=== PATIENT | female | born 1995 | race Caucasian/White ===

== ENCOUNTER 2020-06-23 10:11 | Outpatient (REF) | payer OTHER, SELFPAY ==
--- NOTE | 2020-06-23 | PFT_ITS ---
FLOWS: FEV1 of 107% of predicted at 3.63 L. FVC 109% of predicted at 4.29 L. FEV1 to FVC ratio of 0.85. No bronchodilator response. LUNG VOLUMES: Total lung capacity 98% of predicted at 5.14 L. Residual volume 90% of predicted at 1.19 L. Slow vital capacity 101% of predicted at 3.94 L. Expiratory reserve volume 115% of predicted at 1.76 L. Diffusion capacity is normal. IMPRESSION: No obstructive or restrictive ventilatory defect. No bronchodilator response. Essentially normal pulmonary function test. Duy Addison MD AP/MODL / [id number]
== END 2020-06-23 10:12 | disposition home or self-care (01) ==
LOC: HO.RESP 10:11
PROVIDERS: PCP Family Medicine; Visit Provider Family Medicine
DX: R06.02 Shortness of breath (principal)
CPT/HCPCS: 94060; 94727; 94729

== ENCOUNTER → 2020-08-18 12:47 | Outpatient (REF) | payer OTHER, SELFPAY ==
--- NOTE | 2020-08-18 13:00 | ECG_ITS ---
Hook-up date: 2020-08-18 13:03:00 Duration: 26:20:00 Test Indications: SYNCOPE AND COLLAPSE Medications: [id number] QRS complexes 1 Ventricular ectopics which represent <1 % of total QRS comp. 2 Supraventricular ectopics which represent <1 % of total QRS comp. * Paced QRS complexs which represent % of total QRS comp. VENTRICULAR ECTOPY 1 Isolated 0 Bigeminal Cycles 0 Couplets 0 Runs 0 Beats in Runs * Beats LONGEST at * BPM at :: -- * Beats FASTEST at * BPM at :: -- SUPRAVENTRICULAR ECTOPY 2 Isolated 0 Couplets 0 Runs 0 Beats in Runs * Beats LONGEST at * BPM at :: -- * Beats FASTEST at * BPM at :: -- HEART RATES 39 MIN at 04:17:39 2020-08-19 70 AVG 163 MAX at 14:57:54 2020-08-19 LONGEST RR 1.6560 secs at 02:20:25 2020-08-19 S-T LEVELS Channel 1 - 128 mm at 13:03:00 2020-08-18 - 128 mm at 13:03:00 2020-08-18 Channel 2 - 128 mm at 13:03:00 2020-08-18 - 128 mm at 13:03:00 2020-08-18 Channel 3 - 128 mm at 03:22:21 -- - 128 mm at 03:22:21 Underlying rhythm is sinus; Average rate 70/min; range 39-163/min; Sinus tachycardia is noted, but no other arrhythmias; Artifact in some strips; Symptoms in diary including chest discomfort, dizzy, sharp pain, shortness of breath, associated with sinus rhythm. Referred By: Yazmin Crowder Overread By: AVELINA DESAI
== END ==
LOC: HO.CARD 12:47
PROVIDERS: Visit Provider Family Medicine
DX: R55 Syncope and collapse (principal)
CPT/HCPCS: 93225; 93226

== ENCOUNTER 2020-10-26 12:14 | Outpatient (REF) | payer OTHER, SELFPAY | END 2020-10-26 12:15 | disposition home or self-care (01) | LOC: HO.HOSX 12:14 | PROVIDERS: Visit Provider Orthopaedic Surgery | DX: M70.61 Trochanteric bursitis, right hip (principal) | CPT/HCPCS: 20610; 99202; J1100 ==

== ENCOUNTER 2020-12-11 21:24 | Emergency (ER) | payer OTHER, SELFPAY ==
--- NOTE | 2020-12-11 | ECG_ITS ---
Test Reason : CHEST PAIN Blood Pressure : / mmHG Vent. Rate : 061 BPM Atrial Rate : 061 BPM P-R Int : 150 ms QRS Dur : 084 ms QT Int : 448 ms P-R-T Axes : 053 032 030 degrees QTc Int : 450 ms Normal sinus rhythm with sinus arrhythmia Normal ECG When compared with ECG of 25-SEP-2018 21:55, No significant change was found Referred By: Generic ED Physician Electronically Signed By:CASA MAYER
--- NOTE | ~2020-12-11 | XR_ITS ---
EXAMINATION: XR CHEST CLINICAL INFORMATION: Chest pain COMPARISON: 10/24/2019 TECHNIQUE: Frontal view of the chest was obtained. FINDINGS: The lungs are clear with no focal consolidation. No evidence of pneumothorax, pulmonary edema, or pleural effusions. The cardiomediastinal silhouette is unremarkable. No acute osseous findings. XR/XR chest 1V IMPRESSION: No acute cardiopulmonary findings.
[2020-12-11 22:10] LABS: MANUAL DIFF FLAG NO
[2020-12-11 22:15] LABS: Basophils Percent Auto 0.3 % (0-2); Eosinophils Absolute Auto 0.2 X10*3/uL (0.0-0.4); Eosinophils Percent Auto 1.6 % (0-4); Hematocrit 37.9 % (37-47); Imm Gran Abs Auto 0.02 X10*3/uL (0.00-0.03); Imm Gran Pct Auto 0.2 % (0.0-0.4); Lymphocytes Absolute Auto 2.6 X10*3/uL (1.2-4.9); Mean Corpuscular HGB Conc 34.3 g/dl (31.0-35.0); Mean Corpuscular Hemoglobin 29.4 pg (27.0-33.0); Mean Corpuscular Volume 85.7 fL (80-98); Mean Platelet Volume 12.2 fL (9.4-12.3); Monocytes Absolute Auto 0.8 X10*3/uL (0.1-1.2); Monocytes Percent Auto 8.3 % (2-11); Neutrophils Percent Auto 62.6 % (45-73); Platelet Count 337 X10*3/uL (160-400); Red Blood Count 4.42 X10*6/uL (4.20-5.50); Red Cell Distribution Width 12.7 % (11.0-16.0); White Blood Count 9.6 X10*3/uL (4.8-10.8)
[2020-12-11 22:35] LABS: COVID-19 Test Negative (Negative)
[2020-12-11 22:36] LABS: Troponin-I High Sensitivity < 3.5 ng/L (<3.5-17.0)
--- NOTE | 2020-12-11 23:08 | ED_ITS ---
HPI - Chest Pain General Chief Complaint: Chest Pain Stated Complaint: Covid+/Chest pain Time Seen by Provider: 12/11/20 22:53 Source: patient Mode of arrival: ambulatory Limitations: no limitations History of Present Illness HPI narrative: 25-year-old female came in for evaluation of chest pain. This is a 25-year-old female who was tested positive for COVID yesterday (test was done at a different facility), about 5 hours ago patient started to have left-sided chest pain that is radiating to the left side of the neck, pain lasted for about 10 minutes, patient had a phone argument with her mom before the pain started, pain lasted for about 10 minutes and spontaneously resolved, patient has no pain right now, no aggravating factor, no relieving factor, patient had history of chest pain in the past but not similar to today's chest pain. Related Data Home Medications Medication Instructions Recorded Confirmed Unobtainable 10/26/20 10/26/20 Allergies Allergy/AdvReac Type Severity Reaction Status Date / Time oak [OAK] Allergy Unknown HIVES Verified 10/26/20 14:16 poison gia extract Allergy Unknown HIVES Verified 10/26/20 14:16 [POISON GIA] wasps Allergy Mild rash Uncoded 10/26/20 14:16 SUMAC Allergy Unknown HIVES Uncoded 12/12/19 16:50 Review of Systems Review of Systems: All other systems are reviewed and are negative Constitutional: Reports as per HPI and Reports no additional constitutional com plaints Eyes: Reports as per HPI and Reports no additional eye complaints Reports system reviewed and no additional complaints, except as documented Cardiovascular: Reports as per HPI and Reports no additional cardiovascular complaints Respiratory: Reports as per HPI and Reports no additional respiratory complaints Gastrointestinal: Reports as per HPI and Reports no additional gastrointestinal complaints Genitourinary: Reports no additional female genitourinary complaints Musculoskeletal: Reports no additional musculoskeletal complaints Skin/Breast: Reports system reviewed and no additional complaints, except as docu Psychiatric: Reports no additional psychiatric complaints Endocrine: Reports no additional endocrine complaints Hematologic/Lymphatic: Reports no additional hematologic/lymphatic complaints Allergic/Immunologic: Reports no additional allergic/immunologic complaints Reports system reviewed and no additional complaints, except as documented and Reports Abnormal speech present [facility] Social History Social History Advance Directives: No Current occupational status: employed 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 Blood pressure normal. Heart rate normal. Respiration rate normal. Temperature normal. Oxygen saturation normal. Appearance: Alert. Oriented X3. No acute distress. Head: Normal external exam. Normocephalic. Atraumatic. No Haskins signs noted. No raccoon eyes noted Eyes: PERRLA. EOMI. Conjunctiva and sclera normal. Eyelids normal. ENT: TM's Normal. Pharynx normal. Uvula midline. Moist mucous membranes. No trismus noted. No drooling noted. No muffled voice noted. Neck: Normal inspection. Neck supple. FROM. No adenopathy. Thyroid Normal. No meningeal signs. No neck mass noted. CVS: Normal heart rate and rhythm. Heart sound normal. No murmurs noted. Pulses normal throughout. Respiratory: No respiratory distress. Painless inspiration. Breath sounds jose l. No wheezes/rales/rhonchi noted. Chest nontender. No accessory muscle usage noted or decreased air movement noted. Abdomen: Soft and nontender. Bowel sounds normal in all 4 quadrants. No distention noted. No organomegaly noted. No visible injury noted. Back: No CVA tenderness. Full range of motion noted. Skin: Skin warm and dry. Normal skin color. Normal skin turgor. No rashes/lesions/lacerations noted. Extremities: No lower extremity edema. Extremities exhibit normal range of motion. Extremities nontender. Neuro: Oriented X 3. Cranial nerve exam: II-XII are grossly intact No motor deficit. No sensory deficit. Reflexes normal. Course Course Course Narrative: Chest pain, patient with HEART score of 0, patient has negative high sensitive troponin, stable vital signs. Patient yesterday reportedly tested positive for COVID a different facility today patient has a negative COVID testing. Will reassure and discharge to follow-up with PCP. [facility] - Chest Pain Lab Data Attestation: I reviewed the patient's lab results. Result diagrams: 12/11/20 22:01 12/11/20 22:01 Labs: Lab Results 12/11/20 12/11/20 12/11/20 Range/Units 22:01 22:01 22:01 WBC 9.6 (4.8-10.8) X10*3/uL RBC 4.42 (4.20-5.50) X10*6/uL Hgb 13.0 (12.0-16.0) g/dl Hct 37.9 (37-47) % MCV 85.7 (80-98) fL MCH 29.4 (27.0-33.0) pg MCHC 34.3 (31.0-35.0) g/dl RDW 12.7 (11.0-16.0) % Plt Count 337 (160-400) X10*3/uL MPV 12.2 (9.4-12.3) fL Immature Gran % (Auto) 0.2 (0.0-0.4) % Neut % (Auto) 62.6 (45-73) % Lymph % (Auto) 27.0 (20-40) % Coal % (Auto) 8.3 (2-11) % Eos % (Auto) 1.6 (0-4) % Baso % (Auto) 0.3 (0-2) % Lymph # (Auto) 2.6 (1.2-4.9) X10*3/uL Coal # (Auto) 0.8 (0.1-1.2) X10*3/uL Eos # (Auto) 0.2 (0.0-0.4) X10*3/uL Baso # (Auto) 0.0 (0.0-0.2) X10*3/uL Abs Immat Gran (auto) 0.02 (0.00-0.03) X10*3/uL Absolute Neuts (auto) 6.0 (2.0-8.3) X10*3/uL Absolute Nucleated RBC 0.000 (0.0-0.012) X10*3/uL Nucleated RBC % (auto) 0.0 (0.0-0.2) /100WBC Sodium 139 (135-145) mmol/L Potassium 4.0 (3.3-5.1) mmol/L Chloride 104 (96-108) mmol/L Carbon Dioxide 26 (22-29) mmol/L Anion Gap 13 (12-20) BUN 13 (9-16) mg/dL Creatinine 0.79 (0.5-1.4) mg/dL Estim Creat Clear Calc TNP Estimated GFR > 60 Random Glucose 94 (60-115) mg/dL Calcium 9.6 (8.4-10.2) mg/dL Total Bilirubin 0.4 (0.0-1.0) mg/dL AST 37 H (5-31) U/L ALT 51 H (0-31) U/L Alkaline Phosphatase 87 (39-117) U/L Troponin I High Sens < 3.5 (<3.5-17.0) ng/L Total Protein 7.5 (6.5-8.0) g/dL Albumin 4.6 (3.5-5.0) g/dL COVID-19 (SAMANTHA) (Negative) COVID-19 Clin Com 12/11/20 Range/Units 22:06 WBC (4.8-10.8) X10*3/uL RBC (4.20-5.50) X10*6/uL Hgb (12.0-16.0) g/dl Hct (37-47) % MCV (80-98) fL MCH (27.0-33.0) pg MCHC (31.0-35.0) g/dl RDW (11.0-16.0) % Plt Count (160-400) X10*3/uL MPV (9.4-12.3) fL Immature Gran % (Auto) (0.0-0.4) % Neut % (Auto) (45-73) % Lymph % (Auto) (20-40) % Coal % (Auto) (2-11) % Eos % (Auto) (0-4) % Baso % (Auto) (0-2) % Lymph # (Auto) (1.2-4.9) X10*3/uL Coal # (Auto) (0.1-1.2) X10*3/uL Eos # (Auto) (0.0-0.4) X10*3/uL Baso # (Auto) (0.0-0.2) X10*3/uL Abs Immat Gran (auto) (0.00-0.03) X10*3/uL Absolute Neuts (auto) (2.0-8.3) X10*3/uL Absolute Nucleated RBC (0.0-0.012) X10*3/uL Nucleated RBC % (auto) (0.0-0.2) /100WBC Sodium (135-145) mmol/L Potassium (3.3-5.1) mmol/L Chloride (96-108) mmol/L Carbon Dioxide (22-29) mmol/L Anion Gap (12-20) BUN (9-16) mg/dL Creatinine (0.5-1.4) mg/dL Estim Creat Clear Calc Estimated GFR Random Glucose (60-115) mg/dL Calcium (8.4-10.2) mg/dL Total Bilirubin (0.0-1.0) mg/dL AST (5-31) U/L ALT (0-31) U/L Alkaline Phosphatase (39-117) U/L Troponin I High Sens (<3.5-17.0) ng/L Total Protein (6.5-8.0) g/dL Albumin (3.5-5.0) g/dL COVID-19 (SAMANTHA) Negative (Negative) COVID-19 Clin Com See Note Imaging Data Chest x-ray: Radiologist's impression: No acute cardiopulmonary findings. ECG Data ECG #1: Interpretation: Normal sinus rhythm with sinus arrhythmia at 62 beats per minutes, normal intervals, no ST-T changes. Discharge Plan Discharge Clinical Impression: Chest pain, Elevated liver function tests Patient Disposition: Home, Self-Care Instructions: Chest Pain (ED) Referrals: Yazmin Crowder MD [Primary Care Provider] - 2 days
[2020-12-11 23:58] LABS: Alanine Aminotransferase 51 U/L (0-31); Albumin Level 4.6 g/dL (3.5-5.0); Alkaline Phosphatase 87 U/L (39-117); Anion Gap 13 (12-20); Aspartate Amino Transferase 37 U/L (5-31); Bilirubin Total 0.4 mg/dL (0.0-1.0); Blood Urea Nitrogen 13 mg/dL (9-16); Calcium 9.6 mg/dL (8.4-10.2); Carbon Dioxide 26 mmol/L (22-29); Chloride 104 mmol/L (96-108); Estimated Glomerular Filt Rate > 60; Glucose Random 94 mg/dL (60-115); Sodium 139 mmol/L (135-145); Total Protein 7.5 g/dL (6.5-8.0)
== END 2020-12-12 00:23 | disposition home or self-care (01) ==
PROVIDERS: Emergency Provider Emergency Medicine; PCP Family Medicine
DX: U07.1 COVID-19 (principal); R07.9 Chest pain, unspecified; Z79.899 Other long term (current) drug therapy
CPT/HCPCS: 36415; 71045; 80053; 84484; 85025; 87635; 93005; 99283

== ENCOUNTER 2021-02-25 08:03 | Outpatient (REF) | payer OTHER, SELFPAY ==
--- NOTE | ~2021-02-25 | US_ITS ---
EXAMINATION: US ABDOMEN COMPLETE CLINICAL INFORMATION: Epigastric pain. Elevated LFTs. COMPARISON: None TECHNIQUE: Real-time imaging of the abdominal viscera. FINDINGS: PANCREAS: Normal. ABDOMINAL AORTA: The proximal, mid, and distal segments are normal in caliber. INFERIOR VENA CAVA: Visualized portions are normal. LIVER: Normal. The liver is normal in size. The liver contour is normal. Parenchymal echogenicity is normal. No focal hepatic lesion. There is no intrahepatic biliary duct dilatation seen. GALLBLADDER: Normal. The gallbladder is physiologically distended without evidence of stones, sludge, polyps, wall thickening or pericholecystic fluid. COMMON BILE DUCT: Normal in caliber measuring 0.4 cm in diameter. RIGHT KIDNEY: Normal. No hydronephrosis. No renal calculi or focal parenchymal lesions. The kidney measures 11.1 cm in maximum dimension. LEFT KIDNEY: Normal. No hydronephrosis. No renal calculi or focal parenchymal lesions. The kidney measures 12.3 cm in maximum dimension. SPLEEN: Normal. The spleen measures 11.4 cm in maximum dimension. FREE FLUID: None. US/US abdomen complete IMPRESSION: Unremarkable complete abdominal ultrasound.
== END 2021-02-25 08:04 | disposition home or self-care (01) ==
LOC: HO.US 08:03
PROVIDERS: Visit Provider Family Medicine
DX: R10.13 Epigastric pain (principal); R74.01 Elevation of levels of liver transaminase levels
CPT/HCPCS: 76700

== ENCOUNTER → 2021-05-06 08:04 | Outpatient (BNVA) | payer OTHER, SELFPAY | PROVIDERS: PCP Family Medicine; Referring Provider Family Medicine; Visit Provider Physician Assistant | DX: K58.9 Irritable bowel syndrome, unspecified (principal) | CPT/HCPCS: 99202 ==

== ENCOUNTER 2021-06-03 12:07 | Outpatient (REF) | payer SELFPAY ==
--- NOTE | ~2021-06-03 | XR_ITS ---
EXAMINATION: XR PELVIS CLINICAL INFORMATION: M25.559 - Pain in unspecified hip COMPARISON: Lumbar radiographs 11/04/2019. TECHNIQUE: AP view of the pelvis. FINDINGS: Bony pelvis is normal in density. There is no fracture or destructive process. No diastases SI joints or pubis. The hips are unremarkable. Soft tissue planes around the hips are symmetric. Bowel gas unremarkable. XR/XR pelvis 1-2V IMPRESSION: Normal pelvis.
== END 2021-06-03 12:08 | disposition home or self-care (01) ==
LOC: HO.HOSX 12:07
PROVIDERS: Visit Provider Orthopaedic Surgery
DX: M70.61 Trochanteric bursitis, right hip (principal)
CPT/HCPCS: 72170; 99212

== ENCOUNTER 2021-07-10 10:59 | Emergency (ER) | payer SELFPAY ==
--- NOTE | ~2021-07-10 | US_ITS ---
EXAMINATION: US PELVIS TRANSVAGINAL CLINICAL INFORMATION: Suprapubic pain. Question POC history COMPARISON: October 07, 2019 TECHNIQUE: Transcutaneous and transvaginal pelvic ultrasound. Transvaginal scanning was performed after voiding to better evaluate the endometrium and adnexa. FINDINGS: The uterus measures 6.5 x 3.3 x 4.7 cm. The uterus is anteverted. No suspicious abnormalities region of the cervix. Nabothian cysts are present. The uterine contour is smooth. The endometrium is thickened and measures 1.9 cm. No focal abnormalities within the myometrium. The right ovary measures approximately 2.3 x 2.1 x 2.1 cm. The calculated right ovarian volume is approximately 5.3 mL. There is normal ovarian blood flow without evidence of torsion. There is no evidence of polycystic ovaries. No abnormal mass appreciated. The left ovary measures 3.6 x 2.0 x 1.7 cm. The calculated left ovarian volume is approximately 6.4 mL. There is normal left adnexal blood flow without evidence of torsion. No abnormal adnexal masses seen. No evidence of polycystic ovary. No significant free pelvic fluid. US/US pelvic ovarian doppler IMPRESSION: Thickened endometrium to 1.9 cm in diameter without abnormal mass. No evidence of polycystic ovarian syndrome. No evidence of ovarian torsion.
--- NOTE | ~2021-07-10 | XR_ITS ---
EXAMINATION: XR CHEST CLINICAL INFORMATION: 26-year-old female with chest pain and shortness of breath COMPARISON: November 2020 TECHNIQUE: Frontal view of the chest was obtained. FINDINGS: No significant abnormality is noted involving the heart, lungs, mediastinum, bony thorax or soft tissues. XR/XR chest 1V IMPRESSION: Unremarkable examination, without interval change.
[2021-07-10 11:08] VITALS: BP 151/101; PULSE 90; RESP 16; TEMP 36.4; O2SAT 97; BMI 31.4
--- NOTE | 2021-07-10 11:21 | ECG_ITS ---
Test Reason : cp/sob Blood Pressure : / mmHG Vent. Rate : 073 BPM Atrial Rate : 073 BPM P-R Int : 154 ms QRS Dur : 080 ms QT Int : 410 ms P-R-T Axes : 068 027 034 degrees QTc Int : 451 ms Normal sinus rhythm with sinus arrhythmia Poor R wave progression Abnormal ECG When compared with ECG of 11-DEC-2020 21:57, No significant change was found Referred By: Sherlyn White Electronically Signed By:Julian Gannon
--- NOTE | 2021-07-10 11:41 | ED_ITS ---
HPI - General Adult General Chief complaint: General Medical Stated complaint: l upper hip pain Time Seen by Provider: 07/10/21 11:07 Source: patient Mode of arrival: ambulatory History of Present Illness HPI narrative: 26-year-old female with a past medical history of IBS, questionable PCOS, presenting to the ED complaining of bilateral suprapubic > left abdominal pain and nausea since yesterday. Also reports CP/SOB x today. 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 Also reports recently being treated for yeast infection. Denies fever, chills, cough, vomiting, diarrhea, vaginal bleeding/discharge Onset (ago): day(s) Related Data Home Medications Medication Instructions Recorded Confirmed cetirizine 10 mg tablet 10 mg PO DAILY 05/06/21 05/06/21 clonidine HCl 0.1 mg tablet 0.1 mg PO BID PRN 05/06/21 05/06/21 cortisone 50 mg/mL intramuscular mg IM 05/06/21 05/06/21 suspension Previous Rx's Medication Instructions Recorded docusate sodium 100 mg capsule 200 mg PO BEDTIME #60 cap 05/06/21 (Colace) methylcellulose (laxative) 500 mg 500 mg PO BID #60 tab 05/06/21 tablet (Citrucel) polyethylene glycol 3350 17 gram 17 g PO DAILY #30 ea 05/06/21 oral powder packet (Miralax) Allergies Allergy/AdvReac Type Severity Reaction Status Date / Time oak [OAK] Allergy Unknown HIVES Verified 05/06/21 08:12 poison gia extract Allergy Unknown HIVES Verified 05/06/21 08:12 [POISON GIA] wasps Allergy Mild rash Uncoded 05/06/21 08:12 SUMAC Allergy Unknown HIVES Uncoded 05/06/21 08:12 Review of Systems Review of Systems: Constitutional: No Fever, No Chills, No Fatigue, No Malaise ENT/Mouth: No Ear Pain, No Nasal Congestion, No sore throat, No Rhinorrhea, No Swallowing Difficulty Eyes: No Eye Pain, No Swelling, No Redness Cardiovascular: + Chest Pain, + SOB, No Dyspnea on Exertion, No Orthopnea, No Edema, No Palpitations Respiratory: No Cough, No Sputum, No Dyspnea Gastrointestinal: + Nausea, No Vomiting, No Diarrhea, No Constipation, + Abdominal pain Genitourinary: No irregular bleeding, No Dysuria, No Urinary Frequency, No Hemat uria, No Flank Pain, No Urinary Flow Changes Musculoskeletal: No joint pain, No Myalgias, No Joint Swelling Skin: No Skin Lesions, No rash Neuro: No Weakness, No Numbness, No Dizziness, No Headache Yes all other systems are reviewed and are negative [facility] Past Medical History Attestation statement: The following information was validated with the patient. 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 Physical Exam ED Vital Signs: Vital Signs - 24 hr 07/10/21 11:08 07/10/21 13:46 Temperature 97.5 F Pulse Rate 90 68 Respiratory Rate 16 16 Blood Pressure 151/101 H 136/85 Pulse Oximetry 97 98 BMI result Body Mass Index 31.4 Const General: cooperative, healthy appearing, no acute distress, well developed, alert, awake and Physically active Orientation/consciousness: patient oriented x3 Limitations: no limitations HENMT Head: Yes normal to inspection and Yes atraumatic Ears: hearing grossly normal bilaterally General nose exam: Normal external nose present Face and sinus: Yes normal facial exam Eyes General: appearance normal, both eyes and all related structures EOM: EOMs intact bilaterally Neck Neck: Yes normal visual inspection and Yes no meningeal signs Resp Effort & Inspection: normal respiratory effort and no respiratory distress Auscultation: clear to auscultation bilaterally, no crackles, no rales, no rhonchi and no wheezes Cardio Rate: regular rate Heart sounds: S1 normal heart sound present and S2 normal heart sound present GI Inspection: Yes normal to inspection Palpation (GI): Soft to palpation, Tenderness to palpation present (GI) (+ bilateral suprapubic tenderness to palpation > left) Negative for with no rebound tenderness, no guarding and not rigid General: Yes no CVA tenderness Back/Spine/Pelvis Back: no CVA tenderness Skin Rashes: no rashes Wounds: no wounds Neuro General: patient oriented x3, tone normal and no meningeal signs Gait exam (Neuro): Normal gait present Extrem General: Yes normal to inspection and Yes no pedal edema Course Course Course Narrative: -1328--labs unremarkable. COVID-19 and influenza negative US pelvic ovarian doppler IMPRESSION: Thickened endometrium to 1.9 cm in diameter without abnormal mass. No evidence of polycystic ovarian syndrome. No evidence of ovarian torsion. -1348--UA negative XR chest 1V IMPRESSION: Unremarkable examination, without interval change. > results discussed with patient including worrisome signs and symptoms and strict return precautions Medical Decision Making MDM Narrative Medical decision making narrative: 26-year-old female with a past medical history of IBS, questionable PCOS, presenting to the ED complaining of bilateral suprapubic > left abdominal pain and nausea since yesterday. Also reports CP/SOB x today. On exam hypertensive likely from anxiety, abdomen soft with mild suprapubic tenderness, no rebound or guarding, no CVA tenderness, lungs CTA. Concern for ovarian cyst vs ?torsion vs uti vs viral syndrome. Lower concern for NATA/PE or PNA Plan: EKG, labs, UA, , CXR, pelvic ultrasound Medical Records Medical records reviewed: Yes I reviewed the patient's medical records. Lab Data Lab results reviewed: Yes I reviewed the patient's lab results. Result diagrams: 07/10/21 12:08 07/10/21 12:09 Labs: Lab Results 07/10/21 07/10/21 07/10/21 Range/Units 12:08 12:08 12:08 WBC 10.3 (4.8-10.8) X10*3/uL RBC 4.64 (4.20-5.50) X10*6/uL Hgb 13.4 (12.0-16.0) g/dl Hct 40.7 (37.0-47.0) % MCV 87.7 (80.0-98.0) fL MCH 28.9 (27.0-33.0) pg MCHC 32.9 (31.0-35.0) g/dl RDW 12.9 (11.0-16.0) % Plt Count 329 (160-400) X10*3/uL MPV 12.2 (9.4-12.3) fL Immature Gran % (Auto) 0.2 (0.0-0.4) % Neut % (Auto) 70.1 (45-73) % Lymph % (Auto) 20.9 (20-40) % Sabine % (Auto) 7.2 (2-11) % Eos % (Auto) 1.2 (0-4) % Baso % (Auto) 0.4 (0-2) % Lymph # (Auto) 2.2 (1.2-4.9) X10*3/uL Sabine # (Auto) 0.7 (0.1-1.2) X10*3/uL Eos # (Auto) 0.1 (0.0-0.4) X10*3/uL Baso # (Auto) 0.0 (0.0-0.2) X10*3/uL Abs Immat Gran (auto) 0.02 (0.00-0.03) X10*3/uL Absolute Neuts (auto) 7.2 (2.0-8.3) x10*3/uL Absolute Nucleated RBC 0.000 (0.0-0.012) X10*3/uL Nucleated RBC % (auto) 0.0 (0.0-0.2) /100WBC Sodium (135-145) mmol/L Potassium (3.3-5.1) mmol/L Chloride (96-108) mmol/L Carbon Dioxide (22-29) mmol/L Anion Gap (12-20) BUN (9-16) mg/dL Creatinine (0.5-1.4) mg/dL Estim Creat Clear Calc Estimated GFR Random Glucose (60-115) mg/dL Calcium (8.4-10.2) mg/dL Magnesium (1.6-2.6) mg/dL Total Bilirubin (0.0-1.0) mg/dL Direct Bilirubin (0.0-0.5) mg/dL AST (5-31) U/L ALT (0-31) U/L Alkaline Phosphatase (39-117) U/L Troponin I High Sens (<3.5-17.0) ng/L Total Protein (6.5-8.0) g/dL Albumin (3.5-5.0) g/dL Lipase (8-78) U/L Urine Color Urine Appearance Urine pH (5.0-8.0) Ur Specific [place] (1.005-1.025) Urine Protein (NEG-TRACE) MG/DL Urine Glucose (UA) (NEG) MG/DL Urine Ketones (NEG) MG/DL Urine Blood (NEG) Urine Nitrite (NEG) Ur Leukocyte Esterase (NEG) Urine Test (NEGATIVE) COVID-19 (SAMANTHA) Negative (Negative) COVID-19 Clin Com See Note Influenza Type A (EDWIN) Negative (Negative) Influenza Type B (EDWIN) Negative (Negative) Influenza A & B Note See Note 07/10/21 07/10/21 07/10/21 Range/Units 12:09 12:09 13:22 WBC (4.8-10.8) X10*3/uL RBC (4.20-5.50) X10*6/uL Hgb (12.0-16.0) g/dl Hct (37.0-47.0) % MCV (80.0-98.0) fL MCH (27.0-33.0) pg MCHC (31.0-35.0) g/dl RDW (11.0-16.0) % Plt Count (160-400) X10*3/uL MPV (9.4-12.3) fL Immature Gran % (Auto) (0.0-0.4) % Neut % (Auto) (45-73) % Lymph % (Auto) (20-40) % Sabine % (Auto) (2-11) % Eos % (Auto) (0-4) % Baso % (Auto) (0-2) % Lymph # (Auto) (1.2-4.9) X10*3/uL Sabine # (Auto) (0.1-1.2) X10*3/uL Eos # (Auto) (0.0-0.4) X10*3/uL Baso # (Auto) (0.0-0.2) X10*3/uL Abs Immat Gran (auto) (0.00-0.03) X10*3/uL Absolute Neuts (auto) (2.0-8.3) x10*3/uL Absolute Nucleated RBC (0.0-0.012) X10*3/uL Nucleated RBC % (auto) (0.0-0.2) /100WBC Sodium 138 (135-145) mmol/L Potassium 4.0 (3.3-5.1) mmol/L Chloride 107 (96-108) mmol/L Carbon Dioxide 20 L (22-29) mmol/L Anion Gap 15 (12-20) BUN 13 (9-16) mg/dL Creatinine 0.72 (0.5-1.4) mg/dL Estim Creat Clear Calc 133.8 Estimated GFR > 60 Random Glucose 86 (60-115) mg/dL Calcium 9.8 (8.4-10.2) mg/dL Magnesium 2.4 (1.6-2.6) mg/dL Total Bilirubin 0.6 (0.0-1.0) mg/dL Direct Bilirubin 0.2 (0.0-0.5) mg/dL AST 19 D (5-31) U/L ALT 18 (0-31) U/L Alkaline Phosphatase 104 (39-117) U/L Troponin I High Sens < 3.5 (<3.5-17.0) ng/L Total Protein 7.7 (6.5-8.0) g/dL Albumin 4.6 (3.5-5.0) g/dL Lipase 7 L (8-78) U/L Urine Color YELLOW Urine Appearance HAZY Urine pH 7.0 (5.0-8.0) Ur Specific [place] 1.015 (1.005-1.025) Urine Protein NEG (NEG-TRACE) MG/DL Urine Glucose (UA) NEG (NEG) MG/DL Urine Ketones NEG (NEG) MG/DL Urine Blood NEG (NEG) Urine Nitrite NEG (NEG) Ur Leukocyte Esterase NEG (NEG) Urine Test (NEGATIVE) COVID-19 (SAMANTHA) (Negative) COVID-19 Clin Com Influenza Type A (EDWIN) (Negative) Influenza Type B (EDWIN) (Negative) Influenza A & B Note 07/10/21 Range/Units 13:22 WBC (4.8-10.8) X10*3/uL RBC (4.20-5.50) X10*6/uL Hgb (12.0-16.0) g/dl Hct (37.0-47.0) % MCV (80.0-98.0) fL MCH (27.0-33.0) pg MCHC (31.0-35.0) g/dl RDW (11.0-16.0) % Plt Count (160-400) X10*3/uL MPV (9.4-12.3) fL Immature Gran % (Auto) (0.0-0.4) % Neut % (Auto) (45-73) % Lymph % (Auto) (20-40) % Sabine % (Auto) (2-11) % Eos % (Auto) (0-4) % Baso % (Auto) (0-2) % Lymph # (Auto) (1.2-4.9) X10*3/uL Sabine # (Auto) (0.1-1.2) X10*3/uL Eos # (Auto) (0.0-0.4) X10*3/uL Baso # (Auto) (0.0-0.2) X10*3/uL Abs Immat Gran (auto) (0.00-0.03) X10*3/uL Absolute Neuts (auto) (2.0-8.3) x10*3/uL Absolute Nucleated RBC (0.0-0.012) X10*3/uL Nucleated RBC % (auto) (0.0-0.2) /100WBC Sodium (135-145) mmol/L Potassium (3.3-5.1) mmol/L Chloride (96-108) mmol/L Carbon Dioxide (22-29) mmol/L Anion Gap (12-20) BUN (9-16) mg/dL Creatinine (0.5-1.4) mg/dL Estim Creat Clear Calc Estimated GFR Random Glucose (60-115) mg/dL Calcium (8.4-10.2) mg/dL Magnesium (1.6-2.6) mg/dL Total Bilirubin (0.0-1.0) mg/dL Direct Bilirubin (0.0-0.5) mg/dL AST (5-31) U/L ALT (0-31) U/L Alkaline Phosphatase (39-117) U/L Troponin I High Sens (<3.5-17.0) ng/L Total Protein (6.5-8.0) g/dL Albumin (3.5-5.0) g/dL Lipase (8-78) U/L Urine Color Urine Appearance Urine pH (5.0-8.0) Ur Specific [place] (1.005-1.025) Urine Protein (NEG-TRACE) MG/DL Urine Glucose (UA) (NEG) MG/DL Urine Ketones (NEG) MG/DL Urine Blood (NEG) Urine Nitrite (NEG) Ur Leukocyte Esterase (NEG) Urine Test NEGATIVE (NEGATIVE) COVID-19 (SAMANTHA) (Negative) COVID-19 Clin Com Influenza Type A (EDWIN) (Negative) Influenza Type B (EDWIN) (Negative) Influenza A & B Note ECG Data Attestation: I personally reviewed and interpreted this ECG as follows: Prior ECG tracings: available for review Interpretation: EKG normal sinus rhythm with sinus arrhythmia. Rate of 74. Pr interval 158. QTC 452. No STEMI/nonischemic Discharge Plan Discharge Clinical Impression: Suprapubic pain, Chest pain Patient Disposition: Home, Self-Care Instructions: Chest Pain (DC), Abdominal Pain (ED) Additional Instructions: Your blood work was reassuring/unremarkable today in the ED. Your urine was negative You tested negative for COVID-19 and the flu Your ultrasound showed a thickened endometrium otherwise no evidence of cyst or other concerning signs. Please follow-up with your OBGYN If symptoms persist or worsen, pain becomes unbearable you constant worsening chest pain or shortness of breath please return to the ED Prescriptions: No Action clonidine HCl 0.1 mg tablet 0.1 mg PO BID PRN0RF cetirizine 10 mg tablet 10 mg PO DAILY 0RF cortisone 50 mg/mL suspension IM 0RF Citrucel 500 mg tablet 500 mg PO BID Qty: 60 5RF docusate sodium [Colace] 100 mg capsule 200 mg PO BEDTIME Qty: 60 5RF polyethylene glycol 3350 [Miralax] 17 gram powder in packet 17 g PO DAILY Qty: 30 5RF Referrals: Yazmin Crowder MD [Primary Care Provider] - 1 week Lele Ramirez MD [Physician] - 1 week
[2021-07-10 12:14] LABS: MANUAL DIFF FLAG NO
[2021-07-10 12:16] LABS: Basophils Percent Auto 0.4 % (0-2); Eosinophils Absolute Auto 0.1 X10*3/uL (0.0-0.4); Eosinophils Percent Auto 1.2 % (0-4); Hematocrit 40.7 % (37.0-47.0); Hemoglobin 13.4 g/dl (12.0-16.0); Imm Gran Abs Auto 0.02 X10*3/uL (0.00-0.03); Imm Gran Pct Auto 0.2 % (0.0-0.4); Lymphocytes Absolute Auto 2.2 X10*3/uL (1.2-4.9); Lymphocytes Percent Auto 20.9 % (20-40); Mean Corpuscular HGB Conc 32.9 g/dl (31.0-35.0); Mean Corpuscular Hemoglobin 28.9 pg (27.0-33.0); Mean Corpuscular Volume 87.7 fL (80.0-98.0); Mean Platelet Volume 12.2 fL (9.4-12.3); Monocytes Absolute Auto 0.7 X10*3/uL (0.1-1.2); Monocytes Percent Auto 7.2 % (2-11); Neutrophils Absolute Auto 7.2 x10*3/uL (2.0-8.3); Neutrophils Percent Auto 70.1 % (45-73); Platelet Count 329 X10*3/uL (160-400); Red Blood Count 4.64 X10*6/uL (4.20-5.50); Red Cell Distribution Width 12.9 % (11.0-16.0); White Blood Count 10.3 X10*3/uL (4.8-10.8)
[2021-07-10 12:33] LABS: Alanine Aminotransferase 18 U/L (0-31); Albumin Level 4.6 g/dL (3.5-5.0); Alkaline Phosphatase 104 U/L (39-117); Anion Gap 15 (12-20); Aspartate Amino Transferase 19 U/L (5-31); Bilirubin Direct 0.2 mg/dL (0.0-0.5); Bilirubin Total 0.6 mg/dL (0.0-1.0); Blood Urea Nitrogen 13 mg/dL (9-16); Calcium 9.8 mg/dL (8.4-10.2); Carbon Dioxide 20 mmol/L (22-29); Chloride 107 mmol/L (96-108); Creatinine Clr Calc Pharmacy 133.8; Estimated Glomerular Filt Rate > 60; Glucose Random 86 mg/dL (60-115); Lipase 7 U/L (8-78); Magnesium 2.4 mg/dL (1.6-2.6); Sodium 138 mmol/L (135-145); Total Protein 7.7 g/dL (6.5-8.0)
[2021-07-10 12:34] LABS: COVID-19 Test Negative (Negative); IDNOW Serial# 16C4AD1C; Influenza A Negative (Negative); Influenza B2 Negative (Negative)
[2021-07-10 12:41] LABS: Troponin-I High Sensitivity < 3.5 ng/L (<3.5-17.0)
[2021-07-10 13:31] LABS: Appearance Urine HAZY; Color Urine YELLOW; Glucose Urine UA NEG (NEG); Leukocyte Esterase Urine NEG (NEG); Nitrite Urine NEG (NEG); Specific Gravity - Urine 1.015 (1.005-1.025); Urine Blood NEG (NEG); Urine Ketones NEG (NEG); Urine Protein NEG (NEG-TRACE)
[2021-07-10 13:36] LABS: UPreg QC Valid YES; Urine Pregnancy NEGATIVE (NEGATIVE)
[2021-07-10 13:46] VITALS: BP 136/85; PULSE 68; RESP 16; O2SAT 98
== END 2021-07-10 14:20 | disposition home or self-care (01) ==
PROVIDERS: Physician Assistant; Emergency Provider Emergency Medicine; PCP Family Medicine
DX: R10.30 Lower abdominal pain, unspecified (principal); R07.9 Chest pain, unspecified; Z20.822 Contact with and (suspected) exposure to COVID-19
CPT/HCPCS: 36415; 71045; 80048; 80076; 81003; 81025; 83690; 83735; 84484; 85025; 87502; 87635; 93005; 93975; 99283; 99284

== ENCOUNTER 2021-10-08 10:58 | Emergency (ER) | payer MEDICAID, SELFPAY ==
--- NOTE | ~2021-10-08 | CT_ITS ---
EXAMINATION: CT ABDOMEN AND PELVIS WITHOUT CONTRAST CLINICAL INFORMATION: Dysuria and back pain. Question pyelonephritis. COMPARISON: None TECHNIQUE: Multidetector volumetric imaging was performed from the superior aspect of the liver through the pubic symphysis. Sagittal and coronal reformatted images were obtained on the technologist's workstation. This CT examination was performed using dose optimization techniques as appropriate, variously including the following: *Automated exposure control *Adjustment of mA and/or kV according to patient size (this includes techniques or standardized protocols for targeted exams where dose is matched to indication/reason for exam; i.e. extremities or head) *Use of iterative reconstruction technique DLP: 760 mGy-cm FINDINGS: LUNG BASES: 5 mm noncalcified subpleural left lower lobe pulmonary nodule, almost certainly benign. Lung bases otherwise clear. LIVER, GALLBLADDER, AND BILIARY TREE: The liver is normal in size, shape, and attenuation. No focal hepatic lesion or biliary ductal dilatation is present. The gallbladder is unremarkable with no evidence of radiopaque gallstones, gallbladder wall thickening, or obvious pericholecystic inflammatory changes. PANCREAS: Unremarkable. SPLEEN: Unremarkable. ADRENAL GLANDS: Unremarkable. KIDNEYS AND URETERS: The kidneys are normal in size, shape, and attenuation. No hydronephrosis, hydroureter, or calculi seen. No perinephric stranding. BLADDER: Unremarkable. GASTROINTESTINAL TRACT: No dilated bowel loops. No bowel wall thickening. Appendix is not discretely visualized. No inflammatory changes at the cecal base. No ascites or free air. ABDOMINAL WALL: No significant hernia is appreciated. LYMPH NODES: No lymphadenopathy. VASCULAR: Unremarkable. PELVIC VISCERA: Trace free pelvic fluid within the physiologic range. Gynecologic structures otherwise grossly unremarkable-limited assessment. OSSEOUS STRUCTURES: No fracture. Small 1 cm sclerotic lesion in the supra-acetabular right iliac bone with trabeculated margins compatible with a bone island. No suspicious appearing osseous lesion. CT/CT abdomen pelvis wo con IMPRESSION: 1. No radiodense urinary tract calculi. No hydronephrosis. Pyelonephritis cannot be fully excluded on the basis of a noncontrast CT scan, however, no perinephric inflammatory change/stranding is identified. 2. No acute intra-abdominal process.
[2021-10-08 12:34] VITALS: BP 138/79; PULSE 74; RESP 18; TEMP 36.7; O2SAT 100; BMI 34.1
[2021-10-08 13:25] LABS: Appearance Urine CLEAR; Color Urine YELLOW; Glucose Urine UA NEG (NEG); Leukocyte Esterase Urine NEG (NEG); Nitrite Urine NEG (NEG); Urine Blood NEG (NEG); Urine Ketones NEG (NEG); Urine Protein NEG (NEG-TRACE)
--- NOTE | 2021-10-08 13:40 | ED.FEMALEGU ---
HPI - Female Genitourinary General Chief complaint: Urogenital-Female Stated complaint: Bacteria infection Time Seen by Provider: 10/08/21 13:21 Source: patient Mode of arrival: ambulatory Limitations: no limitations History of Present Illness HPI Narrative: Patient presents emergency department for evaluation concerns for UTI. She states that 1 week ago she went to [facility], was given a prescription Bactrim and Pyridium as she was told that she had a urinary tract infection. At the time she was having difficulty urinating, pain with urination after swimming in a [place]. She states that 5 days ago she returned back to the [place] and swollen again. At this time she had not yet started the antibiotics that she was having trouble picking him up from the pharmacy due to insurance issues. Three days ago she returned back to [facility], had a repeat urinalysis obtained, has not yet received any information regarding the urine culture. She picked up the antibiotics this morning by her report, but has not yet taken them. She states that she was advised previously by [facility] to come to the emergency department if she developed nausea or back pain, this may be a sign of kidney infection. She states that since yesterday she has been experiencing bilateral lower back pain, nausea with no vomiting, denies fevers, chills, abdominal pain. She additionally is reporting white vaginal discharge, and vaginal pain. Denies concerns for sexually transmitted infections, denies possibility of . States that her last menstrual period was about 4 weeks ago. Related Data Home Medications Medication Instructions Recorded Confirmed cetirizine 10 mg tablet 10 mg PO DAILY 05/06/21 05/06/21 clonidine HCl 0.1 mg tablet 0.1 mg PO BID PRN 05/06/21 05/06/21 cortisone 50 mg/mL intramuscular mg IM 05/06/21 05/06/21 suspension Previous Rx's Medication Instructions Recorded docusate sodium 100 mg capsule 200 mg PO BEDTIME #60 caps 05/06/21 (Colace) methylcellulose (laxative) 500 mg 500 mg PO BID #60 tabs 05/06/21 tablet (Citrucel) polyethylene glycol 3350 17 gram 17 g PO DAILY #30 ea 05/06/21 oral powder packet (Miralax) fluconazole 150 mg tablet 150 mg PO Q3D 2 doses #2 tabs 10/08/21 (Diflucan) Allergies Allergy/AdvReac Type Severity Reaction Status Date / Time oak [OAK] Allergy Unknown HIVES Verified 05/06/21 08:12 poison gia extract Allergy Unknown HIVES Verified 05/06/21 08:12 [POISON GIA] wasps Allergy Mild rash Uncoded 05/06/21 08:12 SUMAC Allergy Unknown HIVES Uncoded 05/06/21 08:12 Review of Systems Review of Systems: Constitutional : No Weight loss, No Fever, No Chills ENT/Mouth :? No sore throat, No Rhinorrhea Eyes: No Swelling, No Redness Cardiovascular : No Chest Pain, No SOB, No Edema Respiratory : No Cough, No Sputum, No Wheezing Gastrointestinal : Positive Nausea, no Vomiting, no Diarrhea, melena abdominal pain, No Hematochezia, No Melena Genitourinary : Positive Dysuria, positive hesitancy, positive vaginal discharge, No Urinary Frequency, No Hematuria, No Urgency? Musculoskeletal : Positive back pain. No joint pain, No Myalgias, No Joint Swelling Skin : No Skin Lesions, No rash Neuro : No Weakness, No Numbness, No Dizziness, No Headache Psych : No Anxiety/Panic, No Depression Yes all other systems are reviewed and are negative [facility] Past Medical History Attestation statement: The following information was validated with the patient. 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 Blood pressure normal.? Heart rate normal.? Respiration rate normal. Temperature normal.? Oxygen saturation normal. Appearance: Alert.?Oriented to person, place and time. No acute distress.?Normal affect. Eyes: Pupils equal, round and reactive to light.? ENT: Pharynx normal.?? Neck: Normal inspection.? Neck supple.?? CVS: Heart sounds normal. Normal heart rate and rhythm.? Pulses normal.?? Respiratory: No respiratory distress.? Lung sounds clear to auscultation bilaterally?? Abdomen: Soft and non-tender. Normoactive bowel sounds. No pulsatile mass.? No CVA tenderness? Genitourinary:? Supervised by technology trainer YAIMA. Normal external appearance of urethra.? No lesions/lacerations or discharge or tenderness noted. No Bartholin cyst noted.? Speculum exam: normal appearance/palpation of vagina normal. Positive white vaginal discharge. No vaginal, swelling, erythema, laceratons, or active bleeding noted.?No foreign bodies noted.? No vaginal tenderness noted.? Normal appearance of cervix. Normal palpation of cervix.? Cervical os is closed.? No abnormal cervical discharge noted.? No cervical lesion/mass.?? No cervical motion tenderness noted.? Negative chandelier sign.? Normal bimanual exam. Bladder normal to palpation. Normal adnexa. Normal rectovaginal exam. Skin: Skin warm and dry.? Normal skin color.? Extremities: No lower extremity edema.? Neuro: Moves all extremities spontaneously. Sensation intact bilaterally. No motor deficits Ambulates with normal steady gait. Course Course Course Narrative: Patient is a 26-year-old female past medical history of IBS presenting for evaluation of genitourinary complaints. Urinalysis obtained from triage reveals no indication of infection at this time. Given her report of untreated urinary tract infection with associated worsening of symptoms, back pain, and nausea will obtain CBC, CMP, CT of the abdomen and pelvis to evaluate for pyelonephritis. Reevaluation(s) Reevaluation #1: CBC and BMP are unremarkable. Pelvic exam performed, presence of white discharge noted, specimen sent for GC/chlamydia, bacterial vaginosis panel. Discussed with patient plan of care for prophylactic treatment for vaginal candidiasis, advised that she would be contacted in 24-48 hours with the results of bacterial vaginosis, GC/testing results. She denied prophylactic treatment for these at this time. Encouraged to contact her original healthcare facility regarding the urine culture results. CT of the abdomen and pelvis showed no evidence of perinephric inflammation/stranding, low suspicion for pyelonephritis. Patient plans to take the previously prescribed Bactrim if she is still experiencing dysuria and urinary hesitancy. Worsening signs and symptoms to return back to emergency department for all questions were answered, she was discharged home in stable condition. Time: 16:35 MDM - Female Genitourinary Medical Records Attestation: I reviewed the patient's medical records. Lab Data Attestation: I reviewed the patient's lab results. Result diagrams: 10/08/21 14:20 10/08/21 14:20 Labs: Lab Results 10/08/21 10/08/21 10/08/21 Range/Units 13:13 13:13 14:20 WBC 9.1 (4.8-10.8) X10*3/uL RBC 4.62 (4.20-5.50) X10*6/uL Hgb 13.3 (12.0-16.0) g/dl Hct 39.6 (37.0-47.0) % MCV 85.7 (80.0-98.0) fL MCH 28.8 (27.0-33.0) pg MCHC 33.6 (31.0-35.0) g/dl RDW 12.5 (11.0-16.0) % Plt Count 306 (160-400) X10*3/uL MPV 12.6 H (9.4-12.3) fL Immature Gran % (Auto) 0.2 (0.0-0.4) % Neut % (Auto) 66.2 (45-73) % Lymph % (Auto) 22.7 (20-40) % [place] % (Auto) 7.5 (2-11) % Eos % (Auto) 3.1 (0-4) % Baso % (Auto) 0.3 (0-2) % Lymph # (Auto) 2.1 (1.2-4.9) X10*3/uL [place] # (Auto) 0.7 (0.1-1.2) X10*3/uL Eos # (Auto) 0.3 (0.0-0.4) X10*3/uL Baso # (Auto) 0.0 (0.0-0.2) X10*3/uL Abs Immat Gran (auto) 0.02 (0.00-0.03) X10*3/uL Absolute Neuts (auto) 6.0 (2.0-8.3) x10*3/uL Absolute Nucleated RBC 0.000 (0.0-0.012) X10*3/uL Nucleated RBC % (auto) 0.0 (0.0-0.2) /100WBC Sodium (135-145) mmol/L Potassium (3.3-5.1) mmol/L Chloride (96-108) mmol/L Carbon Dioxide (22-29) mmol/L Anion Gap (12-20) BUN (9-16) mg/dL Creatinine (0.5-1.4) mg/dL Estim Creat Clear Calc Estimated GFR Random Glucose (60-115) mg/dL Calcium (8.4-10.2) mg/dL Urine Color YELLOW Urine Appearance CLEAR Urine pH 6.0 (5.0-8.0) Ur Specific [place] 1.020 (1.005-1.025) Urine Protein NEG (NEG-TRACE) MG/DL Urine Glucose (UA) NEG (NEG) MG/DL Urine Ketones NEG (NEG) MG/DL Urine Blood NEG (NEG) Urine Nitrite NEG (NEG) Ur Leukocyte Esterase NEG (NEG) Urine Test NEGATIVE (NEGATIVE) 10/08/21 Range/Units 14:20 WBC (4.8-10.8) X10*3/uL RBC (4.20-5.50) X10*6/uL Hgb (12.0-16.0) g/dl Hct (37.0-47.0) % MCV (80.0-98.0) fL MCH (27.0-33.0) pg MCHC (31.0-35.0) g/dl RDW (11.0-16.0) % Plt Count (160-400) X10*3/uL MPV (9.4-12.3) fL Immature Gran % (Auto) (0.0-0.4) % Neut % (Auto) (45-73) % Lymph % (Auto) (20-40) % [place] % (Auto) (2-11) % Eos % (Auto) (0-4) % Baso % (Auto) (0-2) % Lymph # (Auto) (1.2-4.9) X10*3/uL [place] # (Auto) (0.1-1.2) X10*3/uL Eos # (Auto) (0.0-0.4) X10*3/uL Baso # (Auto) (0.0-0.2) X10*3/uL Abs Immat Gran (auto) (0.00-0.03) X10*3/uL Absolute Neuts (auto) (2.0-8.3) x10*3/uL Absolute Nucleated RBC (0.0-0.012) X10*3/uL Nucleated RBC % (auto) (0.0-0.2) /100WBC Sodium 139 (135-145) mmol/L Potassium 4.3 (3.3-5.1) mmol/L Chloride 104 (96-108) mmol/L Carbon Dioxide 27 (22-29) mmol/L Anion Gap 12 (12-20) BUN 13 (9-16) mg/dL Creatinine 0.77 (0.5-1.4) mg/dL Estim Creat Clear Calc 125.8 Estimated GFR > 60 Random Glucose 91 (60-115) mg/dL Calcium 9.1 D (8.4-10.2) mg/dL Urine Color Urine Appearance Urine pH (5.0-8.0) Ur Specific [place] (1.005-1.025) Urine Protein (NEG-TRACE) MG/DL Urine Glucose (UA) (NEG) MG/DL Urine Ketones (NEG) MG/DL Urine Blood (NEG) Urine Nitrite (NEG) Ur Leukocyte Esterase (NEG) Urine Test (NEGATIVE) Imaging Data CT scan - abdomen: Radiologist's impression: CT/CT abdomen pelvis wo con IMPRESSION: ? 1. No radiodense urinary tract calculi. No hydronephrosis. Pyelonephritis cannot be fully excluded on the basis of a noncontrast CT scan, however, no perinephric inflammatory change/stranding is identified. 2. No acute intra-abdominal process.? Discharge Plan Discharge Clinical Impression: Candidiasis of vagina Patient Disposition: Home, Self-Care Instructions: Yeast Infection (ED) Additional Instructions: Your vaginal swab results, will not result until 24-48 hours. As we discussed, we will treat at this time for a yeast infection, with Diflucan. If any of your additional tests come back positive, you will receive a phone call in regards to this. As we discussed, your urine sample did not show any evidence of an infection today a culture will be sent, you should contact your provider at [facility] regarding the urine culture results. CT scan was normal You already have a prescription for Bactrim that you have not yet started. Please feel free to return to the emergency department with any new or worsening symptoms or concerns. Prescriptions: New fluconazole [Diflucan] 150 mg tablet 150 mg PO Q3D Qty: 2 0RF No Action clonidine HCl 0.1 mg tablet 0.1 mg PO BID PRN cetirizine 10 mg tablet 10 mg PO DAILY cortisone 50 mg/mL suspension IM Citrucel 500 mg tablet 500 mg PO BID Qty: 60 5RF docusate sodium [Colace] 100 mg capsule 200 mg PO BEDTIME Qty: 60 5RF polyethylene glycol 3350 [Miralax] 17 gram powder in packet 17 g PO DAILY Qty: 30 5RF Interventions: ED Discharge Assessment Last Done: 10/08/21 16:46 Discharge Date/Time: 10/08/21 16:47
[2021-10-08 14:07] LABS: UPreg QC Valid YES; Urine Pregnancy NEGATIVE (NEGATIVE)
[2021-10-08 14:25] LABS: MANUAL DIFF FLAG NO
[2021-10-08 14:28] LABS: Basophils Percent Auto 0.3 % (0-2); Eosinophils Absolute Auto 0.3 X10*3/uL (0.0-0.4); Eosinophils Percent Auto 3.1 % (0-4); Hematocrit 39.6 % (37.0-47.0); Hemoglobin 13.3 g/dl (12.0-16.0); Imm Gran Abs Auto 0.02 X10*3/uL (0.00-0.03); Imm Gran Pct Auto 0.2 % (0.0-0.4); Lymphocytes Absolute Auto 2.1 X10*3/uL (1.2-4.9); Lymphocytes Percent Auto 22.7 % (20-40); Mean Corpuscular HGB Conc 33.6 g/dl (31.0-35.0); Mean Corpuscular Hemoglobin 28.8 pg (27.0-33.0); Mean Corpuscular Volume 85.7 fL (80.0-98.0); Mean Platelet Volume 12.6 fL (9.4-12.3); Monocytes Absolute Auto 0.7 X10*3/uL (0.1-1.2); Monocytes Percent Auto 7.5 % (2-11); Neutrophils Percent Auto 66.2 % (45-73); Platelet Count 306 X10*3/uL (160-400); Red Blood Count 4.62 X10*6/uL (4.20-5.50); Red Cell Distribution Width 12.5 % (11.0-16.0); White Blood Count 9.1 X10*3/uL (4.8-10.8)
[2021-10-08 14:40] LABS: Anion Gap 12 (12-20); Blood Urea Nitrogen 13 mg/dL (9-16); Calcium 9.1 mg/dL (8.4-10.2); Carbon Dioxide 27 mmol/L (22-29); Chloride 104 mmol/L (96-108); Creatinine Clr Calc Pharmacy 125.8; Estimated Glomerular Filt Rate > 60; Glucose Random 91 mg/dL (60-115); Potassium 4.3 mmol/L (3.3-5.1); Sodium 139 mmol/L (135-145)
[2021-10-08 15:10] VITALS: BP 123/80; PULSE 73; RESP 16; O2SAT 98
[2021-10-09 16:48] LABS: CT PCR NOT DETECTED (Not Detect.); NG PCR NOT DETECTED (Not Detect.)
== END 2021-10-08 16:47 | disposition home or self-care (01) ==
PROVIDERS: Nurse Practitioner Family; Emergency Provider Emergency Medicine; PCP Family Medicine
DX: B37.3 Candidiasis of vulva and vagina (principal); R30.0 Dysuria; M54.50 Low back pain, unspecified; R11.0 Nausea; F12.90 Cannabis use, unspecified, uncomplicated
CPT/HCPCS: 36415; 74176; 80048; 81003; 81025; 85025; 87480; 87491; 87510; 87591; 87660; 99284

== ENCOUNTER 2021-10-11 08:18 | Outpatient (REF) | payer MEDICAID, SELFPAY | END 2021-10-11 08:19 | disposition home or self-care (01) | LOC: HO.HOSX 08:18 | PROVIDERS: Visit Provider Physician Assistant | DX: Z13.89 Encounter for screening for other disorder (principal) ==

== ENCOUNTER 2021-11-03 09:24 | Outpatient (REF) | payer MEDICAID, SELFPAY ==
--- NOTE | ~2021-11-03 | MR_ITS ---
EXAMINATION: MR ABDOMEN AND PELVIS WITHOUT AND WITH CONTRAST CLINICAL INFORMATION: Mast cell activation COMPARISON: CT abdomen pelvis 10/08/2021 TECHNIQUE: PO Breeza was administered. MRI of the abdomen and pelvis before and after the IV administration of 10 mL of Gadavist was obtained using routine sequences. FINDINGS: LUNG BASES: Trace bilateral pleural effusions. KIDNEYS: Unremarkable. GALLBLADDER: Unremarkable. LIVER AND BILIARY TREE: The liver is normal in signal and morphology. No suspicious liver lesion. No intra or extrahepatic biliary duct dilatation. PANCREAS: Unremarkable SPLEEN: Unremarkable ADRENAL GLANDS: Unremarkable GASTROINTESTINAL TRACT: Stomach is well distended without wall thickening, hyperenhancement or ulceration. Large and small bowel are within unremarkable. Specifically no bowel wall thickening or hyperenhancement. No evidence of fistula or abscess. No dilation of bowel to suggest stricture. No perianal inflammatory changes appreciated within the limitations of the exam. LYMPH NODES: No lymphadenopathy. VASCULAR: Unremarkable ABDOMINAL WALL: Unremarkable. REPRODUCTIVE ORGANS: Unremarkable BLADDER: Unremarkable PELVIC FREE FLUID: No free fluid or ascites. OSSEOUS STRUCTURES: Unremarkable. MR/MR abdomen wo/w con IMPRESSION: Large and small bowel are unremarkable without findings to suggest active inflammation. Trace bilateral pleural effusions.
--- NOTE | ~2021-11-03 | MR_ITS ---
EXAMINATION: MR ABDOMEN AND PELVIS WITHOUT AND WITH CONTRAST CLINICAL INFORMATION: Mast cell activation COMPARISON: CT abdomen pelvis 10/08/2021 TECHNIQUE: PO Breeza was administered. MRI of the abdomen and pelvis before and after the IV administration of 10 mL of Gadavist was obtained using routine sequences. FINDINGS: LUNG BASES: Trace bilateral pleural effusions. KIDNEYS: Unremarkable. GALLBLADDER: Unremarkable. LIVER AND BILIARY TREE: The liver is normal in signal and morphology. No suspicious liver lesion. No intra or extrahepatic biliary duct dilatation. PANCREAS: Unremarkable SPLEEN: Unremarkable ADRENAL GLANDS: Unremarkable GASTROINTESTINAL TRACT: Stomach is well distended without wall thickening, hyperenhancement or ulceration. Large and small bowel are within unremarkable. Specifically no bowel wall thickening or hyperenhancement. No evidence of fistula or abscess. No dilation of bowel to suggest stricture. No perianal inflammatory changes appreciated within the limitations of the exam. LYMPH NODES: No lymphadenopathy. VASCULAR: Unremarkable ABDOMINAL WALL: Unremarkable. REPRODUCTIVE ORGANS: Unremarkable BLADDER: Unremarkable PELVIC FREE FLUID: No free fluid or ascites. OSSEOUS STRUCTURES: Unremarkable. MR/MR pelvis wo/w con IMPRESSION: Large and small bowel are unremarkable without findings to suggest active inflammation. Trace bilateral pleural effusions.
== END 2021-11-03 09:25 | disposition home or self-care (01) ==
LOC: HO.MRI 09:24
PROVIDERS: Visit Provider Internal Medicine Gastroenterology
DX: D89.40 Mast cell activation, unspecified (principal); K58.9 Irritable bowel syndrome, unspecified
CPT/HCPCS: 72197; 74183; A9585

== ENCOUNTER 2021-11-09 13:44 | Outpatient (REF) | payer MEDICAID, SELFPAY ==
[2021-11-09 15:56] LABS: Hematocrit 38.6 % (37.0-47.0); Hemoglobin 12.7 g/dl (12.0-16.0); Mean Corpuscular HGB Conc 32.9 g/dl (31.0-35.0); Mean Corpuscular Hemoglobin 28.7 pg (27.0-33.0); Mean Corpuscular Volume 87.1 fL (80.0-98.0); Mean Platelet Volume 13.2 fL (9.4-12.3); Platelet Count 337 X10*3/uL (160-400); Red Blood Count 4.43 X10*6/uL (4.20-5.50); Red Cell Distribution Width 13.1 % (11.0-16.0); White Blood Count 9.2 X10*3/uL (4.8-10.8)
[2021-11-09 16:34] LABS: Alanine Aminotransferase 18 U/L (0-31); Albumin Level 4.6 g/dL (3.5-5.0); Alkaline Phosphatase 106 U/L (39-117); Anion Gap 17 (12-20); Aspartate Amino Transferase 17 U/L (5-31); Bilirubin Total 0.2 mg/dL (0.0-1.0); Blood Urea Nitrogen 10 mg/dL (9-16); Calcium 9.5 mg/dL (8.4-10.2); Carbon Dioxide 26 mmol/L (22-29); Chloride 103 mmol/L (96-108); Estimated Glomerular Filt Rate > 60; Glucose Random 88 mg/dL (60-115); Potassium 4.2 mmol/L (3.3-5.1); Sodium 142 mmol/L (135-145); Total Protein 7.6 g/dL (6.5-8.0)
[2021-11-09 16:49] LABS: HCG Quantitative < 2 mIU/mL; TSH reflex Free T4 1.45 uIU/mL (0.32-4.0)
[2021-11-09 16:55] LABS: Thyroid Stimulating Hormone 1.64 uIU/mL (0.32-4.0)
[2021-11-10 04:49] LABS: HBc Num1 0.09 S/CO (0.00-0.79); Hepatitis B Core Antibody Nonreactive (Nonreactive); Hepatitis B Surface Antigen Negative (Negative); ~HepC Num1 0.06 S/CO (0.00-0.79); ~Hepatitis A Antibody IgM Nonreactive (Nonreactive); ~Hepatitis C Antibody Nonreactive (Nonreactive)
[2021-11-10 05:43] LABS: CT PCR NOT DETECTED (Not Detect.); NG PCR NOT DETECTED (Not Detect.)
[2021-11-10 06:25] LABS: HBS Num2 8.15 mIU/mL (0-7.99); HBS Num3 8.88 mIU/mL (0-7.99); ~Hepatitis B Surface Antibody GRAYZONE (Nonreactive)
[2021-11-13 16:21] LABS: Mitochondrial Antibodies NEGATIVE (NEGATIVE)
== END 2021-11-09 13:45 | disposition home or self-care (01) ==
LOC: HO.LAB 13:44
PROVIDERS: Physician Assistant; PCP Family Medicine; Visit Provider Obstetrics & Gynecology
DX: Z01.419 Encounter for gynecological examination (general) (routine) without abnormal findings (principal); N93.9 Abnormal uterine and vaginal bleeding, unspecified; R79.89 Other specified abnormal findings of blood chemistry; K58.9 Irritable bowel syndrome, unspecified; K59.09 Other constipation; R74.01 Elevation of levels of liver transaminase levels
CPT/HCPCS: 36415; 80053; 81025; 84443; 84702; 85027; 86255; 86256; 86704; 86706; 86709; 86803; 87340; 87491; 87591; 88142; 99202

== ENCOUNTER 2021-12-01 10:57 | Outpatient (RCR) | payer MEDICAID, SELFPAY ==
--- NOTE | 2021-12-03 17:57 | MHC.OT.EP ---
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 Pt may have some jt laxity contributing to her pain and could benefit with strengthening ther ex. Frequency and Duration: The patient will be seen 1x wk x 3 wks Short Term Goals: Demo indep with HEP for wrist and hand Progress from isometric to eccentric and concentric strengthening ex Demo indep with progression of HEP [facility] Goals: Same as above Treatment Plan: Therapeutic Exercise Therapeutic Activity Home Exercise Program Patient Education Electronically Signed By: Elva Neil OT CHT CLT Please Sign and return to therapist. Thank you once again for your referral.
== END 2022-01-19 09:32 | disposition home or self-care (01) ==
LOC: HO.OT 10:57
PROVIDERS: PCP Family Medicine; Visit Provider Family Medicine
DX: M25.531 Pain in right wrist (principal)
CPT/HCPCS: 97110; 97166

== ENCOUNTER 2022-02-09 10:20 | Outpatient (REF) | payer MEDICAID, SELFPAY ==
--- NOTE | ~2022-02-09 | XR_ITS ---
EXAMINATION: XR ABDOMEN KUB CLINICAL INDICATION: K59.01 - Slow transit constipation COMPARISON: MR abdomen 11/03/2021, CT abdomen 10/08/2021 TECHNIQUE: AP x2 views of the abdomen. FINDINGS: There is moderate stool in the right and left colon. There is no gaseous dilatation of bowel or abnormal collections of gas. Visualized lung bases appear clear. No visible urinary tract calculi. Bony structures are unremarkable. XR/XR KUB IMPRESSION: Unremarkable examination.
[2022-02-09 11:05] LABS: MANUAL DIFF FLAG NO
[2022-02-09 11:35] LABS: Basophils Absolute Auto 0.1 X10*3/uL (0.0-0.2); Basophils Percent Auto 0.6 % (0-2); Eosinophils Absolute Auto 0.3 X10*3/uL (0.0-0.4); Eosinophils Percent Auto 2.7 % (0-4); Hematocrit 39.9 % (37.0-47.0); Hemoglobin 13.2 g/dl (12.0-16.0); Imm Gran Abs Auto 0.03 X10*3/uL (0.00-0.03); Imm Gran Pct Auto 0.3 % (0.0-0.4); Lymphocytes Absolute Auto 2.1 X10*3/uL (1.2-4.9); Lymphocytes Percent Auto 21.2 % (20-40); Mean Corpuscular HGB Conc 33.1 g/dl (31.0-35.0); Mean Corpuscular Hemoglobin 28.8 pg (27.0-33.0); Mean Corpuscular Volume 87.1 fL (80.0-98.0); Mean Platelet Volume 12.5 fL (9.4-12.3); Monocytes Absolute Auto 0.7 X10*3/uL (0.1-1.2); Monocytes Percent Auto 6.7 % (2-11); Neutrophils Absolute Auto 6.6 x10*3/uL (2.0-8.3); Neutrophils Percent Auto 68.5 % (45-73); Platelet Count 306 X10*3/uL (160-400); Red Blood Count 4.58 X10*6/uL (4.20-5.50); Red Cell Distribution Width 12.4 % (11.0-16.0); White Blood Count 9.7 X10*3/uL (4.8-10.8)
[2022-02-09 12:19] LABS: Erythrocyte Sedimentation Rate 28 MM/HR (0-20)
[2022-02-09 12:31] LABS: Alanine Aminotransferase 17 U/L (0-31); Albumin Level 4.6 g/dL (3.5-5.0); Alkaline Phosphatase 110 U/L (39-117); Anion Gap 14 (12-20); Aspartate Amino Transferase 18 U/L (5-31); Bilirubin Total 0.6 mg/dL (0.0-1.0); Blood Urea Nitrogen 8 mg/dL (9-16); Carbon Dioxide 28 mmol/L (22-29); Chloride 103 mmol/L (96-108); Estimated Glomerular Filt Rate > 60; Ferritin 75 ng/mL (10-122); Glucose Random 79 mg/dL (60-115); HBS Num1 11.61 mIU/mL (0-7.99); HBc Num1 0.15 S/CO (0.00-0.79); Hepatitis A Antibody IgM 0.29 Index (0-0.79); Hepatitis B Core Antibody Nonreactive (Nonreactive); Hepatitis B Surface Antigen Negative (Negative); Potassium 4.5 mmol/L (3.3-5.1); Sodium 140 mmol/L (135-145); TSH reflex Free T4 0.94 uIU/mL (0.32-4.0); Total Protein 7.6 g/dL (6.5-8.0); ~HepC Num1 0.24 S/CO (0.00-0.79); ~Hepatitis A Antibody IgM Nonreactive (Nonreactive); ~Hepatitis C Antibody Nonreactive (Nonreactive)
[2022-02-09 12:52] LABS: Vitamin B12 556 pg/mL (200-900)
[2022-02-09 14:34] LABS: HBS Num2 9.17 mIU/mL (0-7.99); HBS Num3 9.79 mIU/mL (0-7.99); ~Hepatitis B Surface Antibody GRAYZONE (Nonreactive)
[2022-02-11 13:11] LABS: Transglutaminase Ab IgG <1.0 U/mL; Transglutaminase IgA <1.0 U/mL
[2022-02-11 13:32] LABS: Immunoglobulin G 1153 mg/dL (600-1640)
[2022-02-15 03:45] LABS: Angiotensin Converting Enzyme 39.3 U/L (9-67)
[2022-02-15 09:41] LABS: Vitamin A 56 mcg/dL (38-98)
[2022-02-16 06:07] LABS: Aldolase 7.4 U/L (<=8.1)
[2022-02-16 16:52] LABS: Histamine Plasma <1.5 ng/mL (< OR = 1.8)
[2022-02-18 09:47] LABS: Prostaglandin D2 Random Urine 57 ng/liter
== END 2022-02-09 10:21 | disposition home or self-care (01) ==
LOC: HO.LAB 10:20
PROVIDERS: PCP Family Medicine; Visit Provider Internal Medicine Gastroenterology
DX: K59.01 Slow transit constipation (principal); K58.1 Irritable bowel syndrome with constipation; K52.839 Microscopic colitis, unspecified; D89.40 Mast cell activation, unspecified; R19.7 Diarrhea, unspecified; K75.81 Nonalcoholic steatohepatitis (NASH); R10.33 Periumbilical pain; G89.29 Other chronic pain
CPT/HCPCS: 36415; 74018; 80053; 82085; 82164; 82607; 82728; 82746; 82784; 83088; 83520; 84150; 84443; 84590; 85025; 85652; 86364; 86704; 86706; 86709; 86803; 87340

== ENCOUNTER 2022-02-10 08:05 | Outpatient (REF) | payer MEDICAID, SELFPAY ==
[2022-02-17 15:41] LABS: Calprotectin, Fecal 55 mcg/g
== END 2022-02-10 08:06 | disposition home or self-care (01) ==
LOC: HO.LNP 08:05
PROVIDERS: Visit Provider Internal Medicine Gastroenterology
DX: K58.9 Irritable bowel syndrome, unspecified (principal); D89.40 Mast cell activation, unspecified
CPT/HCPCS: 83993

== ENCOUNTER 2022-02-14 15:27 | Outpatient (REF) | payer MEDICAID, SELFPAY ==
--- NOTE | ~2022-02-14 | XR_ITS ---
EXAMINATION: XR ABDOMEN KUB CLINICAL INDICATION: Slow transit constipation COMPARISON: Previous KUB January 2016 TECHNIQUE: AP view of the abdomen. FINDINGS: There are 11 Sitz markers seen in the rectosigmoid region. This is new from January 2022 exam. There is stool throughout the colon. There are no dilated loops of bowel to suggest obstruction. There is no evidence of air. No calcifications. Normal bony structures. XR/XR KUB IMPRESSION: 11 Sitz markers projecting over the rectosigmoid region.
--- NOTE | ~2022-02-14 | XR_ITS ---
EXAMINATION: XR ANKLE, RIGHT CLINICAL INFORMATION: Pain COMPARISON: None TECHNIQUE: AP, lateral, and mortise views of the right ankle. FINDINGS: Bone alignment is normal. No fracture or dislocation. Normal ankle mortise. Spur at the Achilles tendon insertion to the calcaneus. Soft tissues are otherwise normal. XR/XR ankle RT min 3V IMPRESSION: Calcaneal spur otherwise unremarkable exam
== END 2022-02-14 15:28 | disposition home or self-care (01) ==
LOC: HO.XRAY 15:27
PROVIDERS: PCP Family Medicine; Visit Provider Internal Medicine Gastroenterology
DX: D89.40 Mast cell activation, unspecified (principal); K58.9 Irritable bowel syndrome, unspecified; M25.571 Pain in right ankle and joints of right foot
CPT/HCPCS: 73610; 74018

== ENCOUNTER 2022-02-21 16:00 | Outpatient (RCR) | payer MEDICAID, SELFPAY | END 2022-03-25 14:28 | disposition home or self-care (01) | LOC: HO.PT 16:00 | PROVIDERS: PCP Family Medicine; Visit Provider Family Medicine | DX: M25.531 Pain in right wrist (principal) | CPT/HCPCS: 97110; 97112; 97116; 97162; 97530 ==

== ENCOUNTER 2022-02-25 10:49 | Outpatient (REF) | payer MEDICAID, SELFPAY ==
[2022-03-08 10:13] LABS: Creatinine 24Hr Urine 1593 mg/24 h (603 - 1783); N-Methylhistamine, 24Hr Urine 142 mcg/g Cr (30-200); Total Volume 1225 mL
== END 2022-02-25 10:50 | disposition home or self-care (01) ==
LOC: HO.LNP 10:49
PROVIDERS: Visit Provider Internal Medicine Gastroenterology
DX: D89.40 Mast cell activation, unspecified (principal); K58.9 Irritable bowel syndrome, unspecified
CPT/HCPCS: 81050; 82542

== ENCOUNTER 2022-05-04 11:28 | Day surgery (SDC) | payer MEDICAID, SELFPAY ==
--- NOTE | 2022-03-08 10:22 | P.CONAN_ITS ---
HPI - Anesthesia Eval Consult details Narrative: 27yo F for Upper Endoscopy and Colonoscopy PMF Active Problems Active Problems: All Active Problems (Updated 03/03/22 @ 12:06 by Ana Nava RN) Greater trochanteric bursitis of right hip (Acute) Mast cell activation (Acute) Constipation by delayed colonic transit (Acute) Abnormal uterine bleeding (AUB) (Acute) IBS (irritable bowel syndrome) (Acute) Past Medical History Medical History (Updated 03/03/22 @ 12:06 by Ana Nava RN) Anxiety and depression Aspergers' syndrome IBS (irritable bowel syndrome) Migraines PTSD (post-traumatic stress disorder) Family History Family History Maternal Grandfather Diabetes Family/Other Crohn disease Sister IBS (irritable bowel syndrome) Surgical History Surgical History Hx of wisdom tooth extraction Social History Social History [facility] Other[facility] Alcohol intake: current Patient Tobacco Use Status: Never used Tobacco Substance Use Type: Marijuana Current occupational status: employed 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 Meds Allergies Allergy/AdvReac Type Severity Reaction Status Date / Time poison gia extract Allergy Unknown HIVES Verified 03/03/22 11:39 [POISON GIA] poison oak Allergy Mild rash Uncoded 03/03/22 11:39 wasps Allergy Mild rash Uncoded 03/03/22 11:39 SUMAC Allergy Unknown HIVES Uncoded 03/03/22 11:39 Home Medications Medication Instructions Recorded Confirmed Last Taken Type buspirone 5 mg tablet 1 tab PO TID PRN as directed 03/03/22 03/03/22 Unknown History fluticasone propionate 50 1 spray intranasal DAILY 03/03/22 03/03/22 Unknown History mcg/actuation nasal spray,suspension loratadine 10 mg tablet 1 tab PO DAILY 03/03/22 03/03/22 Unknown History omeprazole 20 mg capsule,delayed 20 mg PO DAILY 03/03/22 03/03/22 Unknown History release Exam Exam Date and Time: March 08, 2022 1022 Pertinent Lab Results Pertinent Lab Results: Laboratory Tests 02/09/22 02/09/22 11:03 11:03 WBC 9.7 Hgb 13.2 Hct 39.9 Plt Count 306 Sodium 140 Potassium 4.5 Chloride 103 Carbon Dioxide 28 BUN 8 L Creatinine 0.69 Assessment and Plan Assessment Anesthesia Assessment: Chart Reviewed
[2022-05-04 06:51] VITALS: BMI 34.9
--- NOTE | 2022-05-04 11:20 | HO.ANESPROP2 ---
Documented by User: Lilly Millan MD 05/04/22 12:43 [facility] Past Medical History Medical History Anxiety and depression Aspergers' syndrome IBS (irritable bowel syndrome) Migraines PTSD (post-traumatic stress disorder) Patient : Yes Family History Family History Maternal Grandfather Diabetes Family/Other Crohn disease Sister IBS (irritable bowel syndrome) Surgical History Surgical History Hx of wisdom tooth extraction History of Problems with Anesthesia: No Social History Social History Household Members Other:: lives with Fiance Alcohol intake: current Alcohol intake frequency: does not drink Patient Tobacco Use Status: Never used Tobacco Substance Use Type: Marijuana Are you DNR?: No Advance Directives: No Advance Directives Information Provided: Yes Patient : Yes FDLMP: 3 weeks ago Current occupational status: employed 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 Allergies Allergy/AdvReac Type Severity Reaction Status Date / Time bee pollen [bee stings] Allergy Mild Rash Verified 04/28/22 13:46 poison td extract Allergy Mild HIVES Verified 04/28/22 13:47 [POISON TD] poison oak extract Allergy Mild Rash Verified 04/28/22 13:46 poison sumac extract Allergy Mild Hives Verified 04/28/22 13:46 Home Medications Medication Instructions Recorded Confirmed Last Taken Type buspirone 5 mg tablet 1 tab PO TID PRN as directed 03/03/22 03/03/22 05/02/22 History fluoxetine 10 mg capsule (Prozac) 1 cap PO QAM 05/04/22 05/04/22 05/04/22 History Exam Airway Mallampati Class: II TM Dist: >3cm Neck ROM: Full Loose/Missing/Broken Teeth: No Heart: RRR Lungs: CTA Assessment and Plan Assessment Anesthesia Assessment: Anesthesia Plan Discussed and Chart Reviewed Final Anesthetic Review History of Problems with Anesthesia: No NPO: Yes ASA Class: II Final Preanesthetic Review: Meds/Allgs Chart Reviewed, Consent Obtained/Reviewed and Anes Risks/Benef Reviewed Patient Risk: Low Procedure Risk: Intermediate Anesthetic Plan Anesthetic Plan: MAC: Disposition: Standard PACU Documented by User: Shayy Patel MD PMF Active Problems Active Problems: All Active Problems (Updated 03/03/22 @ 12:06 by Ana Nava RN) Greater trochanteric bursitis of right hip (Acute) Mast cell activation (Acute) Constipation by delayed colonic transit (Acute) Abnormal uterine bleeding (AUB) (Acute) IBS (irritable bowel syndrome) (Acute) Past Medical History Medical History Anxiety and depression Aspergers' syndrome IBS (irritable bowel syndrome) Migraines PTSD (post-traumatic stress disorder) Family History Family History Maternal Grandfather Diabetes Family/Other Crohn disease Sister IBS (irritable bowel syndrome) Surgical History Surgical History Hx of wisdom tooth extraction Social History Social History Household Members Other:: lives with Fiance Alcohol intake: current Alcohol intake frequency: does not drink Patient Tobacco Use Status: Never used Tobacco Substance Use Type: Marijuana Are you DNR?: No Advance Directives: No Advance Directives Information Provided: Yes Patient : Yes FDLMP: 3 weeks ago Current occupational status: employed 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 Allergies Allergy/AdvReac Type Severity Reaction Status Date / Time bee pollen [bee stings] Allergy Mild Rash Verified 04/28/22 13:46 poison td extract Allergy Mild HIVES Verified 04/28/22 13:47 [POISON TD] poison oak extract Allergy Mild Rash Verified 04/28/22 13:46 poison sumac extract Allergy Mild Hives Verified 04/28/22 13:46 Active Medications: Current Medications Lactated Ringer's (Lr) 1,000 mls @ 50 mls/hr IVCONT .Q20H [facility] Lactated Ringer's (Lr) 1,000 mls @ 50 mls/hr IVCONT .Q20H [facility] Home Medications Medication Instructions Recorded Confirmed Last Taken Type buspirone 5 mg tablet 1 tab PO TID PRN as directed 03/03/22 03/03/22 05/02/22 History fluoxetine 10 mg capsule (Prozac) 1 cap PO QAM 05/04/22 05/04/22 05/04/22 History Exam Exam Date and Time: May 04, 2022 1120 Height,Weight and Vital Signs: Height 5 ft 5 in Weight 95.254 kg
[2022-05-04 11:34] VITALS: BP 134/82; PULSE 80; RESP 20; TEMP 36.6; O2SAT 98
[2022-05-04] MEDS: Lactated Ringers 1,000 ML 50 ML IVCONT (11:57)
[2022-05-04 11:58] LABS: UPreg QC Valid YES; Urine Pregnancy NEGATIVE (NEGATIVE)
--- NOTE | 2022-05-04 12:38 | MHC.SHP ---
Pre-Procedural Eval Section A Date of Service: 05/04/22 Section B Chief Complaint: Disorder involving the immune mechanism,IBS Relevant Family History (Specify if Yes): No Relevant Social History: None Present Medications: see Short Stay Collaborative assessment Medical History: Significant History (IBS (irritable bowel syndrome)) History of Previous Operations: Relevant previous surgery/procedure and date(s) (wisdom teeth) Allergies: Allergies Allergy/AdvReac Type Severity Reaction Status Date / Time bee pollen [bee stings] Allergy Mild Rash Verified 04/28/22 13:46 poison gia extract Allergy Mild HIVES Verified 04/28/22 13:47 [POISON GIA] poison oak extract Allergy Mild Rash Verified 04/28/22 13:46 poison sumac extract Allergy Mild Hives Verified 04/28/22 13:46 Review of Systems Sugical H&P ROS: Negative: Constitution, Cardiovascular, Respiratory, Neurological, Psychiatric, Hem-Onc, Allergic/Immunologic, Gastrointestinal, Genitourinary, Musculoskeletal, Integumentary, Endocrine and Eyes/Ears/Nose/Throat Exam Surgical H&P Exam: Normal: HEENT, Normal: Heart, Normal: Lungs, Normal: Extremities, Normal: Abdomen, Normal: Skin and Normal: Neurological Plan Diagnosis/Plan: Unchanged I have reviewed the history and physical and performed a pertinent physical examination on my patient. No changes have occurred unless specified. Time Spent With Patient Time: Total time managing care of this patient today ____ minutes.
--- NOTE | 2022-05-04 12:39 | P.OP_ITS ---
Operative Note Operative Note Date of Service: 05/04/22 Narrative: Operative Information Procedure Description: EGD, Colonoscopy Indication: altered bowel habits Anesthesia: MAC FLEXIBLE TRANSORAL UPPER GASTROINTESTINAL ENDOSCOPY AND COLONOSCOPY PROCEDURE NOTE UPPER ENDOSCOPY Consent: Indications for the procedure and potential complications of bleeding, perforation, reaction to medications and missed diagnosis were discussed with the patient and informed consent was obtained. Instrument: Olympus GIF H 190 J mid size upper endoscope Monitoring: Vital signs and clinical assessment, continuous EKG monitoring, Pulse oximetry, Carbon Dioxide monitoring and blood pressure monitoring were done throughout the procedure. Procedure: The patient was placed in the left lateral decubitis position and pre-procedure medications were administered and a bite block was placed. The endoscope was inserted into the mouth and advanced under direct vision to the third part of duodenum. A careful inspection was made as the upper endoscope was withdrawn including a retroflexed examination of the proximal stomach; Findings and interventions are described below. Findings: Larynx:normal Esophagus: GE junction at 35 cm, diaphragm hiatus at 37 cm, consistent with 2 cm sliding hiatal hernia, LA grade erosive esophagitis noted with schatzki ring, bx taken from GEJ, distal and proximal esophagus, the LES was v lax Stomach: Normal mucosa. Biopsies were obtained. Grade 2 flap valve on retroflexed examination of the cardia. Duodenum: Normal bulb and descending duodenum, bx taken Intervention: Biopsies as noted above COLONOSCOPY Instrument: Olympus variable stiffness pediatric scope 190L Colonoscopy Monitoring: Vital signs and clinical assessment, continuous EKG monitoring, Pulse oximetry, Carbon Dioxide monitoring and blood pressure monitoring were done throughout the procedure. Colon withdrawal time was 8 minutes. Procedure: The patient was placed in the left lateral decubitis position and pre-procedure medications were administered. After a digital rectal examination of the ano-rectum, the video colonoscope was inserted into the rectum and advanced through the colon to the cecum/TI. The colonoscope was slowly withdrawn in a retrograde panoramic fashion and the colon mucosa was carefully examined including a retroflexed view of the rectum. Findings and interventions are described below. Procedure Difficulty: easy Findings: Terminal Ileum-normal, bx taken random colon bx taken Cecum:normal Ascending Colon: normal Transverse Colon -normal Descending Colon:normal Sigmoid Colon: normal Rectum: Retroflexion with small internal hemorrhoids, grade I Anorectum - normal Colon preparation: [place] Bowel Preparation Scale Right colon; 2 Transverse colon: 3 Left colon; 3 (0 = Unprepared colon segment with mucosa not seen due to solid stool that cannot be cleared. 1 = Portion of mucosa of the colon segment seen, but other areas of the colon se gment not well seen due to staining, residual stool and/or opaque liquid. 2 = Minor amount of residual staining, small fragments of stool and/or opaque liquid, but mucosa of colon segment seen well. 3 = Entire mucosa of colon segment seen well with no residual staining, small fragments of stool or opaque liquid) Impression and Post Procedure Diagnosis: Endoscopy Findings: hiatal hernia erosive esophagitis incompetent LES Colonoscopy Findings: internal hemorrhoids Plan: Await Pathology results Repeat Colonoscopy aged 45 or earlier if clinically indicated High fiber diet leaflet avoid straining at stool, epsom salts and sitz bath, anusol supps or cream trial of PPI if patient agrees, reflux precautions Above findings were reviewed with the patient and relevant handouts were provided if indicated.
[2022-05-04 13:40] VITALS: BP 117/70; PULSE 86; RESP 16; TEMP 37.1; O2SAT 99
[2022-05-04 13:55] VITALS: BP 117/81; PULSE 73; RESP 16; TEMP 36.3; O2SAT 99
== END 2022-05-04 15:07 | disposition home or self-care (01) ==
PROVIDERS: Anesthesiology; PCP Family Medicine; Visit Provider Internal Medicine Gastroenterology
PROC: (CPT 45380; principal; 2022-05-04 12:40)
DX: K59.01 Slow transit constipation (principal); D89.40 Mast cell activation, unspecified; K58.9 Irritable bowel syndrome, unspecified; K64.0 First degree hemorrhoids; K22.4 Dyskinesia of esophagus; K22.2 Esophageal obstruction; K20.80 Other esophagitis without bleeding; K44.9 Diaphragmatic hernia without obstruction or gangrene; F84.5 Asperger's syndrome; F41.8 Other specified anxiety disorders; F43.10 Post-traumatic stress disorder, unspecified; Z79.899 Other long term (current) drug therapy
CPT/HCPCS: 45380; 43239; 81025; 88305; 88313; 88341; 88342; J2250

== ENCOUNTER → 2022-07-13 08:10 | Outpatient (BNVA) | payer MEDICAID, SELFPAY | PROVIDERS: PCP Family Medicine; Visit Provider Internal Medicine Rheumatology | DX: R76.8 Other specified abnormal immunological findings in serum (principal); M79.7 Fibromyalgia | CPT/HCPCS: 99212 ==

== ENCOUNTER 2022-10-11 13:00 | Outpatient (RCR) | payer MEDICAID, SELFPAY | END 2022-11-22 10:23 | disposition home or self-care (01) | LOC: HO.OT 13:00 | PROVIDERS: PCP Family Medicine; Visit Provider Family Medicine | DX: M25.532 Pain in left wrist (principal) | CPT/HCPCS: 97035; 97110; 97140; 97165 ==

== ENCOUNTER 2023-05-28 04:25 | Emergency (ER) | payer OTHER, SELFPAY ==
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
[2023-05-28 04:34] VITALS: BP 130/114; PULSE 98; RESP 18; TEMP 36.9; O2SAT 96; BMI 36.6
[2023-05-28 04:39] VITALS: BP 152/97; PULSE 99; RESP 14; TEMP 36.9; O2SAT 96
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
[2023-05-28] MEDS: Amoxicillin/Potassium Clav 875 MG TABLET PO (06:02)
[2023-05-28 06:18] VITALS: BP 117/73; PULSE 74; RESP 14; TEMP 36.9; O2SAT 98
== END 2023-05-28 06:20 | disposition home or self-care (01) ==
PROVIDERS: Emergency Provider Internal Medicine; PCP Family Medicine
DX: S50.872A Other superficial bite of left forearm, initial encounter (principal); S19.9XXA Unspecified injury of neck, initial encounter; M54.2 Cervicalgia; Y04.1XXA Assault by human bite, initial encounter; Y93.9 Activity, unspecified; Y92.9 Unspecified place or not applicable; Y99.8 Other external cause status; Y04.2XXA Assault by strike against or bumped into by another person, initial encounter
CPT/HCPCS: 70360; 99283; 99284

== ENCOUNTER 2023-09-17 16:28 | Emergency (ER) | payer OTHER, SELFPAY ==
[2023-09-17 16:47] VITALS: BP 139/96; PULSE 99; RESP 18; TEMP 37.1; O2SAT 99; BMI 37.4
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
[2023-09-17 17:07] VITALS: BP 139/96; PULSE 99; RESP 18; TEMP 37.1; O2SAT 99
--- OUTSIDE RECORDS SUMMARY | 2023-09-21 07:14 | XMS_ITS | Continuity of Care Document ---
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 Name Role Phone Nano Read Primary Care Physician Encounter [facility] Date(s): 02/27/21 - 02/27/[address] [address]- Discharge Disposition: A-D/C Home Attending Physician: Enrique Nixon MD Admitting Physician: Enrique Nixon MD Referring Physician: Not on Staff, Referring MD Allergies, Adverse Reactions, Alerts No Known Medication Allergies Medications naproxen 500 mg oral tablet 1 tablet = 500 mg, By Mouth, 2 times a day, PRN Headache, with food, no more than 2 times weekly, #60 tablet, 2 Refills, Maintenance, 07/09/14 12:54:37, 1 tablet By Mouth 2 times a day,PRN:Headache,Instr:with food, no more than 2 times weekly Start Date: 07/09/14 Status: Ordered Vital Signs Most recent to oldest [Reference Range]: 1 Height 165 cm (02/27/21 1:43 PM) Weight 86.5 kg (02/27/21 1:43 PM) Oxygen Saturation [94-100 %] 98 % (02/27/21 1:43 PM) Pulse Rate [55-90 bpm] 77 bpm (02/27/21 1:43 PM) Blood Pressure [90-138/55-84 mm Hg] 124/ 76mm Hg (02/27/21 1:43 PM) Respiratory Rate [16-30 br/min] 16 br/mi n (02/27/21 1:43 PM) Temperature [96.8-100.4 DegF] 98.0 DegF (02/27/21 1:43 PM) Mode of Delivery (Oxygen) Room air (02/27/21 1:43 PM) Temperature Route Oral (02/27/21 1:43 PM) Dry Weight 86.5 kg (02/27/21 1:43 PM) Weight Obtained Via Standing scale (02/27/21 1:43 PM) Dry Weight Obtained Via Standing scale (02/27/21 1:43 PM) Social History Social History Type Response Smoking Status Never smoker entered on: 08/07/14 Sex
== END 2023-09-17 17:08 | disposition home or self-care (01) ==
PROVIDERS: Emergency Provider Internal Medicine; PCP Family Medicine
DX: S51.851A Open bite of right forearm, initial encounter (principal); W50.3XXA Accidental bite by another person, initial encounter; Y93.89 Activity, other specified; Y92.199 Unspecified place in other specified residential institution as the place of occurrence of the external cause; Y99.9 Unspecified external cause status; Z62.833 Group home staff-child conflict
CPT/HCPCS: 99282; 99283

== ENCOUNTER 2023-10-30 16:02 | Outpatient (REF) | payer SELFPAY ==
[2023-10-30 18:40] LABS: CT PCR NOT DETECTED (Not Detect.); NG PCR NOT DETECTED (Not Detect.)
== END 2023-10-30 16:03 | disposition home or self-care (01) ==
LOC: HO.HHCLNP 16:02
PROVIDERS: Visit Provider Family Medicine
DX: R30.0 Dysuria (principal); Z20.2 Contact with and (suspected) exposure to infections with a predominantly sexual mode of transmission
CPT/HCPCS: 87086; 87088; 87186; 87491; 87591

== ENCOUNTER 2023-11-10 10:03 | Outpatient (REF) | payer SELFPAY ==
[2023-11-10 11:31] LABS: Estimated Average Glucose 97 mg/dL
[2023-11-10 14:14] LABS: Alanine Aminotransferase 23 U/L (0-31); Albumin Level 4.4 g/dL (3.5-5.0); Alkaline Phosphatase 112 U/L (39-117); Anion Gap 15 (12-20); Aspartate Amino Transferase 22 U/L (5-31); Bilirubin Total 0.4 mg/dL (0.0-1.0); Blood Urea Nitrogen 12 mg/dL (9-16); Calcium 10.1 mg/dL (8.4-10.2); Carbon Dioxide 21 mmol/L (22-29); Chloride 106 mmol/L (96-108); Cholesterol 185 mg/dL (<200); Estimated Glomerular Filt Rate > 60; Glucose Random 85 mg/dL (60-115); HDL Cholesterol 49 mg/dL (>40); LDL Cholesterol Calculated 114 mg/dL (<100); Potassium 4.2 mmol/L (3.3-5.1); Sodium 138 mmol/L (135-145); TSH reflex Free T4 0.07 uIU/mL (0.32-4.0); Triglycerides 111 mg/dL (<150)
[2023-11-10 15:30] LABS: Reflex LDLD? No
[2023-11-10 16:09] LABS: Free T4 (Free Thyroxine) 0.88 ng/dL (0.71-1.85)
[2023-11-11 04:11] LABS: Syphilis Screen Nonreactive (Nonreactive)
[2023-11-11 04:20] LABS: HBS Num1 15.41 mIU/mL (0-7.99); HBc Num1 0.19 S/CO (0.00-0.79); HBsAGNum1 0.41 S/CO (0.00-0.99); HIV AB/AG Nonreactive (Nonreactive); HIV Num 1 0.05 S/CO (0.00-0.99); Hepatitis B Core Antibody Nonreactive (Nonreactive); Hepatitis B Surface Antigen Negative (Negative); ~HepC Num1 0.22 S/CO (0.00-0.79); ~Hepatitis B Surface Antibody REACTIVE (Nonreactive); ~Hepatitis C Antibody Nonreactive (Nonreactive)
[2023-11-11 04:28] LABS: Hepatitis A Antibody IgG REACTIVE (Nonreactive); ~Hepatitis A Antibody IgG 8.84 S/CO (0.00-0.99)
== END 2023-11-10 10:04 | disposition home or self-care (01) ==
LOC: HO.HHCL 10:03
PROVIDERS: Visit Provider Family Medicine
DX: R63.5 Abnormal weight gain (principal); Z11.3 Encounter for screening for infections with a predominantly sexual mode of transmission; R03.0 Elevated blood-pressure reading, without diagnosis of hypertension; Z01.84 Encounter for antibody response examination; Z13.1 Encounter for screening for diabetes mellitus
CPT/HCPCS: 36415; 80053; 80061; 83036; 84439; 84443; 86704; 86706; 86708; 86780; 86803; 87340; 87389

== ENCOUNTER 2023-11-13 15:16 | Outpatient (REF) | payer SELFPAY ==
[2023-11-13 16:36] LABS: Free T4 (Free Thyroxine) 0.75 ng/dL (0.71-1.85); Thyroid Stimulating Hormone 1.53 uIU/mL (0.32-4.0)
== END 2023-11-13 15:17 | disposition home or self-care (01) ==
LOC: HO.HHCL 15:16
PROVIDERS: Visit Provider Family Medicine
DX: R79.89 Other specified abnormal findings of blood chemistry (principal)
CPT/HCPCS: 36415; 84439; 84443

== ENCOUNTER 2024-01-23 16:28 | Outpatient (REF) | payer SELFPAY ==
[2024-01-24 13:28] LABS: Bacterial Vaginosis PCR NEGATIVE (Negative); Candida Group PCR NOT DETECTED (Not Detect); Candida glab krusei PCR NOT DETECTED (Not Detect); Trichomonas vaginalis PCR NOT DETECTED (Not Detect)
== END 2024-01-23 16:29 | disposition home or self-care (01) ==
LOC: HO.LNP 16:28
PROVIDERS: Visit Provider Family Medicine
DX: R82.90 Unspecified abnormal findings in urine (principal); N89.8 Other specified noninflammatory disorders of vagina
CPT/HCPCS: 0352U; 87086; 87088; 87186

== ENCOUNTER 2024-04-30 03:49 | Emergency (ER) | payer MEDICAID, SELFPAY ==
--- NOTE | ~2024-04-30 | XR_ITS ---
CLINICAL HISTORY: injury 4 view right wrist Comparison: None Findings: No fractures or dislocations. Soft tissue structures appear intact. IMPRESSION: 1. No acute osseous abnormality is identified. This document has been electronically signed by: Ashleigh Rawls on 04/30/2024 05:00:35
[2024-04-30 03:53] VITALS: BP 112/70; PULSE 68; RESP 20; TEMP 36.8; O2SAT 98; BMI 37.1
--- OUTSIDE RECORDS SUMMARY | 2024-04-30 06:25 | XMS_ITS | Encounter Summary ---
Author Organization [employer] Address [address] [place] [address] Care Team Providers Care Production Department Supervisor Name Role Phone Yazmin Crowder MD Primary Care Provider [phone] Encounter Details Date Type Department Care Team (Latest Contact Info) Description 04/18/2024 Travel Social History Tobacco Use Types Packs/Day Years Used Date Smoking Tobacco: Never Passive Smoke Exposure: Never Smokeless Tobacco: Never Depression Answer Date Recorded Patient Health Questionnaire-9 Score 4 01/23/2024 Patient Health Questionnaire-9 Score 4 01/23/2024 Last PHQ-9: Questionnaire Data Not on file 1 Housing Stability Answer Date Recorded What is your housing situation today? I have jessie wilson 01/23/[address] you li ve. Do you have problems with any of the following? Pests such as bugs, ants, or mice;Water leaks 01/23/2024 Food Insecurity Answer Date Recorded Within the past 12 months, y ou worried that your food would run out before you got money to buy more: Often true 2023 Within the past 12 months,th e food you bought just didn't last and you didn't have enough money to get more: Sometimes True 01/23/2024 Transportation Answer Date Recorded In the past 12 months, has l ack of transportation kept you from medical appts, meetings, work or from getting things needed for daily living? No 10/30/2023 Utilities Answer Date Recorded In the past 12 months, has t he electric, gas, oil or water company threatened to shut off services in your home? No 10/30/2023 Depression Answer Date Recorded Patient Health Questionnaire-2 Score 0 01/23/2024 Internet Access Answer Date Recorded Internet Access Q1 Yes 11/27/2023 Internet Access Q2 Not on file 11/27/2023 Comments Unknown Sex and Gender Information Value Date Recorded Sex Assigned at Female 01/24/2022 10:36 AM EDT Legal Sex Female 10:36 AM EDT Gender Identity Female 01/24/2022 10:36 AM EDT Sexual Orientation Don't know 01/24/2022 10 :36 AM EDT documented as of this encounter Plan of Treatment Upcoming Encounters Date Type Department Care Team (Late st Contact Info) Description 05/24/2024 11:30 AM EST Clinical [address] [facility] [address] [place] [address] documented as of this encounter Visit Diagnoses Not on filedocumented in this encounter Additional Health Concerns Assessment Noted Time PHQ-9 Depression Total Score: 4 01/23/20 24 4:29 PM EDT documented as of this encounter Care Teams Production Department Supervisor Relationship Specialty Start Date End Date Yazmin Crowder MD [address] [place] [address] PCP - General Family Medicine 03/06/20 documented as of this encounter
--- OUTSIDE RECORDS SUMMARY | 2024-04-30 06:25 | XMS_ITS | Encounter Summary ---
Author Organization [employer] Address [address] [place] [address] [address] [place] [address] Care Team Providers Care Biscuit Packer Name Role Phone Yazmin Crowder MD Primary Care Provider [phone] Reason for Visit * Reason Onset Date Comments Medication Question 01/31/2024 Encounter Details Date Type Department Care Team ([facility] st Contact Info) Description 01/31/2024 Telephone [facility] [address] [place], [place] [id number] Yazmin Crowder MD [address] [place], [place] [phone] Medication Question Social History Tobacco Use Types Packs/Day Years [...] AM EDT documented as of this encounter Miscellaneous Notes * Telephone Encounter - Yazmin Crowder MD - 01/31/2024 4:14 PM EST Amlodipine 2.5 mg daily sent * Telephone Encounter - Joann Salomon - 01/31/2024 1:52 PM EST Tc from pt requesting status on alternative script for cloNIDine (Catapres) 0.1 MG tablet , states discussed with provider during last appt. Please contact at documented in this encounter Plan of Treatment Upcoming Encounters Date Type Department Care Team (Late st Contact Info) Description 05/24/2024 11:30 AM EST Clinical Support [facility] [address] [place] [address] documented as of this encounter Visit Diagnoses Not on filedocumented in this encounter Additional Health Concerns Assessment Noted Time PHQ-9 Depression Total Score: 4 01/23/20 24 4:29 PM EDT documented as of this encounter Care Teams Biscuit Packer Relationship Specialty Start Date End Date Yazmin Crowder MD [address] [place] [address] PCP - General Family Medicine 03/06/20 documented as of this encounter
--- OUTSIDE RECORDS SUMMARY | 2024-04-30 06:25 | XMS_ITS | Clinical Summary ---
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 Blood Pressure Monitor kit Check BP as directed by your health care provider and as needed for your symptoms 03/23/20 21 Active albuterol 108 (90 Base) MCG/ACT inhaler Inhale 2 puffs every 4 (four) hours. 02/24/20 20 Active loratadine (Claritin) 10 MG tabletIndicatio ns:Allergic rhinitis, unspecified seasonality, unspecified trigger Take 1 tablet (10 mg) by mouth in the morning. 30 tablet 3 07/20/19 23 Active pantoprazole (ProtoNix) 40 MG EC tablet Take 1 tablet (40 mg) by mouth before breakfast. Do not crush, chew, or split. 90 tablet 3 10/30/19 24 025 Active ondansetron (Zofran) 4 MG tablet Take 1 tablet (4 mg) by mouth every 8 (eight) hours if needed for nausea or vomiting. 30 tablet 1 10/30/19 24 Active FLUoxetine (PROzac) 20 MG capsule Take 1 capsule (20 mg) by mouth Once per day. 90 capsule 3 12/19/19 24 Active amLODIPine (Norvasc) 5 MG tabletIndicatio ns:Hypertension , unspecified type Take 1 tablet (5 mg) by mouth Once per day. 30 tablet 11 02/19/20 Active COVID-19 At-Home Test kit 1 Dose by In Vitro route 1 (one) time if needed (covid-like symptoms or covid exposure) for up to 1 dose. 1 kit 1 04/18/19 Active amLODIPine (Norvasc) 2.5 MG tablet Take 1 tablet (2.5 mg) by mouth Once per day. 90 tablet 3 01/31/20 Discontinued(Me d list cleanup (will not trigger notification to Pharmacy)) multivitamin () 27-0.8 MG tablet Take 1 tablet by mouth Once per day. 90 tablet 3 02/02/20 025 Discontinued(En tered in error) Active Problems Problem Noted Date Diagnosed Date Trochanteric bursitis 02/02/2024 Assessment & Plan (04/21/2024 1:21 PM EST): - right worse than left - She had a good response to steroid injection - Refer back to her previous orthopedist - Continue staying physically active and PT / home exercise program Assessment & Plan (02/02/2024 6:32 PM EST): - right worse than left - She had a good response to steroid injection - Refer back to her previous orthopedist - Continue staying physically active and PT / home exercise program Bilateral arm weakness 02/02/2024 Muscle cramp 02/02/2024 Overview (02/02/2024): - both bilateral arms and legs - normal potassium level - refer to PT and OT - consider EMG / NCT Assessment & Plan (02/02/2024 6:45 PM EST): - both bilateral arms and legs - normal potassium level - refer to PT and OT - consider EMG / NCT Recurrent UTI 11/13/2023 Assessment & Plan (04/21/2024 1:20 PM EST): - most recent UTI on 01/23/24, E coli resistant to ampicillin and TMP/SMX. Treated with nitrofurantoin. - urine culture in Oct 2023 grew E coli resistant to amp and TMP/SMX. Treated with nitrofurantoin. - not frequent enough to start antibiotic prophylaxis - consider abx-sparing prophylaxis - renal US was ordered in Jan 2024 Assessment & Plan (02/02/2024 6:30 PM EST): - most recent UTI on 10/30/23, E coli resistant to ampicillin and TMP/SMX. Treated with nitrofurantoin. - not frequent enough to start antibiotic prophylaxis - consider abx-sparing prophylaxis - urine dipstick is normal today, but will send for urine culture Assessment & Plan (11/13/2023 5:17 PM EDT): - most recent UTI on 10/30/23, E coli resistant to ampicillin and TMP/SMX. Treated with nitrofurantoin. - not frequent enough to start antibiotic prophylaxis - consider abx-sparing prophylaxis Chest pain 11/13/2023 Assessment & Plan (11/13/2023 4:42 PM EDT): - EKG was normal - due to the characteristic of her pain, we will evaluate with exercise stress test. Hypertension 10/31/2023 Assessment & Plan (04/21/2024 1:16 PM EST): -Goal BP < 140/90 per JNC-8 and < 130/80 per ACC/AHA guideline (Treatment threshold >=140/90) -Class I hypertension -Continue working on lifestyle modifications -Continue self-monitoring BP. -Continue amlodipine 5 mg daily -Treatment Hx: Previously on clonidine for both BP and anxiety. Assessment & Plan (04/18/2024 6:19 AM EST): -Goal BP < 140/90 per JNC-8 and < 130/80 per ACC/AHA guideline (Treatment threshold >=140/90) -Class I hypertension -Continue working on lifestyle modifications -Continue self-monitoring BP. -Continue amlodipine 2.5 mg daily s -Treatment Hx: Previously on clonidine for both BP and anxiety. Assessment & Plan (02/02/2024 6:34 PM EST): -Goal BP < 140/90 per JNC-8 and < 130/80 per ACC/AHA guideline (Treatment threshold >=140/90) -Class I hypertension -Continue working on lifestyle modifications -Continue self-monitoring BP. -Start amlodipine 2.5 mg daily since patient wants to become -Treatment Hx: Currently on clonidine for both BP and anxiety. Will discontinue today -BP check with our nurse. If BP is still elevated, will increase amlodipine to 5 mg Assessment & Plan (11/13/2023 5:23 PM EDT): -Goal BP < 140/90 per JNC-8 and < 130/80 per ACC/AHA guideline (Treatment threshold >=140/90) -Prehypertension vs Class I hypertension -Continue working on lifestyle modifications -Continue self-monitoring BP. -Continue clonidine for both BP and anxiety -BP check with our nurse in 1 week. If patient's BP is still > 140 at home, will consider increasing clonidine or starting nifedipine. Avoid ACEI/ARB due to her reproductive age. Assessment & Plan (10/31/2023 8:45 AM EDT): -Goal BP < 140/90 per JNC-8 and < 130/80 per ACC/AHA guideline (Treatment threshold >=140/90) - elevated BP, which patient attributes it to increased life stressor -Continue working on lifestyle modifications -Recommended self-monitoring BP. -She was being prescribed clonidine for anxiety previously; will restart -Follow up in 1-2 mo, sooner if any problem arises Chronic GERD 07/19/2022 Assessment & Plan (10/31/2023 8:46 AM EDT): -Following with GI Specialist -EGD on 05/04/22, showing erosive esophagitis and hiatal hernia -continue pantoprazole as prescribed Assessment & Plan (07/19/2022 12:42 PM EDT): -Following with GI Specialist -EGD on 05/04/22, showing erosive esophagitis and hiatal hernia -continue pantoprazole as prescribed Fibromyalgia 07/19/2022 Assessment & Plan (04/21/2024 1:21 PM EST): Evaluated by [employer] [facility] in 06/2022 -Several different medication options discussed; interested in Muscle relaxant and Gabapentin. Agreed to start one medication at a time -Patient will start Gabapentin 300mg at bedtime -Continue antidepressants -Continue active lifestyle Assessment & Plan (10/29/2023 7:13 AM EDT): Evaluated by [employer] [facility] [facility] in 06/2022 -Several different medication options discussed; interested in Muscle relaxant and Gabapentin. Agreed to start one medication at a time -Patient will start Gabapentin 300mg at bedtime -Continue antidepressants -Continue active lifestyle Assessment & Plan (07/19/2022 12:41 PM EDT): Evaluated by [employer] [facility] in 06/2022 -Several different medication options discussed; interested in Muscle relaxant and Gabapentin. Agreed to start one medication at a time -Patient will start Gabapentin 300mg at bedtime -Continue antidepressants -Continue active lifestyle Irritable bowel syndrome with constipation 07/19 Assessment & Plan (10/31/2023 8:46 AM EDT): Following with GI Specialist Patient had an EGD & Colonoscopy completed in 04/2022 Patient has tried many different laxatives Prescribed Linzess in 2022 Assessment & Plan (07/29/2022 6:02 AM EDT): Following with GI Specialist Patient had an EGD & Colonoscopy completed in 04/2022 Patient has tried many different laxatives Will try Linzess Allergic rhinitis 07/19/2022 Assessment & Plan (07/19/2022 12:51 PM EDT): -Restart Loratadine -Rx Nasal [place] It band syndrome, right 03/27/2022 Assessment & Plan (04/21/2024 1:21 PM EST): -Continue home exercise program Assessment & Plan (02/02/2024 6:32 PM EST): -Continue home exercise program Assessment & Plan (03/27/2022 5:47 PM EST): -Continue home exercise program Patellofemoral syndrome of both knees 03/27/2022 Assessment & Plan (03/27/2022 5:47 PM EST): -Evaluated by [facility] provider -Continue home exercise program -Continue judicious use of meloxicam Mood disorder 03/27/2022 Assessment & Plan (04/21/2024 1:21 PM EST): -Pt was followed by [facility] provider in the past, but out of care for 1 year -Current Dx needs to be confirmed: Bipolar, Major depression, anxiety, PTSD -Current medications: fluoxetine -Previously tried: bupropion, buspirone, clonidine, and sertraline -Seen by integrated behavioral health service clinician in October and Dec 2023. Referred to off-site behavioral health service provider -Continue staying physically active Assessment & Plan (02/02/2024 6:36 PM EST): -Pt was followed by [facility] provider in the past, but out of care for 1 year -Current Dx needs to be confirmed: Bipolar, Major depression, anxiety, PTSD -Current medications: fluoxetine and clonidine. Will discontinue clonidine today. -Previously tried: bupropion, buspirone, clonidine, and sertraline -Seen by integrated behavioral health service clinician in October and Dec 2023. Referred to off-site behavioral health service provider -Continue staying physically active Assessment & Plan (11/13/2023 5:18 PM EDT): -Pt was followed by [facility] provider in the past, but out of care for 1 year -Current Dx needs to be confirmed: Bipolar, Major depression, anxiety, PTSD -Current medications: fluoxetine and clonidine. -Previously tried: bupropion, buspirone, and sertraline -Seen by integrated behavioral health service clinician on 10/30/23 -Continue staying physically active -Discussed about FMLA as work has been the source of her stress Assessment & Plan (10/31/2023 8:53 AM EDT): -Pt was followed by [facility] provider in the past, but out of care for 1 year -Current Dx needs to be confirmed: Bipolar, Major depression, anxiety, PTSD -Most recent medications were fluoxetine and clonidine. -Previously tried: bupropion, buspirone, and sertraline -Seen by integrated behavioral health service clinician today -Continue staying physically active -Discussed about FMLA as work has been the source of her stress Assessment & Plan (07/19/2022 9:21 AM EDT): -Pt is followed by [facility] provider -Current Dx needs to be confirmed: Bipolar, Major depression, anxiety, PTSD -Currently prescribed fluoxetine and buspirone -Previously tried: bupropion, clonidine, and sertraline -Continue current treatment plan by [facility] provider -Continue staying physically active -Recommended acupuncture Assessment & Plan (03/27/2022 5:46 PM EST): -Pt is followed by [facility] provider -Current Dx needs to be confirmed: Bipolar, Major depression, anxiety, PTSD -Currently prescribed fluoxetine and buspirone -Previously tried: bupropion, clonidine, and sertraline -Continue current treatment plan by [facility] provider -Continue staying physically active -Recommended acupuncture Abdominal pain 03/27/2022 Assessment & Plan (03/27/2022 5:48 PM EST): -Followed by [facility] -Extensive work-up has been ordered -Follow up as scheduled Seizure-like activity 03/27/2022 Assessment & Plan (10/31/2023 8:45 AM EDT): - Seizure like events in July and August 2021 - Patient reports another episode in May 2022 - Evaluated by neurologist, for Psychogenic Nonepileptic Seizure, last seen in Nov 2021 - EEG, MRI, and sleep study were all normal - Neuropsychiatry evaluation as recommended, pt's has been on the waiting list for a long time Assessment & Plan (07/29/2022 5:56 AM EDT): - Seizure like events in July and August 2021 - Patient reports another episode in May 2022 - Evaluated by neurologist, for Psychogenic Nonepileptic Seizure, last seen in Nov 2021 - EEG, MRI, and sleep study were all normal - Neuropsychiatry evaluation as recommended, pt's has been on the waiting list for a long time Assessment & Plan (03/27/2022 5:50 PM EST): -Followed by neurologist -Complete evaluation as scheduled -Neuropsychiatry evaluation as recommended Intrinsic atopic dermatitis 03/27/2022 Assessment & Plan (03/27/2022 5:58 PM EST): -[place] moisturization with emolients -Judicious use of topical steroid cream prn -Avoid scratching -Avoid skin care products with scents Lower urinary tract symptoms 03/24/2022 Migraine without aura, not refractory 03/24/2022 Assessment & Plan (10/29/2023 7:13 AM EDT): Ocular Migraine Pt will benefit with wearing sunglasses when experiencing photosensitivity Improve sleep quality Recommended to receive dental care Assessment & Plan (07/29/2022 5:59 AM EDT): Ocular Migraine Pt will benefit with wearing sunglasses when experiencing photosensitivity Improve sleep quality Recommended to receive dental care Mixed anxiety and depressive disorder 03/24/2022 Assessment & Plan (04/21/2024 1:24 PM EST): - PHQ score 25 and CARLOS score 21 in Oct 2023 - PHQ 9 score 4 and GAD7 score 5 today 01/23/24 - seen by integrated behavioral health service clinician and referred to OP service - continue fluoxetine 20 mg daily - discontinued clonidine Assessment & Plan (02/02/2024 6:37 PM EST): - PHQ score 25 and CARLOS score 21 in Oct 2023 - PHQ 9 score 4 and GAD7 score 5 today 01/23/24 - seen by integrated behavioral health service clinician and referred to OP service - continue fluoxetine 20 mg daily - discontinue clonidine Assessment & Plan (10/31/2023 8:51 AM EDT): - PHQ score 25 and CARLOS score 21 - seen by integrated behavioral health service clinician today - discussed about FMLA - patient will restart medications and was provided the resources for outpatient therapy by integrated behavioral health service - fluoxetine 10 mg daily - clonidine 0.1 mg bid prn Multiple joint pain 03/24/2022 Assessment & Plan (07/19/2022 12:42 PM EDT): Evaluated by [facility] in 06/2022, Dx with Fibromyalgia -Also evaluated by Orthopedist for knee pain, which Physical Therapy was recommended PTSD (post-traumatic stress disorder) 03/21/2019 Assessment & Plan (04/21/2024 1:24 PM EST): Previously had behavioral health service provider. Previously on fluoxetine, buspirone and clonidine Resumed fluoxetine in Oct 2023. Continue current Tx plan. Discontinued buspirone due to minimal effectiveness Discontinued clonidine due to side effect Waiting for OP appointment Assessment & Plan (02/02/2024 6:34 PM EST): Previously had behavioral health service provider. Previously on fluoxetine, buspirone and clonidine Resumed fluoxetine in Oct 2023. Continue current Tx plan. Discontinued buspirone due to minimal effectiveness Discontinued clonidine due to side effect Waiting for OP appointment Assessment & Plan (07/29/2022 6:01 AM EDT): Patient has Behavioral Health care provider and is prescribed fluoxetine, buspirone and clonidine Continue medications as prescribed. Anxiety 03/15/2019 Ocular migraine 09/12/2017 Assessment & Plan (07/29/2022 6:00 AM EDT): - will write a letter to her employer so that she can wear sunglasses Asperger's syndrome 05/04/2016 Assessment & Plan (04/21/2024 1:23 PM EST): - She does not like to have a label of functional ASD - Congratulated her on advocating for herself and other people with neuroatypical condition. Assessment & Plan (02/02/2024 6:38 PM EST): - She does not like to have a label of functional ASD - Congratulated her on advocating for herself and other people with neuroatypical condition. Assessment & Plan (10/29/2023 7:12 AM EDT): - She does not like to have a label of functional ASD - Congratulated her on advocating for herself and other people with neuroatypical condition. - Will write a letter so that her employer can accommodate to her conditions. - Refer to case management to help her with organization of medical appointments and navigation of health care system Assessment & Plan (07/29/2022 5:59 AM EDT): - She does not like to have a label of functional ASD - Congratulated her on advocating for herself and other people with neuroatypical condition. - Will write a letter so that her employer can accommodate to her conditions. - Refer to case management to help her with organization of medical appointments and navigation of health care system Assessment & Plan (03/27/2022 5:46 PM EST): -Functional and resourceful Insomnia due to anxiety and fear 05/04/2016 Resolved Problems Problem Noted Date Diagnosed Date Resolved Date Malodorous urine 07/19/2022 11/13/2023 Bipolar disorder 03/21/2019 03/27/2022 Encounters Date Type Department Care Team Description 04/30/2024 Orders Only [facility] External Provider, [facility] 04/23/2024 Travel 04/18/2024 11:30 AM EST Telemedicine [facility] [address] [place] [id number] Yazmin Crowder MD Hypertension, unspecified type (Primary Dx); Dietary counseling; Exercise counseling; Class 2 obesity due to excess calories without serious comorbidity with body mass index (BMI) of 37.0 to 37.9 in adult; Mood disorder (CMS/HCC); Fibromyalgia; Trochanteric bursitis of both hips; Recurrent UTI; It band syndrome, right; PTSD (post-traumatic stress disorder); Mixed anxiety and depressive disorder; Asperger's syndrome 04/18/2024 Travel 04/04/2024 Refill [facility] [address] [place] [address] Yazmin Crowder MD 03/21/2024 Telephone [facility] [address] [facility] [place] [address] Yazmin Crowder MD Callback 02/19/2024 Refill [facility] [address] [place], [place] [address] Nolvia Hendrix, RN Hypertension, unspecified type 02/16/2024 1:00 PM EST Clinical Support [facility] [address] [facility] [place] [address] Nolvia Hendrix RN Hypertension, unspecified type 02/16/2024 Travel 02/05/2024 Telephone [facility] [address] [facility] [place] [address] Yazmin Crowder MD Appointment Request 02/02/2024 Orders Only [facility] [address] [facility] [place] [address] Yazmin Crowder MD Recurrent UTI (Primary Dx) 01/31/2024 Orders Only [facility] [address] [facility] [place] [place] [phone] Yazmin Crowder MD 01/31/2024 Telephone [facility] [address] [facility] [place] [phone] Yazmin Crowder MD Medication Question from Last 3 Months Immunizations Name Administration Dates Next Due DTaP, 5 pertussis antigens 04/04/2001,,1996,06/27,1996 HPV 9-Valent 05/29/2014,10/18/2013,07/20/2012 Hep A, Adult 05/29/2014,10/18/2013 Hep B, Adolescent or Pediatric 1996,1996,1996 Hib ([facility]) 07/25/1997,199 7,1996,04/26 IPV 03/09/2000,199 7,1996,04/26 Influenza injectable quadriv alent preservative free 03/28/2022,12/17/2020,03/14/2020 Influenza, seasonal, injecta ble, preservative free 01/23/2024 MMR 03/09/2000,02/27/1997 Meningococcal MCV4P ACYW-135 02/16/2009 Moderna Covid-19 Vaccine 12+ 07/31/2020,07/11/19 21 Pfizer Covid-19 Vaccine 12+ 01/23/2024,1 04/17/2020,08/01/2020,07/11 Tdap 08/26/2020,02/16/2009 Varicella 02/16/2009,02/27/1997 Social History Tobacco Use Types Packs/Day Years Used Date Smoking Tobacco: Never Passive Smoke Exposure: Never Smokeless Tobacco: Never Tobacco Cessation:Counseling Given: Not Answered Depression Answer Date Recorded Patient Health Questionnaire-9 [...] Don't know 01/24/2022 10 :36 AM EDT Last Filed Vital Signs Vital Sign Reading Time Taken Comments Blood Pressure 132/96 02/16/2024 1:46 PM EST Pulse 100 02/16/2024 1:46 PM EST Temperature 35.7 ??C (96.2 ??F) 01/23/2024 4:11 PM ED T Respiratory Rate 20 02/16/2024 1:46 PM EST Oxygen Saturation 98% 02/16/2024 1:46 PM EST Inhaled Oxygen Concentration - - Weight 104 kg (230 lb) 01/23/2024 4:11 PM EDT Height 166.4 cm (5' 5.5 ) 11/13/2023 2:41 PM EDT Body Mass Index 37.69 11/13/2023 2:41 PM EDT Plan of Treatment Upcoming Encounters Date Type Department Care Team (Late st Contact Info) Description 05/24/2024 11:30 AM EST Clinical Support [facility] [address] [place] [id number] Health Maintenance Due Date Last Done Comments Alcohol/Substance Use Screening 10/29/2024 10/30/2023 Pap Smear 11/09/2024 11/09/2021, 10/25, 09/26/2019 Depression Screening 01/22/2025 01/23/2024, 01/23/20 SDOH Screening 01/22/2025 01/23/2024 Tobacco Screening 01/22/2025 01/23/2024 Family Planning (PISQ) 04/21/2025 04/21/2024 Lipid Panel 11/09/2028 11/10/2023 DTaP/Tdap/Td Vaccines (9 - Td or Tdap) 10/17/2032 10/17/2022, 08/26/2020, 02/16/2009, Additional history exists Zoster Vaccines (1 of 2) 02/21/2046 RSV Patients and Patients Aged 60 years or older (1 - 1-dose 75+ series) 02/21/2071 Hepatitis B Vaccines Completed 1996, 1996, 1996 HIB Vaccines Completed 07/25/1997, 04/1996, 1996, Additional history exists IPV Vaccines Completed 03/09/2000, 070 04/1996, 1996, Additional history exists Meningococcal Vaccine Aged Out 02/16/2009 No oren jerman eligible based on patient's age to complete this topic HPV Vaccines Completed 05/29/2014, 09/25, 07/20/2012 Hepatitis A Vaccines Completed 05/29/2014, 10/19/19 14 HIV Screening Completed 11/10/2023, 07/30/2020 Hepatitis C Screening Completed 11/10/2023, 021 COVID-19 Vaccine Completed 01/23/2024, , 08/01/2020, Additional history exists Influenza Vaccine Completed 01/23/2024, , 12/17/2020, Additional history exists Pneumococcal Vaccine: Pediatrics (0 to 5 Years) and At-Risk Patients (6 to 49) Years) Aged Out No longer eligible based on patient's age to complete this topic RSV under 20 months Aged Out No longe r eligible based on patient's age to complete this topic Rotavirus Vaccines Aged Out No longer eligible based on patient's age to complete this topic Procedures Procedure Name Priority Date/Time Associated Diagnosis Comments XR WRIST 3+ VIEWS RIGHT Routine 04/30/2024 5:00 AM EST HEPATITIS C AB W/REFL TO HCV RNA, QN, PCR Routine 11/10/2023 10:09 AM EDT Routine screening for STI (sexually transmitted infection) HIV 1/2 ANTIGEN/ANTIBODY, FOURTH GENERATION W/RFL Routine 11/10/2023 10:09 AM EDT Routine screening for STI (sexually transmitted infection) LIPID PANEL WITH REFLEX TO DIRECT LDL Routine 11/10/2023 10:09 AM EDT Elevated BP without diagnosis of hypertension Weight gain HM PAP/HPV Routine 11/09/2021 from Last 3 Months or Most Recently Relevant to Health Maintenance Results * XR Wrist 3+ Views Right (04/30/2024 5:00 AM EST) Anatomical Region Laterality Modality Upper Extremities, Wrist Right Radiogr aphic Imaging 04/30/2024 5:00 AM EST Narrative 04/30/2024 5:02 AM EST ? [facility] ?[address] ?[place] [address] ?XRay Report ? Signed ? Patient: Nisai,Divina ?MR#: [id number] ?? [id number] ? : 1995 ?Acct:[id number] ? Age/Sex: 29 / F ?ADM Date: 04/30/24 ? Loc: HO.ED ? Attending Dr: ? Ordering Physician: Generic ED Physician ?? Date of Service: 04/30/24 ?? Procedure(s): XR wrist RT min 3V ?? Accession Number(s): [id number] ? cc: Generic ED Physician; Yazmin Crowder MD ? CLINICAL HISTORY: injury ? 4 view right wrist ? Comparison: None ? Findings: ?? No fractures or dislocations. ?? Soft tissue structures appear intact. ? IMPRESSION: ?? 1. No acute osseous abnormality is identified. ? This document has been electronically signed by: Ashleigh Rawls on ?? 04/30/2024 05:00:35 ? Dictated By: ?Ashleigh Rawls MD ? Signed By: ?<Electronically signed by Ashleigh Rawls MD in OV> ? 04/30/24 0502 ? DD/ 0500 ? TD/TT: 04/30/24 0500 ? [employer]ading Supervisor: ? Procedure Note Kevon, Image - 04/30/[address] [address] XRay Report Signed Patient: Lorie Velez#: [id number] : 1995Acct:[id number] Age/Sex: 29 / FADM Date: 04/30/24 Loc: HO.ED Attending Dr: Ordering Physician: Generic ED Physician Date of Service: 04/30/24 Procedure(s): XR wrist RT min 3V Accession Number(s): [id number] cc: Generic ED Physician; Yazmin Crowder MD CLINICAL HISTORY: injury 4 view right wrist Comparison: None Findings: No fractures or dislocations. Soft tissue structures appear intact. IMPRESSION: 1. No acute osseous abnormality is identified. This document has been electronically signed by: Ashleigh Rawls on 04/30/2024 05:00:35 Dictated By: Ashleigh Rawls MD Signed By: <Electronically signed by Ashleigh Rawls MD in OV> 04/30/24 0502 DD/ 0500 TD/TT: 04/30/24 0500 Rose Grading Supervisor: [facility] External Provider IMG XR PROCEDURES Final Result * (ABNORMAL) Lipid Panel with Reflex to Direct LDL (11/10/2023 10:09 AM EDT) Triglycerides 111 <150 mg/dL [facility] Comment:Desirable Triglyceri de: less than 150 mg/dLBorderline High Triglyceride 150-199 mg/dLHigh Triglyceride: 200-499 mg/dLVery High Triglyceride: greater than or equal to 5OO mg/dL Cholesterol 185 <200 mg/dL [facility] Comment:Desirable Cholestero l: less than 200 mg/dLBorderline High Cholesterol: 200-239 mg/dLHigh Cholesterol: greater than 239 mg/dL LDL Cholesterol Calculated 114(H) <100 mg/dL [facility] Comment:Desirable LDL: less than 100 mg/dLNear Optimal/Above Optimal LDL: 110- 129 mg/dLBorderline High LDL: 130-159 mg/dLHigh LDL: 160-189 mg/dLVery High LDL: greater than or equal to 190 mg/dL HDL Cholesterol 49 >40 mg/dL [facility] Comment:Desirable HDL: great er than 40 mg/dL Note: This HDL assay may give artificially low results in patients with liver disease. Blood 11/10/2023 10:0 9 AM EDT 11/10/2023 1:24 PM EDT Yazmin Crowder MD LAB BLOOD ORDERABLES Final Resul t [facility] [address] [place] [address] [phone] * Hepatitis C Antibody with Reflex to HCV, RNA, Quantitative, Real-Time PCR (11/10/2023 10:09 AM EDT) Hepatitis C Antibody Nonreactive Nonreactive [facility] Comment:Antibodies to HCV no t detected; does not exclude early acuteHCV infection. Blood Venous blood specimen / Unknown 11/10/2023 10:09 AM EDT 11/10/2023 1:24 PM EDT Yazmin Crowder MD LAB BLOOD ORDERABLES Final Resul t Performing Organization Address City/[facility]/ZIP Co de Phone Number [facility] [address] [place] [phone] [phone] * HIV-1/2 Antigen and Antibodies, Fourth Generation, with Reflexes (11/10/2023 10:09 AM EDT) Pathologist [facility] HIV AB/AG Nonreactive Nonreactive [facility] Comment:HIV-1 p24 Ag and/or HIV-1/HIV-2 Ab not detected.A test result that is nonreactive does not exclude thepossibility of exposure to or infection with HIV-1 and/orHIV-2. Nonreactive results in this assay for individualswith prior exposure to HIV-1 and/or HIV-2 may be due toantigen and antibody levels that are below the limit ofdetection of this assay.The Apto HIV Ag/Ab Combo assay result andsupplemental assay results should be interpreted inconjunction with the patient's clinical presentation,history and other laboratory results. If the results areinconsistent with clinical evidence, additional testing issuggested to confirm the result. Blood Venous blood specimen / Unknown 11/10/2023 10:09 AM EDT 11/10/2023 1:24 PM EDT us Yazmin Crowder MD LAB BLOOD ORDERABLES Final Resul t Performing Organization Address City/[facility]/ZIP Co de Phone Number [facility] [address] [place] [address] [phone] * Hm Pap Smear (11/09/2021) us Historical Provider HEALTH MAINTENANCE Final Result from Last 3 Months or Most Recently Relevant to Health Maintenance Insurance HSN FULL Care Teams Container Shop Welder Relationship Specialty Start Date End Date Yazmin Crowder MD [address] [place] [phone] PCP - General Family Medicine 03/06/20
--- OUTSIDE RECORDS SUMMARY | 2024-04-30 06:25 | XMS_ITS | Encounter Summary ---
Author Organization [employer] Address [address] [place] [address] [address]t [place] [address] Care Team Providers Care Director Of Engineering Name Role Phone Yazmin Crowder MD Primary Care Provider [phone] Encounter Details Date Type Department Care Team (Late st Contact Info) Description 01/31/2024 Orders Only [facility] [address] [place], [place] [phone] Yazmin Crowder MD [address] [place], [place] [phone] Social History Tobacco Use Types Packs/Day Years [...] Description 05/24/2024 11:30 AM EST Clinical Support [facility] [address] [place] [address] documented as of this encounter Visit Diagnoses Not on filedocumented in this encounter Additional Health Concerns Assessment Noted Time PHQ-9 Depression Total Score: 4 01/23/20 24 4:29 PM EDT documented as of this encounter Care Teams Director Of Engineering Relationship Specialty Start Date End Date Yazmin Crowder MD [address] [place] [address] PCP - General Family Medicine 03/06/20 documented as of this encounter
--- OUTSIDE RECORDS SUMMARY | 2024-04-30 06:25 | XMS_ITS | Encounter Summary ---
Author Organization [employer] Address [address] [place] [address] 7 [place] [address] Care Team Providers Care Bus Operator Name Role Phone Yazmin Crowder MD Primary Care Provider [phone] Reason for Referral * Imaging (Routine) - Authorized Specialty Diagnoses / Procedures Referred By Contac t Referred To Contact Radiology Diagnoses Recurrent UTI Procedures US RENAL BI Yazmin Crowder MD [address] [place] [address] Phone: tel: fax: [address] Phone: tel: fax: Referral ID Status Reason Start Date Expiration Date V isits Requested Visits Authorized [id number] Authorized 02/02/2024 02/01/2025 1 1 Encounter Details Date Type Department Care Team (Late st Contact Info) Description 02/02/2024 Orders Only [facility] MED[facility]INE [address] [place], [place] [phone] Yazmin Crowder MD [address] [place] [address] Recurrent UTI (Primary Dx) Social History Tobacco Use Types Packs/Day Years [...] Description 05/24/2024 11:30 AM EST Clinical Support [facility]INE [address] [place] [phone] Scheduled Orders Name Type Priority Associated Diagnoses Orde r Schedule US RENAL BI Imaging Routine Recurrent UTI Expected: 02/02/2024, Expires: 02/01/2025 documented as of this encounter Visit Diagnoses Diagnosis Recurrent UTI- Primary Urinary tract infection, site not specified documented in this encounter Additional Health Concerns Assessment Noted Time PHQ-9 Depression Total Score: 4 01/23/20 24 4:29 PM EDT documented as of this encounter Care Teams Bus Operator Relationship Specialty Start Date End Date Yazmin Crowder MD [address] [place] [address] PCP - General Family Medicine 03/06/20 documented as of this encounter
--- OUTSIDE RECORDS SUMMARY | 2024-04-30 06:25 | XMS_ITS | Encounter Summary ---
Author Organization [employer] Address [address] [place] [address] [address] [place] [address] Care Team Providers Care Back End Engineer Name Role Phone Yazmin Crowder MD Primary Care Provider [phone] Encounter Details Date Type Department Care Team (Late st Contact Info) Description 10/31/2023 Orders Only [facility] [address] [place], [place] [phone] Yazmin Crowder MD [address] [place], [place] [phone] Acute cystitis without hematuria (Primary Dx); Low TSH level Social History Tobacco Use Types Packs/Day Years Used Date Smoking Tobacco: Never Passive Smoke Exposure: Never Smokeless Tobacco: Never Depression Answer Date Recorded Patient Health Questionnaire-9 Score 23 11/02/2023 Patient Health Questionnaire-9 Score 23 11/02/2023 Last PHQ-9: Questionnaire Data Not on file 0 11/02/2023 Housing Stability Answer Date Recorded What is your housing situation today? I have jessie wilson 10/30/[address] you li ve. Do you have problems with any of the following? None of the above 10/30/2023 Food Insecurity Answer Date Recorded Within the past 12 months, y ou worried that your food would run out before you got money to buy more: Never True 10/30/2023 Within the past 12 months,th e food you bought just didn't last and you didn't have enough money to get more: Never True 07/2023 Transportation Answer Date Recorded In the past [...] Answer Date Recorded Patient Health Questionnaire-2 Score 5 11/02/2023 Comments Unknown Sex and Gender Information Value [...] Description 05/24/2024 11:30 AM EST Clinical Support [facility] [address] [place] [phone] documented as of this encounter Procedures Procedure Name Priority Date/Time Associated Diagnosis Comments TSH Routine 11/13/2023 3:20 PM EDT Low TSH level T4, FREE Routine 11/13/2023 3:20 PM EDT Low TSH level documented in this encounter Results * TSH (11/13/2023 3:20 PM EDT) Thyroid Stimulating Hormone 1.53 0.32 - 4.0 uIU/mL [facility] Comment:TSH 3rd Generation ( [facility]) Blood Venous blood specimen / Unknown 11/13/2023 3:20 PM EDT 11/13/2023 3:52 PM EDT us Yazmin Crowder MD LAB BLOOD ORDERABLES Final Resul t [facility] [address] [place] [address] [phone] * T4, Free (11/13/2023 3:20 PM EDT) Free T4 (Free Thyroxine) 0.75 0.71 - 1.85 ng/dL [facility] Blood Venous blood specimen / Unknown 11/13/2023 3:20 PM EDT 11/13/2023 3:52 PM EDT Yazmin Crowder MD LAB BLOOD ORDERABLES Final Resul t [facility] [address] [place] [phone] [phone] documented in this encounter Visit Diagnoses Diagnosis Acute cystitis without hematuria- Primary Low TSH level documented in this encounter Additional Health Concerns Assessment Noted Time PHQ-9 Depression Total Score: 25 024 5:10 PM EDT documented as of this encounter Care Teams Back End Engineer Relationship Specialty Start Date End Date Yazmin Crowder MD [address] [place] [address] PCP - General Family Medicine 03/06/20 documented as of this encounter
--- OUTSIDE RECORDS SUMMARY | 2024-04-30 06:25 | XMS_ITS | Encounter Summary ---
Author Organization [employer] Address [address] [place] [address] 7t [place] [address] Care Team Providers Care Meter Reading Clerk Name Role Phone Yazmin Crowder MD Primary Care Provider [phone] Encounter Details Date Type Department Care Team ([facility] Contact Info) Description 04/13/2022 Orders Only [facility] MEDICINE [address] [place] [address] [phone] Yazmin Crowder MD [address] [place] [address] [phone] Rash (Primary Dx); Xerosis of skin Social History Tobacco Use Types Packs/Day Years Used Date Smoking Tobacco: Never Passive Smoke Exposure: Never Smokeless Tobacco: Never Comments Unknown Sex and Gender Information Value Date Recorded Sex Assigned at Female 01/24/2022 10:36 AM EDT Legal Sex Female 10:36 AM EDT Gender Identity Female 01/24/2022 10:36 AM EDT Sexual Orientation Don't know 01/24/2022 10 :36 AM EDT COVID-19 Exposure Response Date Recorded In the last 10 days, have yo u been in contact with someone who was confirmed or suspected to have Coronavirus/COVID-19? No / Unsure 03/24/2022 11:27 AM EST documented as of this encounter Plan of Treatment Upcoming Encounters Date Type Department Care Team (Late Contact Info) Description 05/24/2024 11:30 AM EST Clinical Support [facility] [address] [place] [address] [phone] documented as of this encounter Visit Diagnoses Diagnosis Rash- Primary Rash and other nonspecific skin eruption Xerosis of skin documented in this encounter Care Teams Meter Reading Clerk Relationship Specialty Start Date End Date Yazmin Crowder MD [address] [place] [address] PCP - General Family Medicine 03/06/20 documented as of this encounter
--- OUTSIDE RECORDS SUMMARY | 2024-04-30 06:25 | XMS_ITS | Encounter Summary ---
Author Organization [employer] Address [address] [place] [address] 7t [place] [address] Care Team Providers Care Ecologist Technician Name Role Phone Yazmin Crowder MD Primary Care Provider [phone] Encounter Details Date Type Department Care Team (Late st Contact Info) Description 04/30/2024 Orders Only [facility] External Provider, [facility] Social History Tobacco Use Types Packs/Day Years [...] Description 05/24/2024 11:30 AM EST Clinical Support [facility] [address] [facility] [place] [address] documented as of this encounter Procedures Procedure Name Priority Date/Time Associated Diagnosis Comments XR WRIST 3+ VIEWS RIGHT Routine 04/30/2024 5:00 AM EST documented in this encounter Results * XR Wrist 3+ Views Right (04/30/2024 5:00 AM EST) Anatomical Region Laterality Modality Upper Extremities, Wrist Right Radiogr aphic Imaging 04/30/2024 5:00 AM EST Narrative 04/30/2024 5:02 AM EST ? [facility] ?[address] ?[place] [address] ?XRay Report ? Signed ? Patient: Divina Velez ?MR#: [id number] ?? [id number] ? : 1995 ?Acct:[id number] ? Age/Sex: 29 / F ?ADM Date: 04/30/24 ? Loc: HO.ED ? Attending Dr: ? Ordering Physician: Generic ED Physician ?? Date of Service: 04/30/24 ?? Procedure(s): XR wrist RT min 3V ?? Accession Number(s): [id number] ? cc: Generic ED Physician; Yazmin Crowder [...] DD/ 0500 ? TD/TT: 04/30/24 0500 ? Hearing Healthcare Practitioner: ? Procedure Note Donotsdinterpreter, Image - 04/30/2024 [facility] [address] [place] [phone] XRay Report Signed Patient: Lorie Velez#: [id number] : 1995Acct:[id number] Age/Sex: Date: 04/30/24 Loc: HO.ED Attending Dr: Ordering Physician: Generic ED Physician Date of Service: 04/30/24 Procedure(s): XR wrist RT min 3V Accession Number(s): [id number] cc: Generic ED Physician; Yazmin Crowder MD [...] 04/30/24 0502 DD/ 0500 TD/TT: 04/30/24 0500 Hearing Healthcare Practitioner: [facility] External Provider IMG XR PROCEDURES Final Result documented in this encounter Visit Diagnoses Not on filedocumented in this encounter Additional Health Concerns Assessment Noted Time PHQ-9 Depression Total Score: 4 01/23/20 24 4:29 PM EDT documented as of this encounter Care Teams Ecologist Technician Relationship Specialty Start Date End Date Yazmin Crowder MD [address] [place] [address] PCP - General Family Medicine 03/06/20 documented as of this encounter
--- OUTSIDE RECORDS SUMMARY | 2024-04-30 06:25 | XMS_ITS | Encounter Summary ---
Author Organization [employer] Address [address] [place] [address] 7[address] [place] [address] Care Team Providers Care Functional Analyst Name Role Phone Yazmin Crowder MD Primary Care Provider [phone] Encounter Details Date Type Department Care Team (Late st Contact Info) Description 01/26/2024 Orders Only [facility] MED[facility]INE [address] [place], [place] [phone] Yazmin Crowder MD [address] [place], [place] [phone] Social History Tobacco Use Types Packs/Day Years [...] Description 05/24/2024 11:30 AM EST Clinical Support [facility] [address] [place] [phone] documented as of this encounter Visit Diagnoses Not on filedocumented in this encounter Additional Health Concerns Assessment Noted Time PHQ-9 Depression Total Score: 4 01/23/20 24 4:29 PM EDT documented as of this encounter Care Teams Functional Analyst Relationship Specialty Start Date End Date Yazmin Crowder MD [address] [place] [address] PCP - General Family Medicine 03/06/20 documented as of this encounter
--- OUTSIDE RECORDS SUMMARY | 2024-04-30 06:25 | XMS_ITS | Encounter Summary ---
Author Organization [employer] Address [address] [place] [address] [address]t [place] [address] Care Team Providers Care Facilities Operator Name Role Phone Yazmin Crowder MD Primary Care Provider [phone] Encounter Details Date Type Department Care Team (Late st Contact Info) Description 12/19/2023 Orders Only [facility] MED[facility]INE [address] [place], [place] [phone] Yazmin Crowder MD [address] [place], [place] [phone] Social History Tobacco Use Types Packs/Day Years Used Date Smoking Tobacco: Never Passive Smoke Exposure: Never Smokeless Tobacco: Never Depression Answer Date Recorded Patient Health Questionnaire-9 Score 18 12/19/2023 Patient Health Questionnaire-9 Score 18 12/19/2023 Last PHQ-9: Questionnaire Data Not on file 0 12/19/2023 Housing Stability Answer Date Recorded What is [...] Answer Date Recorded Patient Health Questionnaire-2 Score 4 12/19/2023 Internet Access Answer Date Recorded Internet Access [...] Description 05/24/2024 11:30 AM EST Clinical Support [facility] [address] [place] [address] documented as of this encounter Visit Diagnoses Not on filedocumented in this encounter Additional Health Concerns Assessment Noted Time PHQ-9 Depression Total Score: 18 024 9:30 AM EDT documented as of this encounter Care Teams Facilities Operator Relationship Specialty Start Date End Date Yazmin Crowder MD [address] [place] [address] PCP - General Family Medicine 03/06/20 documented as of this encounter
--- OUTSIDE RECORDS SUMMARY | 2024-04-30 06:25 | XMS_ITS | Encounter Summary ---
Author Organization [employer] Address [address] [facility] 7t [place] [address] Care Team Providers Care Cna Gna Name Role Phone Yazmin Crowder MD Primary Care Provider [phone] Encounter Details Date Type Department Care Team (Latest Contact Info) Description 04/23/2024 Travel Social History Tobacco Use Types Packs/Day [...] Description 05/24/2024 11:30 AM EST Clinical Support [facility] [address] [place] [address] documented as of this encounter Visit Diagnoses Not on filedocumented in this encounter Additional Health Concerns Assessment Noted Time PHQ-9 Depression Total Score: 4 01/23/20 24 4:29 PM EDT documented as of this encounter Care Teams Cna Gna Relationship Specialty Start Date End Date Yazmin Crowder MD [address] [place] [address] PCP - General Family Medicine 03/06/20 documented as of this encounter
--- OUTSIDE RECORDS SUMMARY | 2024-04-30 06:25 | XMS_ITS | Encounter Summary ---
Author Organization [employer] Address [address] [place] [address] 7 [place] [address] Care Team Providers Care Racetrack Steward Name Role Phone Yazmin Crowder MD Primary Care Provider [phone] Encounter Details Date Type Department Care Team (Late st Contact Info) Description 03/24/2022 Abstract [facility] MEDICINE [address] [place] [address] [phone] Yazmin Crowder MD [address] [place] [address] [phone] Social History Tobacco Use Types Packs/Day Years [...] Description 05/24/2024 11:30 AM EST Clinical Support [address] [address] documented as of this encounter Visit Diagnoses Not on filedocumented in this encounter Care Teams Racetrack Steward Relationship Specialty Start Date End Date Yazmin Crowder MD [address] [place] [address] PCP - General Family Medicine 03/06/20 documented as of this encounter
--- OUTSIDE RECORDS SUMMARY | 2024-04-30 06:25 | XMS_ITS | Encounter Summary ---
Author Organization [employer] Address [address] [place] [id number] Care Team Providers Care Men'S Designer Name Role Phone Yazmin Crowder MD Primary Care Provider [phone] Reason for Referral * Consultation (Routine) - Denied Specialty Diagnoses / Procedures Referred By Contac t Referred To Contact Behavioral Health Diagnoses PTSD (post-traumatic stress disorder) Mixed anxiety and depressive disorder Yazmin Crowder MD [address] [place] [address] Phone: tel: fax: Referral ID Status Reason Start Date Expiration Date V isits Requested Visits Authorized [id number] Denied Specialty Services Required 04/21/2024 04/21/2025 1 0 Encounter Details Date Type Department Care Team (Late st Contact Info) Description 04/18/2024 11:30 AM EST Telemedicine [facility] [place] [facility] [address] [place] [address] Yazmin Crowder MD [address] [place] [address] Hypertension, unspecified type (Primary Dx); Dietary counseling; Exercise counseling; Class 2 obesity due to excess calories without serious comorbidity with body mass index (BMI) of 37.0 to 37.9 in adult; Mood disorder (CMS/HCC); Fibromyalgia; Trochanteric bursitis of both hips; Recurrent UTI; It band syndrome, right; PTSD (post-traumatic stress disorder); Mixed anxiety and depressive disorder; Asperger's syndrome Social History Tobacco Use Types Packs/Day Years [...] as of this encounter Miscellaneous Notes * Assessment & Plan Note - Yazmin Crowder MD - 04/21/2024 1:24 PM ESTAssociated Problem(s): Mixed anxiety and depressive disorder - PHQ score 25 and CARLOS score 21 in Oct 2023 - PHQ 9 score 4 and GAD7 score 5 today 01/23/24 - seen by integrated behavioral health service clinician and referred to OP service - continue fluoxetine 20 mg daily - discontinued clonidine * Assessment & Plan Note - Yazmin Crowder MD - 04/21/2024 1:24 PM ESTAssociated Problem(s): PTSD (post-traumatic stress disorder) Previously had behavioral health service provider. Previously on fluoxetine, buspirone and clonidine Resumed fluoxetine in Oct 2023. Continue current Tx plan. Discontinued buspirone due to minimal effectiveness Discontinued clonidine due to side effect Waiting for OP appointment * Assessment & Plan Note - Yazmin Crowder MD - 04/21/2024 1:23 PM ESTAssociated Problem(s): Asperger's syndrome - She does not like to have a label of functional ASD - Congratulated her on advocating for herself and other people with neuroatypical condition. * Assessment & Plan Note - Yazmin Crowder MD - 04/21/2024 1:21 PM ESTAssociated Problem(s): Mood disorder (CMS/HCC) -Pt was followed by [facility] provider in the past, but out of care for 1 year -Current Dx needs to be confirmed: Bipolar, Major depression, anxiety, PTSD -Current medications: fluoxetine -Previously tried: bupropion, buspirone, clonidine, and sertraline -Seen by integrated behavioral health service clinician in October and Dec 2023. Referred to off-site behavioral health service provider -Continue staying physically active * Assessment & Plan Note - Yazmin Crowder MD - 04/21/2024 1:21 PM ESTAssociated Problem(s): It band syndrome, right -Continue home exercise program * Assessment & Plan Note - Yazmin Crowder MD - 04/21/2024 1:21 PM ESTAssociated Problem(s): Fibromyalgia Evaluated by [facility] in 06/2022 -Several different medication options discussed; interested in Muscle relaxant and Gabapentin. Agreed to start one medication at a time -Patient will start Gabapentin 300mg at bedtime -Continue antidepressants -Continue active lifestyle * Assessment & Plan Note - Yazmin Crowder MD - 04/21/2024 1:21 PM ESTAssociated Problem(s): Trochanteric bursitis - right worse than left - She had a good response to steroid injection - Refer back to her previous orthopedist - Continue staying physically active and PT / home exercise program * Assessment & Plan Note - Yazmin Crowder MD - 04/21/2024 1:20 PM ESTAssociated Problem(s): Recurrent UTI - most recent UTI on 01/23/24, E coli resistant to ampicillin and TMP/SMX. Treated with nitrofurantoin. - urine culture in Oct 2023 grew E coli resistant to amp and TMP/SMX. Treated with nitrofurantoin. - not frequent enough to start antibiotic prophylaxis - consider abx-sparing prophylaxis - renal US was ordered in Jan 2024 * Assessment & Plan Note - Yazmin Crowder MD - 04/21/2024 1:14 PM ESTAssociated Problem(s): Hypertension -Goal BP < 140/90 per JNC-8 and < 130/80 per ACC/AHA guideline (Treatment threshold >=140/90) -Class I hypertension -Continue working on lifestyle modifications -Continue self-monitoring BP. -Continue amlodipine 5 mg daily -Treatment Hx: Previously on clonidine for both BP and anxiety. documented in this encounter Plan of Treatment Upcoming Encounters Date Type Department Care Team (Late st Contact Info) Description 05/24/2024 11:30 AM EST Clinical Support [facility] [address] [place] [address] Scheduled Referrals Name Type Priority Associated Diagnoses Order Schedule Referral to Behavioral Health Outpatient Referral Routine PTSD (post-traumatic stress disorder) Mixed anxiety and depressive disorder Expected: 04/21/2024 (Approximate), Expires: 04/21/2025 documented as of this encounter Visit Diagnoses Diagnosis Hypertension, unspecified type- Primary Dietary counseling Dietary surveillance and counseling Exercise counseling Class 2 obesity due to excess calories without serious comorbidity with body mass index (BMI) of 37.0 to 37.9 in adult Mood disorder (CMS/HCC) Unspecified episodic mood disorder Fibromyalgia Unspecified myalgia and myositis Trochanteric bursitis of both hips Recurrent UTI Urinary tract infection, site not specified It band syndrome, right PTSD (post-traumatic stress disorder) Posttraumatic stress disorder Mixed anxiety and depressive disorder Dysthymic disorder Asperger's syndrome Other specified pervasive developmental disorders, current or active state documented in this encounter Additional Health Concerns Assessment Noted Time PHQ-9 Depression Total Score: 4 01/23/20 24 4:29 PM EDT documented as of this encounter Care Teams Men'S Designer Relationship Specialty Start Date End Date Yazmin Crowder MD [address] [place] [address] PCP - General Family Medicine 03/06/20 documented as of this encounter
--- OUTSIDE RECORDS SUMMARY | 2024-04-30 06:25 | XMS_ITS | Encounter Summary ---
Author Organization [employer] Address [address] [place] [address] [address] [place] [address] Care Team Providers Care Executive Asst Name Role Phone Yazmin Crowder MD Primary Care Provider [phone] Reason for Visit * Reason Comments Med Change Request Encounter Details Date Type Department Care Team ([facility] Contact Info) Description 04/04/2024 Refill [facility] [address] [place], [place] [phone] Yazmin Crowder MD [address] [place], [place] [phone] Social History Tobacco Use Types Packs/Day Years [...] Description 05/24/2024 11:30 AM EST Clinical Support [facility] [address] [place] [address] documented as of this encounter Visit Diagnoses Not on filedocumented in this encounter Additional Health Concerns Assessment Noted Time PHQ-9 Depression Total Score: 4 01/23/20 24 4:29 PM EDT documented as of this encounter Care Teams Executive Asst Relationship Specialty Start Date End Date Yazmin Crowder MD [address] [place] [address] PCP - General Family Medicine 03/06/20 documented as of this encounter
--- OUTSIDE RECORDS SUMMARY | 2024-04-30 06:25 | XMS_ITS | Encounter Summary ---
Author Organization [employer] [facility] Address [address] [place] [address] [address] [place] [address] Care Team Providers Care Acoustical Tile Carpenters Supervisor Name Role Phone Yazmin Crowder MD Primary Care Provider [phone] Encounter Details Date Type Department Care Team (Late Contact Info) Description 12/20/2022 Orders Only [address] [phone] Provider, Radha, Social History Tobacco Use Types Packs/Day Years [...] Description 05/24/2024 11:30 AM EST Clinical Support [address] [address] documented as of this encounter Procedures Procedure Name Priority Date/Time Associated Diagnosis Comments HM PAP/HPV Routine 11/09/2021 documented in this encounter Results * Hm Pap Smear (11/09/2021) us Historical Provider HEALTH MAINTENANCE Final Result documented in this encounter Visit Diagnoses Not on filedocumented in this encounter Care Teams Acoustical Tile Carpenters Supervisor Relationship Specialty Start Date End Date Yazmin Crowder MD [address] [place] [address] PCP - General Family Medicine 03/06/20 documented as of this encounter
--- NOTE | 2024-04-30 07:32 | ED.EXTPRO ---
HPI - Extremity Problem General Chief complaint: Extremity Injury, Upper Stated complaint: swollen right wrist fell on 04/29/24 Time Seen by Provider: 04/30/24 07:32 History of Present Illness ED Provider: Litzy FROST Narrative: The patient is a 29-year-old female who fell yesterday when she slipped on snow. She landed on asphalt. She injured her right hand and wrist. She has had pain in the hand since then and comes to the emergency room this morning for evaluation of the pain. Related Data Home Medications ?Medication ?Instructions ?Recorded ?Confirmed buspirone 5 mg tablet 1 tab PO TID PRN as directed 03/03/22 07/13/22 fluoxetine 20 mg capsule 20 mg PO QAM 07/13/22 07/13/22 Previous Rx's ?Medication ?Instructions ?Recorded pantoprazole 40 mg tablet,delayed 40 mg PO DAILY #60 tabs 05/04/22 release amoxicillin 875 mg-potassium 1 tab PO BID #20 tabs 05/28/23 clavulanate 125 mg tablet amoxicillin 875 mg-potassium 1 tab PO Q12H 10 days #20 tabs 09/17/23 clavulanate 125 mg tablet Allergies Allergy/AdvReac Type Severity Reaction Status Date / Time bee pollen [bee stings] Allergy Mild Rash Verified 04/30/24 03:57 poison td extract Allergy Mild HIVES Verified 04/30/24 03:57 [POISON TD] poison oak extract Allergy Mild Rash Verified 04/30/24 03:57 poison sumac extract Allergy Mild Hives Verified 04/30/24 03:57 Review of Systems Review of Systems: Yes all other systems are reviewed and are negative [facility] Past Medical History Medical History (Updated 05/01/24 @ 00:00 by Adonis Torre) Anxiety and depression Aspergers' syndrome PTSD (post-traumatic stress disorder) Migraines IBS (irritable bowel syndrome) Surgical History (Updated 07/13/22 @ 08:28 by IRENA Solis) Hx of colonoscopy Hx of wisdom tooth extraction Family History Family History Maternal Grandfather Diabetes Family/Other Crohn disease Sister IBS (irritable bowel syndrome) Social History Social History (Updated 07/13/22 @ 08:28 by [facility] Household Members Other:: lives with Fitorres Alcohol intake: current Alcohol intake frequency: does not drink Patient Tobacco Use Status: Never used Tobacco Second Hand Smoke Exposure: Yes Substance Use Type: Marijuana Current occupational status: employed 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 She seems nontoxic and in no distress. HEENT: Other: No signs of trauma to the head or the face. The head and face are unremarkable. Eyes: General: appearance normal, both eyes and all related structures Neck: Neck: Yes full ROM Resp: Effort & Inspection: normal respiratory effort Skin: Other: The there is some ecchymosis apparent on the skin of the right thenar eminence. The skin is intact. The skin of the wrist itself is not swollen or abnormal in any way. Neuro: Other: The patient is awake and alert with normal mental status. She has normal function of the right hand. Extrem: Other: The patient has a swollen and ecchymotic right thenar eminence. There is no deformity to the wrist or the hand or the fingers otherwise. She can move the wrist reasonably well. She reports some snuffbox tenderness of the right wrist but she does not seem to have pain with axial loading of the thumb. Medical Decision Making Medical Decision Making MDM Narrative: Patient is here following a hand and wrist injury after slipping and falling And landing on an outstretched right hand. Clinically she seems to have a thenar eminence contusion. An x-ray of the wrist is negative. I was somewhat surprised when she reported tenderness with snuffbox palpation. My suspicion for an occult navicular fracture is low. Nevertheless the tenderness at the snuffbox was consistent. Out of an abundance of caution the patient was placed in a thumb spica splint made with Ortho Glass, cast padding, and Oarl bandages. The patient was advised that if she has ongoing symptoms in the region of the snuffbox that she should continue to wear the splint and follow-up with orthopedics. However if she feels things are healing fairly quickly she probably does not need to see an orthopedist. Procedures Orthopedic Splinting/Casting Injury #1: Side: right Upper Extremity Injury Location: wrist Upper Extremity Immobilizer: thumb spica Additional Comments: Thumb spica splint was made for the patient using Ortho Glass, cast padding and Oral bandages. The patient tolerated application of the splint well. She was neurovascularly intact after application of the splint. Discharge Plan Discharge Clinical Impression: Contusion of right wrist Patient Disposition: Home, Self-Care Instructions: Wrist Injury (ED) Additional Instructions: My suspicion is that your primary injury is a bruising injury. You has been placed in a splint to keep the thumb and wrist still to help with healing. You report to having some tenderness at the wrist at the base of the thumb which is near a bone we called the navicular bone. Although I do not have a high suspicion that you have fractured this bone navicular bone is a very delicate bone and we worry about a possible injury to this bone that sometimes does not show up on an initial x-ray. The splint that you have can be removed by taking down the Oral bandages. The Oral bandages then can be rewrapped to replace the splint. If after a day or 2 you feel that the wrist is getting considerably better you do not need to continue wearing the splint and you do not need to follow up with the orthopedic office. However if you continue to have significant discomfort at the base of the thumb in the region we talked about then please continue to wear the splint and follow up with the orthopedic office for further recommendations. If significantly worse at any time return to the emergency department. Prescriptions: No Action buspirone 5 mg tablet 1 tab PO TID PRN (Reason: as directed) pantoprazole 40 mg tablet,delayed release (DR/EC) 40 mg PO DAILY Qty: 60 2RF amoxicillin-pot clavulanate 875-125 mg tablet 1 tab PO BID Qty: 20 0RF amoxicillin-pot clavulanate 875-125 mg tablet 1 tab PO Q12H 10 Days Qty: 20 0RF fluoxetine 20 mg capsule 20 mg PO QAM Referrals: [facility] [Provider Group] (? possible navicular injury) Interventions: ED Discharge Assessment Last Done: 04/30/24 08:34 Discharge Date/Time: 04/30/24 08:35 Print Language: Haitian
[2024-04-30 08:34] VITALS: BP 120/60; PULSE 80; RESP 14; TEMP 36.8; O2SAT 98
== END 2024-04-30 08:35 | disposition home or self-care (01) ==
PROVIDERS: Emergency Provider Emergency Medicine; PCP Family Medicine
DX: S60.211A Contusion of right wrist, initial encounter (principal); M79.641 Pain in right hand; W00.0XXA Fall on same level due to ice and snow, initial encounter; Y93.01 Activity, walking, marching and hiking; Y92.89 Other specified places as the place of occurrence of the external cause; Y99.8 Other external cause status; Z79.899 Other long term (current) drug therapy
CPT/HCPCS: 29125; 73110; 99282; 99283; 99284

== ENCOUNTER → 2024-04-30 04:04 | Outpatient (BNV) | payer OTHER, SELFPAY | PROVIDERS: PCP Family Medicine; Visit Provider Radiology Vascular & Interventional Radiology | DX: S52.571A Other intraarticular fracture of lower end of right radius, initial encounter for closed fracture (principal); W00.0XXA Fall on same level due to ice and snow, initial encounter | CPT/HCPCS: 73110 ==

== ENCOUNTER 2024-05-06 16:31 | Outpatient (REF) | payer MEDICAID, SELFPAY ==
--- NOTE | ~2024-05-06 | XR_ITS ---
XR/XR wrist RT min 3V IMPRESSION: Unremarkable examination of the right breast. Electronically signed by: Rosas Ramos MD 05/07/2024 07:04 AM SRI
== END 2024-05-06 16:32 | disposition home or self-care (01) ==
LOC: HO.US 16:31
PROVIDERS: PCP Family Medicine; Visit Provider Family Medicine
DX: N39.0 Urinary tract infection, site not specified (principal); M25.531 Pain in right wrist
CPT/HCPCS: 73110; 76775

== ENCOUNTER → 2024-05-06 16:34 | Outpatient (BNV) | payer MEDICAID, SELFPAY | PROVIDERS: PCP Family Medicine; Visit Provider Radiology Diagnostic Radiology | DX: N39.0 Urinary tract infection, site not specified (principal) | CPT/HCPCS: 73110; 76775 ==

== ENCOUNTER 2024-05-08 09:48 | Outpatient (REF) | payer MEDICAID, SELFPAY ==
--- NOTE | ~2024-05-08 | XR_ITS ---
CLINICAL HISTORY: M25.531 - Pain in right wrist 4 views right wrist Comparison: CR/SR - XR WRIST RT MIN 3V - 05/06/24 16:53 EST CR - XR WRIST RT MIN 3V - 04/30/24 04:11 EST Findings: No carpal bone fractures or carpal malalignment. Equivocal intra-articular fracture distal radius thin-section CT would be confirmatory. Radial and ulnar styloid preserved. No bony erosive changes. Bone mineralization and soft tissues within normal limits. No radiopaque foreign body. Impression: 1. Equivocal intra-articular fracture distal radius correlate with thin-section CT. This document has been electronically signed by: Lionel Pradhan MD on 05/08/2024 12:59:23
--- OUTSIDE RECORDS SUMMARY | 2024-05-09 10:20 | XMS_ITS | Encounter Summary ---
Author Organization [employer] Address [address] [place] [address] 7t [place] [address] Care Team Providers Care Night Supervisor Name Role Phone Yazmin Crowder MD Primary Care Provider [phone] Encounter Details Date Type Department Care Team (Late st Contact Info) Description 04/30/2024 Orders Only [facility] External Provider, [facility] Social History Tobacco Use Types Packs/Day [...] Description 05/20/2024 3:30 PM EST Office Visit [address] [address] Yazmin Crowder MD [address] [place] [address] 05/24/2024 11:30 AM EST Clinical Support [address] [address] documented as of this encounter Procedures Procedure [...] EST Narrative 05/07/2024 7:38 AM EST ? [facility] ?[address] ?[place] [address] ?XRay Report ? Signed ? Patient: Cartski,Divina ?MR#: [id number] ?? 397 ? : 1995 ?Acct:[id number] ? Age/Sex: 29 / F ?ADM Date: 02/10/25 ? Loc: HO.US ? Attending Dr: Yazmin Crowder MD ? Ordering Physician: Monika Abreu MD ?? Date of Service: 05/06/24 ?? Procedure(s): XR wrist RT min 3V ?? Accession Number(s): [id number] ? cc: Monika Abreu MD; Yazmin Crowder [...] DD/ 1634 ? TD/TT: 05/06/24 1650 ? Email Deployment Specialist: ? Procedure Note Kevon, Image - 05/07/2024 [place] [address] XRay Report Signed Patient: Lorie Velez#: [id number] 397 : 1995Acct:[id number] Age/Sex: 29 / FADM Date: 05/06/24 Loc: HO.US Attending Dr: Yazmin Crowder MD Ordering Physician: Monika Abreu MD Date of Service: 05/06/24 Procedure(s): XR wrist RT min 3V Accession Number(s): [id number] cc: Monika Abreu MD; Yazmin Crowder MD [...] 05/07/24 0704 DD/ 1634 TD/TT: 05/06/24 1650 Email Deployment Specialist: [facility] External Provider IMG XR PROCEDURES Final Result * XR Wrist 3+ Views Right (04/30/2024 5:00 AM EST) Anatomical Region Laterality Modality Upper Extremities, Wrist Right Radiogr aphic Imaging 04/30/2024 5:00 AM EST Narrative 04/30/2024 5:02 AM EST ? [facility] ?[address] ?[place] [address] ?XRay Report ? Signed ? Patient: Divina Velez ?MR#: [id number] ?? 397 ? : 1995 ?Acct:[id number] ? Age/Sex: 29 / F ?ADM Date: 04/30/24 ? Loc: HO.ED ? Attending Dr: ? Ordering Physician: Generic ED Physician ?? Date of Service: 04/30/24 ?? Procedure(s): XR wrist RT min 3V ?? Accession Number(s): [id number] ? cc: Generic ED Physician; Yazmin Crowder [...] DD/ 0500 ? TD/TT: 04/30/24 0500 ? Email Deployment Specialist: ? Procedure Note Donotloretoter, Image - 04/30/2024 [facility] [address] [place] [address] XRay Report Signed Patient: Lorie Velez#: [id number] 397 : 1995Acct:[id number] Age/Sex: 29 FADM Date: 04/30/24 Loc: HO.ED Attending Dr: Ordering Physician: Generic ED Physician Date of Service: 04/30/24 Procedure(s): XR wrist RT min 3V Accession Number(s): [id number] cc: Generic ED Physician; Yazmin Crowder MD [...] 04/30/24 0502 DD/ 0500 TD/TT: 04/30/24 0500 Email Deployment Specialist: [facility] External Provider IMG XR PROCEDURES Final Result documented in this encounter Visit Diagnoses Not on filedocumented in this encounter Additional Health Concerns Assessment Noted Time PHQ-9 Depression Total Score: 4 01/23/20 24 4:29 PM EDT documented as of this encounter Care Teams Night Supervisor Relationship Specialty Start Date End Date Yazmin Crowder MD [address] [place] [address] PCP - General Family Medicine 03/06/20 documented as of this encounter
--- OUTSIDE RECORDS SUMMARY | 2024-05-09 10:20 | XMS_ITS | Encounter Summary ---
Author Organization [employer] [facility] Address [address] [place] [address] 7 [place] [address] Care Team Providers Care Pipe Processor Name Role Phone Yazmin Crowder MD Primary Care Provider [phone] Encounter Details Date Type Department Care Team (Late st Contact Info) Description 12/20/2022 Orders Only [address] [address] ProviderRadha MD Social History Tobacco Use Types [...] Description 05/20/2024 3:30 PM EST Office Visit [address] [address] Yazmin Crowder MD [address] [place] [phone] 05/24/2024 11:30 AM EST Clinical Support [address] [address] documented as of this encounter Procedures Procedure Name Priority Date/Time Associated Diagnosis Comments HM PAP/HPV Routine 11/09/2021 documented in this encounter Results * Hm Pap Smear (11/09/2021) us Historical Provider HEALTH MAINTENANCE Final Result documented in this encounter Visit Diagnoses Not on filedocumented in this encounter Care Teams Pipe Processor Relationship Specialty Start Date End Date Yazmin Crowder MD [address] [place] [phone] PCP - General Family Medicine 03/06/20 documented as of this encounter
--- OUTSIDE RECORDS SUMMARY | 2024-05-09 10:20 | XMS_ITS | Encounter Summary ---
Author Organization [employer] Address [address] [place] [address] 7 [place] [address] Care Team Providers Care Weekend Receptionist Name Role Phone Yazmin Crowder MD Primary Care Provider [phone] Encounter Details Date Type Department Care Team (Late st Contact Info) Description 03/24/2022 Abstract [facility] MEDICINE [address] [place] [address] [phone] Yazmin Crowder MD [address] [place] [address] [phone] Social History Tobacco Use Types Packs/Day Years [...] Description 05/20/2024 3:30 PM EST Office Visit [facility] [address] [place] [address] Yazmin Crowder MD [address] [place] [address] [phone] 05/24/2024 11:30 AM EST Clinical Support [facility] [address] [place] [address] documented as of this encounter Visit Diagnoses Not on filedocumented in this encounter Care Teams Weekend Receptionist Relationship Specialty Start Date End Date Yazmin Crowder MD [address] [place] [address] PCP - General Family Medicine 03/06/20 documented as of this encounter
--- OUTSIDE RECORDS SUMMARY | 2024-05-09 10:20 | XMS_ITS | Encounter Summary ---
Author Organization [employer] Address [address] [place] [address] 7t [place] [address] Care Team Providers Care Mobile Lab Technician Name Role Phone Yazimn Crowder MD Primary Care Provider [phone] Encounter Details Date Type Department Care Team (Late st Contact Info) Description 04/13/2022 Orders Only [facility] [address] [place] [address] Yazmin Crowder MD [address] [place] [address] [phone] Rash (Primary Dx); Xerosis of skin Social [...] Description 05/20/2024 3:30 PM EST Office Visit [facility] [address] [place] [address] Yazmin Crowder MD [address] [place] [address] [phone] 05/24/2024 11:30 AM EST Clinical Support [facility] [address] [place] [address] documented as of this encounter Visit Diagnoses Diagnosis Rash- Primary Rash and other nonspecific skin eruption Xerosis of skin documented in this encounter Care Teams Mobile Lab Technician Relationship Specialty Start Date End Date Yazmin Crowder MD [address] [place] [phone] PCP - General Family Medicine 03/06/20 documented as of this encounter
--- OUTSIDE RECORDS SUMMARY | 2024-05-09 10:20 | XMS_ITS | Encounter Summary ---
Author Organization [employer] Address [address] [place] [address] 7t [place] [address] Care Team Providers Care Shoemaking Finisher Name Role Phone Yazmin Crowder MD Primary Care Provider [phone] Encounter Details Date Type Department Care Team (Late st Contact Info) Description 12/19/2023 Orders Only [facility] [address] [place], [place] [phone] Yazmin Crowder MD [address] [place], [place] [phone] Social History Tobacco Use Types Packs/Day Years [...] Description 05/20/2024 3:30 PM EST Office Visit [address] [address] Yazmin Crowder MD [address] [place] [address] 05/24/2024 11:30 AM EST Clinical Support [address] [address] documented as of this encounter Visit Diagnoses Not on filedocumented in this encounter Additional Health Concerns Assessment Noted Time PHQ-9 Depression Total Score: 18 024 9:30 AM EDT documented as of this encounter Care Teams Shoemaking Finisher Relationship Specialty Start Date End Date Yazmin Crowder MD [address] [place] [phone] PCP - General Family Medicine 03/06/20 documented as of this encounter
--- OUTSIDE RECORDS SUMMARY | 2024-05-09 10:20 | XMS_ITS | Encounter Summary ---
Author Organization [employer] Address [address] [place] [address] 7 [place] [address] Care Team Providers Care Fourth Grade Teacher Name Role Phone Yazmin Crowder MD Primary Care Provider [phone] Reason for Referral * Imaging (Routine) - Closed Specialty Diagnoses / Procedures Referred By Contfrederic matute Referred To Contact Radiology Diagnoses Recurrent UTI Procedures US RENAL BI Yazmin Crowder MD [address] [place] [address] Phone: tel: fax: [address] Phone: tel: fax: Referral ID Status Reason Start Date Expiration Date Visits Re quested Visits Authorized [id number] Closed 02/02/2024 02/01/2025 1 1 Encounter Details Date Type Department Care Team (Late st Contact Info) Description 02/02/2024 Orders Only [facility] [address] [place] [address] Yazmin Crowder MD [address] [place] [address] Recurrent UTI (Primary Dx) Social [...] 05/20/2024 3:30 PM EST Office Visit [address] [address] Yazmin Crowder MD [address] [place] [address] 05/24/2024 11:30 AM EST Clinical Support [address] [address] documented as of this encounter Procedures Procedure Name Priority Date/Time Associated Diagnosis Comments US RENAL BI Routine 05/08/2024 7:41 AM EST Recurrent UTI documented in this encounter Results * US RENAL BI (05/08/2024 7:41 AM EST) Anatomical Region Laterality Modality Abdomen Ultrasound 05/08/2024 7:41 AM EST Narrative 05/08/2024 7:42 AM EST ? [facility] ?[address] ?[place] [address] ? Ultrasound Report ? Signed ? Patient: Divina Velez ?MR#: [id number] ?? [id number] ? : 1995 ?Acct:[id number] ? Age/Sex: 29 / F ?ADM Date: 05/06/24 ? Loc: HO.US ? Attending Dr: Yazmin Crowder MD ? Ordering Physician: Yazmin Crowder MD ?? Date of Service: 05/06/24 ?? Procedure(s): US renal BI ?? Accession Number(s): [id number] ? cc: Yazmin Crowder MD ? CLINICAL [...] DD/ 0741 ? TD/TT: 05/08/24 0741 ? Pack Mule Worker: ? Procedure Note Kevon, Image - 05/08/[address] [address] Ultrasound Report Signed Patient: Lorie Velez#: [id number] : 1995Acct:[id number] Age/Sex: 29 / FADM Date: 05/06/24 Loc: HO. Attending Dr: Yazmin Crowder MD Ordering Physician: Yazmin Crowder MD Date of Service: 05/06/24 Procedure(s): US renal BI Accession Number(s): [id number] cc: Yazmin Crowder MD CLINICAL HISTORY: recurrent [...] in OV> 05/08/2442 DD/ 0 TD/TT: 05/08/24740 Pack Mule Worker: us Yazmin Crowder MD IMG US PROCEDURES Final Result documented in this encounter Visit Diagnoses Diagnosis Recurrent UTI- Primary Urinary tract infection, site not specified documented in this encounter Additional Health Concerns Assessment Noted Time PHQ-9 Depression Total Score: 4 01/23/20 24 4:29 PM EDT documented as of this encounter Care Teams Fourth Grade Teacher Relationship Specialty Start Date End Date Yazmin Crowder MD [address] [place] [address] PCP - General Family Medicine 03/06/20 documented as of this encounter
--- OUTSIDE RECORDS SUMMARY | 2024-05-09 10:20 | XMS_ITS | Encounter Summary ---
Author Organization [employer] Address [address] [place] [address] 7t [place] [address] Care Team Providers Care Meat Supervisor Name Role Phone Yazmin Crowder MD Primary Care Provider [phone] Encounter Details Date Type Department Care Team (Late st Contact Info) Description 10/31/2023 Orders Only [facility] MED[facility]INE [address] [place], [place] [phone] Yazmin Crowder MD [address] [place], [place] [phone] Acute cystitis without hematuria (Primary Dx); Low [...] Description 05/20/2024 3:30 PM EST Office Visit [address] [address] Yazmin Crowder MD [address] [place] [address] 05/24/2024 11:30 AM EST Clinical Support [address] [address] documented as of this encounter Procedures Procedure Name Priority Date/Time Associated Diagnosis Comments TSH Routine 11/13/2023 3:20 PM EDT Low TSH level T4, FREE Routine 11/13/2023 3:20 PM EDT Low TSH level documented in this encounter Results * TSH (11/13/2023 3:20 PM EDT) Thyroid Stimulating Hormone 1.53 0.32 - 4.0 uIU/mL [facility] Comment:TSH 3rd Generation ( [facility]) Blood Venous blood specimen / Unknown 11/13/2023 3:20 PM EDT 11/13/2023 3:52 PM EDT us Yazmin Crowder MD LAB BLOOD ORDERABLES Final Resul t [facility] [address] [place] [phone] * T4, Free (11/13/2023 3:20 PM EDT) Free T4 (Free Thyroxine) 0.75 0.71 - 1.85 ng/dL [facility] Blood Venous blood specimen / Unknown 11/13/2023 3:20 PM EDT 11/13/2023 3:52 PM EDT us Yazmin Crowder MD LAB BLOOD ORDERABLES Final Resul t [facility] [address] [place] [phone] [phone] documented in this encounter Visit Diagnoses Diagnosis Acute cystitis without hematuria- Primary Low TSH level documented in this encounter Additional Health Concerns Assessment Noted Time PHQ-9 Depression Total Score: 25 024 5:10 PM EDT documented as of this encounter Care Teams Meat Supervisor Relationship Specialty Start Date End Date Yazmin Crowder MD [address] [place] [address] PCP - General Family Medicine 03/06/20 documented as of this encounter
--- OUTSIDE RECORDS SUMMARY | 2024-05-09 10:20 | XMS_ITS | Encounter Summary ---
Author Organization [employer] Address [address] [place] [address] 7t [place] [address] Care Team Providers Care Oil Seal Assembler Name Role Phone Yazmin Crowder MD Primary Care Provider [phone] Reason for Visit * Reason Comments Med Change Request Encounter Details Date Type Department Care Team ([facility] Contact Info) Description 04/04/2024 Refill [facility] [address] [place], [place] [phone] Yazmin Crowder MD [address] [place], [place] [phone] Social History Tobacco Use Types Packs/Day Years [...] Description 05/20/2024 3:30 PM EST Office Visit [address] [address] Yazmin Crowder MD [address] [place] [address] 05/24/2024 11:30 AM EST Clinical Support [address] [address] documented as of this encounter Visit Diagnoses Not on filedocumented in this encounter Additional Health Concerns Assessment Noted Time PHQ-9 Depression Total Score: 4 01/23/20 24 4:29 PM EDT documented as of this encounter Care Teams Oil Seal Assembler Relationship Specialty Start Date End Date Yazmin Crowder MD [address] [place] [address] PCP - General Family Medicine 03/06/20 documented as of this encounter
--- OUTSIDE RECORDS SUMMARY | 2024-05-09 10:20 | XMS_ITS | Encounter Summary ---
Author Organization [employer] Address [address] [place] [address] 7t [place] [address] Care Team Providers Care Fiscal Analyst Name Role Phone Yazmin Crowder MD Primary Care Provider [phone] Encounter Details Date Type Department Care Team (Late st Contact Info) Description 01/31/2024 Orders Only [facility] [address] [place], [place] [phone] Yazmin Crowder MD [address] [place], [place] [phone] Social History Tobacco Use Types Packs/Day Years [...] Description 05/20/2024 3:30 PM EST Office Visit [address] [address] Yazmin Crowder MD [address] [place] [address] 05/24/2024 11:30 AM EST Clinical Support [address] [address] documented as of this encounter Visit Diagnoses Not on filedocumented in this encounter Additional Health Concerns Assessment Noted Time PHQ-9 Depression Total Score: 4 01/23/20 24 4:29 PM EDT documented as of this encounter Care Teams Fiscal Analyst Relationship Specialty Start Date End Date Yazmin Crowder MD [address] [place] [address] PCP - General Family Medicine 03/06/20 documented as of this encounter
--- OUTSIDE RECORDS SUMMARY | 2024-05-09 10:20 | XMS_ITS | Encounter Summary ---
Author Organization [employer] Address [address] [place] [address] 7t [place] [address] Care Team Providers Care Public Works Technician Name Role Phone Yazmin Crowder MD Primary Care Provider [phone] Encounter Details Date Type Department Care Team (Late st Contact Info) Description 01/26/2024 Orders Only [facility] [address] [place], [place] [phone] Yazmin Crowder MD [address] [place], [place] [phone] Social History Tobacco Use Types Packs/Day Years [...] 05/20/2024 3:30 PM EST Office Visit [address] [address] Yazmin Crowder MD [address] [place] [address] 05/24/2024 11:30 AM EST Clinical Support [address] [address] documented as of this encounter Visit Diagnoses Not on filedocumented in this encounter Additional Health Concerns Assessment Noted Time PHQ-9 Depression Total Score: 4 01/23/20 24 4:29 PM EDT documented as of this encounter Care Teams Public Works Technician Relationship Specialty Start Date End Date Yazmin Crowder MD [address] [place] [address] PCP - General Family Medicine 03/06/20 documented as of this encounter
--- OUTSIDE RECORDS SUMMARY | 2024-05-09 10:20 | XMS_ITS | Encounter Summary ---
Author Organization [employer] Address [address] [place] [address] Care Team Providers Care Metal Moulder Name Role Phone Yazmin Crowder MD Primary Care Provider [phone] Reason for Referral * Consultation (Routine) - Denied Specialty Diagnoses / Procedures Referred By Contac t Referred To Contact Behavioral Health Diagnoses PTSD (post-traumatic stress disorder) Mixed anxiety and depressive disorder Yazmin Crowder MD [address] [place] [address] Phone: tel: fax: Referral ID Status Reason Start Date Expiration Date V isits Requested Visits Authorized [id number] Denied Specialty Services Required 04/21/2024 04/21/2025 1 0 Encounter Details Date Type Department Care Team (Late st Contact Info) Description 04/18/2024 11:30 AM EST Telemedicine [facility] [address] [place] [address] Yazmin Crowder MD [address] [place] [address] Hypertension, unspecified type (Primary Dx); [...] appointment * Assessment & Plan Note - Yazmni Crowder MD - 04/21/2024 1:23 PM ESTAssociated Problem(s): Asperger's syndrome - She does not like to have a label of functional ASD - Congratulated her on advocating for herself and other people with neuroatypical condition. * Assessment & Plan Note - Yazmin Crowder MD - 04/21/2024 1:21 PM ESTAssociated Problem(s): Mood disorder (CMS/HCC) -Pt was followed by [facility] provider in the past, but out of [...] 1:21 PM ESTAssociated Problem(s): Fibromyalgia Evaluated by Manager Of Financial Reporting in 06/2022 -Several different medication options discussed; [...] 3:30 PM EST Office Visit [facility] [address] [place] [address] Yazmin Crowder MD [address] [place] [address] 05/24/2024 11:30 AM EST Clinical Support [address] [address] Scheduled Referrals Name Type Priority Associated Diagnoses [...] documented as of this encounter Care Teams Metal Moulder Relationship Specialty Start Date End Date Yazmin Crowder MD [address] [place] [address] PCP - General Family Medicine 03/06/20 documented as of this encounter
--- OUTSIDE RECORDS SUMMARY | 2024-05-09 10:20 | XMS_ITS | Encounter Summary ---
Author Organization [employer] Address [address] [facility] 7t [place] [address] Care Team Providers Care Infection Control Practitioner Name Role Phone Yazmin Crowder MD Primary Care Provider [phone] Encounter Details Date Type Department Care Team [...] Description 05/20/2024 3:30 PM EST Office Visit [address] [address] Yazmin Crowder MD [address] [place] [address] 05/24/2024 11:30 AM EST Clinical Support [address] [address] documented as of this encounter Visit Diagnoses Not on filedocumented in this encounter Additional Health Concerns Assessment Noted Time PHQ-9 Depression Total Score: 4 01/23/20 24 4:29 PM EDT documented as of this encounter Care Teams Infection Control Practitioner Relationship Specialty Start Date End Date Yazmin Crowder MD [address] [place] [address] PCP - General Family Medicine 03/06/20 documented as of this encounter
--- OUTSIDE RECORDS SUMMARY | 2024-05-09 10:20 | XMS_ITS | Encounter Summary ---
Author Organization [employer] Address [address] [place] [address] 7t [place] [address] Care Team Providers Care Warehouse Inventory Clerk Name Role Phone Yazmin Crowder MD Primary Care Provider Reason for Visit * Reason Onset Date Comments ER Follow-up 04/30/2024 Encounter Details Date Type Department Care Team ([facility] st Contact Info) Description 04/30/2024 Telephone [facility] MEDICINE [address] [place], [place] [phone] Divina Her, RN [address] [place] [address] ER Follow-up Social History Tobacco Use Types [...] lobby requesting ED follow up. Seen at [facility] ED 04/30 for contusion of right [...] Description 05/20/2024 3:30 PM EST Office Visit [facility] MEDICINE [address] [place] [address] Yazmin Crowder MD [address] [place] [address] 05/24/2024 11:30 AM EST Clinical Support [facility] [address] [place] [address] documented as of this encounter Visit Diagnoses Not on filedocumented in this encounter Additional Health Concerns Assessment Noted Time PHQ-9 Depression Total Score: 4 01/23/20 24 4:29 PM EDT documented as of this encounter Care Teams Warehouse Inventory Clerk Relationship Specialty Start Date End Date Yazmin Crowder MD [address] [place] [address] PCP - General Family Medicine 03/06/20 documented as of this encounter
--- OUTSIDE RECORDS SUMMARY | 2024-05-09 10:20 | XMS_ITS | Encounter Summary ---
Author Organization [employer] Address [address] [facility] 7t [place] [address] Care Team Providers Care Sling Operator Name Role Phone Yazmin Crowder MD Primary Care Provider [phone] Encounter Details Date Type Department Care Team [...] 05/20/2024 3:30 PM EST Office Visit [address] [address] Yazmin Crowder MD [address] [place] [address] 05/24/2024 11:30 AM EST Clinical Support [address] [address] documented as of this encounter Visit Diagnoses Not on filedocumented in this encounter Additional Health Concerns Assessment Noted Time PHQ-9 Depression Total Score: 4 01/23/20 24 4:29 PM EDT documented as of this encounter Care Teams Sling Operator Relationship Specialty Start Date End Date Yazmin Crowder MD [address] [place] [address] PCP - General Family Medicine 03/06/20 documented as of this encounter
--- OUTSIDE RECORDS SUMMARY | 2024-05-09 10:20 | XMS_ITS | Clinical Summary ---
Author Organization [employer] Address [address] [place] [address] 7t [place] [address] Care Team Providers Care Correctional Maintenance Technician Name Role Phone Yazmin Crowder MD Primary Care Provider [phone] Allergies Active Allergy Reactions Criticality Noted Date [...] Plan (04/21/2024 1:21 PM EST): Evaluated by Investigator Claims in 06/2022 -Several different medication options discussed; interested in Muscle relaxant and Gabapentin. Agreed to start one medication at a time -Patient will start Gabapentin 300mg at bedtime -Continue antidepressants -Continue active lifestyle Assessment & Plan (10/29/2023 7:13 AM EDT): Evaluated by Investigator Claims in 06/2022 -Several different medication options discussed; interested in Muscle relaxant and Gabapentin. Agreed to start one medication at a time -Patient will start Gabapentin 300mg at bedtime -Continue antidepressants -Continue active lifestyle Assessment & Plan (07/19/2022 12:41 PM EDT): Evaluated by Investigator Claims in 06/2022 -Several different medication options discussed; [...] PM EDT): -Restart Loratadine -Rx Nasal Saline Warren It band syndrome, right 03/27/2022 Assessment & Plan (04/21/2024 1:21 PM EST): -Continue home exercise program Assessment & Plan (02/02/2024 6:32 PM EST): -Continue home exercise program Assessment & Plan (03/27/2022 5:47 PM EST): -Continue home exercise program Patellofemoral syndrome of both knees 03/27/2022 Assessment & Plan (03/27/2022 5:47 PM EST): -Evaluated by [facility] provider -Continue home exercise program -Continue judicious use of meloxicam Mood disorder 03/27/2022 Assessment & Plan (04/21/2024 1:21 PM EST): -Pt was followed by [facility] provider in the past, but out [...] 6:36 PM EST): -Pt was followed by [facility] provider in the past, but out [...] 5:18 PM EDT): -Pt was followed by [facility] provider in the past, but out [...] 8:53 AM EDT): -Pt was followed by [facility] provider in the past, but out [...] 9:21 AM EDT): -Pt is followed by [facility] provider -Current Dx needs to be confirmed: Bipolar, Major depression, anxiety, PTSD -Currently prescribed fluoxetine and buspirone -Previously tried: bupropion, clonidine, and sertraline -Continue current treatment plan by [facility] provider -Continue staying physically active -Recommended acupuncture Assessment & Plan (03/27/2022 5:46 PM EST): -Pt is followed by [facility] provider -Current Dx needs to be confirmed: Bipolar, Major depression, anxiety, PTSD -Currently prescribed fluoxetine and buspirone -Previously tried: bupropion, clonidine, and sertraline -Continue current treatment plan by [facility] provider -Continue staying physically active -Recommended acupuncture Abdominal pain 03/27/2022 Assessment & Plan (03/27/2022 5:48 PM EST): -Followed by [facility] -Extensive work-up has been ordered -Follow [...] Assessment & Plan (03/27/2022 5:58 PM EST): -[place] moisturization with emolients -Judicious use of topical [...] Plan (07/19/2022 12:42 PM EDT): Evaluated by Investigator Claims in 06/2022, Dx with Fibromyalgia -Also evaluated [...] Type Department Care Team Description 04/30/2024 Telephone [facility] [address] [place] [address] Divina Her RN ER Follow-up 04/30/2024 Orders Only [facility] External Provider, [facility] 04/23/2024 Travel 04/18/2024 11:30 AM EST Telemedicine [facility] [address] [place] [address] Yazmin Crowder MD Hypertension, unspecified type (Primary Dx); Dietary counseling; Exercise counseling; Class 2 obesity due to excess calories without serious comorbidity with body mass index (BMI) of 37.0 to 37.9 in adult; Mood disorder (CMS/HCC); Fibromyalgia; Trochanteric bursitis of both hips; Recurrent UTI; It band syndrome, right; PTSD (post-traumatic stress disorder); Mixed anxiety and depressive disorder; Asperger's syndrome 04/18/2024 Travel 04/04/2024 Refill [facility] [address] [place] [address] Yazmin Crowder MD 03/21/2024 Telephone [facility] [address] [place] [address] Yazmin Crowder MD Callback 02/19/2024 Refill [facility] [address] [place], [place] [phone] Nolvia Hendrix RN Hypertension, unspecified type 02/16/2024 1:00 PM EST Clinical Support [facility] [address] [place], [place] [phone] Nolvia Hendrix RN Hypertension, unspecified type 02/16/2024 Travel from Last 3 Months Immunizations Name Administration Dates Next Due DTaP, 5 pertussis antigens 04/04/2001,,1996,06/27,1996 HPV 9-Valent 05/29/2014,10/18/2013,07/20/2012 Hep A, Adult 05/29/2014,10/18/2013 Hep B, Adolescent or Pediatric 1996,1996,1996 Hib ([facility]) 07/25/1997,199 7,1996,04/26 IPV 03/09/2000,199 7,1996,04/26 Influenza injectable [...] Description 05/20/2024 3:30 PM EST Office Visit [facility] [address] [place] [address] Yazmin Crowder MD [address] [place] [address] 05/24/2024 11:30 AM EST Clinical Support [address] [address] Health Maintenance Due Date Last Done Comments [...] EST Narrative 05/08/2024 7:42 AM EST ? [facility] ?[address] ?[place] [address] ? Ultrasound Report ? Signed ? Patient: Agustin,Divina ?MR#: [id number] ?? 397 ? : 1995 ?Acct:[id number] ? Age/Sex: 29 / F ?ADM Date: 05/06/24 ? Loc: HO.US ? Attending Dr: Yazmin Crowder MD ? Ordering Physician: Yazmin Crowder MD ?? Date of Service: 05/06/24 ?? Procedure(s): US renal BI ?? Accession Number(s): [id number] ? cc: Yazmin Crowder MD ? CLINICAL [...] ? DD/ 0 ? TD/TT: 05/08/24740 ? Hypertrichologist: ? Procedure Note Kevon, Yenny - 05/08/2024 [place] [address] Ultrasound Report Signed Patient: Lorie Velez#: [id number] 397 : 1995Acct:[id number] Age/Sex: 29 / FADM Date: 05/06/24 Loc: HO.US Attending Dr: Yazmin Crowder MD Ordering Physician: Yazmin Crowder MD Date of Service: 05/06/24 Procedure(s): US renal BI Accession Number(s): [id number] cc: Yazmin Crowder MD CLINICAL HISTORY: recurrent [...] in OV> 05/08/2442 DD/ 0 TD/TT: 05/08/24740 Hypertrichologist: us Yazmin Crowder MD IMG US PROCEDURES Final Result * XR Wrist 3+ Views Right (05/06/2024 4:34 PM EST) Only the most recent of2 resultswithin the time period is included. Anatomical Region Laterality Modality Upper Extremities, Wrist Right Radiogr aphic Imaging 05/06/2024 4:34 PM EST Narrative 05/07/2024 7:38 AM EST ? [facility] ?[address] ?[place] [address] ?XRay Report ? Signed ? Patient: Divina Velez ?MR#: [id number] ?? 397 ? : 1995 ?Acct:[id number] ? Age/Sex: 29 / F ?ADM Date: 05/06/24 ? Loc: HO.US ? Attending Dr: Yazmin Crowder MD ? Ordering Physician: Monika Abreu MD ?? Date of Service: 05/06/24 ?? Procedure(s): XR wrist RT min 3V ?? Accession Number(s): [id number] ? cc: Monika Abreu MD; Yazmin Crowder [...] AM EST ?? RP ? Dictated By: ?Rossa Ramos MD ? Signed By: ?<Electronically signed by Rosas Ramos MD in OV> ?05/07/24 0704 ? DD/ 1634 ? TD/TT: 05/06/24 1650 ? Hypertrichologist: ? Procedure Note Donotuseinterpreter, Image - 05/07/2024 [place] [address] XRay Report Signed Patient: Lorie Velez#: [id number] 397 : 1995Acct:[id number] Age/Sex: Date: 05/06/24 Loc: . Attending Dr: Yazmin Crowder MD Ordering Physician: Monika Abreu MD Date of Service: 05/06/24 Procedure(s): XR wrist RT min 3V Accession Number(s): [id number] cc: Monika Abreu MD; Yazmin Crowder MD [...] 05/07/24 0704 DD/ 1634 TD/TT: 05/06/24 165 Hypertrichologist: us [facility] External Provider IMG XR PROCEDURES Final Result * (ABNORMAL) Lipid Panel with Reflex to Direct LDL (11/10/2023 10:09 AM EDT) Triglycerides 111 <150 mg/dL [facility] Comment:Desirable Triglyceri de: less than 150 mg/dLBorderline High Triglyceride 150-199 mg/dLHigh Triglyceride: 200-499 mg/dLVery High Triglyceride: greater than or equal to 5OO mg/dL Cholesterol 185 <200 mg/dL [facility] Comment:Desirable Cholestero l: less than 200 mg/dLBorderline High Cholesterol: 200-239 mg/dLHigh Cholesterol: greater than 239 mg/dL LDL Cholesterol Calculated 114(H) <100 mg/dL [facility] Comment:Desirable LDL: less than 100 mg/dLNear Optimal/Above Optimal LDL: 110- 129 mg/dLBorderline High LDL: 130-159 mg/dLHigh LDL: 160-189 mg/dLVery High LDL: greater than or equal to 190 mg/dL HDL Cholesterol 49 >40 mg/dL [facility] Comment:Desirable HDL: great er than 40 mg/dL Note: This HDL assay may give artificially low results in patients with liver disease. Blood 11/10/2023 10:0 9 AM EDT 11/10/2023 1:24 PM EDT Yazmin Crowder MD LAB BLOOD ORDERABLES Final Resul t [facility] [address] [place] [phone] * Hepatitis C Antibody with Reflex to HCV, RNA, Quantitative, Real-Time PCR (11/10/2023 10:09 AM EDT) Hepatitis C Antibody Nonreactive Nonreactive [facility] Comment:Antibodies to HCV no t detected; does not exclude early acuteHCV infection. Blood Venous blood specimen / Unknown 11/10/2023 10:09 AM EDT 11/10/2023 1:24 PM EDT Yazmin Crowder MD LAB BLOOD ORDERABLES Final Resul t Performing Organization Address [facility]/ZIP Co de Phone Number [facility] [address] [place] [phone] * HIV-1/2 Antigen and Antibodies, Fourth Generation, with Reflexes (11/10/2023 10:09 AM EDT) HIV AB/AG Nonreactive Nonreactive [facility] Comment:HIV-1 p24 Ag and/or HIV-1/HIV-2 Ab not detected.A test result that is nonreactive does not exclude thepossibility of exposure to or infection with HIV-1 and/orHIV-2. Nonreactive results in this assay for individualswith prior exposure to HIV-1 and/or HIV-2 may be due toantigen and antibody levels that are below the limit ofdetection of this assay.[employer] HIV Ag/Ab Combo assay result andsupplemental assay results should be interpreted inconjunction with the patient's clinical presentation,history and other laboratory results. If the results areinconsistent with clinical evidence, additional testing issuggested to confirm the result. Blood Venous blood specimen / Unknown 11/10/2023 10:09 AM EDT 11/10/2023 1:24 PM EDT Yazmin Crowder MD LAB BLOOD ORDERABLES Final Resul t Performing Organization Address [facility]/ZIP Co de Phone Number [facility] [address] [place] [phone] * Hm Pap Smear (11/09/2021) Historical Provider HEALTH MAINTENANCE Final Result from Last 3 Months or Most Recently Relevant to Health Maintenance Insurance HSN FULL Care Teams Correctional Maintenance Technician Relationship Specialty Start Date End Date Yazmin Crowder MD [address] [place] [phone] PCP - General Family Medicine 03/06/20
== END 2024-05-08 09:49 | disposition home or self-care (01) ==
LOC: HO.HOSX 09:48
PROVIDERS: Visit Provider Orthopaedic Surgery
DX: M25.531 Pain in right wrist (principal); M79.7 Fibromyalgia; M79.641 Pain in right hand
CPT/HCPCS: 73110; 99202

== ENCOUNTER 2024-05-08 10:08 | Outpatient (AMB) | payer MEDICAID, SELFPAY ==
--- NOTE | 2024-05-08 10:15 | A.OFFVIS_ITS ---
Vital Signs 05/08/24 10:27 Height 5 ft 6 in Weight 230 lb BMI 37.1 Intake Visit Reasons: FC-ED f/u RT wrist contusion, possible fx Intake Note: Divina 29 yr old right hand dominant female presents today for a new problem evaluation for her right hand pain. States she fell DOI 04/30/24. She slipped on snow. She landed on asphalt. She injured her right hand and wrist. She has had pain in the hand since then and was seen in ED same day where no fracture were found and patient was splinted. Currently states she has very little pain and increase very little when driving or applying pressure. She is able to make a full close fist. Pain is mainly on her dorsum aspect of hand. Denies numbness or tingling. Hx of Autism. Allergies bee pollen [bee stings] Allergy (Mild, Verified 05/08/24 10:24) Rash poison gia extract [POISON GIA] Allergy (Mild, Verified 05/08/24 10:24) HIVES poison oak extract Allergy (Mild, Verified 05/08/24 10:24) Rash poison sumac extract Allergy (Mild, Verified 05/08/24 10:24) Hives HPI HPI FC-ED f/u RT wrist contusion, possible fx: Details: Divina is a 29 year old right hand dominant woman who presents for right wrist pain, S/P fall, DOI: 04/29/24. She was seen in the ED on 04/30/24 and placed in a velcro wrist splint. She reports having little pain in her hand, worse when applying pressure such as driving. She says her pain is primarily to the back of her hand. She denies any numbness or tingling. She has a Hx of Autism & Fibromyalgia. She denies smoking or vaping, but her does smoke inside their apartment and her clothes smell heavily of smoke today [facility] Medical History (Updated 05/08/24 @ 10:43 by Flavio Hogan) Anxiety and depression Aspergers' syndrome PTSD (post-traumatic stress disorder) Migraines IBS (irritable bowel syndrome) Surgical History (Updated 07/13/22 @ 08:28 by Екатерина Berrios [facility]) Hx of colonoscopy Hx of wisdom tooth extraction Family History Maternal Grandfather Diabetes Family/Other Crohn disease Sister IBS (irritable bowel syndrome) Social History (Updated 05/08/24 @ 10:24 by IRENA Chaney) Household Members Other:: lives with Fiance Alcohol intake: current Alcohol intake frequency: does not drink Patient Tobacco Use Status: Never used Tobacco Second Hand Smoke Exposure: Yes Substance Use Type: Marijuana Current occupational status: unemployed 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 Reproductive History Menstrual Age of Menarche: 13 Review of Systems Const All systems reviewed & are unremarkable except as noted in HPI and below Physical Exam Vital Signs: BMI result Body Mass Index 37.1 Const General: cooperative, healthy appearing and no acute distress Orientation/consciousness: patient oriented x3 HEENT Head: Yes normocephalic and Yes atraumatic Eyes EOM: EOMs intact bilaterally Resp Effort & Inspection: normal respiratory effort and able to speak in complete sentences Cardio Jugular venous distension: no JVD Skin General skin exam: turgor normal Rashes: no rashes Neuro General: patient oriented x3 Extrem Other: Evaluation of Right Upper Extremity: The patient is alert, oriented, and in no acute distress Neuro: Median, Ulnar, Radial nerves motor and sensory intact Vascular: Cap refill brisk ROM: She can make a weak fist and extend all her digits No locking or catching Skin: No lacerations or abrasions or evidence of open fracture General: No Erythema or evidence of infection. Resolving swelling No tenderness over the distal radius, DRUJ Mild tenderness over the dorsal aspect of the distal ulna Tender over the snuffbox today No tenderness over the scaphoid tubercle Radiographs: 3 views of the right wrist + a scaphoid view were taken and viewed by me today in clinic. They show no obvious fractures or dislocations. Psych Appearance: grossly normal Affect: normal affect Attitude: cooperative Assessment & Plan Assessment & Plan (1) Tenderness of anatomical snuffbox: Comment: R Code(s): M79.643 - Pain in unspecified hand Category: Medical (2) Fibromyalgia: Code(s): M79.7 - Fibromyalgia Category: Medical Plan Assessment & Plan: 1. Right snuffbox tenderness, S/P fall, DOI: 04/29/24 2. Right hand & wrist contusion S/P fall, DOI: 04/29/24 I educated her about this condition I discussed operative and non-operative treatment options No obvious scaphoid fractures seen on radiographs, however it is still too soon for confirmation at this time She was fitted for a new thumb spica splint, to be worn like a cast except for showering for the next week. She should work on gentle finger ROM exercises while in her splint I discussed activity modifications, she is to lift nothing heavier than a c ellphone for the next week. She stays active with weight training and exercise, and I recommend she focus on lower body and cardio exercises at this time. I explained the effects of smoking/vaping on wound/bone healing, and recommend they stop smoking while healing. She denies smoking but says her smokes inside their house regularly. She will follow up next week, with X-rays, 3V R wrist+scaphoid Scribed for Monika Abreu MD by Flavio Hogan, medical certification specialist, on 05/08/24 at 10:40 AM, EST. Orders: Orders XR wrist RT min 3V 05/06/24 M25.531 - Pain in right wrist XR wrist RT w scaphoid Today M25.531 - Pain in right wrist Coding Level of Care Code New Pt Level 3 (04298) Diagnoses Tenderness of anatomical snuffbox M79.643 Fibromyalgia M79.7
[2024-05-08 10:27] VITALS: BMI 37.1
--- OUTSIDE RECORDS SUMMARY | 2024-05-08 11:58 | XMS_ITS | Encounter Summary ---
Author Organization [employer] Address [address] [place] [address] [address] [place] [address] Care Team Providers Care Instructor Business Education Name Role Phone Yazmin Crowder MD Primary Care Provider [phone] Encounter Details Date Type Department Care Team (Late st Contact Info) Description 12/19/2023 Orders Only [facility] [address] [place], [place] [phone] Yazmin Crowder MD [address] [place], [place] [phone] Social History Tobacco Use Types Packs/Day Years [...] Care Team (Late st Contact Info) Description 05/20/2024 3:30 PM EST Office Visit [address] [address] Yazmin Crowder MD [address] [place] [id number] 05/24/2024 11:30 AM EST Clinical Support [address] [address] documented as of this encounter Visit Diagnoses Not on filedocumented in this encounter Additional Health Concerns Assessment Noted Time PHQ-9 Depression Total Score: 18 024 9:30 AM EDT documented as of this encounter Care Teams Instructor Business Education Relationship Specialty Start Date End Date Yazmin Crowder MD [address] [place] [id number] PCP - General Family Medicine 03/06/20 documented as of this encounter
--- OUTSIDE RECORDS SUMMARY | 2024-05-08 11:58 | XMS_ITS | Encounter Summary ---
Author Organization [employer] Address [address] [place] [address] 7t [place] [address] Care Team Providers Care Elder Counselor Name Role Phone Yazmin Crowder MD Primary Care Provider [phone] Reason for Visit * Reason Onset Date Comments ER Follow-up 04/30/2024 Encounter Details Date Type Department Care Team ([facility] st Contact Info) Description 04/30/2024 Telephone [facility] [address] [place], [place] [phone] Divina Her, RN [address] [place] [address] ER Follow-up Social History Tobacco Use Types Packs/Day Years [...] encounter Miscellaneous Notes * Telephone Encounter - Divina Her RN - 04/30/2024 11:37 AM EST Pt walked into green team lobby requesting ED follow up. Seen at [facility] ED 04/30 for contusion of right wrist. Booked to see PCP for follow up 05/20. Advised to cancel if she feels better by then. Pt verbalized understanding and denied having any further questions or concerns at this time. documented in this encounter Plan of Treatment Upcoming Encounters Date Type Department Care Team (Late st Contact Info) Description 05/20/2024 3:30 PM EST Office Visit [facility] [address] [place] [address] Yazmin Crowder MD [address] [place] [address] 05/24/2024 11:30 AM EST Clinical Support [facility] [address] [place] [address] documented as of this encounter Visit Diagnoses Not on filedocumented in this encounter Additional Health Concerns Assessment Noted Time PHQ-9 Depression Total Score: 4 01/23/20 24 4:29 PM EDT documented as of this encounter Care Teams Elder Counselor Relationship Specialty Start Date End Date Yazmin Crowder MD [address] [place] [address] PCP - General Family Medicine 03/06/20 documented as of this encounter
--- OUTSIDE RECORDS SUMMARY | 2024-05-08 11:58 | XMS_ITS | Encounter Summary ---
Author Organization [employer] Address [address] [place] [address] 7t [place] [address] Care Team Providers Care Head Start Director Name Role Phone Yazmin Crowder MD Primary Care Provider [phone] Encounter Details Date Type Department Care Team (Late st Contact Info) Description 01/26/2024 Orders Only [facility] [address] [place], [place] [phone] Yazmin Crowder MD 230 [place], [place] [phone] Social History Tobacco Use Types Packs/Day Years [...] Description 05/20/2024 3:30 PM EST Office Visit [address] [address] Yazmin Crowder MD [address] [place] [address] 05/24/2024 11:30 AM EST Clinical Support [address] [address] documented as of this encounter Visit Diagnoses Not on filedocumented in this encounter Additional Health Concerns Assessment Noted Time PHQ-9 Depression Total Score: 4 01/23/20 24 4:29 PM EDT documented as of this encounter Care Teams Head Start Director Relationship Specialty Start Date End Date Yazmin Crowder MD [address] [place] [address] PCP - General Family Medicine 03/06/20 documented as of this encounter
--- OUTSIDE RECORDS SUMMARY | 2024-05-08 11:58 | XMS_ITS | Encounter Summary ---
Author Organization [employer] Address [address] [place] [address] 7t [place] [address] Care Team Providers Care Hi Ranger Operator Name Role Phone Yazmin Crowder MD Primary Care Provider [phone] Encounter Details Date Type Department Care Team (Late st Contact Info) Description 10/31/2023 Orders Only [facility] [address] [place], [place] [phone] Yazmin Crowder MD 230 [place], [place] [phone] Acute cystitis without hematuria (Primary Dx); Low [...] Description 05/20/2024 3:30 PM EST Office Visit [address] [address] Yazmin Crowder MD [address] [place] [address] 05/24/2024 11:30 AM EST Clinical Support [address] [address] documented as of this encounter Procedures Procedure Name Priority Date/Time Associated Diagnosis Comments TSH Routine 11/13/2023 3:20 PM EDT Low TSH level T4, FREE Routine 11/13/2023 3:20 PM EDT Low TSH level documented in this encounter Results * TSH (11/13/2023 3:20 PM EDT) Thyroid Stimulating Hormone 1.53 0.32 - 4.0 uIU/mL [facility] Comment:TSH 3rd Generation ( [facility]) Blood Venous blood specimen / Unknown 11/13/2023 3:20 PM EDT 11/13/2023 3:52 PM EDT us Yazmin Crowder MD LAB BLOOD ORDERABLES Final Resul t [facility] [address] [place] [phone] * T4, Free (11/13/2023 3:20 PM EDT) Free T4 (Free Thyroxine) 0.75 0.71 - 1.85 ng/dL [facility] Blood Venous blood specimen / Unknown 11/13/2023 3:20 PM EDT 11/13/2023 3:52 PM EDT us Yazmin Crowder MD LAB BLOOD ORDERABLES Final Resul t [facility] [address] [place] [phone] [phone] documented in this encounter Visit Diagnoses Diagnosis Acute cystitis without hematuria- Primary Low TSH level documented in this encounter Additional Health Concerns Assessment Noted Time PHQ-9 Depression Total Score: 25 024 5:10 PM EDT documented as of this encounter Care Teams Hi Ranger Operator Relationship Specialty Start Date End Date Yazmin Crowder MD [address] [place] [address] PCP - General Family Medicine 03/06/20 documented as of this encounter
--- OUTSIDE RECORDS SUMMARY | 2024-05-08 11:58 | XMS_ITS | Encounter Summary ---
Author Organization [employer] Address [address] [place] [address] 7 [place] [address] Care Team Providers Care Certified Addiction Counselor Name Role Phone Yazmin Crowder MD Primary Care Provider [phone] Encounter Details Date Type Department Care Team (Late st Contact Info) Description 03/24/2022 Abstract [facility] [address] [place] [address] [phone] Yazmin Crowder MD [address] [place] [address] [phone] Social History Tobacco Use Types Packs/Day Years [...] Description 05/20/2024 3:30 PM EST Office Visit [facility] [address] [place] [address] Yazmin Crowder MD [address] [place] [address] [phone] 05/24/2024 11:30 AM EST Clinical Support [facility] [address] [place] [address] documented as of this encounter Visit Diagnoses Not on filedocumented in this encounter Care Teams Certified Addiction Counselor Relationship Specialty Start Date End Date Yazmin Crowder MD [address] [place] [address] PCP - General Family Medicine 03/06/20 documented as of this encounter
--- OUTSIDE RECORDS SUMMARY | 2024-05-08 11:58 | XMS_ITS | Encounter Summary ---
Author Organization [employer] [facility] Address [address] [place] [address] 7 [place] [address] Care Team Providers Care Supervisor Heat Treating Name Role Phone Yazmin Crowder MD Primary Care Provider [phone] Encounter Details Date Type Department Care Team (Late st Contact Info) Description 12/20/2022 Orders Only [address] [address] ProviderRadha MD Social History Tobacco Use Types Packs/Day Years [...] Description 05/20/2024 3:30 PM EST Office Visit [address] [address] Yazmin Crowder MD [address] [place] [address] 05/24/2024 11:30 AM EST Clinical Support [address] [address] documented as of this encounter Procedures Procedure Name Priority Date/Time Associated Diagnosis Comments HM PAP/HPV Routine 11/09/2021 documented in this encounter Results * Hm Pap Smear (11/09/2021) us Historical Provider HEALTH MAINTENANCE Final Result documented in this encounter Visit Diagnoses Not on filedocumented in this encounter Care Teams Supervisor Heat Treating Relationship Specialty Start Date End Date Yazmin Crowder MD [address] [place] [address] PCP - General Family Medicine 03/06/20 documented as of this encounter
--- OUTSIDE RECORDS SUMMARY | 2024-05-08 11:58 | XMS_ITS | Encounter Summary ---
Author Organization [employer] Address [address] [facility] 7t [place] [address] Care Team Providers Care Vice President Process Name Role Phone Yazmin Crowder MD Primary Care Provider [phone] Encounter Details Date Type Department Care Team [...] Description 05/20/2024 3:30 PM EST Office Visit [address] [address] Yazmin Crowder MD [address] [place] [address] 05/24/2024 11:30 AM EST Clinical Support [address] [address] documented as of this encounter Visit Diagnoses Not on filedocumented in this encounter Additional Health Concerns Assessment Noted Time PHQ-9 Depression Total Score: 4 01/23/20 24 4:29 PM EDT documented as of this encounter Care Teams Vice President Process Relationship Specialty Start Date End Date Yazmin Crowder MD [address] [place] [address] PCP - General Family Medicine 03/06/20 documented as of this encounter
--- OUTSIDE RECORDS SUMMARY | 2024-05-08 11:59 | XMS_ITS | Encounter Summary ---
Author Organization [employer] Address [address] [place] [address] Care Team Providers Care Hydro Technician Name Role Phone Yazmin Crowder MD Primary Care Provider [phone] Reason for Referral * Consultation (Routine) - Denied Specialty Diagnoses / Procedures Referred By Contac t Referred To Contact Behavioral Health Diagnoses PTSD (post-traumatic stress disorder) Mixed anxiety and depressive disorder Yazmin Crowder MD [address] [place] [address] Phone: tel: fax: Referral ID Status Reason Start Date Expiration Date V isits Requested Visits Authorized [id number] Denied Specialty Services Required 04/21/2024 04/21/2025 1 0 Encounter Details Date Type Department Care Team (Late st Contact Info) Description 04/18/2024 11:30 AM EST Telemedicine [facility] [address] [place] [address] Yazmin Crowder MD [address] [place] [address] Hypertension, unspecified type (Primary Dx); [...] Mood disorder (CMS/HCC) -Pt was [facility] by [facility] provider in the past, but out of [...] 1:21 PM ESTAssociated Problem(s): Fibromyalgia Evaluated by Bleach Range Operator in 06/2022 -Several different medication options discussed; [...] Description 05/20/2024 3:30 PM EST Office Visit [facility] [address] [place] [address] Yazmin Crowder MD [address] [place] [address] 05/24/2024 11:30 AM EST Clinical Support [address] [address] Scheduled Referrals Name Type Priority Associated Diagnoses [...] documented as of this encounter Care Teams Hydro Technician Relationship Specialty Start Date End Date Yazmin Crowder MD [address] [place] [address] PCP - General Family Medicine 03/06/20 documented as of this encounter
--- OUTSIDE RECORDS SUMMARY | 2024-05-08 11:59 | XMS_ITS | Encounter Summary ---
Author Organization [employer] Address [address] [place] [address] 7t [place] [address] Care Team Providers Care Store Mgr Name Role Phone Yazmin Crowder MD Primary Care Provider [phone] Reason for Visit * Reason Comments Med Change Request Encounter Details Date Type Department Care Team ([facility] Contact Info) Description 04/04/2024 Refill [facility] [address] [place], [place] [phone] Yazmin Crowder MD [address] [place], [place] [phone] Social History Tobacco Use Types Packs/Day Years [...] Description 05/20/2024 3:30 PM EST Office Visit [address] [address] Yazmin Crowder MD [address] [place] [address] 05/24/2024 11:30 AM EST Clinical Support [address] [address] documented as of this encounter Visit Diagnoses Not on filedocumented in this encounter Additional Health Concerns Assessment Noted Time PHQ-9 Depression Total Score: 4 01/23/20 24 4:29 PM EDT documented as of this encounter Care Teams Store Mgr Relationship Specialty Start Date End Date Yazmin Crowder MD [address] [place] [address] PCP - General Family Medicine 03/06/20 documented as of this encounter
--- OUTSIDE RECORDS SUMMARY | 2024-05-08 11:59 | XMS_ITS | Encounter Summary ---
Author Organization [employer] Address [address] [facility] 7t [place] [address] Care Team Providers Care Chief Controller Center Name Role Phone Yazmin Crowder MD Primary Care Provider [phone] Encounter Details Date Type Department Care Team [...] Description 05/20/2024 3:30 PM EST Office Visit [address] [address] Yazmin Crowder MD [address] [place] [address] 05/24/2024 11:30 AM EST Clinical Support [address] [address] documented as of this encounter Visit Diagnoses Not on filedocumented in this encounter Additional Health Concerns Assessment Noted Time PHQ-9 Depression Total Score: 4 01/23/20 24 4:29 PM EDT documented as of this encounter Care Teams Chief Controller Center Relationship Specialty Start Date End Date Yazmin Crowder MD [address] [place] [address] PCP - General Family Medicine 03/06/20 documented as of this encounter
--- OUTSIDE RECORDS SUMMARY | 2024-05-08 11:59 | XMS_ITS | Encounter Summary ---
Author Organization [employer] Address [address] [place] [address] 7t [place] [address] Care Team Providers Care Body Service Team Member Name Role Phone Yazmin Crowder MD Primary Care Provider [phone] Encounter Details Date Type Department Care Team (Late st Contact Info) Description 04/30/2024 Orders Only [facility] External Provider, [facility] Social History Tobacco Use Types Packs/Day [...] Description 05/20/2024 3:30 PM EST Office Visit [address] [address] Yazmin Crowder MD [address] [place] [address] 05/24/2024 11:30 AM EST Clinical Support [address] [address] documented as of this encounter Procedures Procedure Name Priority Date/Time Associated Diagnosis Comments XR WRIST 3+ VIEWS RIGHT Routine 05/06/2024 4:34 PM EST XR WRIST 3+ VIEWS RIGHT Routine 04/30/2024 5:00 AM EST documented in this encounter Results * XR Wrist 3+ Views Right (05/06/2024 4:34 PM EST) Anatomical Region Laterality Modality Upper Extremities, Wrist Right Radiogr aphic Imaging 05/06/2024 4:34 PM EST Narrative 05/07/2024 7:38 AM EST ? [facility] ?[address] ?[place] [address] ?XRay Report ? Signed ? Patient: Cartski,Divina ?MR#: [id number] ?? 397 ? : 1995 ?Acct:[id number] ? Age/Sex: 29 / F ?ADM Date: 02/10/25 ? Loc: HO.US ? Attending Dr: Yazmin Crowder MD ? Ordering Physician: Monika Abreu MD ?? Date of Service: 05/06/24 ?? Procedure(s): XR wrist RT min 3V ?? Accession Number(s): [id number] ? cc: Monika Abreu MD; Yazmin Crowder MD ? EXAMINATION: ??XR WRIST 3 OR MORE VIEWS RIGHT ? HISTORY: M25.531 - Pain in right wrist ? COMPARISON: Comparison is made with the prior examination dated ?? 04/30/2024. ? FINDINGS: ? Four splinted views of the right wrist including a scaphoid view are ?? submitted. ??Fiberglas splint obscures fine bony detail. ??There is no ?? fracture or dislocation. ??The joint spaces are preserved. ??The soft ?? tissues are unremarkable. ? XR/XR wrist RT min 3V ?? IMPRESSION: ? Unremarkable examination of the right breast. ? Electronically signed by: ??Rosas Ramos MD ??05/07/2024 07:04 AM EST ? Dictated By: ?Rosas Ramos MD ? Signed By: ?<Electronically signed by Rosas Ramos MD in OV> ?05/07/24 0704 ? DD/ 1634 ? TD/TT: 05/06/24 1650 ? Telepathist: ? Procedure Note Kevon, Image - 05/07/2024 [place] [address] XRay Report Signed Patient: Lorie Velez#: [id number] 397 : 1995Acct:[id number] Age/Sex: 29 / FADM Date: 05/06/24 Loc: HO.US Attending Dr: Yazmin Crowder MD Ordering Physician: Monika Abreu MD Date of Service: 05/06/24 Procedure(s): XR wrist RT min 3V Accession Number(s): [id number] cc: Monika Abreu MD; Yazmin Crowder MD EXAMINATION: XR WRIST 3 OR MORE VIEWS RIGHT HISTORY: M25.531 - Pain in right wrist COMPARISON: Comparison is made with the prior examination dated 04/30/2024. FINDINGS: Four splinted views of the right wrist including a scaphoid view are submitted. Fiberglas splint obscures fine bony detail. There is no fracture or dislocation. The joint spaces are preserved. The soft tissues are unremarkable. XR/XR wrist RT min 3V IMPRESSION: Unremarkable examination of the right breast. Electronically signed by: Rosas Ramos MD 05/07/2024 07:04 AM EST RP Dictated By: Rosas Ramos MD Signed By: <Electronically signed by Rosas Ramos MD in OV> 05/07/24 0704 DD/ 1634 TD/TT: 05/06/24 1650 Telepathist: [facility] External Provider IMG XR PROCEDURES Final Result * XR Wrist 3+ Views Right (04/30/2024 5:00 AM EST) Anatomical Region Laterality Modality Upper Extremities, Wrist Right Radiogr aphic Imaging 04/30/2024 5:00 AM EST Narrative 04/30/2024 5:02 AM EST ? [facility] ?[address] ?[place] [address] ?XRay Report ? Signed ? Patient: Divina Velez ?MR#: [id number] ?? 397 ? : 1995 ?Acct:[id number] ? Age/Sex: 29 / F ?ADM Date: 04/30/24 ? Loc: HO.ED ? Attending Dr: ? Ordering Physician: Generic ED Physician ?? Date of Service: 04/30/24 ?? Procedure(s): XR wrist RT min 3V ?? Accession Number(s): [id number] ? cc: Generic ED Physician; Yazmin Crowder [...] DD/ 0500 ? TD/TT: 04/30/24 0500 ? Telepathist: ? Procedure Note Donotloretoter, Image - 04/30/2024 [facility] [address] [place] [address] XRay Report Signed Patient: Lorie Velez#: [id number] 397 : 1995Acct:[id number] Age/Sex: 29 FADM Date: 04/30/24 Loc: HO.ED Attending Dr: Ordering Physician: Generic ED Physician Date of Service: 04/30/24 Procedure(s): XR wrist RT min 3V Accession Number(s): [id number] cc: Generic ED Physician; Yazmin Crowder MD [...] 04/30/24 0502 DD/ 0500 TD/TT: 04/30/24 0500 Telepathist: [facility] External Provider IMG XR PROCEDURES Final Result documented in this encounter Visit Diagnoses Not on filedocumented in this encounter Additional Health Concerns Assessment Noted Time PHQ-9 Depression Total Score: 4 01/23/20 24 4:29 PM EDT documented as of this encounter Care Teams Body Service Team Member Relationship Specialty Start Date End Date Yazmin Crowder MD [address] [place] [address] PCP - General Family Medicine 03/06/20 documented as of this encounter
--- OUTSIDE RECORDS SUMMARY | 2024-05-08 11:59 | XMS_ITS | Encounter Summary ---
Author Organization [employer] Address [address] [place] [address] 7t [place] [address] Care Team Providers Care Process Camera Operator Name Role Phone Yazmin Crowder MD Primary Care Provider [phone] Encounter Details Date Type Department Care Team (Late st Contact Info) Description 01/31/2024 Orders Only [facility] 230 [place], [place] [phone] Yazmin Crowder MD 230 [place], [place] [phone] Social History Tobacco Use Types Packs/Day Years [...] Description 05/20/2024 3:30 PM EST Office Visit [address] [address] Yazmin Crowder MD [address] [place] [address] 05/24/2024 11:30 AM EST Clinical Support [address] [address] documented as of this encounter Visit Diagnoses Not on filedocumented in this encounter Additional Health Concerns Assessment Noted Time PHQ-9 Depression Total Score: 4 01/23/20 24 4:29 PM EDT documented as of this encounter Care Teams Process Camera Operator Relationship Specialty Start Date End Date Yazmin Crowder MD [address] [place] [address] PCP - General Family Medicine 03/06/20 documented as of this encounter
--- OUTSIDE RECORDS SUMMARY | 2024-05-08 11:59 | XMS_ITS | Encounter Summary ---
Author Organization [employer] Address [address] [place] [address] 7 [place] [address] Care Team Providers Care Drill Foreman Name Role Phone Yazmin Crowder MD Primary Care Provider Reason for Referral * Imaging (Routine) - Closed Specialty Diagnoses / Procedures Referred By Contfrederic matute Referred To Contact Radiology Diagnoses Recurrent UTI Procedures US RENAL BI Yazmin Crowder MD [address] [place] [address] Phone: tel: fax: [address] Phone: tel: fax: Referral ID Status Reason Start Date Expiration Date Visits Re quested Visits Authorized [id number] Closed 02/02/2024 02/01/2025 1 1 Encounter Details Date Type Department Care Team (Late st Contact Info) Description 02/02/2024 Orders Only [facility] 230 [place] [address] Yazmin Crowder MD [address] [place] [address] Recurrent UTI (Primary Dx) Social [...] Description 05/20/2024 3:30 PM EST Office Visit [address] [address] Yazmin Crowder MD [address] [place] [address] 05/24/2024 11:30 AM EST Clinical Support [address] [address] documented as of this encounter Procedures Procedure Name Priority Date/Time Associated Diagnosis Comments US RENAL BI Routine 05/08/2024 7:41 AM EST Recurrent UTI documented in this encounter Results * US RENAL BI (05/08/2024 7:41 AM EST) Anatomical Region Laterality Modality Abdomen Ultrasound 05/08/2024 7:41 AM EST Narrative 05/08/2024 7:42 AM EST ? [facility] ?[address] ?[place] [address] ? Ultrasound Report ? Signed ? Patient: Divina Velez ?MR#: [id number] ?? 397 ? : 1995 ?Acct:[id number] ? Age/Sex: 29 / F ?ADM Date: 05/06/24 ? Loc: HO.US ? Attending Dr: Yazmin Crowder MD ? Ordering Physician: Yazmin Crowder MD ?? Date of Service: 05/06/24 ?? Procedure(s): US renal BI ?? Accession Number(s): [id number] ? cc: Yazmin Crowder MD ? CLINICAL HISTORY: recurrent UTI ? US Renal ? Comparison: None ? Findings: ?? Right kidney normal size and echotexture, 10.6 cm length. ?? Left kidney normal size and echotexture, 11.4 cm length. ?? No renal mass lesions. ?? No hydronephrosis of either kidney. Bilateral vascular flow is visualized. ? IMPRESSION: ?? Normal exam ? This document has been electronically signed by: Rosas Tapia MD on ?? 05/08/2024 07:41:00 ? Dictated By: ?Rosas Tapia MD ? Signed By: ?<Electronically signed by Rosas Tapia MD in OV> ? 05/08/24 0742 ? DD/ 0741 ? TD/TT: 05/08/24 0741 ? Trash Truck Driver: ? Procedure Note Kevon, Image - 05/08/[address] [address] Ultrasound Report Signed Patient: Lorie Velez#: [id number] 397 : 1995Acct:[id number] Age/Sex: 29 / FADM Date: 05/06/24 Loc: HO. Attending Dr: Yazmin Crowder MD Ordering Physician: Yazmin Crowder MD Date of Service: 05/06/24 Procedure(s): US renal BI Accession Number(s): [id number] cc: Yazmin Crowder MD CLINICAL HISTORY: recurrent UTI US Renal Comparison: None Findings: Right kidney normal size and echotexture, 10.6 cm length. Left kidney normal size and echotexture, 11.4 cm length. No renal mass lesions. No hydronephrosis of either kidney. Bilateral vascular flow is visualized. IMPRESSION: Normal exam This document has been electronically signed by: Rosas Tapia MD on 05/08/2024 07:41:00 Dictated By: Rosas Tapia MD Signed By: <Electronically signed by Rosas Tapia MD in OV> 05/08/2442 DD/ 0 TD/TT: 05/08/24740 Trash Truck Driver: us Yazmin Crowder MD IMG US PROCEDURES Final Result documented in this encounter Visit Diagnoses Diagnosis Recurrent UTI- Primary Urinary tract infection, site not specified documented in this encounter Additional Health Concerns Assessment Noted Time PHQ-9 Depression Total Score: 4 01/23/20 24 4:29 PM EDT documented as of this encounter Care Teams Drill Foreman Relationship Specialty Start Date End Date Yazmin Crowder MD [address] [place] [address] PCP - General Family Medicine 03/06/20 documented as of this encounter
--- OUTSIDE RECORDS SUMMARY | 2024-05-08 11:59 | XMS_ITS | Encounter Summary ---
Author Organization [employer] Address [address] [place] [address] 7t [place] [address] Care Team Providers Care Pump Assembler Name Role Phone Yazmin Crowder MD Primary Care Provider [phone] Reason for Visit * Reason Onset Date Comments Medication Question 01/31/2024 Encounter Details Date Type Department Care Team ([facility] st Contact Info) Description 01/31/2024 Telephone [facility] [address] [place], [place] [phone] Yazmin Crowder MD [address] [place], [place] [phone] Medication Question Social History Tobacco Use Types [...] Description 05/20/2024 3:30 PM EST Office Visit [address] [address] Yazmin Crowder MD [address] [place] [address] 05/24/2024 11:30 AM EST Clinical Support [address] [address] documented as of this encounter Visit Diagnoses Not on filedocumented in this encounter Additional Health Concerns Assessment Noted Time PHQ-9 Depression Total Score: 4 01/23/20 24 4:29 PM EDT documented as of this encounter Care Teams Pump Assembler Relationship Specialty Start Date End Date Yazmin Crowder MD [address] [place] [address] PCP - General Family Medicine 03/06/20 documented as of this encounter
--- OUTSIDE RECORDS SUMMARY | 2024-05-08 11:59 | XMS_ITS | Clinical Summary ---
Author Organization [employer] Address [address] [place] [address] 7t [place] [address] Care Team Providers Care Mig Tig Welder Name Role Phone Yazmin Crowder MD Primary Care Provider [phone] Allergies Active Allergy Reactions Criticality Noted Date [...] Plan (04/21/2024 1:21 PM EST): Evaluated by Fountain Brush Assembler in 06/2022 -Several different medication options discussed; interested in Muscle relaxant and Gabapentin. Agreed to start one medication at a time -Patient will start Gabapentin 300mg at bedtime -Continue antidepressants -Continue active lifestyle Assessment & Plan (10/29/2023 7:13 AM EDT): Evaluated by Fountain Brush Assembler in 06/2022 -Several different medication options discussed; interested in Muscle relaxant and Gabapentin. Agreed to start one medication at a time -Patient will start Gabapentin 300mg at bedtime -Continue antidepressants -Continue active lifestyle Assessment & Plan (07/19/2022 12:41 PM EDT): Evaluated by Fountain Brush Assembler in 06/2022 -Several different medication options discussed; [...] PM EDT): -Restart Loratadine -Rx Nasal Saline Prince It band syndrome, right 03/27/2022 Assessment & Plan (04/21/2024 1:21 PM EST): -Continue home exercise program Assessment & Plan (02/02/2024 6:32 PM EST): -Continue home exercise program Assessment & Plan (03/27/2022 5:47 PM EST): -Continue home exercise program Patellofemoral syndrome of both knees 03/27/2022 Assessment & Plan (03/27/2022 5:47 PM EST): -Evaluated by [facility] provider -Continue home exercise program -Continue judicious use of meloxicam Mood disorder 03/27/2022 Assessment & Plan (04/21/2024 1:21 PM EST): -Pt was followed by [facility] provider in the past, but out [...] 6:36 PM EST): -Pt was followed by [facility] provider in the past, but out [...] 5:18 PM EDT): -Pt was followed by [facility] provider in the past, but out [...] 8:53 AM EDT): -Pt was followed by [facility] provider in the past, but out [...] 9:21 AM EDT): -Pt is followed by [facility] provider -Current Dx needs to be confirmed: Bipolar, Major depression, anxiety, PTSD -Currently prescribed fluoxetine and buspirone -Previously tried: bupropion, clonidine, and sertraline -Continue current treatment plan by [facility] provider -Continue staying physically active -Recommended acupuncture Assessment & Plan (03/27/2022 5:46 PM EST): -Pt is followed by [facility] provider -Current Dx needs to be confirmed: Bipolar, Major depression, anxiety, PTSD -Currently prescribed fluoxetine and buspirone -Previously tried: bupropion, clonidine, and sertraline -Continue current treatment plan by [facility] provider -Continue staying physically active -Recommended acupuncture Abdominal pain 03/27/2022 Assessment & Plan (03/27/2022 5:48 PM EST): -Followed by [facility] -Extensive work-up has been ordered -Follow [...] Assessment & Plan (03/27/2022 5:58 PM EST): -[address] moisturization with emolients -Judicious use of topical [...] Plan (07/19/2022 12:42 PM EDT): Evaluated by Fountain Brush Assembler in 06/2022, Dx with Fibromyalgia -Also evaluated [...] Date Type Department Care Team Description 04/30/2024 Telephone [facility]IC[facility] [address] [place] [phone] Divina Her RN ER Follow-up 04/30/2024 Orders Only [facility] External Provider, [facility] 04/23/2024 Travel 04/18/2024 11:30 AM EST Telemedicine [facility] [address] [place] [address] Yazmin Crowder MD Hypertension, unspecified type (Primary Dx); Dietary counseling; Exercise counseling; Class 2 obesity due to excess calories without serious comorbidity with body mass index (BMI) of 37.0 to 37.9 in adult; Mood disorder (CMS/HCC); Fibromyalgia; Trochanteric bursitis of both hips; Recurrent UTI; It band syndrome, right; PTSD (post-traumatic stress disorder); Mixed anxiety and depressive disorder; Asperger's syndrome 04/18/2024 Travel 04/04/2024 Refill [facility] [address] [place] [address] Yazmin Crowder MD 03/21/2024 Telephone [facility] [address] [place] [address] Yazmin Crowder MD Callback 02/19/2024 Refill [facility] [address] [place], [place] [phone] Nolvia Hendrix RN Hypertension, unspecified type 02/16/2024 1:00 PM EST Clinical Support [facility] [address] [place], [place] [phone] Nolvia Hendrix RN Hypertension, unspecified type 02/16/2024 Travel from Last 3 Months Immunizations Name Administration Dates Next Due DTaP, 5 pertussis antigens 04/04/2001,,1996,06/27,1996 HPV 9-Valent 05/29/2014,10/18/2013,07/20/2012 Hep A, Adult 05/29/2014,10/18/2013 Hep B, Adolescent or Pediatric 1996,1996,1996 Hib ([facility]) 07/25/1997,199 7,1996,04/26 IPV 03/09/2000,199 7,1996,04/26 Influenza injectable [...] Description 05/20/2024 3:30 PM EST Office Visit [facility] [address] [place] [address] Yazmin Crowder MD [address] [place] [address] 05/24/2024 11:30 AM EST Clinical Support [address] [address] Health Maintenance Due Date Last Done Comments [...] Additional history exists IPV Vaccines Completed 03/09/2000, 04/1996, 1996, Additional history exists Meningococcal Vaccine [...] Routine 05/08/2024 7:41 AM EST Recurrent UTI XR WRIST 3+ VIEWS RIGHT Routine 05/06/2024 [...] Recently Relevant to Health Maintenance Results * US RENAL BI (05/08/2024 7:41 AM EST) Anatomical Region Laterality Modality Abdomen Ultrasound 05/08/2024 7:41 AM EST Narrative 05/08/2024 7:42 AM EST ? [facility] ?[address] ?[place] [address] ? Ultrasound Report ? Signed ? Patient: Agustin,Divina ?MR#: [id number] ?? 397 ? : 1995 ?Acct:[id number] ? Age/Sex: 29 / F ?ADM Date: 05/06/24 ? Loc: HO.US ? Attending Dr: Yazmin Crowder MD ? Ordering Physician: Yazmin Crowder MD ?? Date of Service: 05/06/24 ?? Procedure(s): US renal BI ?? Accession Number(s): [id number] ? cc: Yazmin Crowder MD ? CLINICAL [...] by Rosas Tapia MD in OV> ? 05/08/[address] ? DD/ 0 ? TD/TT: 05/08/247[address] ? Rn Medicare: ? Procedure Note Kevon, Yenny - 05/08/2024 [place] [address] Ultrasound Report Signed Patient: Lorie Velez#: [id number] 397 : 1995Acct:[id number] Age/Sex: 29 / FADM Date: 05/06/24 Loc: HO.US Attending Dr: Yazmin Crowder MD Ordering Physician: Yazmin Crowder MD Date of Service: 05/06/24 Procedure(s): US renal BI Accession Number(s): [id number] cc: Yazmin Crowder MD CLINICAL HISTORY: recurrent [...] in OV> 05/08/2442 DD/ 0 TD/TT: 05/08/24740 Rn Medicare: us Yazmin Crowder MD IMG US PROCEDURES Final Result * XR Wrist 3+ Views Right (05/06/2024 4:34 PM EST) Only the most recent of2 resultswithin the time period is included. Anatomical Region Laterality Modality Upper Extremities, Wrist Right Radiogr aphic Imaging 05/06/2024 4:34 PM EST Narrative 05/07/2024 7:38 AM EST ? [facility] ?[address] ?[place] [address] ?XRay Report ? Signed ? Patient: Divina Velez ?MR#: [id number] ?? 397 ? : 1995 ?Acct:[id number] ? Age/Sex: 29 / F ?ADM Date: 05/06/24 ? Loc: HO.US ? Attending Dr: Yazmin Crowder MD ? Ordering Physician: Monika Abreu MD ?? Date of Service: 05/06/24 ?? Procedure(s): XR wrist RT min 3V ?? Accession Number(s): [id number] ? cc: Monika Abreu MD; Yazmin Crowder [...] ??Rosas Ramos MD ??05/07/2024 07:04 AM EST ?? RP ? Dictated By: ?Rosas Ramos MD ? Signed By: ?<Electronically signed by Rosas Ramos MD in OV> ?05/07/24 0704 ? DD/ 1634 ? TD/TT: 05/06/24 1650 ? Rn Medicare: ? Procedure Note Donotuseinterpreter, Image - 05/07/2024 [place] [address] XRay Report Signed Patient: Lorie Velez#: [id number] 397 : 1995Acct:[id number] Age/Sex: Date: 05/06/24 Loc: . Attending Dr: Yazmin Crowder MD Ordering Physician: Monika Abreu MD Date of Service: 05/06/24 Procedure(s): XR wrist RT min 3V Accession Number(s): [id number] cc: Monika Abreu MD; Yazmin Crowder MD [...] Rosas Ramos MD 05/07/2024 07:04 AM EST Dictated By: Rosas Ramos MD Signed By: <Electronically signed by Rosas Ramos MD in OV> 05/07/24 0704 DD/ 1634 TD/TT: 05/06/24 165 Rn Medicare: us [facility] External Provider IMG XR PROCEDURES Final Result * (ABNORMAL) Lipid Panel with Reflex to Direct LDL (11/10/2023 10:09 AM EDT) Triglycerides 111 <150 mg/dL [facility] Comment:Desirable Triglyceri de: less than 150 mg/dLBorderline High Triglyceride 150-199 mg/dLHigh Triglyceride: 200-499 mg/dLVery High Triglyceride: greater than or equal to 5OO mg/dL Cholesterol 185 <200 mg/dL [facility] Comment:Desirable Cholestero l: less than 200 mg/dLBorderline High Cholesterol: 200-239 mg/dLHigh Cholesterol: greater than 239 mg/dL LDL Cholesterol Calculated 114(H) <100 mg/dL [facility] Comment:Desirable LDL: less than 100 mg/dLNear Optimal/Above Optimal LDL: 110- 129 mg/dLBorderline High LDL: 130-159 mg/dLHigh LDL: 160-189 mg/dLVery High LDL: greater than or equal to 190 mg/dL HDL Cholesterol 49 >40 mg/dL [facility] Comment:Desirable HDL: great er than 40 mg/dL Note: This HDL assay may give artificially low results in patients with liver disease. Blood 11/10/2023 10:0 9 AM EDT 11/10/2023 1:24 PM EDT Yazmin Crowder MD LAB BLOOD ORDERABLES Final Resul t [facility] [address] [place] [phone] * Hepatitis C Antibody with Reflex to HCV, RNA, Quantitative, Real-Time PCR (11/10/2023 10:09 AM EDT) Hepatitis C Antibody Nonreactive Nonreactive [facility] Comment:Antibodies to HCV no t detected; does not exclude early acuteHCV infection. Blood Venous blood specimen / Unknown 11/10/2023 10:09 AM EDT 11/10/2023 1:24 PM EDT Yazmin Crowder MD LAB BLOOD ORDERABLES Final Resul t Performing Organization Address [facility]/ZIP Co de Phone Number [facility] [address] [place] [phone] * HIV-1/2 Antigen and Antibodies, Fourth Generation, with Reflexes (11/10/2023 10:09 AM EDT) HIV AB/AG Nonreactive Nonreactive [facility] Comment:HIV-1 p24 Ag and/or HIV-1/HIV-2 Ab not detected.A test result that is nonreactive does not exclude thepossibility of exposure to or infection with HIV-1 and/orHIV-2. Nonreactive results in this assay for individualswith prior exposure to HIV-1 and/or HIV-2 may be due toantigen and antibody levels that are below the limit ofdetection of this assay.The NoWait HIV Ag/Ab Combo assay result andsupplemental assay results should be interpreted inconjunction with the patient's clinical presentation,history and other laboratory results. If the results areinconsistent with clinical evidence, additional testing issuggested to confirm the result. Blood Venous blood specimen / Unknown 11/10/2023 10:09 AM EDT 11/10/2023 1:24 PM EDT Yazmin Crowder MD LAB BLOOD ORDERABLES Final Resul t Performing Organization Address [facility]/ZIP Co de Phone Number [facility] [address] [place] [phone] * Hm Pap Smear (11/09/2021) Historical Provider HEALTH MAINTENANCE Final Result from Last 3 Months or Most Recently Relevant to Health Maintenance Insurance HSN FULL Care Teams Mig Tig Welder Relationship Specialty Start Date End Date Yazmin Crowder MD [address] [place] [phone] PCP - General Family Medicine 03/06/20
--- OUTSIDE RECORDS SUMMARY | 2024-05-08 11:59 | XMS_ITS | Encounter Summary ---
Author Organization [employer] Address [address] [place] [address] 7t [place] [address] Care Team Providers Care Share Dairy Farmer Name Role Phone Yazmin Crowder MD Primary Care Provider [phone] Encounter Details Date Type Department Care Team (Late st Contact Info) Description 04/13/2022 Orders Only [facility] MED[facility]INE [address] [place] [address] Yazmin Crowder MD [address] [place] [phone] Rash (Primary Dx); Xerosis of skin Social [...] Description 05/20/2024 3:30 PM EST Office Visit [facility] [address] [place] [address] Yazmin Crowder MD [address] [place] [phone] 05/24/2024 11:30 AM EST Clinical Support [facility] [address] [place] [phone] documented as of this encounter Visit Diagnoses Diagnosis Rash- Primary Rash and other nonspecific skin eruption Xerosis of skin documented in this encounter Care Teams Share Dairy Farmer Relationship Specialty Start Date End Date Yazmin Crowder MD [address] [place] [phone] PCP - General Family Medicine 03/06/20 documented as of this encounter
== END 2024-05-08 11:06 | disposition home or self-care (01) ==
PROVIDERS: Visit Provider Orthopaedic Surgery
DX: S60.221A Contusion of right hand, initial encounter (principal); M79.641 Pain in right hand; M79.7 Fibromyalgia
CPT/HCPCS: 99203

== ENCOUNTER → 2024-05-08 10:10 | Outpatient (BNV) | payer MEDICAID, SELFPAY | PROVIDERS: Visit Provider Radiology Diagnostic Radiology | DX: M25.531 Pain in right wrist (principal) | CPT/HCPCS: 73110 ==

== ENCOUNTER 2024-05-17 11:18 | Outpatient (REF) | payer MEDICAID, SELFPAY ==
--- NOTE | ~2024-05-17 | XR_ITS ---
EXAMINATION: XR WRIST NAVICULAR RIGHT HISTORY: M25.531 - Pain in right wrist COMPARISON: Comparison is made with the prior examination dated 05/08/2024. FINDINGS: Four views of the right wrist including a scaphoid view are submitted. Osseous mineralization is normal. There is no fracture or dislocation. The joint spaces are preserved. The soft tissues are unremarkable. XR/XR wrist RT w scaphoid IMPRESSION: Unremarkable examination of the right wrist. Electronically signed by: Rosas Ramos MD 05/21/2024 09:47 AM SRI
--- OUTSIDE RECORDS SUMMARY | 2024-05-21 13:53 | XMS_ITS | Encounter Summary ---
Author Organization [employer] Address [address] [facility] 7t [place] [address] Care Team Providers Care Bulk Filler Name Role Phone Yazmin Crowder MD Primary Care Provider [phone] Encounter Details Date Type Department Care Team (Latest Contact Info) Description 05/20/2024 Travel Social History Tobacco Use Types Packs/Day [...] Sex Female 10:36 AM EDT Gender Identity Non-Binary 05/20/2024 3:43 PM EST Sexual Orientation Bisexual 05/20/2024 3: 43 PM EST documented as of this encounter Plan of Treatment Upcoming Encounters Date Type Department Care Team (Late st Contact Info) Description 05/24/2024 11:30 AM EST Clinical Support [facility] [address] [place] [address] documented as of this encounter Visit Diagnoses Not on filedocumented in this encounter Additional Health Concerns Assessment Noted Time PHQ-9 Depression Total Score: 4 01/23/20 24 4:29 PM EDT documented as of this encounter Care Teams Bulk Filler Relationship Specialty Start Date End Date Yazmin Crowder MD [address] [place] [address] PCP - General Family Medicine 03/06/20 documented as of this encounter
--- OUTSIDE RECORDS SUMMARY | 2024-05-21 13:53 | XMS_ITS | Encounter Summary ---
Author Organization [facility] [facility] Address [address] [place] [address], [place] [address] Care Team Providers Care Creative Engagement Director Name Role Phone Yazmin Crowder MD Primary Care Provider [phone] Encounter Details Date Type Department Care Team (Late Contact Info) Description 03/24/[address] [phone] Yazmin Crowder MD [address] [place] [address] Social History Tobacco Use Types Packs/Day Years Used Date Smoking Tobacco: Never Passive Smoke Exposure: Never Smokeless Tobacco: Never Comments Unknown Sex and Gender Information Value Date Recorded Sex Assigned at Female 01/24/2022 10:36 AM EDT Legal Sex Female 10:36 AM EDT Gender Identity Non-Binary 05/20/2024 3:43 PM EST Sexual Orientation Bisexual 05/20/2024 3: 43 PM EST COVID-19 Exposure Response Date Recorded In the last 10 days, have yo u been in contact with someone who was confirmed or suspected to have Coronavirus/COVID-19? No / Unsure 03/24/2022 11:27 AM EST documented as of this encounter Plan of Treatment Upcoming Encounters Date Type Department Care Team (Late st Contact Info) Description 05/24/2024 11:30 AM EST Clinical Support [address] [address] documented as of this encounter Visit Diagnoses Not on filedocumented in this encounter Care Teams Creative Engagement Director Relationship Specialty Start Date End Date Yazmin Crowder MD [address] [place] [address] PCP - General Family Medicine 03/06/20 documented as of this encounter
--- OUTSIDE RECORDS SUMMARY | 2024-05-21 13:53 | XMS_ITS | Encounter Summary ---
Author Organization [employer] Address [address] [place] [address] 7t [place] [address] Care Team Providers Care Project Manager Interior Design Name Role Phone Yazmin Crowder MD Primary Care Provider Encounter Details Date Type Department Care Team (Late st Contact Info) Description 04/30/2024 Orders Only [facility] External Provider, [facility] Social History Tobacco Use Types Packs/Day [...] Description 05/24/2024 11:30 AM EST Clinical Support [facility] [address] [place] [address] documented as of this encounter Procedures Procedure [...] EST Narrative 05/07/2024 7:38 AM EST ? [facility] ?[address] ?[place] [address] ?XRay Report ? Signed ? Patient: Agustin,Divina ?MR#: [id number] ?? [id number] ? : 1995 ?Acct:[id number] ? Age/Sex: 29 / F ?ADM Date: 02/10/25 ? Loc: HO.US ? Attending Dr: Yazmin Crowder MD ? Ordering Physician: Monika Abreu MD ?? Date of Service: 05/06/24 ?? Procedure(s): XR wrist RT min 3V ?? Accession Number(s): [id number] ? cc: Monika Abreu MD; Yazmin Crowder [...] DD/ 1634 ? TD/TT: 05/06/24 1650 ? Solar Sales Representative: ? Procedure Note Donmichelle, Image - 05/07/2024 [place] [address] XRay Report Signed Patient: Lorie Velez#: [id number] 397 : 1995Acct:[id number] Age/Sex: Date: 05/06/24 Loc: .US Attending Dr: Yazmin Crowder MD Ordering Physician: Monika Abreu MD Date of Service: 05/06/24 Procedure(s): XR wrist RT min 3V Accession Number(s): [id number] cc: Monika Abreu MD; Yazmin Crowder MD [...] Ramos MD 05/07/2024 07:04 AM EST RP Workstation: Dictated By: Rosas Ramos MD Signed By: <Electronically signed by Rosas Ramos MD in OV> 05/07/24 0704 DD/ 1634 TD/TT: 05/06/24 1650 Solar Sales Representative: [facility] External Provider IMG XR PROCEDURES Final Result * XR Wrist 3+ Views Right (04/30/2024 5:00 AM EST) Anatomical Region Laterality Modality Upper Extremities, Wrist Right Radiogr aphic Imaging 04/30/2024 5:00 AM EST Narrative 04/30/2024 5:02 AM EST ? [facility] ?[address] ?[place] [address] ?XRay Report ? Signed ? Patient: Agustin,Divina ?MR#: [id number] ?? [id number] ? : 1995 ?Acct:[id number] ? Age/Sex: 29 / F ?ADM Date: 04/30/24 ? Loc: HO.ED ? Attending Dr: ? Ordering Physician: Generic ED Physician ?? Date of Service: 04/30/24 ?? Procedure(s): XR wrist RT min 3V ?? Accession Number(s): [id number] ? cc: Generic ED Physician; Yazmin Crowder [...] DD/ 0500 ? TD/TT: 04/30/24 0500 ? Solar Sales Representative: ? Procedure Note Yenny Lund - 04/30/2024 [facility] [address] [place] [address] XRay Report Signed Patient: Lorie Velez#: [id number] 397 : 1995Acct:[id number] Age/Sex: Date: 04/30/24 Loc: HO.ED Attending Dr: Ordering Physician: Generic ED Physician Date of Service: 04/30/24 Procedure(s): XR wrist RT min 3V Accession Number(s): [id number] cc: Generic ED Physician; Yazmin Crowder MD [...] 04/30/24 0502 DD/ 0500 TD/TT: 04/30/24 0500 Solar Sales Representative: [facility] External Provider IMG XR PROCEDURES Final Result documented in this encounter Visit Diagnoses Not on filedocumented in this encounter Additional Health Concerns Assessment Noted Time PHQ-9 Depression Total Score: 4 01/23/20 24 4:29 PM EDT documented as of this encounter Care Teams Project Manager Interior Design Relationship Specialty Start Date End Date Yazmin Crowder MD [address] [place] [address] PCP - General Family Medicine 03/06/20 documented as of this encounter
--- OUTSIDE RECORDS SUMMARY | 2024-05-21 13:53 | XMS_ITS | Clinical Summary ---
Author Organization [employer] Address [address] [place] [address] 7 [place] [address] Care Team Providers Care Railroad Operating Engineer Name Role Phone Yazmin Crowder MD Primary Care Provider [phone] Allergies Active Allergy Reactions Criticality Noted Date Comments Bee Pollen 03/24/2022 Bee Venom 01/31/2022 Lactose Intolerance (Gi) 03/24/2022 Wasp Venom 01/31/2022 Medications * This document contains information received from the source organization and may not represent a complete record from that organization. Blood Pressure Monitor kit Check BP as directed by your health care provider and as needed for your symptoms 1 Active albuterol 108 (90 Base) MCG/ACT inhaler Inhale 2 puffs every 4 (four) hours. 0 Active loratadine (Claritin) 10 MG tabletIndication s:Allergic rhinitis, unspecified seasonality, unspecified trigger Take 1 tablet (10 mg) by mouth in the morning. 30 tablet 3 3 Active pantoprazole (ProtoNix) 40 MG EC tablet Take 1 tablet (40 mg) by mouth before breakfast. Do not crush, chew, or split. 90 tablet 3 4 10/30/19 25 Active ondansetron (Zofran) 4 MG tablet Take 1 tablet (4 mg) by mouth every 8 (eight) hours if needed for nausea or vomiting. 30 tablet 1 4 Active FLUoxetine (PROzac) 20 MG capsule Take 1 capsule (20 mg) by mouth Once per day. 90 capsule 3 4 Active amLODIPine (Norvasc) 5 MG tabletIndication s:Hypertension, unspecified type Take 1 tablet (5 mg) by mouth Once per day. 30 tablet 11 4 02/19/20 Active COVID-19 At-Home Test kit 1 Dose by In Vitro route 1 (one) time if needed (covid-like symptoms or covid exposure) for up to 1 dose. 1 kit 1 5 Active phentermine 15 MG capsule Take 1 capsule (15 mg) by mouth before breakfast. 30 capsule 5 06/20/19 Active Active Problems Problem Noted Date Diagnosed Date Contusion of right wrist 05/20/2024 Assessment & Plan (05/20/2024 6:39 AM EST): - date of injury 04/29/24 - evaluated in [facility] ED on 04/30/24. X-ray negative for fracture. - seen by Dr. Frank, [facility] Ortho on 05/08/24. Acute pain of right knee 05/20/2024 Assessment & Plan (05/20/2024 4:32 PM EST): -Pt had multiple falls -Pt was evaluation at urgent care with X-ray; reportedly normal -Will consider evaluating with MRI if pain does not improve -Continue PT -Will work on weight reduction Obesity 05/20/2024 Assessment & Plan (05/20/2024 4:33 PM EST): -Will start pherntamine, and transition to Zepbound -Continue physical activity and healthy diet Trochanteric bursitis 02/02/2024 Assessment & Plan (04/21/2024 [...] stress test. Hypertension 10/31/2023 Assessment & Plan (05/20/2024 3:51 PM EST): -Goal BP < 140/90 per JNC-8 and < 130/80 per ACC/AHA guideline (Treatment threshold >=140/90) -Class I hypertension -Continue working on lifestyle modifications -Continue self-monitoring BP. -Continue amlodipine 5 mg daily -Treatment Hx: Previously on clonidine for both BP and anxiety. Assessment & Plan (04/21/2024 1:16 PM EST): [...] arises Chronic GERD 07/19/2022 Assessment & Plan (05/20/2024 4:34 PM EST): -Following with GI Specialist -EGD on 05/04/22, showing erosive esophagitis and hiatal hernia -continue pantoprazole as prescribed Assessment & Plan (10/31/2023 8:46 AM EDT): -Following with GI Specialist -EGD on 05/04/22, showing erosive esophagitis and hiatal hernia -continue pantoprazole as prescribed Assessment & Plan (07/19/2022 12:42 PM EDT): -Following with GI Specialist -EGD on 05/04/22, showing erosive esophagitis and hiatal hernia -continue pantoprazole as prescribed Fibromyalgia 07/19/2022 Assessment & Plan (04/21/2024 1:21 PM EST): Evaluated by Functional Manager in 06/2022 -Several different medication options discussed; interested in Muscle relaxant and Gabapentin. Agreed to start one medication at a time -Patient will start Gabapentin 300mg at bedtime -Continue antidepressants -Continue active lifestyle Assessment & Plan (10/29/2023 7:13 AM EDT): Evaluated by Functional Manager in 06/2022 -Several different medication options discussed; interested in Muscle relaxant and Gabapentin. Agreed to start one medication at a time -Patient will start Gabapentin 300mg at bedtime -Continue antidepressants -Continue active lifestyle Assessment & Plan (07/19/2022 12:41 PM EDT): Evaluated by Functional Manager in 06/2022 -Several different medication options discussed; interested in Muscle relaxant and Gabapentin. Agreed to start one medication at a time -Patient will start Gabapentin 300mg at bedtime -Continue antidepressants -Continue active lifestyle Irritable bowel syndrome with constipation 07/19 Assessment & Plan (05/20/2024 4:34 PM EST): Following with GI Specialist Patient had an EGD & Colonoscopy completed in 04/2022 Patient has tried many different laxatives Prescribed Linzess in 2022 Assessment & Plan (10/31/2023 8:46 AM EDT): [...] PM EDT): -Restart Loratadine -Rx Nasal Saline [place] It band syndrome, right 03/27/2022 Assessment & Plan (05/20/2024 4:34 PM EST): -Continue home exercise program Assessment & Plan (04/21/2024 1:21 PM EST): -Continue home exercise program Assessment & Plan (02/02/2024 6:32 PM EST): -Continue home exercise program Assessment & Plan (03/27/2022 5:47 PM EST): -Continue home exercise program Patellofemoral syndrome of both knees 03/27/2022 Assessment & Plan (03/27/2022 5:47 PM EST): -Evaluated by [facility] provider -Continue home exercise program -Continue judicious use of meloxicam Mood disorder 03/27/2022 Assessment & Plan (04/21/2024 1:21 PM EST): -Pt was followed by S provider in the past, but out of [...] 6:36 PM EST): -Pt was followed by S provider in the past, but out of [...] 5:18 PM EDT): -Pt was followed by S provider in the past, but out of [...] 8:53 AM EDT): -Pt was followed by S provider in the past, but out of [...] Plan (03/27/2022 5:48 PM EST): -Followed by [facility] GI -Extensive work-up has [...] Assessment & Plan (03/27/2022 5:58 PM EST): -Gordon moisturization with emolients -Judicious use of topical [...] Plan (07/19/2022 12:42 PM EDT): Evaluated by Functional Manager in 06/2022, Dx with Fibromyalgia -Also evaluated [...] sunglasses Asperger's syndrome 05/04/2016 Assessment & Plan (05/20/2024 4:33 PM EST): - She does not like to have a label of functional ASD - Congratulated her on advocating for herself and other people with neuroatypical condition. Assessment & Plan (04/21/2024 1:23 PM EST): [...] Encounters Date Type Department Care Team Description 05/20/2024 3:30 PM EST Office Visit [facility] [address] [place] [phone] Yazmin Crowder MD Hypertension, unspecified type (Primary Dx); Contusion of right wrist, initial encounter; Irritable bowel syndrome with constipation; Chronic GERD; Acute pain of right knee; It band syndrome, right; Bilateral arm weakness; Asperger's syndrome; Class 2 obesity due to excess calories without serious comorbidity with body mass index (BMI) of 38.0 to 38.9 in adult 05/20/2024 Travel 05/15/2024 Telephone [facility] [address] [place] [address] Yazmin Crowder MD Chart Prep 04/30/2024 Telephone [facility] [address] [place] [address] Divina Her RN ER Follow-up 04/30/2024 Orders Only [facility] Travel 04/18/2024 11:30 AM EST Telemedicine [facility] [address] [place] [address] Yazmin Crowder MD Hypertension, unspecified type (Primary Dx); Dietary counseling; Exercise counseling; Class 2 obesity due to excess calories without serious comorbidity with body mass index (BMI) of 37.0 to 37.9 in adult; Mood disorder (CMS/HCC); Fibromyalgia; Trochanteric bursitis of both hips; Recurrent UTI; It band syndrome, right; PTSD (post-traumatic stress disorder); Mixed anxiety and depressive disorder; Asperger's syndrome 04/18/2024 Travel 04/04/2024 Refill [facility] [address] [place], [place] [phone] Yazmin Crowder MD 03/21/2024 Telephone [facility] [address] [place] [address] Yazmin Crowder MD Callback 02/19/2024 Refill [facility] [address] [place], [place] [phone] Nolvia Hendrix RN Hypertension, unspecified type from Last 3 Months Immunizations Name Administration Dates Next Due DTaP, 5 pertussis antigens 04/04/2001,,1996,06/27,1996 HPV 9-Valent 05/29/2014,10/18/2013,07/20/2012 Hep A, Adult 05/29/2014,10/18/2013 Hep B, Adolescent or Pediatric 1996,1996,1996 Hib (HbOC) 07/25/1997,199 7,1996,04/26 IPV 03/09/2000,199 7,1996,04/26 Influenza injectable [...] is your housing situation today? I have jessieeverett wilson 01/23/[address] you [...] Orientation Bisexual 05/20/2024 3: 43 PM EST Last Filed Vital Signs Vital Sign Reading Time Taken Comments Blood Pressure 132/83 05/20/2024 3:41 PM EST Pulse 84 05/20/2024 3:41 PM EST Temperature 36 ??C (96.8 ??F) 05/20/2024 3:41 PM EST Respiratory Rate 21 05/20/2024 3:41 PM EST Oxygen Saturation 98% 02/16/2024 1:46 PM EST Inhaled Oxygen Concentration - - Weight 107 kg (234 lb 12.8 oz) 05/20/2024 3:41 P M EST Height 166.4 cm (5' 5.5 ) 11/13/2023 2:41 PM EDT Body Mass Index 38.48 11/13/2023 2:41 PM EDT Plan of Treatment Upcoming Encounters Date Type Department Care Team (Late st Contact Info) Description 05/24/2024 11:30 AM EST Clinical Support [facility] [address] [place] [phone] Health Maintenance Due Date Last Done Comments Pap Smear 11/09/2024 11/09/2021, 10/25, 09/26/2019 Depression Screening 01/22/2025 01/23/2024, 01/23/20 SDOH Screening 01/22/2025 01/23/2024 Family Planning (PISQ) 04/21/2025 04/21/2024 Alcohol/Substance Use Screening 05/20/2025 05/20/2024 Tobacco Screening 05/20/2025 05/20/2024 Lipid Panel 11/09/2028 11/10/2023 DTaP/Tdap/Td Vaccines (9 [...] Narrative 05/08/2024 7:42 AM EST ? [facility] ?[address] ?[place] [address] ? Ultrasound Report ? Signed ? Patient: Divina Velez ?MR#: [id number] ?? 397 ? : 1995 ?Acct:[id number] ? Age/Sex: 29 / F ?ADM Date: 05/06/24 ? Loc: HO.US ? Attending Dr: Yazmin Crowder MD ? Ordering Physician: Yazmin Crowder MD ?? Date of Service: 05/06/24 ?? Procedure(s): US renal BI ?? Accession Number(s): [id number] ? cc: Yazmin Crowder MD ? CLINICAL [...] ? DD/ 0 ? TD/TT: 05/08/24740 ? Technical Adjuster: ? Procedure Note Yenny Lund - 05/08/[address] [address] Ultrasound Report Signed Patient: Lorie Velez#: [id number] 397 : 1995Acct:[id number] Age/Sex: 29 / FADM Date: 05/06/24 Loc: HO.US Attending Dr: Yazmin Crowder MD Ordering Physician: Yazmin Crowder MD Date of Service: 05/06/24 Procedure(s): US renal BI Accession Number(s): [id number] cc: Yazmin Crowder MD CLINICAL HISTORY: recurrent [...] signed by Rosas Tapia MD in OV> 05/08/24741 DD/ 0 TD/TT: 05/08/24740 Technical Adjuster: us Yazmin Crowder MD IMG US PROCEDURES Final Result * XR Wrist 3+ Views Right (05/06/2024 4:34 PM EST) Only the most recent of2 resultswithin the time period is included. Anatomical Region Laterality Modality Upper Extremities, Wrist Right Radiogr aphic Imaging 05/06/2024 4:34 PM EST Narrative 05/07/2024 7:38 AM EST ? [facility] ?[address] ?[place] [address] ?XRay Report ? Signed ? Patient: Divina Velez ?MR#: [id number] ?? 397 ? : 1995 ?Acct:[id number] ? Age/Sex: 29 / F ?ADM Date: 05/06/24 ? Loc: HO.US ? Attending Dr: Yazmin Crowder MD ? Ordering Physician: Monika Abreu MD ?? Date of Service: 05/06/24 ?? Procedure(s): XR wrist RT min 3V ?? Accession Number(s): [id number] ? cc: Monika Abreu MD; Yazmin Crowder [...] DD/ 1634 ? TD/TT: 05/06/24 1650 ? Technical Adjuster: ? Procedure Note Donsharitater, Image - 05/07/2024 [place] [address] XRay Report Signed Patient: Lorie Velez#: [id number] 397 : 1995Acct:[id number] Age/Sex: Date: 05/06/24 Loc: HO.US Attending Dr: Yazmin Crowder MD Ordering Physician: Monika Abreu MD Date of Service: 05/06/24 Procedure(s): XR wrist RT min 3V Accession Number(s): [id number] cc: Monika Abreu MD; Yazmin Crowder MD [...] 05/07/24 0704 DD/ 1634 TD/TT: 05/06/24 1650 Technical Adjuster: [facility] External Provider IMG XR PROCEDURES Final Result * (ABNORMAL) Lipid Panel with Reflex to Direct LDL (11/10/2023 10:09 AM EDT) Triglycerides 111 <150 mg/dL [facility] Comment:Desirable Triglyceri de: less than 150 mg/dLBorderline High Triglyceride 150-199 mg/dLHigh Triglyceride: 200-499 mg/dLVery High Triglyceride: greater than or equal to 5OO mg/dL Cholesterol 185 <200 mg/dL [facility] Comment:Desirable Cholestero l: less than 200 mg/dLBorderline High Cholesterol: 200-239 mg/dLHigh Cholesterol: greater than 239 mg/dL LDL Cholesterol Calculated 114(H) <100 mg/dL [facility] Comment:Desirable LDL: less than 100 mg/dLNear Optimal/Above Optimal LDL: 110- 129 mg/dLBorderline High LDL: 130-159 mg/dLHigh LDL: 160-189 mg/dLVery High LDL: greater than or equal to 190 mg/dL HDL Cholesterol 49 >40 mg/dL [facility] Comment:Desirable HDL: great er than 40 mg/dL Note: This HDL assay may give artificially low results in patients with liver disease. Blood 11/10/2023 10:0 9 AM EDT 11/10/2023 1:24 PM EDT Yazmin Crowder MD LAB BLOOD ORDERABLES Final Resul t [facility] [address] [place] [address] [phone] * Hepatitis C Antibody with Reflex to HCV, RNA, Quantitative, Real-Time PCR (11/10/2023 10:09 AM EDT) Hepatitis C Antibody Nonreactive Nonreactive [facility] Comment:Antibodies to HCV no t detected; does not exclude early acuteHCV infection. Blood Venous blood specimen / Unknown 11/10/2023 10:09 AM EDT 11/10/2023 1:24 PM EDT Yazmin Crowder MD LAB BLOOD ORDERABLES Final Resul t Performing Organization Address [facility] Co de Phone Number [facility] [address] [place] [address] [phone] * HIV-1/2 Antigen and Antibodies, Fourth Generation, with Reflexes (11/10/2023 10:09 AM EDT) HIV AB/AG Nonreactive Nonreactive [facility] Comment:HIV-1 p24 Ag and/or HIV-1/HIV-2 Ab not detected.A test result that is nonreactive does not exclude thepossibility of exposure to or infection with HIV-1 and/orHIV-2. Nonreactive results in this assay for individualswith prior exposure to HIV-1 and/or HIV-2 may be due toantigen and antibody levels that are below the limit ofdetection of this assay.The trip.me HIV Ag/Ab Combo assay result andsupplemental assay results should be interpreted inconjunction with the patient's clinical presentation,history and other laboratory results. If the results areinconsistent with clinical evidence, additional testing issuggested to confirm the result. Blood Venous blood specimen / Unknown 11/10/2023 10:09 AM EDT 11/10/2023 1:24 PM EDT Yazmin Crowder MD LAB BLOOD ORDERABLES Final Resul t Performing Organization Address [facility] Co de Phone Number [facility] [address] [place] [address] [phone] * Hm Pap Smear (11/09/2021) Radha Gamez MD HEALTH MAINTENANCE Final Result from Last 3 Months or Most Recently Relevant to Health Maintenance Insurance [facility] C3 HSN FULL Care Teams Railroad Operating Engineer Relationship Specialty Start Date End Date Yazmin Crowder MD [address] [place] [phone] PCP - General Family Medicine 03/06/20
--- OUTSIDE RECORDS SUMMARY | 2024-05-21 13:53 | XMS_ITS | Encounter Summary ---
Author Organization [employer] Address [address] [place] [address] [address] [place] [address] Care Team Providers Care Hot Roll Inspector Name Role Phone Yazmin Crowder MD Primary Care Provider [phone] Encounter Details Date Type Department Care Team (Late Contact Info) Description 04/13/2022 Orders Only [address] [phone] Yazmin Crowder MD [address] [place] [address] [phone] Rash (Primary Dx); Xerosis of skin Social [...] Description 05/24/2024 11:30 AM EST Clinical Support [facility] [address] [place] [address] [phone] documented as of this encounter Visit Diagnoses Diagnosis Rash- Primary Rash and other nonspecific skin eruption Xerosis of skin documented in this encounter Care Teams Hot Roll Inspector Relationship Specialty Start Date End Date Yazmin Crowder MD [address] [place] [address] PCP - General Family Medicine 03/06/20 documented as of this encounter
--- OUTSIDE RECORDS SUMMARY | 2024-05-21 13:53 | XMS_ITS | Encounter Summary ---
Author Organization [employer] Address [address] [place] [address] 7 [place] [address] Care Team Providers Care Completion Engineer Name Role Phone Yazmin Crowder MD Primary Care Provider Encounter Details Date Type Department Care Team ([facility] st Contact Info) Description 10/31/2023 Orders Only [facility] [address] [place], [place] [phone] Yazmin Crowder MD [address] [place], [place] [phone] Acute cystitis without hematuria (Primary Dx); Low [...] Description 05/24/2024 11:30 AM EST Clinical Support [facility] [address] [place] [phone] documented as of this encounter Procedures Procedure Name Priority Date/Time Associated Diagnosis Comments TSH Routine 11/13/2023 3:20 PM EDT Low TSH level T4, FREE Routine 11/13/2023 3:20 PM EDT Low TSH level documented in this encounter Results * TSH (11/13/2023 3:20 PM EDT) Thyroid Stimulating Hormone 1.53 0.32 - 4.0 uIU/mL [facility] Comment:TSH 3rd Generation ( [facility]) Blood Venous blood specimen / Unknown 11/13/2023 3:20 PM EDT 11/13/2023 3:52 PM EDT us Yazmin Crowder MD LAB BLOOD ORDERABLES Final Resul t [facility] [address] [place] [address] [phone] * T4, Free (11/13/2023 3:20 PM EDT) Free T4 (Free Thyroxine) 0.75 0.71 - 1.85 ng/dL [facility] Blood Venous blood specimen / Unknown 11/13/2023 3:20 PM EDT 11/13/2023 3:52 PM EDT Yazmin Crowder MD LAB BLOOD ORDERABLES Final Resul t [facility] [address] [place] [address] [phone] documented in this encounter Visit Diagnoses Diagnosis Acute cystitis without hematuria- Primary Low TSH level documented in this encounter Additional Health Concerns Assessment Noted Time PHQ-9 Depression Total Score: 25 024 5:10 PM EDT documented as of this encounter Care Teams Completion Engineer Relationship Specialty Start Date End Date Yazmin Crowder MD [address] [place] [phone] PCP - General Family Medicine 03/06/20 documented as of this encounter
--- OUTSIDE RECORDS SUMMARY | 2024-05-21 13:53 | XMS_ITS | Encounter Summary ---
Author Organization [employer] Address [address] [place] [address] 7 [place] [address] Care Team Providers Care Oyster Planter Name Role Phone Yazmin Crowder MD Primary Care Provider [phone] Encounter Details Date Type Department Care Team ([facility] st Contact Info) Description 01/26/2024 Orders Only [facility] [address] [place], [place] [phone] Yazmin Crowder MD [address] [place], [place] [phone] Social History Tobacco Use Types Packs/Day Years [...] Description 05/24/2024 11:30 AM EST Clinical Support [facility] [address] [place] [address] documented as of this encounter Visit Diagnoses Not on filedocumented in this encounter Additional Health Concerns Assessment Noted Time PHQ-9 Depression Total Score: 4 01/23/20 24 4:29 PM EDT documented as of this encounter Care Teams Oyster Planter Relationship Specialty Start Date End Date Yazmin Crowder MD [address] [place] [address] PCP - General Family Medicine 03/06/20 documented as of this encounter
--- OUTSIDE RECORDS SUMMARY | 2024-05-21 13:53 | XMS_ITS | Encounter Summary ---
Author Organization [employer] Address [address] [place] [address] [address] [place] [address] Care Team Providers Care Film Color Tester Name Role Phone Yazmin Crowder MD Primary Care Provider [phone] Reason for Visit * Reason Onset Date Comments Chart Prep 05/15/2024 Encounter Details Date Type Department Care Team ([facility] st Contact Info) Description 05/15/2024 Telephone [facility] [address] [place], [place] [phone] Yazmin Crowder MD [address] [place], [place] [phone] Chart Prep Social History Tobacco Use Types [...] PM EST documented as of this encounter Miscellaneous Notes [...] Description 05/24/2024 11:30 AM EST Clinical Support [facility] [address] [place] [address] documented as of this encounter Visit Diagnoses Not on filedocumented in this encounter Additional Health Concerns Assessment Noted Time PHQ-9 Depression Total Score: 4 01/23/20 24 4:29 PM EDT documented as of this encounter Care Teams Film Color Tester Relationship Specialty Start Date End Date Yazmin Crowder MD [address] [place] [address] PCP - General Family Medicine 03/06/20 documented as of this encounter
--- OUTSIDE RECORDS SUMMARY | 2024-05-21 13:53 | XMS_ITS | Encounter Summary ---
Author Organization [employer] Address [address] [place] [address] 7 [place] [address] Care Team Providers Care Registered Dietitian Name Role Phone Yazmin Crowder MD Primary Care Provider [phone] Reason for Referral * Imaging (Routine) - Closed Specialty Diagnoses / Procedures Referred By Contfrederic t Referred To Contact Radiology Diagnoses Recurrent UTI Procedures US RENAL BI Yazmin Crowder MD [address] [place] [address] Phone: tel: fax: [address] Phone: tel: fax: Referral ID Status Reason Start Date Expiration Date Visits Re quested Visits Authorized [id number] Closed 02/02/2024 02/01/2025 1 1 Encounter Details Date Type Department Care Team (Late st Contact Info) Description 02/02/2024 Orders Only [facility] [address] [place], [place] [phone] Yazmin Crowder MD [address] [place] [address] Recurrent UTI (Primary Dx) Social [...] Description 05/24/2024 11:30 AM EST Clinical Support [facility] [address] [place] [phone] documented as of this encounter Procedures Procedure Name Priority Date/Time Associated Diagnosis Comments US RENAL BI Routine 05/08/2024 7:41 AM EST Recurrent UTI documented in this encounter Results * US RENAL BI (05/08/2024 7:41 AM EST) Anatomical Region Laterality Modality Abdomen Ultrasound 05/08/2024 7:41 AM EST Narrative 05/08/2024 7:42 AM EST ? [facility] ?[address] ?[place] [address] ? Ultrasound Report ? Signed ? Patient: Cartski,Divina ?MR#: [id number] ?? 397 ? : 1995 ?Acct:[id number] ? Age/Sex: 29 / F ?ADM Date: 05/06/24 ? Loc: HO.US ? Attending Dr: Yazmin Crowder MD ? Ordering Physician: Yazmin Crowder MD ?? Date of Service: 05/06/24 ?? Procedure(s): US renal BI ?? Accession Number(s): [id number] ? cc: Yazmin Crowder MD ? CLINICAL [...] ? DD/ 0 ? TD/TT: 05/08/24740 ? Financial Sales Representative: ? Procedure Note Khadarsdtammy, Image - 05/08/2024 [place] [address] Ultrasound Report Signed Patient: Lorie Velez#: [id number] 397 : 1995Acct:[id number] Age/Sex: 29 / FADM Date: 05/06/24 Loc: HO.US Attending Dr: Yazmin Crowder MD Ordering Physician: Yazmin Crowder MD Date of Service: 05/06/24 Procedure(s): US renal BI Accession Number(s): [id number] cc: Yazmin Crowder MD CLINICAL HISTORY: recurrent [...] in OV> 05/08/2442 DD/ 0 TD/TT: 05/08/24740 Financial Sales Representative: us Yazmin Crowder MD IMG US PROCEDURES Final Result documented in this encounter Visit Diagnoses Diagnosis Recurrent UTI- Primary Urinary tract infection, site not specified documented in this encounter Additional Health Concerns Assessment Noted Time PHQ-9 Depression Total Score: 4 01/23/20 24 4:29 PM EDT documented as of this encounter Care Teams Registered Dietitian Relationship Specialty Start Date End Date Yazmin Crowder MD [address] [place] [phone] PCP - General Family Medicine 03/06/20 documented as of this encounter
--- OUTSIDE RECORDS SUMMARY | 2024-05-21 13:53 | XMS_ITS | Encounter Summary ---
Author Organization [employer] Address [address] [place] [address] 7 [place] [address] Care Team Providers Care Crisis Intervention Counselor Name Role Phone Yazmin Crowder MD Primary Care Provider [phone] Encounter Details Date Type Department Care Team (Late st Contact Info) Description 05/20/2024 3:30 PM EST Office Visit [facility] [address] [place], [place] [phone] Yazmin Crowder MD [address] [place], [place] [phone] Hypertension, unspecified type (Primary Dx); Contusion of right wrist, initial encounter; Irritable bowel syndrome with constipation; Chronic GERD; Acute pain of right knee; It band syndrome, right; Bilateral arm weakness; Asperger's syndrome; Class 2 obesity due to excess calories without serious comorbidity with body mass index (BMI) of 38.0 to 38.9 in adult Social History Tobacco Use Types Packs/Day Years [...] the past 12 months, has t he [employer], gas, oil or water company threatened to [...] PM EST documented as of this encounter Last Filed Vital Signs Vital Sign Reading Time Taken Comments Blood Pressure 132/83 05/20/2024 3:41 PM EST Pulse 84 05/20/2024 3:41 PM EST Temperature 36 ??C (96.8 ??F) 05/20/2024 3:41 PM EST Respiratory Rate 21 05/20/2024 3:41 PM EST Oxygen Saturation - - Inhaled Oxygen Concentration - - Weight 107 kg (234 lb 12.8 oz) 05/20/2024 3:41 P M EST Height - - Body Mass Index 38.48 11/13/2023 2:41 PM EDT documented in this encounter Miscellaneous Notes * Assessment & Plan Note - Ludin Kelley - 05/20/2024 4:34 PM ESTAssociated Problem(s): It band syndrome, right -Continue home exercise program * Assessment & Plan Note - Ludin Kelley - 05/20/2024 4:34 PM ESTAssociated Problem(s): Irritable bowel syndrome with constipation Following with GI Specialist Patient had an EGD & Colonoscopy completed in 04/2022 Patient has tried many different laxatives Prescribed Linzess in 2022 * Assessment & Plan Note - Ludin Kelley - 05/20/2024 4:34 PM ESTAssociated Problem(s): Chronic GERD -Following with GI Specialist -EGD on 05/04/22, showing erosive esophagitis and hiatal hernia -continue pantoprazole as prescribed * Assessment & Plan Note - Ludin Kelley - 05/20/2024 4:33 PM ESTAssociated Problem(s): Asperger's syndrome - She does not like to have a label of functional ASD - Congratulated her on advocating for herself and other people with neuroatypical condition. * Assessment & Plan Note - Ludin Kelley - 05/20/2024 4:33 PM ESTAssociated Problem(s): Obesity -Will start pherntamine, and transition to Zepbound -Continue physical activity and healthy diet * Assessment & Plan Note - Ludin Kelley - 05/20/2024 4:32 PM ESTAssociated Problem(s): Acute pain of right knee -Pt had multiple falls -Pt was evaluation at urgent care with X-ray; reportedly normal -Will consider evaluating with MRI if pain does not improve -Continue PT -Will work on weight reduction * Assessment & Plan Note - Ludin Kelley - 05/20/2024 3:51 PM ESTAssociated Problem(s): Hypertension -Goal BP < 140/90 per JNC-8 and < 130/80 per ACC/AHA guideline (Treatment threshold >=140/90) -Class I hypertension -Continue working on lifestyle modifications -Continue self-monitoring BP. -Continue amlodipine 5 mg daily -Treatment Hx: Previously on clonidine for both BP and anxiety. * Assessment & Plan Note - Yazmin Crowder MD - 05/20/2024 6:39 AM ESTAssociated Problem(s): Contusion of right wrist - date of injury 04/29/24 - evaluated in [facility] ED on 04/30/24. X-ray negative for fracture. - seen by Dr. Frank, [facility] on 05/08/24. documented in this encounter Plan of Treatment Upcoming Encounters Date Type Department Care Team (Late st Contact Info) Description 05/24/2024 11:30 AM EST Clinical Support [facility] [address] [place] [address] documented as of this encounter Visit Diagnoses Diagnosis Hypertension, unspecified type- Primary Contusion of right wrist, initial encounter Irritable bowel syndrome with constipation Irritable bowel syndrome Chronic GERD Acute pain of right knee It band syndrome, right Bilateral arm weakness Other musculoskeletal symptoms referable to limbs Asperger's syndrome Other specified pervasive developmental disorders, current or active state Class 2 obesity due to excess calories without serious comorbidity with body mass index (BMI) of 38.0 to 38.9 in adult documented in this encounter Additional Health Concerns Assessment Noted Time PHQ-9 Depression Total Score: 4 01/23/20 24 4:29 PM EDT documented as of this encounter Care Teams Crisis Intervention Counselor Relationship Specialty Start Date End Date Yazmin Crowder MD 230 [place] [address] PCP - General Family Medicine 03/06/20 documented as of this encounter
--- OUTSIDE RECORDS SUMMARY | 2024-05-21 13:53 | XMS_ITS | Encounter Summary ---
Author Organization [employer] Address [address] [place] [address] 7 [place] [address] Care Team Providers Care Production Analyst Name Role Phone Yazmin Crowder MD Primary Care Provider [phone] Reason for Visit * Reason Onset Date Comments ER Follow-up 04/30/2024 Encounter Details Date Type Department Care Team ([facility] st Contact Info) Description 04/30/2024 Telephone [facility] [address] [place], [place] [phone] Divina Her, RN [address] [place], [place] [phone] ER Follow-up Social History Tobacco Use Types [...] lobby requesting ED follow up. Seen at [facility] ED 04/30 for contusion of right [...] 11:30 AM EST Clinical Support [facility] [address] [place] [address] documented as of this encounter Visit Diagnoses Not on filedocumented in this encounter Additional Health Concerns Assessment Noted Time PHQ-9 Depression Total Score: 4 01/23/20 24 4:29 PM EDT documented as of this encounter Care Teams Production Analyst Relationship Specialty Start Date End Date Yazmin Crowder MD [address] [place] [address] PCP - General Family Medicine 03/06/20 documented as of this encounter
--- OUTSIDE RECORDS SUMMARY | 2024-05-21 13:53 | XMS_ITS | Encounter Summary ---
Author Organization [employer] [facility] Address [address] [place] [address] Care Team Providers Care Mining Professionals Name Role Phone Yazmin Crowder MD Primary Care Provider [phone] Encounter Details Date Type Department Care Team (Late st Contact Info) Description 12/20/2022 Orders Only [address] [phone] Provider, MD Radha Social History Tobacco Use Types Packs/Day Years [...] Description 05/24/2024 11:30 AM EST Clinical Support [address] [address] documented as of this encounter Procedures Procedure Name Priority Date/Time Associated Diagnosis Comments HM PAP/HPV Routine 11/09/2021 documented in this encounter Results * Hm Pap Smear (11/09/2021) Historical Provider HEALTH MAINTENANCE Final Result documented in this encounter Visit Diagnoses Not on filedocumented in this encounter Care Teams Mining Professionals Relationship Specialty Start Date End Date Yazmin Crowder MD [address] [place] [phone] PCP - General Family Medicine 03/06/20 documented as of this encounter
--- OUTSIDE RECORDS SUMMARY | 2024-05-21 13:53 | XMS_ITS | Encounter Summary ---
Author Organization [employer] Address [address] [place] [address] 7 [place] [address] Care Team Providers Care Custom Feed Mill Operator Name Role Phone Yazmin Crowder MD Primary Care Provider [phone] Encounter Details Date Type Department Care Team ([facility] st Contact Info) Description 12/19/2023 Orders Only [facility] [address] [place], [place] [phone] Yazmin Crowder MD [address] [place], [place] [phone] Social History Tobacco Use Types Packs/Day Years [...] Description 05/24/2024 11:30 AM EST Clinical Support [facility] [address] [place] [address] documented as of this encounter Visit Diagnoses Not on filedocumented in this encounter Additional Health Concerns Assessment Noted Time PHQ-9 Depression Total Score: 18 024 9:30 AM EDT documented as of this encounter Care Teams Custom Feed Mill Operator Relationship Specialty Start Date End Date Yazmin Crowder MD 230 [place] [address] PCP - General Family Medicine 03/06/20 documented as of this encounter
--- OUTSIDE RECORDS SUMMARY | 2024-05-21 13:53 | XMS_ITS | Encounter Summary ---
Author Organization [employer] Address [address] [place] [address] 7 [place] [address] Care Team Providers Care Visual Specialist Name Role Phone Yazmin Crowder MD Primary Care Provider Encounter Details Date Type Department Care Team ([facility] st Contact Info) Description 01/31/2024 Orders Only [facility] [address] [place], [place] [phone] Yazmin Crowder MD [address] [place], [place] [phone] Social History Tobacco Use Types Packs/Day Years [...] Clinical Support [facility] [address] [place] [address] documented as of this encounter Visit Diagnoses Not on filedocumented in this encounter Additional Health Concerns Assessment Noted Time PHQ-9 Depression Total Score: 4 01/23/20 24 4:29 PM EDT documented as of this encounter Care Teams Visual Specialist Relationship Specialty Start Date End Date Yazmin Crowder MD 230 [place] [address] PCP - General Family Medicine 03/06/20 documented as of this encounter
--- OUTSIDE RECORDS SUMMARY | 2024-05-21 13:53 | XMS_ITS | Encounter Summary ---
Author Organization [employer] Address [address] [place] [address] 7 [place] [address] Care Team Providers Care Automobile Damage Appraiser Name Role Phone Yazmin Crowder MD Primary Care Provider [phone] Reason for Visit * Reason Comments Med Change Request Encounter Details Date Type Department Care Team ([facility] st Contact Info) Description 04/04/[address] [facility]INE 230 [place], [place] [phone] Yazmin Crowder MD 230 [place], [place] [phone] Social History Tobacco Use Types Packs/Day Years [...] 11:30 AM EST Clinical Support [facility] [address] [place] [address] documented as of this encounter Visit Diagnoses Not on filedocumented in this encounter Additional Health Concerns Assessment Noted Time PHQ-9 Depression Total Score: 4 01/23/20 24 4:29 PM EDT documented as of this encounter Care Teams Automobile Damage Appraiser Relationship Specialty Start Date End Date Yazmin Crowder MD [address] [place] [address] PCP - General Family Medicine 03/06/20 documented as of this encounter
--- OUTSIDE RECORDS SUMMARY | 2024-05-21 13:53 | XMS_ITS | Encounter Summary ---
Author Organization [employer] Address [address] [facility] 7t [place] [address] Care Team Providers Care Noc Analyst Name Role Phone Yazmin Crowder MD [...] 11:30 AM EST Clinical Support [facility] 230 [place] [address] documented as of this encounter Visit Diagnoses Not on filedocumented in this encounter Additional Health Concerns Assessment Noted Time PHQ-9 Depression Total Score: 4 01/23/20 24 4:29 PM EDT documented as of this encounter Care Teams Noc Analyst Relationship Specialty Start Date End Date Yazmin Crowder MD [address] [place] [address] PCP - General Family Medicine 03/06/20 documented as of this encounter
== END 2024-05-17 11:19 | disposition home or self-care (01) ==
LOC: HO.HOSX 11:18
PROVIDERS: Visit Provider Orthopaedic Surgery
DX: M25.531 Pain in right wrist (principal); M79.7 Fibromyalgia
CPT/HCPCS: 73110; 99212

== ENCOUNTER 2024-05-17 15:07 | Outpatient (AMB) | payer MEDICAID, SELFPAY ==
--- NOTE | 2024-05-17 15:14 | MHC.OFFVIS ---
Vital Signs 05/17/24 15:21 Height 5 ft 6 in Weight 230 lb BMI 37.1 Intake Visit Reasons: OV-3V R wrist+scaphoid-w/xray Intake Note: Divina 29 yr old right hand dominant female presents today for her follow up visit for her right wrist scaphoid injury from DOI 04/30/24. Xrays updated in office. States she continues to have ongoing pain at her [facility]. Stiffness with splint removal. Allergies bee pollen [bee stings] Allergy (Mild, Verified 05/08/24 10:24) Rash poison td extract [POISON TD] Allergy (Mild, Verified 05/08/24 10:24) HIVES poison oak extract Allergy (Mild, Verified 05/08/24 10:24) Rash poison sumac extract Allergy (Mild, Verified 05/08/24 10:24) Hives HPI HPI OV-3V R wrist+scaphoid-w/xray: Details: Divina is a 29 year old right hand dominant woman who presents for right wrist pain, S/P fall, DOI: 04/29/24. She was seen in the ED on 04/30/24 and placed in a velcro wrist splint. She reports having little pain in her hand, worse when applying pressure such as driving. She says her pain is primarily to the back of her hand. She also complains of stiffness in her hand once her splint was removed. She feels her pain has improved since last week. She denies any numbness or tingling. She has a Hx of Autism & Fibromyalgia. She denies smoking or vaping, but her does smoke inside their apartment and her clothes smell heavily of smoke today [facility] Medical History (Updated 05/08/24 @ 10:43 by Flavio Hogan) Anxiety and depression Aspergers' syndrome PTSD (post-traumatic stress disorder) Migraines IBS (irritable bowel syndrome) Surgical History (Updated 07/13/22 @ 08:28 by IRENA Solis) Hx of colonoscopy Hx of wisdom tooth extraction Family History Maternal Grandfather Diabetes Family/Other Crohn disease Sister IBS (irritable bowel syndrome) Social History (Updated 05/08/24 @ 10:24 by IRENA Chaney) Household Members Other:: lives with Gelacio Alcohol intake: current Alcohol intake frequency: does not drink Patient Tobacco Use Status: Never used Tobacco Second Hand Smoke Exposure: Yes Substance Use Type: Marijuana Current occupational status: unemployed 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 Reproductive History Menstrual Age of Menarche: 13 Review of Systems Const All systems reviewed & are unremarkable except as noted in HPI and below Physical Exam Vital Signs: BMI result Body Mass Index 37.1 Const General: no acute distress and alert Orientation/consciousness: patient oriented x3 Neuro General: patient oriented x3 Extrem Other: Evaluation of Right Upper Extremity: The patient is alert, oriented, and in no acute distress Neuro: Median, Ulnar, Radial nerves motor and sensory intact Vascular: Cap refill brisk ROM: She can make a weak fist and extend all her digits No locking or catching General: Resolving swelling Mild tenderness over the dorsal aspect of the distal radius, distal ulna, and radial styloid Tender over the snuffbox today No tenderness over the scaphoid tubercle Radiographs: 3 views of the right wrist + a scaphoid view were taken and viewed by me today in clinic. They show no obvious fractures or dislocations. Psych Appearance: grossly normal Affect: normal affect Attitude: cooperative Assessment & Plan Assessment & Plan (1) Tenderness of anatomical snuffbox: Comment: R Code(s): M79.643 - Pain in unspecified hand Category: Medical (2) Fibromyalgia: Code(s): M79.7 - Fibromyalgia Category: Medical Plan Assessment & Plan: 1. Right snuffbox tenderness, S/P fall, DOI: 04/29/24 2. Right hand & wrist contusion S/P fall, DOI: 04/29/24 I educated her about this condition I discussed operative and non-operative treatment options No obvious scaphoid fractures seen on radiographs today, but she continues to have tenderness in the snuffbox. I have a low suspicion of a scaphoid fracture at this time. She was fitted for a velcro thumb spica splint, to be worn like a cast except for showering, for the next 2 weeks She should work on gentle finger ROM exercises while in her splint I discussed activity modifications, she is to lift nothing heavier than a cellphone for the next 2 weeks. She stays active with weight training and exercise, and I recommend she focus on lower body and cardio exercises at this time. I explained the effects of smoking/vaping on wound/bone healing, and recommend they stop smoking while healing. She denies smoking but says her smokes inside their house regularly. She will follow up 2, with X-rays, 3V R wrist+scaphoid Scribed for Monika Abreu MD by Flavio Hogan, medical affairs specialist, on 05/17/24 at 3:25 PM, EST. Orders: Orders XR wrist RT w scaphoid Today M25.531 - Pain in right wrist Coding Level of Care Code Est Pt Level 3 (06233) Diagnoses Tenderness of anatomical snuffbox M79.643 Fibromyalgia M79.7
--- OUTSIDE RECORDS SUMMARY | 2024-05-17 15:15 | XMS_ITS | Encounter Summary ---
Author Organization [employer] Address [address] [place] [address] [address]t [place] [address] Care Team Providers Care Feeder Loader Name Role Phone Yazmin Crowder MD Primary Care Provider [phone] Encounter Details Date Type Department Care Team (Late st Contact Info) Description 12/19/2023 Orders Only [facility] [address] [place], [place] [phone] Yazmin Crowder MD [address] [place], [place] [phone] Social History Tobacco Use Types Packs/Day Years [...] Description 05/20/2024 3:30 PM EST Office Visit [address] [address] Yazmin Crowder MD [address] [place] [phone] 05/24/2024 11:30 AM EST Clinical Support [address] [address] documented as of this encounter Visit Diagnoses Not on filedocumented in this encounter Additional Health Concerns Assessment Noted Time PHQ-9 Depression Total Score: 18 024 9:30 AM EDT documented as of this encounter Care Teams Feeder Loader Relationship Specialty Start Date End Date Yazmin Crowder MD [address] [place] [phone] PCP - General Family Medicine 03/06/20 documented as of this encounter
--- OUTSIDE RECORDS SUMMARY | 2024-05-17 15:15 | XMS_ITS | Encounter Summary ---
Author Organization [employer] Address [address] [place] [address] 7t [place] [address] Care Team Providers Care Fire Fighters Dispatcher Name Role Phone Yazmin Crowder MD Primary Care Provider Encounter Details Date Type Department Care Team [...] Description 05/20/2024 3:30 PM EST Office Visit [address] [address] Yazmin Crowder MD [address] [place] [address] 05/24/2024 11:30 AM EST Clinical Support [address] [address] documented as of this encounter Visit Diagnoses Not on filedocumented in this encounter Additional Health Concerns Assessment Noted Time PHQ-9 Depression Total Score: 4 01/23/20 24 4:29 PM EDT documented as of this encounter Care Teams Fire Fighters Dispatcher Relationship Specialty Start Date End Date Yazmin Crowder MD [address] [place] [phone] PCP - General Family Medicine 03/06/20 documented as of this encounter
--- OUTSIDE RECORDS SUMMARY | 2024-05-17 15:15 | XMS_ITS | Encounter Summary ---
Author Organization [employer] Address [address] [place] [address] [address]t [place] [address] Care Team Providers Care Roustabout Crew Name Role Phone Yazmin Crowder MD Primary Care Provider [phone] Encounter Details Date Type Department Care Team (Late st Contact Info) Description 01/26/2024 Orders Only [facility] [address] [place], [place] [phone] Yazmin Crowder MD [address] [place], [place] [phone] Social History Tobacco Use Types Packs/Day Years [...] Description 05/20/2024 3:30 PM EST Office Visit [address] [address] Yazmin Crowder MD [address] [place] [address] 05/24/2024 11:30 AM EST Clinical Support [address] [address] documented as of this encounter Visit Diagnoses Not on filedocumented in this encounter Additional Health Concerns Assessment Noted Time PHQ-9 Depression Total Score: 4 01/23/20 24 4:29 PM EDT documented as of this encounter Care Teams Roustabout Crew Relationship Specialty Start Date End Date Yazmin Crowder MD [address] [place] [address] PCP - General Family Medicine 03/06/20 documented as of this encounter
--- OUTSIDE RECORDS SUMMARY | 2024-05-17 15:15 | XMS_ITS | Encounter Summary ---
Author Organization [employer] [facility] Address [address] [place] [address] [address] [place] [address] Care Team Providers Care Software Requirements Engineer Name Role Phone Yazmin Crowder MD Primary Care Provider [phone] Encounter Details Date Type Department Care Team (Late st Contact Info) Description 12/20/2022 Orders Only [address] [address] ProviderRadha MD Social History Tobacco Use Types [...] Description 05/20/2024 3:30 PM EST Office Visit [address] [address] Yazmin Crowder MD [address] [place] [address] 05/24/2024 11:30 AM EST Clinical Support [address] [address] documented as of this encounter Procedures Procedure Name Priority Date/Time Associated Diagnosis Comments HM PAP/HPV Routine 11/09/2021 documented in this encounter Results * Hm Pap Smear (11/09/2021) us Historical Provider HEALTH MAINTENANCE Final Result documented in this encounter Visit Diagnoses Not on filedocumented in this encounter Care Teams Software Requirements Engineer Relationship Specialty Start Date End Date Yazmin Crowder MD [address] [place] [phone] PCP - General Family Medicine 03/06/20 documented as of this encounter
--- OUTSIDE RECORDS SUMMARY | 2024-05-17 15:15 | XMS_ITS | Encounter Summary ---
Author Organization [employer] Address [address] [place] [address] 7t [place] [address] Care Team Providers Care Staff Research Associate Name Role Phone Yazmin Crowder MD Primary Care Provider [phone] Encounter Details Date Type Department Care Team (Late st Contact Info) Description 10/31/2023 Orders Only [facility] [address] [place], [place] [phone] Yazmin Crowder MD [address] [place], [place] [phone] Acute cystitis without hematuria (Primary Dx); Low [...] Description 05/20/2024 3:30 PM EST Office Visit [address] [address] Yazmin Crowder MD [address] [place] [address] 05/24/2024 11:30 AM EST Clinical Support [address] [address] documented as of this encounter Procedures Procedure Name Priority Date/Time Associated Diagnosis Comments TSH Routine 11/13/2023 3:20 PM EDT Low TSH level T4, FREE Routine 11/13/2023 3:20 PM EDT Low TSH level documented in this encounter Results * TSH (11/13/2023 3:20 PM EDT) Thyroid Stimulating Hormone 1.53 0.32 - 4.0 uIU/mL [facility] Comment:TSH 3rd Generation ( [facility]) Blood Venous blood specimen / Unknown 11/13/2023 3:20 PM EDT 11/13/2023 3:52 PM EDT us Yazmin Crowder MD LAB BLOOD ORDERABLES Final Resul t [facility] [address] [place] [phone] * T4, Free (11/13/2023 3:20 PM EDT) Free T4 (Free Thyroxine) 0.75 0.71 - 1.85 ng/dL [facility] Blood Venous blood specimen / Unknown 11/13/2023 3:20 PM EDT 11/13/2023 3:52 PM EDT us Yazmin Crowder MD LAB BLOOD ORDERABLES Final Resul t [facility] [address] [place] [address] [phone] documented in this encounter Visit Diagnoses Diagnosis Acute cystitis without hematuria- Primary Low TSH level documented in this encounter Additional Health Concerns Assessment Noted Time PHQ-9 Depression Total Score: 25 024 5:10 PM EDT documented as of this encounter Care Teams Staff Research Associate Relationship Specialty Start Date End Date Yazmin Crowder MD [address] [place] [address] PCP - General Family Medicine 03/06/20 documented as of this encounter
--- OUTSIDE RECORDS SUMMARY | 2024-05-17 15:15 | XMS_ITS | Encounter Summary ---
Author Organization [employer] Address [address] [place] [address] 7 [place] [address] Care Team Providers Care Secretary Of Police Name Role Phone Yazmin Crowder MD Primary Care Provider [phone] Encounter Details Date Type Department Care Team (Late st Contact Info) Description 03/24/2022 Abstract [facility] [address] [place] [address] [phone] Yazmin Crowder MD [address] [place] [address] [phone] Social History Tobacco Use Types Packs/Day Years [...] Description 05/20/2024 3:30 PM EST Office Visit [facility] [address] [place] [phone] Yazmin Crowder MD [address] [place] [phone] 05/24/2024 11:30 AM EST Clinical Support [facility] [address] [place] [address] documented as of this encounter Visit Diagnoses Not on filedocumented in this encounter Care Teams Secretary Of Police Relationship Specialty Start Date End Date Yazmin Crowder MD [address] [place] [address] PCP - General Family Medicine 03/06/20 documented as of this encounter
--- OUTSIDE RECORDS SUMMARY | 2024-05-17 15:15 | XMS_ITS | Encounter Summary ---
Author Organization [employer] Address [address] [place] [address] 7t [place] [address] Care Team Providers Care Competitive Intelligence Manager Name Role Phone Yazmin Crowder MD Primary Care Provider [phone] Encounter Details Date Type Department Care Team [...] Description 05/20/2024 3:30 PM EST Office Visit [address] [address] Yazmin Crowder MD [address] [place] [address] 05/24/2024 11:30 AM EST Clinical Support [address] [address] documented as of this encounter Visit Diagnoses Not on filedocumented in this encounter Additional Health Concerns Assessment Noted Time PHQ-9 Depression Total Score: 4 01/23/20 24 4:29 PM EDT documented as of this encounter Care Teams Competitive Intelligence Manager Relationship Specialty Start Date End Date Yazmin Crowder MD [address] [place] [address] PCP - General Family Medicine 03/06/20 documented as of this encounter
--- OUTSIDE RECORDS SUMMARY | 2024-05-17 15:15 | XMS_ITS | Encounter Summary ---
Author Organization [employer] Address [address] [place] [address] 7t [place] [address] Care Team Providers Care Grocery Sacker Name Role Phone Yazmin Crowder MD Primary Care Provider [phone] Reason for Visit * Reason Onset Date Comments ER Follow-up 04/30/2024 Encounter Details Date Type Department Care Team ([facility] st Contact Info) Description 04/30/2024 Telephone [facility] [address] [place], [place] [phone] Divina Her, RN [address] [place] [address] ER Follow-up Social History Tobacco Use Types [...] lobby requesting ED follow up. Seen at [facility] ED 04/30 for contusion of right [...] 3:30 PM EST Office Visit [facility] [address] [place] [address] Yazmin Crowder MD [address] [place] [address] 05/24/2024 11:30 AM EST Clinical Support [facility] [address] [place] [address] documented as of this encounter Visit Diagnoses Not on filedocumented in this encounter Additional Health Concerns Assessment Noted Time PHQ-9 Depression Total Score: 4 01/23/20 24 4:29 PM EDT documented as of this encounter Care Teams Grocery Sacker Relationship Specialty Start Date End Date Yazmin Crowder MD [address] [place] [address] PCP - General Family Medicine 03/06/20 documented as of this encounter
--- OUTSIDE RECORDS SUMMARY | 2024-05-17 15:15 | XMS_ITS | Clinical Summary ---
Author Organization [employer] Address [address] [place] [address] 7t [place] [address] Care Team Providers Care Waxing Machine Operator Helper Name Role Phone Yazmin Crowder MD Primary Care Provider [phone] Allergies Active Allergy Reactions Criticality Noted Date [...] Plan (04/21/2024 1:21 PM EST): Evaluated by Supervisor Felting in 06/2022 -Several different medication options discussed; interested in Muscle relaxant and Gabapentin. Agreed to start one medication at a time -Patient will start Gabapentin 300mg at bedtime -Continue antidepressants -Continue active lifestyle Assessment & Plan (10/29/2023 7:13 AM EDT): Evaluated by Supervisor Felting in 06/2022 -Several different medication options discussed; interested in Muscle relaxant and Gabapentin. Agreed to start one medication at a time -Patient will start Gabapentin 300mg at bedtime -Continue antidepressants -Continue active lifestyle Assessment & Plan (07/19/2022 12:41 PM EDT): Evaluated by Supervisor Felting in 06/2022 -Several different medication options discussed; [...] PM EDT): -Restart Loratadine -Rx Nasal Saline Crane It band syndrome, right 03/27/2022 Assessment & Plan (04/21/2024 1:21 PM EST): -Continue home exercise program Assessment & Plan (02/02/2024 6:32 PM EST): -Continue home exercise program Assessment & Plan (03/27/2022 5:47 PM EST): -Continue home exercise program Patellofemoral syndrome of both knees 03/27/2022 Assessment & Plan (03/27/2022 5:47 PM EST): -Evaluated by [facility] provider -Continue home exercise program -Continue judicious use of meloxicam Mood disorder 03/27/2022 Assessment & Plan (04/21/2024 1:21 PM EST): -Pt was followed by [facility] provider in the past, but out of [...] 6:36 PM EST): -Pt was followed by [facility] provider in the past, but out of [...] 5:18 PM EDT): -Pt was followed by [facility] provider in the past, but out of [...] 8:53 AM EDT): -Pt was followed by [facility] provider in the past, but out of [...] 9:21 AM EDT): -Pt is followed by [facility] provider -Current Dx needs to be confirmed: Bipolar, Major depression, anxiety, PTSD -Currently prescribed fluoxetine and buspirone -Previously tried: bupropion, clonidine, and sertraline -Continue current treatment plan by [facility] provider -Continue staying physically active -Recommended acupuncture Assessment & Plan (03/27/2022 5:46 PM EST): -Pt is followed by [facility] provider -Current Dx needs to be confirmed: Bipolar, Major depression, anxiety, PTSD -Currently prescribed fluoxetine and buspirone -Previously tried: bupropion, clonidine, and sertraline -Continue current treatment plan by [facility] provider -Continue staying physically active -Recommended acupuncture Abdominal pain 03/27/2022 Assessment & Plan (03/27/2022 5:48 PM EST): -Followed by [facility] -Extensive work-up has been ordered -Follow [...] Assessment & Plan (03/27/2022 5:58 PM EST): -[place] moisturization with emolients -Judicious use of topical [...] Plan (07/19/2022 12:42 PM EDT): Evaluated by Supervisor Felting in 06/2022, Dx with Fibromyalgia -Also evaluated [...] Encounters Date Type Department Care Team Description 05/15/2024 Telephone [facility] [address] [place] [address] Yazmin Crowder MD Chart Prep 04/30/[address] [address] Divina Her, [employer]BER Follow-up 04/30/2024 Orders Only [facility] External Provider, [facility] 04/23/2024 Travel 04/18/2024 11:30 AM EST Telemedicine [facility] [address] [place] [address] Yazmin Crowder MD Hypertension, unspecified type (Primary Dx); Dietary counseling; Exercise counseling; Class 2 obesity due to excess calories without serious comorbidity with body mass index (BMI) of 37.0 to 37.9 in adult; Mood disorder (CMS/HCC); Fibromyalgia; Trochanteric bursitis of both hips; Recurrent UTI; It band syndrome, right; PTSD (post-traumatic stress disorder); Mixed anxiety and depressive disorder; Asperger's syndrome 04/18/2024 Travel 04/04/2024 Refill [facility] [address] [place] [address] Yazmin Crowder MD 03/21/2024 Telephone [facility] [address] [place], [place] [phone] Yazmin Crowder MD Callback 02/19/2024 Refill [facility] [address] [place], [place] [phone] Nolvia Hendrix RN Hypertension, unspecified type 02/16/2024 1:00 PM EST Clinical Support [facility] [address] [place] [address] Nolvia Hendrix RN Hypertension, unspecified type 02/16/2024 Travel from Last 3 Months Immunizations Name Administration Dates Next Due DTaP, 5 pertussis antigens 04/04/2001,,1996,06/27,1996 HPV 9-Valent 05/29/2014,10/18/2013,07/20/2012 Hep A, Adult 05/29/2014,10/18/2013 Hep B, Adolescent or Pediatric 1996,1996,1996 Hib ([facility]) 07/25/1997,199 7,1996,04/26 IPV 03/09/2000,199 7,1996,04/26 Influenza injectable quadriv alent preservative free 03/28/2022,12/17/2020,03/14/2020 Influenza, seasonal, injecta ble, preservative free 01/23/2024 MMR 03/09/2000,02/27/1997 Meningococcal MCV4P ACYW-135 02/16/2009 Moderna Covid-19 Vaccine 12+ 07/31/2020,07/11/19 21 Pfizer Covid-19 Vaccine 12+ 01/23/2024,1 04/17/2020,08/01/2020,07/11 Tdap 10/17/2022,08/26/2020,02/16/2009 Varicella 02/16/2009,02/27/1997 Social History Tobacco Use Types [...] Description 05/20/2024 3:30 PM EST Office Visit [address] [phone] Yazmin Crowder MD [address] [place] [address] 05/24/2024 11:30 AM EST Clinical Support [address] [address] Health Maintenance Due Date Last Done Comments [...] EST Narrative 05/08/2024 7:42 AM EST ? [facility] ?[address] ?[place] [address] ? Ultrasound Report ? Signed ? Patient: Dviina Velez ?MR#: [id number] ?? 397 ? : 1995 ?Acct:[id number] ? Age/Sex: 29 / F ?ADM Date: 05/06/24 ? Loc: HO.US ? Attending Dr: Yazmin Crowder MD ? Ordering Physician: Yazmin Crowder MD ?? Date of Service: 05/06/24 ?? Procedure(s): US renal BI ?? Accession Number(s): [id number] ? cc: Yazmin Crowder MD ? CLINICAL [...] DD/ 0741 ? TD/TT: 05/08/24 0741 ? Hot Walker: ? Procedure Note Kevon, Image - 05/08/[address] [address] Ultrasound Report Signed Patient: Lorie Velez#: [id number] 397 : 1995Acct:[id number] Age/Sex: 29 / FADM Date: 05/06/24 Loc: HO.US Attending Dr: Yazmin Crowder MD Ordering Physician: Yazmin Crowder MD Date of Service: 05/06/24 Procedure(s): US renal BI Accession Number(s): [id number] cc: Yazmin Crowder MD CLINICAL HISTORY: recurrent [...] signed by Rosas Tapia MD in OV> 05/08/24 0742 DD/ 0 TD/TT: 05/08/24740 Hot Walker: us Yazmin Crowder MD IMG US PROCEDURES Final Result * XR Wrist 3+ Views Right (05/06/2024 4:34 PM EST) Only the most recent of2 resultswithin the time period is included. Anatomical Region Laterality Modality Upper Extremities, Wrist Right Radiogr aphic Imaging 05/06/2024 4:34 PM EST Narrative 05/07/2024 7:38 AM EST ? [facility] ?[address] ?[place] [address] ?XRay Report ? Signed ? Patient: Agustin,Divina ?MR#: [id number] ?? 397 ? : 1995 ?Acct:[id number] ? Age/Sex: 29 / F ?ADM Date: 05/06/24 ? Loc: HO.US ? Attending Dr: Yazmin Crowder MD ? Ordering Physician: Monika Abreu MD ?? Date of Service: 05/06/24 ?? Procedure(s): XR wrist RT min 3V ?? Accession Number(s): [id number] ? cc: Monika Abreu MD; Yazmin Crowder [...] DD/ 1634 ? TD/TT: 05/06/24 1650 ? Hot Walker: ? Procedure Note Raquelter, Image - 05/07/2024 [place] [address] XRay Report Signed Patient: Lorie Velez#: [id number] 397 : 1995Acct:[id number] Age/Sex: Date: 05/06/24 Loc: . Attending Dr: Yazmin Crowder MD Ordering Physician: Monika Abreu MD Date of Service: 05/06/24 Procedure(s): XR wrist RT min 3V Accession Number(s): [id number] cc: Monika Abreu MD; Yazmin Crowder MD [...] 05/07/24 0704 DD/ 1634 TD/TT: 05/06/24 1650 Hot Walker: [facility] External Provider IMG XR PROCEDURES Final Result * (ABNORMAL) Lipid Panel with Reflex to Direct LDL (11/10/2023 10:09 AM EDT) Triglycerides 111 <150 mg/dL [facility] Comment:Desirable Triglyceri de: less than 150 mg/dLBorderline High Triglyceride 150-199 mg/dLHigh Triglyceride: 200-499 mg/dLVery High Triglyceride: greater than or equal to 5OO mg/dL Cholesterol 185 <200 mg/dL [facility] Comment:Desirable Cholestero l: less than 200 mg/dLBorderline High Cholesterol: 200-239 mg/dLHigh Cholesterol: greater than 239 mg/dL LDL Cholesterol Calculated 114(H) <100 mg/dL [facility] Comment:Desirable LDL: less than 100 mg/dLNear Optimal/Above Optimal LDL: 110- 129 mg/dLBorderline High LDL: 130-159 mg/dLHigh LDL: 160-189 mg/dLVery High LDL: greater than or equal to 190 mg/dL HDL Cholesterol 49 >40 mg/dL [facility] Comment:Desirable HDL: great er than 40 mg/dL Note: This HDL assay may give artificially low results in patients with liver disease. Blood 11/10/2023 10:0 9 AM EDT 11/10/2023 1:24 PM EDT Yazmin Crowder MD LAB BLOOD ORDERABLES Final Resul t [facility] [address] [place], [place] [phone] * Hepatitis C Antibody with Reflex to HCV, RNA, Quantitative, Real-Time PCR (11/10/2023 10:09 AM EDT) Hepatitis C Antibody Nonreactive Nonreactive [facility] Comment:Antibodies to HCV no t detected; does not exclude early acuteHCV infection. Blood Venous blood specimen / Unknown 11/10/2023 10:09 AM EDT 11/10/2023 1:24 PM EDT Yazmin Crowder MD LAB BLOOD ORDERABLES Final Resul t Performing Organization Address [facility] Co de Phone Number [facility] [address] [place] [address] [phone] * HIV-1/2 Antigen and Antibodies, Fourth Generation, with Reflexes (11/10/2023 10:09 AM EDT) [facility] HIV AB/AG Nonreactive Nonreactive [facility] Comment:HIV-1 p24 Ag and/or HIV-1/HIV-2 Ab not detected.A test result that is nonreactive does not exclude thepossibility of exposure to or infection with HIV-1 and/orHIV-2. Nonreactive results in this assay for individualswith prior exposure to HIV-1 and/or HIV-2 may be due toantigen and antibody levels that are below the limit ofdetection of this assay.The [employer] HIV Ag/Ab Combo assay result andsupplemental assay results should be interpreted inconjunction with the patient's clinical presentation,history and other laboratory results. If the results areinconsistent with clinical evidence, additional testing issuggested to confirm the result. Blood Venous blood specimen / Unknown 11/10/2023 10:09 AM EDT 11/10/2023 1:24 PM EDT Yazmin Crowder MD LAB BLOOD ORDERABLES Final Resul t Performing Organization Address [facility]/ZIP Co de Phone Number [facility] [address] [place] [address] [phone] * Hm Pap Smear (11/09/2021) Radha Gamez MD HEALTH MAINTENANCE Final Result from Last 3 Months or Most Recently Relevant to Health Maintenance Insurance HSN FULL Care Teams Waxing Machine Operator Helper Relationship Specialty Start Date End Date Yazmin Crowder MD [address] [place] [phone] PCP - General Family Medicine 03/06/20
--- OUTSIDE RECORDS SUMMARY | 2024-05-17 15:16 | XMS_ITS | Encounter Summary ---
Author Organization [employer] Address [address] [place] [address] 7t [place] [address] Care Team Providers Care Triple Air Valve Tester Name Role Phone Yazmin Crowder MD Primary Care Provider [phone] Encounter Details Date Type Department Care Team (Late st Contact Info) Description 04/30/2024 Orders Only [facility] External Provider, [facility] Social History Tobacco Use Types Packs/Day Years [...] Description 05/20/2024 3:30 PM EST Office Visit [address] [address] Yazmin Crowder MD [address] [place] [address] 05/24/2024 11:30 AM EST Clinical Support [address] [address] documented as of this encounter Procedures Procedure [...] Narrative 05/07/2024 7:38 AM EST ? [facility] ?[address] ?[place] [address] ?XRay Report ? Signed ? Patient: Cartski,Divina ?MR#: [id number] ?? 397 ? : 1995 ?Acct:[id number] ? Age/Sex: 29 / F ?ADM Date: 02/10/25 ? Loc: HO.US ? Attending Dr: Yazmin Crowder MD ? Ordering Physician: Monika Abreu MD ?? Date of Service: 05/06/24 ?? Procedure(s): XR wrist RT min 3V ?? Accession Number(s): [id number] ? cc: Monika Abreu MD; Yazmin Crowder [...] DD/ 1634 ? TD/TT: 05/06/24 1650 ? Pick Remover: ? Procedure Note Kevon, Image - 05/07/2024 [place] [address] XRay Report Signed Patient: Lorie Velez#: [id number] 397 : 1995Acct:[id number] Age/Sex: 29 / FADM Date: 05/06/24 Loc: HO.US Attending Dr: Yazmin Crowder MD Ordering Physician: Monika Abreu MD Date of Service: 05/06/24 Procedure(s): XR wrist RT min 3V Accession Number(s): [id number] cc: Monika Abreu MD; Yazmin Crowder MD [...] 05/07/24 0704 DD/ 1634 TD/TT: 05/06/24 1650 Pick Remover: [facility] External Provider IMG XR PROCEDURES Final Result * XR Wrist 3+ Views Right (04/30/2024 5:00 AM EST) Anatomical Region Laterality Modality Upper Extremities, Wrist Right Radiogr aphic Imaging 04/30/2024 5:00 AM EST Narrative 04/30/2024 5:02 AM EST ? [facility] ?[address] ?[place] [address] ?XRay Report ? Signed ? Patient: Divina Velez ?MR#: [id number] ?? 397 ? : 1995 ?Acct:[id number] ? Age/Sex: 29 / F ?ADM Date: 04/30/24 ? Loc: HO.ED ? Attending Dr: ? Ordering Physician: Generic ED Physician ?? Date of Service: 04/30/24 ?? Procedure(s): XR wrist RT min 3V ?? Accession Number(s): [id number] ? cc: Generic ED Physician; Yazmin Crowder [...] DD/ 0500 ? TD/TT: 04/30/24 0500 ? Pick Remover: ? Procedure Note Donotloretoter, Image - 04/30/2024 [facility] [address] [place] [address] XRay Report Signed Patient: Lorie Velez#: [id number] 397 : 1995Acct:[id number] Age/Sex: 29 FADM Date: 04/30/24 Loc: HO.ED Attending Dr: Ordering Physician: Generic ED Physician Date of Service: 04/30/24 Procedure(s): XR wrist RT min 3V Accession Number(s): [id number] cc: Generic ED Physician; Yazmin Crowder MD [...] 04/30/24 0502 DD/ 0500 TD/TT: 04/30/24 0500 Pick Remover: [facility] External Provider IMG XR PROCEDURES Final Result documented in this encounter Visit Diagnoses Not on filedocumented in this encounter Additional Health Concerns Assessment Noted Time PHQ-9 Depression Total Score: 4 01/23/20 24 4:29 PM EDT documented as of this encounter Care Teams Triple Air Valve Tester Relationship Specialty Start Date End Date Yazmin Crowder MD [address] [place] [address] PCP - General Family Medicine 03/06/20 documented as of this encounter
--- OUTSIDE RECORDS SUMMARY | 2024-05-17 15:16 | XMS_ITS | Encounter Summary ---
Author Organization [employer] Address [address] [place] [address] 7t [place] [address] Care Team Providers Care Resident Advisor Name Role Phone Yazmin Crowder MD Primary Care Provider Encounter Details Date Type Department Care Team (Late st Contact Info) Description 01/31/2024 Orders Only [facility] [address] [place], [place] [phone] Yazmin Crowder MD [address] [place], [place] [phone] Social History Tobacco Use Types Packs/Day Years [...] 05/20/2024 3:30 PM EST Office Visit [address] [address] Yazmin Crowder MD [address] [place] [address] 05/24/2024 11:30 AM EST Clinical Support [address] [address] documented as of this encounter Visit Diagnoses Not on filedocumented in this encounter Additional Health Concerns Assessment Noted Time PHQ-9 Depression Total Score: 4 01/23/20 24 4:29 PM EDT documented as of this encounter Care Teams Resident Advisor Relationship Specialty Start Date End Date Yazmin Crowder MD [address] [place] [address] PCP - General Family Medicine 03/06/20 documented as of this encounter
--- OUTSIDE RECORDS SUMMARY | 2024-05-17 15:16 | XMS_ITS | Encounter Summary ---
Author Organization [employer] Address [address] [place] [address] 7 [place] [address] Care Team Providers Care Gas And Oil Checker Name Role Phone Yazmin Crowder MD Primary Care Provider [phone] Reason for Referral * Imaging (Routine) - Closed Specialty Diagnoses / Procedures Referred By Contfrederic matute Referred To Contact Radiology Diagnoses Recurrent UTI Procedures US RENAL BI Yazmin Crowder MD [address] [place] [address] Phone: tel: fax: [address] Phone: tel: fax: Referral ID Status Reason Start Date Expiration Date Visits Re quested Visits Authorized [id number] Closed 02/02/2024 02/01/2025 1 1 Encounter Details Date Type Department Care Team (Late st Contact Info) Description 02/02/2024 Orders Only [facility] [address] [place] [address] Yazmin Crowder MD [address] [place] [address] Recurrent UTI (Primary Dx) Social [...] Description 05/20/2024 3:30 PM EST Office Visit [address] [address] Yazmin Crowder MD [address] [place] [address] 05/24/2024 11:30 AM EST Clinical Support [address] [address] documented as of this encounter Procedures Procedure Name Priority Date/Time Associated Diagnosis Comments US RENAL BI Routine 05/08/2024 7:41 AM EST Recurrent UTI documented in this encounter Results * US RENAL BI (05/08/2024 7:41 AM EST) Anatomical Region Laterality Modality Abdomen Ultrasound 05/08/2024 7:41 AM EST Narrative 05/08/2024 7:42 AM EST ? [facility] ?[address] ?[place] [address] ? Ultrasound Report ? Signed ? Patient: Divina Velez ?MR#: [id number] ?? 397 ? : 1995 ?Acct:[id number] ? Age/Sex: 29 / F ?ADM Date: 05/06/24 ? Loc: HO.US ? Attending Dr: Yazmin Crowder MD ? Ordering Physician: Yazmin Crowder MD ?? Date of Service: 05/06/24 ?? Procedure(s): US renal BI ?? Accession Number(s): [id number] ? cc: Yazmin Crowder MD ? CLINICAL [...] DD/ 0741 ? TD/TT: 05/08/24 0741 ? Validation Architect: ? Procedure Note Kevon, Image - 05/08/[address] [address] Ultrasound Report Signed Patient: Lorie Velez#: [id number] 397 : 1995Acct:[id number] Age/Sex: 29 / FADM Date: 05/06/24 Loc: HO. Attending Dr: Yazmin Crowder MD Ordering Physician: Yazmin Crowder MD Date of Service: 05/06/24 Procedure(s): US renal BI Accession Number(s): [id number] cc: Yazmin Crowder MD CLINICAL HISTORY: recurrent [...] in OV> 05/08/2442 DD/ 0 TD/TT: 05/08/24740 Validation Architect: us Yazmin Crowder MD IMG US PROCEDURES Final Result documented in this encounter Visit Diagnoses Diagnosis Recurrent UTI- Primary Urinary tract infection, site not specified documented in this encounter Additional Health Concerns Assessment Noted Time PHQ-9 Depression Total Score: 4 01/23/20 24 4:29 PM EDT documented as of this encounter Care Teams Gas And Oil Checker Relationship Specialty Start Date End Date Yazmin Crowder MD [address] [place] [address] PCP - General Family Medicine 03/06/20 documented as of this encounter
--- OUTSIDE RECORDS SUMMARY | 2024-05-17 15:16 | XMS_ITS | Encounter Summary ---
Author Organization [employer] Address [address] [place] [address] [address] [place] [address] Care Team Providers Care Manager Practice Name Role Phone Yazmin Crowder MD Primary Care Provider [phone] Reason for Visit * Reason Onset Date Comments Chart Prep 05/15/2024 Encounter Details Date Type Department Care Team ([facility] st Contact Info) Description 05/15/2024 Telephone [facility] [address] [place], [place] [phone] Yazmin Crowder MD [address] [place], [place] [phone] Chart Prep Social History Tobacco Use Types Packs/Day Years [...] encounter Miscellaneous Notes * Telephone Encounter - Iona Wood [place] - 05/15/2024 11:19 AM EST Chart Prep Labs: done Images: done Vaccines due: Updated Referrals: Orthopedics referral on hold and Physical Therapy referral on hold Screenings: Not Applicable Overdue care gaps: Sbirt documented in this encounter Plan of Treatment Upcoming Encounters Date Type Department Care Team (Late st Contact Info) Description 05/20/2024 3:30 PM EST Office Visit [address] [address] Yazmin Crowder MD [address] [place] [address] 05/24/2024 11:30 AM EST Clinical Support [address] [address] documented as of this encounter Visit Diagnoses Not on filedocumented in this encounter Additional Health Concerns Assessment Noted Time PHQ-9 Depression Total Score: 4 01/23/20 24 4:29 PM EDT documented as of this encounter Care Teams Manager Practice Relationship Specialty Start Date End Date Yazmin Crowder MD [address] [place] [address] PCP - General Family Medicine 03/06/20 documented as of this encounter
--- OUTSIDE RECORDS SUMMARY | 2024-05-17 15:16 | XMS_ITS | Encounter Summary ---
Author Organization [employer] Address [address] [place] [address] 7[address] [place] [address] Care Team Providers Care Technical Training Manager Name Role Phone Yazmin Crowder MD Primary Care Provider [phone] Reason for Visit * Reason Comments Med Change Request Encounter Details Date Type Department Care Team ([facility] Contact Info) Description 04/04/2024 Refill [facility] [address] [place], [place] [phone] Yazmin Crowder MD [address] [place], [place] [phone] Social History Tobacco Use Types Packs/Day Years [...] Description 05/20/2024 3:30 PM EST Office Visit [address] [address] Yazmin Crowder MD [address] [place] [address] 05/24/2024 11:30 AM EST Clinical Support [address] [address] documented as of this encounter Visit Diagnoses Not on filedocumented in this encounter Additional Health Concerns Assessment Noted Time PHQ-9 Depression Total Score: 4 01/23/20 24 4:29 PM EDT documented as of this encounter Care Teams Technical Training Manager Relationship Specialty Start Date End Date Yazmin Crowder MD [address] [place] [address] PCP - General Family Medicine 03/06/20 documented as of this encounter
--- OUTSIDE RECORDS SUMMARY | 2024-05-17 15:16 | XMS_ITS | Encounter Summary ---
Author Organization [employer] Address [address] [place] [phone] Care Team Providers Care Wire Web Worker Name Role Phone Yazmin Crowder MD Primary Care Provider [phone] Reason for Referral * Consultation (Routine) - Denied Specialty Diagnoses / Procedures Referred By Contac t Referred To Contact Behavioral Health Diagnoses PTSD (post-traumatic stress disorder) Mixed anxiety and depressive disorder Yazmin Crowder MD [address] [place] [address] Phone: tel: fax: Referral ID Status Reason Start Date Expiration Date V isits Requested Visits Authorized [id number] Denied Specialty Services Required 04/21/2024 04/21/2025 1 0 Encounter Details Date Type Department Care Team (Late st Contact Info) Description 04/18/2024 11:30 AM EST Telemedicine [facility] [address] [place] [address] Yazmin Crowder MD [address] [place] [address] Hypertension, unspecified type (Primary Dx); [...] Mood disorder (CMS/HCC) -Pt was followed by [facility] provider in the past, but out [...] 1:21 PM ESTAssociated Problem(s): Fibromyalgia Evaluated by Automatic Packer Operator in 06/2022 -Several different medication options [...] 05/20/2024 3:30 PM EST Office Visit [facility] [address] [place] [address] Yazmin Crowder MD [address] [place] [address] 05/24/2024 11:30 AM EST Clinical Support [address] [address] Scheduled Referrals Name Type Priority Associated Diagnoses [...] documented as of this encounter Care Teams Wire Web Worker Relationship Specialty Start Date End Date Yazmin Crowder MD [address] [place] [phone] PCP - General Family Medicine 03/06/20 documented as of this encounter
--- OUTSIDE RECORDS SUMMARY | 2024-05-17 15:16 | XMS_ITS | Encounter Summary ---
Author Organization [employer] Address [address] [place] [address] [address] [place] [address] Care Team Providers Care Nutritional Yeast Supervisor Name Role Phone Yazmin Crowder MD Primary Care Provider [phone] Encounter Details Date Type Department Care Team (Late st Contact Info) Description 04/13/2022 Orders Only [facility] [address] [place] [address] Yazmin Crowder MD [address] [place] [phone] Rash (Primary Dx); Xerosis of skin Social [...] Description 05/20/2024 3:30 PM EST Office Visit [facility] [address] [place] [address] Yazmin Crowder MD [address] [place] [phone] 05/24/2024 11:30 AM EST Clinical Support [facility] [address] [place] [address] documented as of this encounter Visit Diagnoses Diagnosis Rash- Primary Rash and other nonspecific skin eruption Xerosis of skin documented in this encounter Care Teams Nutritional Yeast Supervisor Relationship Specialty Start Date End Date Yazmin Crowder MD [address] [place] [address] PCP - General Family Medicine 03/06/20 documented as of this encounter
[2024-05-17 15:21] VITALS: BMI 37.1
== END 2024-05-17 15:51 | disposition home or self-care (01) ==
PROVIDERS: PCP Family Medicine; Visit Provider Orthopaedic Surgery
DX: M79.643 Pain in unspecified hand (principal); M79.7 Fibromyalgia
CPT/HCPCS: 99213

== ENCOUNTER → 2024-05-17 15:08 | Outpatient (BNV) | payer MEDICAID, SELFPAY | PROVIDERS: Visit Provider Radiology Diagnostic Radiology | DX: M25.531 Pain in right wrist (principal) | CPT/HCPCS: 73110 ==

== ENCOUNTER 2024-05-29 14:51 | Outpatient (AMB) | payer MEDICAID, SELFPAY ==
--- NOTE | 2024-05-29 15:01 | MHC.OFFVIS ---
Vital Signs 05/29/24 15:02 Height 5 ft 6 in Weight 230 lb BMI 37.1 Intake Visit Reasons: OV-R wrist+scaphoid-w/xray Intake Note: Divina 29 yr old right hand dominant female presents today for her follow up visit for her right wrist scaphoid injury from DOI 04/30/24. Xrays updated in office. States she is doing better however she continues to have pain when rotating motion. Allergies bee pollen [bee stings] Allergy (Mild, Verified 05/29/24 15:11) Rash poison td extract [POISON TD] Allergy (Mild, Verified 05/29/24 15:11) HIVES poison oak extract Allergy (Mild, Verified 05/29/24 15:11) Rash poison sumac extract Allergy (Mild, Verified 05/29/24 15:11) Hives HPI HPI OV-R wrist+scaphoid-w/xray: Details: Divina is a 29 year old right hand dominant woman who returns for her right wrist contusion & snuffbox tenderness, S/P fall, DOI: 04/29/24. She says she is doing better overall. She reports some mild wrist pain with rotational motions. She has been wearing her splint as instructed. She denies any numbness or tingling. She wants to know when she can return to her more normal levels of exercises at the gym. She has a Hx of Autism & Fibromyalgia. She denies smoking or vaping, but her does smoke inside their apartment. [facility] Medical History (Updated 05/08/24 @ 10:43 by Flavio Hogan) Anxiety and depression Aspergers' syndrome PTSD (post-traumatic stress disorder) Migraines IBS (irritable bowel syndrome) Surgical History Hx of colonoscopy Hx of wisdom tooth extraction Family History Maternal Grandfather Diabetes Family/Other Crohn disease Sister IBS (irritable bowel syndrome) Social History Household Members Other:: lives with Fiance Alcohol intake: current Alcohol intake frequency: does not drink Patient Tobacco Use Status: Never used Tobacco Second Hand Smoke Exposure: Yes Substance Use Type: Marijuana Current occupational status: unemployed 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 Reproductive History Menstrual Age of Menarche: 13 Review of Systems Const All systems reviewed & are unremarkable except as noted in HPI and below Physical Exam Vital Signs: BMI result Body Mass Index 37.1 Const General: no acute distress and alert Orientation/consciousness: patient oriented x3 Neuro General: patient oriented x3 Extrem Other: Evaluation of Right Upper Extremity: The patient is alert, oriented, and in no acute distress Neuro: Median, Ulnar, Radial nerves motor and sensory intact Vascular: Cap refill brisk ROM: She can make a fist and extend all her digits No locking or catching General: Resolved swelling No tenderness over the dorsal aspect of the distal radius, distal ulna, and radial styloid No snuffbox tenderness No tenderness over the scaphoid tubercle Radiographs: 3 views of the right wrist + a scaphoid view were taken and viewed by me today in clinic. They show no obvious fractures or dislocations. Psych Appearance: grossly normal Affect: normal affect Attitude: cooperative Assessment & Plan Assessment & Plan (1) Tenderness of anatomical snuffbox: Comment: R Code(s): M79.643 - Pain in unspecified hand Category: Medical (2) Fibromyalgia: Code(s): M79.7 - Fibromyalgia Category: Medical Plan Assessment & Plan: 1. Right snuffbox tenderness, S/P fall, DOI: 04/29/24 Completely resolved on today's visit Radiographs today are again negative for scaphoid fracture 2. Right hand & wrist contusion S/P fall, DOI: 04/29/24 I educated her about this condition No scaphoid fractures seen again on radiographs again today, and her snuffbox tenderness has resolved She will discontinue her splint at this time She will continue to work on ROM exercises at home I discussed activity modifications, she is able to return to more normal activities, as tolerated. She stays active with weight training and exercise, and I recommend she return to her usual activity level slowly, beginning with light weights and increasing slowly as tolerated. She will follow up prn Scribed for Monika Abreu MD by Flavio Hogan medical staff specialist, on 05/29/24 at 3:30 PM, EST. Orders: Orders XR wrist RT w scaphoid Today M25.531 - Pain in right wrist Coding Level of Care Code Est Pt Level 3 (74834) Diagnoses Tenderness of anatomical snuffbox M79.643 Fibromyalgia M79.7
[2024-05-29 15:02] VITALS: BMI 37.1
--- OUTSIDE RECORDS SUMMARY | 2024-05-29 17:58 | XMS_ITS | Encounter Summary ---
Author Organization [employer] Address [address] [place] [address] 7 [place] [address] Care Team Providers Care Chainstitch Seat Joiner Name Role Phone Yazmin Crowder MD Primary Care Provider [phone] Encounter Details Date Type Department Care Team ([facility] st Contact Info) Description 01/31/2024 Orders Only [facility] [address] [place], [place] [phone] Yazmin Crowder MD 230 [place], [place] [phone] Social History Tobacco Use Types Packs/Day Years [...] as of this encounter Plan of Treatment Not on file documented as of this encounter Visit Diagnoses Not on filedocumented in this encounter Additional Health Concerns Assessment Noted Time PHQ-9 Depression Total Score: 4 01/23/20 24 4:29 PM EDT documented as of this encounter Care Teams Chainstitch Seat Joiner Relationship Specialty Start Date End Date Yazmin Crowder MD [address] [place] [address] PCP - General Family Medicine 03/06/20 documented as of this encounter
--- OUTSIDE RECORDS SUMMARY | 2024-05-29 17:58 | XMS_ITS | Encounter Summary ---
Author Organization [employer] Address [address] [place] [address] 7 [place] [address] Care Team Providers Care Anger Control Counselor Name Role Phone Yazmin Crowder MD Primary Care Provider [phone] Reason for Visit * Reason Comments Med Change Request Encounter Details Date Type Department Care Team ([facility] st Contact Info) Description 04/04/2024 Refill [facility]INE [address] [place], [place] [phone] Yazmin Crowder MD 230 [place], [place] [phone] Social History Tobacco Use Types Packs/Day Years [...] documented as of this encounter Care Teams Anger Control Counselor Relationship Specialty Start Date End Date Yazmin Crowder MD 230 [place] [address] PCP - General Family Medicine 03/06/20 documented as of this encounter
--- OUTSIDE RECORDS SUMMARY | 2024-05-29 17:58 | XMS_ITS | Encounter Summary ---
Author Organization [employer] Address [address] [facility] 7t [place] [address] Care Team Providers Care Photo Tube Assembler Name Role Phone Yazmin Crowder MD Primary Care Provider [phone] Encounter Details Date Type Department Care Team [...] documented as of this encounter Care Teams Photo Tube Assembler Relationship Specialty Start Date End Date Yazmin Crowder MD [address] [place] [address] PCP - General Family Medicine 03/06/20 documented as of this encounter
--- OUTSIDE RECORDS SUMMARY | 2024-05-29 17:58 | XMS_ITS | Encounter Summary ---
Author Organization [employer] Address [address] [place] [address], [place] [address] Care Team Providers Care Showroom Salesperson Name Role Phone Yazmin Crowder MD Primary Care Provider [phone] Encounter Details Date Type Department Care Team (Late st Contact Info) Description 03/24/2022 Abstract [facility] MED[facility] 230 [place], [place] [phone] Yazmin Crowder MD 230 [place], [place] [phone] Social History Tobacco Use Types Packs/Day Years [...] on filedocumented in this encounter Care Teams Showroom Salesperson Relationship Specialty Start Date End Date Yazmin Crowder MD 230 [place] [address] PCP - General Family Medicine 03/06/20 documented as of this encounter
--- OUTSIDE RECORDS SUMMARY | 2024-05-29 17:58 | XMS_ITS | Encounter Summary ---
Author Organization [employer] Address [address] [place] [address] 7 [place] [address] Care Team Providers Care Vac Press Operator Name Role Phone Yazmin Crowder MD Primary Care Provider Reason for Referral * Imaging (Routine) - Closed Specialty Diagnoses / Procedures Referred By Contfrederic t Referred To Contact Radiology Diagnoses Recurrent UTI Procedures US RENAL BI Yazmin Crowder MD [address] [place] [address] Phone: tel: fax: [address] Phone: tel: fax: Referral ID Status Reason Start Date Expiration Date Visits Re quested Visits Authorized [id number] Closed 02/02/2024 02/01/2025 1 1 Encounter Details Date Type Department Care Team (Late st Contact Info) Description 02/02/2024 Orders Only [facility] MED[facility]INE 230 [place], [place] [phone] Yazmin Crowder MD 230 [place] [address] Recurrent UTI (Primary Dx) Social [...] on file documented as of this encounter Procedures Procedure Name Priority Date/Time Associated Diagnosis Comments US RENAL BI Routine 05/08/2024 7:41 AM EST Recurrent UTI documented in this encounter Results * US RENAL BI (05/08/2024 7:41 AM EST) Anatomical Region Laterality Modality Abdomen Ultrasound 05/08/2024 7:41 AM EST Narrative 05/08/2024 7:42 AM EST ? [facility] ?[address] ?[place] [address] ? Ultrasound Report ? Signed ? Patient: Cartski,Divina ?MR#: [id number] ?? [id number] ? : 1995 ?Acct:[id number] ? Age/Sex: 29 / F ?ADM Date: 05/06/24 ? Loc: HO.US ? Attending Dr: Yazmin Crowder MD ? Ordering Physician: Yazmin Crowder MD ?? Date of Service: 05/06/24 ?? Procedure(s): US renal BI ?? Accession Number(s): [id number] ? cc: Yazmin Crowder MD ? CLINICAL [...] in OV> ? 05/08/24 0742 ? DD/ 0 ? TD/TT: 05/08/247[address] ? Project Mgr: ? Procedure Note Kevon, Image - 05/08/2024 [place] [address] Ultrasound Report Signed Patient: Lorie Velez#: [id number] : 1995Acct:[id number] Age/Sex: Date: 05/06/24 Loc: HO.US Attending Dr: Yazmin Crowder MD Ordering Physician: Yazmin Crowder MD Date of Service: 05/06/24 Procedure(s): US renal BI Accession Number(s): [id number] cc: Yazmin Crowder MD CLINICAL HISTORY: recurrent [...] in OV> 05/08/2442 DD/ 0 TD/TT: 05/08/24740 Project Mgr: Yazmin Crowder MD [facility] PROCEDURES Final Result documented in this encounter Visit Diagnoses Diagnosis Recurrent UTI- Primary Urinary tract infection, site not specified documented in this encounter Additional Health Concerns Assessment Noted Time PHQ-9 Depression Total Score: 4 01/23/20 24 4:29 PM EDT documented as of this encounter Care Teams Vac Press Operator Relationship Specialty Start Date End Date Yazmin Crowder MD [address] [place] [address] PCP - General Family Medicine 03/06/20 documented as of this encounter
--- OUTSIDE RECORDS SUMMARY | 2024-05-29 17:58 | XMS_ITS | Encounter Summary ---
Author Organization [employer] Address [address] [place] [address] 7 [place] [address] Care Team Providers Care Biomed Tech Name Role Phone Yazmin Crowder MD Primary Care Provider [phone] Reason for Visit * Reason Onset Date Comments ER Follow-up 04/30/2024 Encounter Details Date Type Department Care Team ([facility] st Contact Info) Description 04/30/2024 Telephone [facility]INE 230 [place], [place] [phone] Divina Her, RN 230 [place], [place] [phone] ER Follow-up Social History Tobacco Use Types [...] lobby requesting ED follow up. Seen at [facility] ED 04/30 for contusion of right wrist. Booked to see PCP for follow up 05/20. Advised to cancel if she feels better by then. Pt verbalized understanding and denied having any further questions or concerns at this time. documented in this encounter Plan of Treatment Not on file documented as of this encounter Visit Diagnoses Not on filedocumented in this encounter Additional Health Concerns Assessment Noted Time PHQ-9 Depression Total Score: 4 01/23/20 24 4:29 PM EDT documented as of this encounter Care Teams Biomed Tech Relationship Specialty Start Date End Date Yazmin Crowder MD 230 [place] [address] PCP - General Family Medicine 03/06/20 documented as of this encounter
--- OUTSIDE RECORDS SUMMARY | 2024-05-29 17:58 | XMS_ITS | Encounter Summary ---
Author Organization [employer] [facility] Address [address] [place] [address] 7 [place] [address] Care Team Providers Care Planning Consultant Name Role Phone Yazmin Crowder MD Primary Care Provider [phone] Encounter Details Date Type Department Care Team (Late st Contact Info) Description 12/20/2022 Orders Only [facility] [address] [place], [place] [phone] Provider, MD Radha Social History Tobacco Use [...] on filedocumented in this encounter Care Teams Planning Consultant Relationship Specialty Start Date End Date Yazmin Crowder MD [address] [place] [address] PCP - General Family Medicine 03/06/20 documented as of this encounter
--- OUTSIDE RECORDS SUMMARY | 2024-05-29 17:58 | XMS_ITS | Encounter Summary ---
Author Organization [employer] Address [address] [place] [address] 7 [place] [address] Care Team Providers Care Bisque Kiln Drawer Name Role Phone Yazmin Crowder MD Primary Care Provider [phone] Encounter Details Date Type Department Care Team ([facility] st Contact Info) Description 10/31/2023 Orders Only [facility] [address] [place], [place] [phone] Yazmin Crowder MD [address] [place], [place] [phone] Acute cystitis without hematuria (Primary Dx); Low [...] Stimulating Hormone 1.53 0.32 - 4.0 uIU/mL [facility] Comment:TSH 3rd Generation ( [facility]) Blood Venous blood specimen / Unknown 11/13/2023 3:20 PM EDT 11/13/2023 3:52 PM EDT us Yazmin Crowder MD LAB BLOOD ORDERABLES Final Resul t [facility] [address] [place] [phone] * T4, Free (11/13/2023 3:20 PM EDT) Free T4 (Free Thyroxine) 0.75 0.71 - 1.85 ng/dL [facility] Blood Venous blood specimen / Unknown 11/13/2023 3:20 PM EDT 11/13/2023 3:52 PM EDT us Yazmin Crowder MD LAB BLOOD ORDERABLES Final Resul t [facility] [address] [place] [address] [phone] documented in this encounter Visit Diagnoses Diagnosis Acute cystitis without hematuria- Primary Low TSH level documented in this encounter Additional Health Concerns Assessment Noted Time PHQ-9 Depression Total Score: 25 10/29/ 024 5:10 PM EDT documented as of this encounter Care Teams Bisque Kiln Drawer Relationship Specialty Start Date End Date Yazmin Crowder MD [address] [place] [address] PCP - General Family Medicine 03/06/20 documented as of this encounter
--- OUTSIDE RECORDS SUMMARY | 2024-05-29 17:58 | XMS_ITS | Encounter Summary ---
Author Organization [employer] Address [address] [place] [address] 7 [place] [address] Care Team Providers Care Refinery Operator Light Ends Recovery Name Role Phone Yazmin Crowder MD Primary Care Provider [phone] Reason for Referral * Consultation (Routine) - Authorized Specialty Diagnoses / Procedures Referred By Contac t Referred To Contact Orthopaedic Surgery Diagnoses Acute pain of right knee Left wrist pain Right wrist pain Yazmin Crowder MD [address] [place] [address] Phone: tel: fax: [facility] [address] [place] [address] Drive [address] [place], [place] Phone: tel: fax: Referral ID Status Reason Start Date Expiration Date Visits Requested Visits Authorized [id number] Authorized Specialty Services Required 05/28/2024 05/28/2025 1 1 * Neurology (Routine) - Authorized Specialty Diagnoses / Procedures Referred By Contac t Referred To Contact Diagnoses Bilateral arm weakness Left wrist pain Right wrist pain Procedures EMG Yazmin Crowder MD [address] [place] [address] Phone: tel: fax: [facility] [address] [place] [address] Phone: tel: fax: Referral ID Status Reason Start Date Expiration Date V isits Requested Visits Authorized [id number] Authorized 05/28/2024 05/28/2025 1 1 * Neurology (Routine) - Authorized Specialty Diagnoses / Procedures Referred By Emiliano t Referred To Contact Diagnoses Bilateral arm weakness Left wrist pain Right wrist pain Procedures Nerve conduction test Yazmin Crowder MD [address] [place] [address] Phone: tel: fax: [address] Phone: tel: fax: Referral ID Status Reason Start Date Expiration Date V isits Requested Visits Authorized [id number] Authorized 05/28/2024 05/28/2025 1 1 * Imaging (Routine) - Authorized Specialty Diagnoses / Procedures Referred By Deborahac t Referred To Contact Radiology Diagnoses Acute pain of right knee Procedures MR Knee w/o Contrast Right Yazmin Crowder MD [address] [place] [address] Phone: tel: fax: [address] Phone: tel: fax: Referral ID Status Reason Start Date Expiration Date V isits Requested Visits Authorized [id number] Authorized 05/28/2024 05/28/2025 1 1 * Consultation (Routine) - Authorized Specialty Diagnoses / Procedures Referred By Emiliano t Referred To Contact Obstetrics and Gynecology Diagnoses Encounter for well woman exam with routine gynecological exam Yazmin Crowder MD [address] [place] [address] Phone: tel: fax: [facility] [address] 5[address] (Main Hospital Entrance) [place], [place] Phone: tel: fax: Referral ID Status Reason Start Date Expiration Date Visits Requested Visits Authorized [id number] Authorized Specialty Services Required 05/28/2024 05/28/2025 1 1 * Consultation (Routine) - Authorized Specialty Diagnoses / Procedures Referred By Emiliano matute Referred To Contact Gastroenterology Diagnoses Chronic GERD Yazmin Crowder MD [address] [place] [address] Phone: tel: fax: [facility] Referral ID Status Reason Start Date Expiration Date Visits Requested Visits Authorized [id number] Authorized Specialty Services Required 05/28/2024 05/28/2025 1 1 Encounter Details Date Type Department Care Team (Latest Contact Info) Description 05/20/2024 3:30 PM EST Office Visit [facility] [address] [place] [phone] Yazmin Crowder MD [address] [place] [phone] Hypertension, unspecified type (Primary Dx); Contusion of right wrist, initial encounter; Irritable bowel syndrome with constipation; Chronic GERD; Acute pain of right knee; It band syndrome, right; Bilateral arm weakness; Asperger's syndrome; Class 2 obesity due to excess calories without serious comorbidity with body mass index (BMI) of 38.0 to 38.9 in adult; Encounter for well woman exam with routine gynecological exam; Left wrist pain; Right wrist pain Social History Tobacco Use Types Packs/Day Years [...] 2:41 PM EDT documented in this encounter Progress Notes * Yazmin Crowder MD - 05/20/2024 3:30 PM EST Subjective Divina Arzolaalmazadelita is a 29 y.o. adult who has Asperger's syndrome, frequent UTI, IBS, and trochanteric bursitis / IT band syndrome, and , and patient presents for follow up of chronic conditions. Background: Our last encounter was 01/23/2024. Mildly elevated BP. Started on low dose amlodipine and stopped clonidine. Interval history: BP check with our nurse on 02/16/24. Home blood pressure measurements are higher than clinic BP. Seen in [facility] ED on 04/29/24 for right wrist pain after injuring when she slippled and fell. Landed on outstretched hand. X-ray wasa negative for fracture. Thumb spica splint was given and follow up withortho. Seen by [facility] Ortho on 05/08/24. Dx right snuffbox tenderness and right hand wrist contusion. Too soonfor repeating imaging. Fitted for a new thumb spica splint. Recommended gentle finger ROM exercises. No lifting nothing heavier than a cellphone. Today: The pt reports that she fell on ice during the first week of April which hurt her right wrist. Her knee also has some lingering pain from that fall. She is now having pain in her left wrist and would like to have a referral for knee and left wrist to [facility] Ortho. She explains that her other bigger concern for her right knee pain. She was hiking around dusk and ended up falling a few times on her way back to the car. She reports that she still feels sharp paincoming from her knee, and reported a feeling of bones grinding on each other. She says she occasionally hears popping in her knees as she moves. She reports that it has been hard to be active whiledealing with these injuries. She had an intake for therapy and she is waiting to hear back from them saying they saw her file. She has an neurologist appointment scheduled for July even though she hasn't been in a few years. She reports irregular bowel movements. She also explains having no issues with her menstruation. She reports that she has had difficulty losing weight, which is unusual to her as she has never hadthat issue. She wanted to discuss potential options to help with weight loss. Review of Systems Constitutional: Negative for activity change, appetite change and fever. Respiratory: Negative for shortness of breath. Cardiovascular: Negative for chest pain. Objective Vitals: 05/20/24 1541 BP: 132/83 Pulse: 84 Resp: 21 Temp: 96.8 ??F (36 ??C) TempSrc: Temporal Weight: 234 lb 12.8 oz (107 kg) Physical Exam Constitutional: General: Divina is not in acute distress. Appearance: Normal appearance. Divina is not ill-appearing. HENT: Head: Normocephalic and atraumatic. Mouth/Throat: Mouth: Mucous membranes are moist. Eyes: Extraocular Movements: Extraocular movements intact. Pupils: Pupils are equal, round, and reactive to light. Cardiovascular: Rate and Rhythm: Normal rate and regular rhythm. Heart sounds: No murmur heard. Pulmonary: Effort: Pulmonary effort is normal. No respiratory distress. Breath sounds: Normal breath sounds. No wheezing or rhonchi. Skin: General: Skin is warm. Neurological: Mental Status: Divina is alert. Mental status is at baseline. Psychiatric: Mood and Affect: Mood normal. Results: Lab Results Component Value Date NA 138 11/10/2023 K 4.2 11/10/2023 CL 106 11/10/2023 CO2 21 (L) 11/10/2023 BUN 12 11/10/2023 CREATININE 0.73 11/10/2023 CRCLCALCPH 125.8 10/08/2021 EGFR >60 11/10/2023 GLUCOSE 85 11/10/2023 TOTALBILIRUB 0.4 11/10/2023 AST 22 11/10/2023 ALT 23 11/10/2023 TOTPROTEIN 8.0 11/10/2023 ALB 4.4 11/10/2023 ALP 112 11/10/2023 Lab Results Component Value Date TRIG 111 11/10/2023 CHOL 185 11/10/2023 LDLCHOLCAL 114 (H) 11/10/2023 HDL 49 11/10/2023 Lab Results Component Value Date HGBA1C 5.0 11/10/2023 Lab Results Component Value Date WBC 10.6 05/03/2021 HGB 12.5 05/03/2021 Screening and Health Care Maintenance: PHQ-2/9 Score: Patient Health Questionnaire-9 Score: 4 (01/23/2024 4:29 PM) Patient Health Questionnaire-2 Score: 0 (01/23/2024 4:29 PM) Thoughts that you would be better off or hurting yourself in some way: Not at all (01/23/2024 4:29 PM) CARLOS-7 Score: CARLOS-7 Total Score: 5 (01/23/2024 4:29 PM) Health Maintenance Due Topic Date Due Pap Smear 11/09/2024 Assessment/Plan Problem List Items Addressed This Visit Asperger's syndrome - She does not like to have a label of functional ASD - Congratulated her on advocating for herself and other people with neuroatypical condition. It band syndrome, right -Continue home exercise program Chronic GERD -Following with GI Specialist -EGD on 05/04/22, showing erosive esophagitis and hiatal hernia -continue pantoprazole as prescribed Relevant Orders Referral to Gastroenterology Irritable bowel syndrome with constipation Following with GI Specialist Patient had an EGD & Colonoscopy completed in 04/2022 Patient has tried many different laxatives Prescribed Linzess in 2022 Hypertension - Primary -Goal BP < 140/90 per JNC-8 and < 130/80 per ACC/AHA guideline (Treatment threshold >=140/90) -Class I hypertension -Continue working on lifestyle modifications -Continue self-monitoring BP. -Continue amlodipine 5 mg daily -Treatment Hx: Previously on clonidine for both BP and anxiety. Bilateral arm weakness Relevant Orders Nerve conduction test EMG Contusion of right wrist - date of injury 04/29/24 - evaluated in [facility] ED on 04/30/24. X-ray negative for fracture. - seen by Dr. Frank, [facility] Orth[facility] on 05/08/24. Acute pain of right knee -Pt had multiple falls -Pt was evaluation at urgent care with X-ray; reportedly normal -Will consider evaluating with MRI if pain does not improve -Continue PT -Will work on weight reduction Relevant Orders MR Knee w/o Contrast Right Referral to Orthopaedic Surgery Obesity -Will start pherntamine, and transition to Zepbound -Continue physical activity and healthy diet Left wrist pain - patient had right wrist injury - now having left wrist pain, which seems to be subacute - evaluate with NCT/EMG Relevant Orders Nerve conduction test EMG Referral to Orthopaedic Surgery Right wrist pain - acute on chronic - recent fall injury on outstretched hand in Apr 2024 - following with [facility] Orth[facility]. Dx right snuffbox tenderness and right hand wrist contusion. - patient is having weakness of bilateral hands and numbness - will evaluate with NCT/EMG for both hands Relevant Orders Nerve conduction test EMG Referral to Orthopaedic Surgery Other Visit Diagnoses Encounter for well woman exam with routine gynecological exam Relevant Orders Referral to Obstetrics / Gynecology Allergies Allergen Reactions Bee Pollen Bee Venom Lactose Intolerance (Gi) Wasp Venom Current Outpatient Medications Medication Instructions albuterol 108 (90 Base) MCG/ACT inhaler 2 puffs, Inhalation, Every 4 hours amLODIPine (NORVASC) 5 mg, Oral, Daily Blood Pressure Monitor kit Check BP as directed by your health care provider and as needed for yoursymptoms COVID-19 At-Home Test kit 1 Dose, In Vitro, Once as needed FLUoxetine (PROZAC) 20 mg, Oral, Daily loratadine (CLARITIN) 10 mg, Oral, Daily ondansetron (ZOFRAN) 4 mg, Oral, Every 8 hours PRN pantoprazole (PROTONIX) 40 mg, Oral, Daily before breakfast, Do not crush, chew, or split. phentermine 15 mg, Oral, Daily before breakfast Follow-up: 3 months or sooner if any problem arises. Scribe Attestation: Ludin Reyes, am serving as a scribe to document services personally performed by Yazmin Crowder MD,based on the patient's response to questions by provider and provides statements to me. Physicians Attestation: Yazmin Reyes, have reviewed the information by the scribe, Anneliese Storey, for accuracy and agree with its content. documented in this encounter Miscellaneous Notes * Assessment & Plan Note - Yazmin Crowder MD - 05/28/2024 11:27 AM ESTAssociated Problem(s): Left wrist pain - patient had right wrist injury - now having left wrist pain, which seems to be subacute - evaluate with NCT/EMG * Assessment & Plan Note - Yazmin Crowder MD - 05/28/2024 11:26 AM ESTAssociated Problem(s): Right wrist pain - acute on chronic - recent fall injury on outstretched hand in Apr 2024 - following with [facility]. Dx right snuffbox tenderness and right hand wrist contusion. - patient is having weakness of bilateral hands and numbness - will evaluate with NCT/EMG for both hands * Assessment & Plan Note - Ludin [...] date of injury 04/29/24 - evaluated in [facility] ED on 04/30/24. X-ray negative for fracture. - seen by Dr. Frank, [facility] on 05/08/24. documented in this encounter Plan of Treatment Scheduled Orders Name Type Priority Associated Diagnoses Orde r Schedule MR Knee w/o Contrast Right Imaging Routine Acute pain of right knee Expected: 05/28/2024, Expires: 05/28/2025 Nerve conduction test Neurology Routine Bilateral arm weakness Left wrist pain Right wrist pain Expected: 05/28/2024 (Approximate), Expires: 05/28/2025 EMG Neurology Routine Bilateral arm weakness Left wrist pain Right wrist pain Expected: 05/28/2024 (Approximate), Expires: 05/28/2025 Scheduled Referrals Name Type Priority Associated Diagnoses Orde r Schedule Referral to Gastroenterology Outpatient Referral Routine Chronic GERD Expected: 05/28/2024 (Approximate), Expires: 05/28/2025 Referral to Obstetrics / Gynecology Outpatient Referral Routine Encounter for well woman exam with routine gynecological exam Expected: 05/28/2024 (Approximate), Expires: 05/28/2025 Referral to Orthopaedic Surgery Outpatient Referral Routine Acute pain of right knee Left wrist pain Right wrist pain Expected: 05/28/2024 (Approximate), Expires: 05/28/2025 documented as of this encounter Visit Diagnoses [...] (BMI) of 38.0 to 38.9 in adult Encounter for well woman exam with routine gynecological exam Left wrist pain Pain in joint, forearm Right wrist pain Pain in joint, forearm documented in this encounter Additional Health Concerns Assessment Noted Time PHQ-9 Depression Total Score: 4 01/23/20 24 4:29 PM EDT documented as of this encounter Care Teams Refinery Operator Light Ends Recovery Relationship Specialty Start Date End Date Yazmin Crowder MD [address] [place] [address] PCP - General Family Medicine 03/06/20 documented as of this encounter
--- OUTSIDE RECORDS SUMMARY | 2024-05-29 17:58 | XMS_ITS | Encounter Summary ---
Author Organization [employer] Address [address] [place] [address] 7t [place] [address] Care Team Providers Care Logistics Service Representative Name Role Phone Yazmin Crowder MD Primary Care Provider [phone] Encounter Details Date Type Department Care Team (Late st Contact Info) Description 04/30/2024 Orders Only [facility] External Provider, [facility] Social History Tobacco Use Types Packs/Day [...] EST Narrative 05/07/2024 7:38 AM EST ? [facility] ?[address] ?[place] [address] ?XRay Report ? Signed ? Patient: Divina Velez ?MR#: [id number] ?? [id number] ? : 1995 ?Acct:[id number] ? Age/Sex: 29 / F ?ADM Date: 05/06/24 ? Loc: HO.US ? Attending Dr: Yazmin Crowder MD ? Ordering Physician: Monika Abreu MD ?? Date of Service: 05/06/24 ?? Procedure(s): XR wrist RT min 3V ?? Accession Number(s): [id number] ? cc: Monika Abreu MD; Yazmin Crowder [...] DD/ 1634 ? TD/TT: 05/06/24 1650 ? Web Development Director: ? Procedure Note Donotsdinterpreter, Image - 05/07/2024 [place] [address] XRay Report Signed Patient: Lorie Velez#: [id number] 397 : 1995Acct:[id number] Age/Sex: Date: 05/06/24 Loc: HO.US Attending Dr: Yazmin Crowder MD Ordering Physician: Monika Abreu MD Date of Service: 05/06/24 Procedure(s): XR wrist RT min 3V Accession Number(s): [id number] cc: Monika Abreu MD; Yazmin Crowder MD [...] 05/07/24 0704 DD/ 1634 TD/TT: 05/06/24 1650 Web Development Director: [facility] External Provider IMG XR PROCEDURES Final Result * XR Wrist 3+ Views Right (04/30/2024 5:00 AM EST) Anatomical Region Laterality Modality Upper Extremities, Wrist Right Radiogr aphic Imaging 04/30/2024 5:00 AM EST Narrative 04/30/2024 5:02 AM EST ? [facility] ?[address] ?[place], [place] [address] ?XRay Report ? Signed ? Patient: Divina Velez ?MR#: [id number] ?? [id number] ? : 1995 ?Acct:[id number] ? Age/Sex: 29 / F ?ADM Date: 04/30/24 ? Loc: HO.ED ? Attending Dr: ? Ordering Physician: Generic ED Physician ?? Date of Service: 04/30/24 ?? Procedure(s): XR wrist RT min 3V ?? Accession Number(s): [id number] ? cc: Generic ED Physician; Yazmin Crowder [...] DD/ 0500 ? TD/TT: 04/30/24 0500 ? Web Development Director: ? Procedure Note Yenny Lund - 04/30/[address] [address] XRay Report Signed Patient: Lorie Velez#: [id number] 397 : 1995Acct:[id number] Age/Sex: 29 / FADM Date: 04/30/24 Loc: HO.ED Attending Dr: Ordering Physician: Generic ED Physician Date of Service: 04/30/24 Procedure(s): XR wrist RT min 3V Accession Number(s): [id number] cc: Generic ED Physician; Yazmin Crowder MD [...] 04/30/24 0502 DD/ 0500 TD/TT: 04/30/24 0500 Web Development Director: [facility] External Provider IMG XR PROCEDURES Final Result documented in this encounter Visit Diagnoses Not on filedocumented in this encounter Additional Health Concerns Assessment Noted Time PHQ-9 Depression Total Score: 4 01/23/20 24 4:29 PM EDT documented as of this encounter Care Teams Logistics Service Representative Relationship Specialty Start Date End Date Yazmin Crowder MD [address] [place] [address] PCP - General Family Medicine 03/06/20 documented as of this encounter
--- OUTSIDE RECORDS SUMMARY | 2024-05-29 17:58 | XMS_ITS | Clinical Summary ---
Author Organization [employer] Address [address] [place] [address] 7 [place] [address] Care Team Providers Care Radio News Writer Name Role Phone Yazmin Crowder MD Primary Care Provider [phone] Allergies Active Allergy Reactions Criticality Noted Date [...] Active Problems Problem Noted Date Diagnosed Date Left wrist pain 05/28/2024 Assessment & Plan (05/28/2024 11:27 AM EST): - patient had right wrist injury - now having left wrist pain, which seems to be subacute - evaluate with NCT/EMG Right wrist pain 05/28/2024 Assessment & Plan (05/28/2024 11:26 AM EST): - acute on chronic - recent fall injury on outstretched hand in Apr 2024 - following with [facility] Ortho. Dx right snuffbox tenderness and right hand wrist contusion. - patient is having weakness of bilateral hands and numbness - will evaluate with NCT/EMG for both hands Contusion of right wrist 05/20/2024 Assessment & Plan (05/20/2024 6:39 AM EST): - date of injury 04/29/24 - evaluated in [facility] ED on 04/30/24. X-ray negative for fracture. - seen by Dr. Frank, [facility] Ortho on 05/08/24. Acute pain [...] Plan (04/21/2024 1:21 PM EST): Evaluated by Window [employer]er in 06/2022 -Several different medication options discussed; interested in Muscle relaxant and Gabapentin. Agreed to start one medication at a time -Patient will start Gabapentin 300mg at bedtime -Continue antidepressants -Continue active lifestyle Assessment & Plan (10/29/2023 7:13 AM EDT): Evaluated by [employer] in 06/2022 -Several different medication options discussed; interested in Muscle relaxant and Gabapentin. Agreed to start one medication at a time -Patient will start Gabapentin 300mg at bedtime -Continue antidepressants -Continue active lifestyle Assessment & Plan (07/19/2022 12:41 PM EDT): Evaluated by [employer] in 06/2022 -Several different medication options discussed; [...] PM EDT): -Restart Loratadine -Rx Nasal Saline [place] It band syndrome, right 03/27/2022 Assessment & [...] Plan (03/27/2022 5:47 PM EST): -Evaluated by [facility] provider -Continue home exercise program -Continue judicious use of meloxicam Mood disorder 03/27/2022 Assessment & Plan (04/21/2024 1:21 PM EST): -Pt was followed by [facility] provider in the past, but [...] 6:36 PM EST): -Pt was followed by [facility] provider in the past, but [...] 5:18 PM EDT): -Pt was followed by [facility] provider in the past, but out of care for 1 year -Current Dx needs to be confirmed: Bipolar, Major depression, anxiety, PTSD -Current medications: fluoxetine and clonidine. -Previously tried: bupropion, buspirone, and sertraline -Seen by [facility] clinician on 8/5/24 -Continue staying physically active -Discussed about FMLA as work has been the source of her stress Assessment & Plan (10/31/2023 8:53 AM EDT): -Pt was followed by [facility] provider in the past, but out of care for 1 year -Current Dx needs to be confirmed: Bipolar, Major depression, anxiety, PTSD -Most recent medications were fluoxetine and clonidine. -Previously tried: bupropion, buspirone, and sertraline -Seen by [facility] behavioral health service clinician today -Continue staying physically active -Discussed about FMLA as work has been the source of her stress Assessment & Plan (07/19/2022 9:21 AM EDT): -Pt is followed by [facility] provider -Current Dx needs to be confirmed: Bipolar, Major depression, anxiety, PTSD -Currently prescribed fluoxetine and buspirone -Previously tried: bupropion, clonidine, and sertraline -Continue current treatment plan by [facility] provider -Continue staying physically active -Recommended acupuncture Assessment & Plan (03/27/2022 5:46 PM EST): -Pt is followed by [facility] provider -Current Dx needs to be confirmed: Bipolar, Major depression, anxiety, PTSD -Currently prescribed fluoxetine and buspirone -Previously tried: bupropion, clonidine, and sertraline -Continue current treatment plan by [facility] provider -Continue staying physically active -Recommended acupuncture Abdominal pain 03/27/2022 Assessment & Plan (03/27/2022 5:48 PM EST): -Followed by [facility] GI -Extensive work-up has been [...] Assessment & Plan (03/27/2022 5:58 PM EST): -Murdock moisturization with emolients -Judicious use of topical [...] Plan (07/19/2022 12:42 PM EDT): Evaluated by [employer]er in 06/2022, Dx with Fibromyalgia -Also evaluated [...] Description 05/20/2024 3:30 PM EST Office Visit [facility] [address] [place] [address] Yazmin Crowder MD Hypertension, unspecified type (Primary [...] exam; Left wrist pain; Right wrist pain 05/20/2024 Travel 05/15/[address] [address] Yazmin Crowder MD Chart Prep 04/30/[address] [address] Divina Her RN ER Follow-up 04/30/2024 Orders Only [facility] External Provider, [facility] 04/23/2024 Travel 04/18/2024 11:30 AM EST Telemedicine [address] [address] Yazmin Crowder MD Hypertension, unspecified type (Primary Dx); Dietary counseling; Exercise counseling; Class 2 obesity due to excess calories without serious comorbidity with body mass index (BMI) of 37.0 to 37.9 in adult; Mood disorder (CMS/HCC); Fibromyalgia; Trochanteric bursitis of both hips; Recurrent UTI; It band syndrome, right; PTSD (post-traumatic stress disorder); Mixed anxiety and depressive disorder; Asperger's syndrome 04/18/2024 Travel 04/04/[address] [address] Yazmin Crowder MD 03/21/[address] [address] Yazmin Crowder MD Callback from Last 3 Months Immunizations Name Administration Dates Next Due DTaP, 5 pertussis antigens 04/04/2001,,1996,06/27,1996 HPV 9-Valent 05/29/2014,10/18/2013,07/20/2012 Hep A, Adult 05/29/2014,10/18/2013 Hep B, Adolescent or Pediatric 1996,1996,1996 Hib (HbOC) 07/25/1997,199 7,1996,04/26 IPV 03/09/2000, 7,1996,04/26 Influenza injectable quadriv alent preservative free [...] 11/13/2023 2:41 PM EDT Plan of Treatment Health Maintenance Due Date Last Done Comments Pap Smear 11/09/2024 11/09/2021, 10/25, 09/26/2019 Depression Screening 01/22/2025 01/23/2024, 01/23/20 24 SDOH Screening 01/22/2025 01/23/2024 Family Planning (PISQ) [...] EST Narrative 05/08/2024 7:42 AM EST ? [facility] ?[address] ?[place] [address] ? Ultrasound Report ? Signed ? Patient: Divina Velez ?MR#: [id number] ?? [id number] ? : 1995 ?Acct:[id number] ? Age/Sex: 29 / F ?ADM Date: 05/06/24 ? Loc: HO.US ? Attending Dr: Yazmin Crowder MD ? Ordering Physician: Yazmin Crowder MD ?? Date of Service: 05/06/24 ?? Procedure(s): US renal BI ?? Accession Number(s): [id number] ? cc: Yazmin Crowder MD ? CLINICAL [...] Rosas Tapia MD in OV> ? 05/08/24 07 ? DD/ 07 ? TD/TT: 05/08/24 0741 ? Title Vehicle Service Attendant: ? Procedure Note Yenny Lund - 05/08/[address] [address] Ultrasound Report Signed Patient: NessClaudia storeyRolnad#: [id number] 397 : 1995Acct:[id number] Age/Sex: Date: 05/06/24 Loc: HO.US Attending Dr: Yazmin Crowder MD Ordering Physician: Yazmin Crowder MD Date of Service: 05/06/24 Procedure(s): US renal BI Accession Number(s): [id number] cc: Yazmin Crowder MD CLINICAL HISTORY: recurrent [...] OV> 05/08/24 0742 DD/ 0 TD/TT: 05/08/24740 Title Vehicle Service Attendant: Yazmin Crowder MD IMG US PROCEDURES Final Result * XR Wrist 3+ Views Right (05/06/2024 4:34 PM EST) Only the most recent of2 resultswithin the time period is included. Anatomical Region Laterality Modality Upper Extremities, Wrist Right Radiogr aphic Imaging 05/06/2024 4:34 PM EST Narrative 05/07/2024 7:38 AM EST ? [facility] ?[address] ?[place] [address] ?XRay Report ? Signed ? Patient: Agustin,Divina ?MR#: [id number] ?? [id number] ? : 1995 ?Acct:[id number] ? Age/Sex: 29 / F ?ADM Date: 02/10/25 ? Loc: HO.US ? Attending Dr: Yazmin Crowder MD ? Ordering Physician: Monika Abreu MD ?? Date of Service: 05/06/24 ?? Procedure(s): XR wrist RT min 3V ?? Accession Number(s): [id number] ? cc: Monika Abreu MD; Yazmin Crowder [...] DD/ 1634 ? TD/TT: 05/06/24 1650 ? Title Vehicle Service Attendant: ? Procedure Note Kevon, Yenny - 05/07/[address] [address] XRay Report Signed Patient: Lorie Velez#: [id number] 397 : 1995Acct:[id number] Age/Sex: Date: 05/06/24 Loc: . Attending Dr: Yazmin Crowder MD Ordering Physician: Monika Abreu MD Date of Service: 05/06/24 Procedure(s): XR wrist RT min 3V Accession Number(s): [id number] cc: Monika Abreu MD; Yazmin Crowder MD [...] 05/07/24 0704 DD/ 1634 TD/TT: 05/06/24 1650 Title Vehicle Service Attendant: [facility] External Provider IMG XR PROCEDURES Final Result * (ABNORMAL) Lipid Panel with Reflex to Direct LDL (11/10/2023 10:09 AM EDT) Triglycerides 111 <150 mg/dL [facility] Comment:Desirable Triglyceri de: less than [...] 190 mg/dL HDL Cholesterol 49 >40 mg/dL [facility] Comment:Desirable HDL: great er than 40 mg/dL Note: This HDL assay may give artificially low results in patients with liver disease. Blood 11/10/2023 10:0 9 AM EDT 11/10/2023 1:24 PM EDT Yazmin Crowder MD LAB BLOOD ORDERABLES Final Resul t [facility] [address] [place] [phone] * Hepatitis C Antibody with Reflex [...] ORDERABLES Final Resul t Performing Organization Address City/[facility]/ZIP Co de Phone Number [facility] [address] [place] [address] [phone] * HIV-1/2 Antigen and Antibodies, Fourth Generation, with Reflexes (11/10/2023 10:09 AM EDT) HIV AB/AG Nonreactive Nonreactive [facility] Comment:HIV-1 p24 Ag and/or HIV-1/HIV-2 Ab not detected.A test result that is nonreactive does not exclude thepossibility of exposure to or infection with HIV-1 and/orHIV-2. Nonreactive results in this assay for individualswith prior exposure to HIV-1 and/or HIV-2 may be due toantigen and antibody levels that are below the limit ofdetection of this assay.The [employer] HIV Ag/Ab Combo assay result andsupplemental assay results should be interpreted inconjunction with the patient's clinical presentation,history and other laboratory results. If the results areinconsistent with clinical evidence, additional testing issuggested to confirm the result. Blood Venous blood specimen / Unknown 11/10/2023 10:09 AM EDT 11/10/2023 1:24 PM EDT us Yazmin Crowder MD LAB BLOOD ORDERABLES Final Resul t Performing Organization Address City/[facility]/ZIP Co de Phone Number [facility] [address] [place] [address] [phone] * Hm Pap Smear (11/09/2021) us Historical Provider HEALTH MAINTENANCE Final Result from Last 3 Months or Most Recently Relevant to Health Maintenance Insurance [facility] C3 HS FULL Care Teams Radio News Writer Relationship Specialty Start Date End Date Yazmin Crowder MD [address] [place] [address] PCP - General Family Medicine 03/06/20
--- OUTSIDE RECORDS SUMMARY | 2024-05-29 17:58 | XMS_ITS | Encounter Summary ---
Author Organization [employer] Address [address] [place] [address] 7 [place] [address] Care Team Providers Care General Utility Machine Operator Name Role Phone Yazmin Crowder MD Primary Care Provider [phone] Encounter Details Date Type Department Care Team ([facility] st Contact Info) Description 12/19/2023 Orders Only [facility] [address] [place], [place] [phone] Yazmin Crowder MD 230 [place], [place] [phone] Social History Tobacco Use Types Packs/Day Years [...] documented as of this encounter Care Teams General Utility Machine Operator Relationship Specialty Start Date End Date Yazmin Crowder MD [address] [place] [address] PCP - General Family Medicine 03/06/20 documented as of this encounter
--- OUTSIDE RECORDS SUMMARY | 2024-05-29 17:58 | XMS_ITS | Encounter Summary ---
Author Organization [employer] Address [address] [place] [address] 7 [place] [address] Care Team Providers Care Hand Leather Trimmer Name Role Phone Yazmin Crowder MD Primary Care Provider [phone] Encounter Details Date Type Department Care Team ([facility] st Contact Info) Description 01/26/2024 Orders Only [facility] [address] [place], [place] [phone] Yazmin Crowder MD 230 [place], [place] [phone] Social History Tobacco Use Types Packs/Day Years [...] documented as of this encounter Care Teams Hand Leather Trimmer Relationship Specialty Start Date End Date Yazmin Crowder MD [address] [place] [address] PCP - General Family Medicine 03/06/20 documented as of this encounter
--- OUTSIDE RECORDS SUMMARY | 2024-05-29 17:59 | XMS_ITS | Encounter Summary ---
Author Organization [employer] Address [address] [place] [address] 7 [place] [address] Care Team Providers Care Final Application Reviewer Name Role Phone Yazmin Crowder MD Primary Care Provider [phone] Encounter Details Date Type Department Care Team ([facility] st Contact Info) Description 04/13/2022 Orders Only [facility]INE [address] [place] [phone] Yazmin Crowder MD 230 [place], [place] [phone] Rash (Primary Dx); Xerosis of skin Social [...] skin documented in this encounter Care Teams Final Application Reviewer Relationship Specialty Start Date End Date Yazmin Crowder MD [address] [place] [phone] PCP - General Family Medicine 03/06/20 documented as of this encounter
--- OUTSIDE RECORDS SUMMARY | 2024-05-29 17:59 | XMS_ITS | Encounter Summary ---
Author Organization [employer] Address [address] [place] [address] 7 [place] [address] Care Team Providers Care Green Building Design Specialist Name Role Phone Yazmin Crowder MD Primary Care Provider [phone] Reason for Visit * Reason Onset Date Comments Chart Prep 05/15/2024 Encounter Details Date Type Department Care Team ([facility] st Contact Info) Description 05/15/2024 Telephone [facility] [address] [place], [place] [phone] Yazmin Crowder MD 230 [place], [place] [phone] Chart Prep Social History Tobacco Use Types [...] documented as of this encounter Care Teams Green Building Design Specialist Relationship Specialty Start Date End Date Yazmin Crowder MD [address] [place] [address] PCP - General Family Medicine 03/06/20 documented as of this encounter
== END 2024-05-29 15:37 | disposition home or self-care (01) ==
PROVIDERS: Visit Provider Orthopaedic Surgery
DX: M25.531 Pain in right wrist (principal); M79.7 Fibromyalgia
CPT/HCPCS: 99213

== ENCOUNTER → 2024-05-29 14:54 | Outpatient (BNV) | payer MEDICAID, SELFPAY | PROVIDERS: Visit Provider Radiology Diagnostic Radiology | DX: M25.531 Pain in right wrist (principal) | CPT/HCPCS: 73110 ==

== ENCOUNTER 2024-05-29 14:56 | Outpatient (REF) | payer MEDICAID, SELFPAY ==
--- NOTE | ~2024-05-29 | XR_ITS ---
EXAMINATION: XR WRIST, RIGHT CLINICAL INFORMATION: M25.531 - Pain in right wrist COMPARISON: None available. TECHNIQUE: PA, lateral, and oblique views of the right wrist. FINDINGS: The bones and soft tissues are normal. No fracture. Alignment is anatomic with normal joint spaces. No erosions or abnormal soft tissue calcifications. XR/XR wrist RT w scaphoid IMPRESSION: Unremarkable right wrist exam. Electronically signed by: Tomas Coley MD 05/31/2024 03:28 PM SRI
--- OUTSIDE RECORDS SUMMARY | 2024-05-30 18:28 | XMS_ITS | Encounter Summary ---
Author Organization [employer] Address [address] [place] [address] 7 [place] [address] Care Team Providers Care Tool And Die Manager Name Role Phone Yazmin Crowder MD Primary Care Provider [phone] Reason for Visit * Reason Onset Date Comments Nurse Triage 05/30/2024 Encounter Details Date Type Department Care Team ([facility] st Contact Info) Description 05/30/2024 Telephone [facility] 230 [place], [place] [phone] Yazmin Crowder MD 230 [place], [place] [phone] Nurse Triage Social History Tobacco Use Types Packs/Day Years [...] encounter Miscellaneous Notes * Telephone Encounter - Mary Anne Ruffin RN - 05/30/2024 1:18 PM EST TC to pt to inform them that dosage sent, advised to return call to office with any advise reactions or side effects. Pt agrees to plan. * Telephone Encounter - Leyla Mayo RN - 05/30/2024 11:30 AM EST Called pt. She states she started a new medication, Phentermine, Pt. Has been on it x 2 weeks and is having sx. Of dry mouth, frequent headaches, sleep disruption, BP elevated, sweaty and dizzy afterexercise and also has increased heart rate. Pt states that she is interested in the alternate medication that was discussed. Pt states it was a injection medication. I advised pt. To stop Phentermineand I will send a message to PCP to order alternate medication to replace Phentermine due to side effects. Protocol Used: Medication Question Call (Adult) Protocol-Based Disposition: Callback or Video Visit by PCP Today Video visit not offered Positive Triage Question: * Caller wants to use a complementary or alternative medicine * All higher-acuity triage questions were negative * Telephone Encounter - Rahat Marie - 05/30/2024 11:20 AM EST Symptom: Medication Reaction- phentermine 15 MG capsule Outcome: Schedule an urgent appointment (within 1 hour) or talk to a nurse or provider soon Reason: Caller denied all higher acuity questions The caller accepted this outcome. documented in this encounter Plan of Treatment Not on file documented as of this encounter Visit Diagnoses Not on filedocumented in this encounter Additional Health Concerns Assessment Noted Time PHQ-9 Depression Total Score: 4 01/23/20 24 4:29 PM EDT documented as of this encounter Care Teams Tool And Die Manager Relationship Specialty Start Date End Date Yazmin Crowder MD [address] [place] [address] PCP - General Family Medicine 03/06/20 documented as of this encounter
--- OUTSIDE RECORDS SUMMARY | 2024-05-30 18:28 | XMS_ITS | Encounter Summary ---
Author Organization [employer] Address [address] [facility] 7t [place] [address] Care Team Providers Care Leaf Sorter Name Role Phone Yazmin Crowder MD Primary Care Provider [phone] Encounter Details Date Type Department Care Team [...] documented as of this encounter Care Teams Leaf Sorter Relationship Specialty Start Date End Date Yazmin Crowder MD [address] [place] [address] PCP - General Family Medicine 03/06/20 documented as of this encounter
--- OUTSIDE RECORDS SUMMARY | 2024-05-30 18:28 | XMS_ITS | Encounter Summary ---
Author Organization [employer] Address [address] [place] [address] [address] [place] [address] Care Team Providers Care Machine Captain Name Role Phone Yazmin Crowder MD Primary Care Provider [phone] Encounter Details Date Type Department Care Team ([facility] st Contact Info) Description 04/13/2022 Orders Only [facility] [address] [place] [phone] Yazmin Crowder MD 230 [place], [place] [phone] Rash (Primary Dx); Xerosis of skin Social [...] skin documented in this encounter Care Teams Machine Captain Relationship Specialty Start Date End Date Yazmin Crowder MD [address] [place] [address] [phone] PCP - General Family Medicine 03/06/20 documented as of this encounter
--- OUTSIDE RECORDS SUMMARY | 2024-05-30 18:28 | XMS_ITS | Encounter Summary ---
Author Organization [employer] Address [address] [place] [address] 7 [place] [address] Care Team Providers Care Before School Name Role Phone Yazmin Crowder MD Primary Care Provider [phone] Encounter Details Date Type Department Care Team ([facility] st Contact Info) Description 05/30/2024 Orders Only [facility] [address] [place], [place] [phone] Yazmin Crowder MD 230 [place], [place] [phone] Social History Tobacco Use Types Packs/Day Years [...] documented as of this encounter Care Teams Before School Relationship Specialty Start Date End Date Yazmin Crowder MD [address] [place] [address] PCP - General Family Medicine 03/06/20 documented as of this encounter
--- OUTSIDE RECORDS SUMMARY | 2024-05-30 18:28 | XMS_ITS | Encounter Summary ---
Author Organization [employer] Address [address] [place] [address] 7 [place] [address] Care Team Providers Care Solution Analyst Name Role Phone Yazmin Crowder MD Primary Care Provider [phone] Reason for Referral * Imaging (Routine) - Closed Specialty Diagnoses / Procedures Referred By Contfrederic t Referred To Contact Radiology Diagnoses Recurrent UTI Procedures US RENAL BI Yazmin Crowder MD 230 [place] [address] Phone: tel: fax: [address] Phone: tel: fax: Referral ID Status Reason Start Date Expiration Date Visits Re quested Visits Authorized [id number] Closed 02/02/2024 02/01/2025 1 1 Encounter Details Date Type Department Care Team (Late st Contact Info) Description 02/02/[address] [facility] [address] [place], [place] [phone] Yazmin Crowder MD 230 [place] [address] Recurrent UTI (Primary Dx) Social [...] EST Narrative 05/08/2024 7:42 AM EST ? [facility] ?[address] ?[place] [address] ? Ultrasound Report ? Signed ? Patient: Cartski,Divina ?MR#: [id number] ?? [id number] ? : 1995 ?Acct:[id number] ? Age/Sex: 29 / F ?ADM Date: 05/06/24 ? Loc: HO.US ? Attending Dr: Yazmin Crowder MD ? Ordering Physician: Yazmin Crowder MD ?? Date of Service: 05/06/24 ?? Procedure(s): US renal BI ?? Accession Number(s): [id number] ? cc: Yazmin Crowder MD ? CLINICAL [...] ? DD/ 0 ? TD/TT: 05/08/[address] ? Clearance Diver: ? Procedure Note Kevon, Image - 05/08/2024 [place] [address] Ultrasound Report Signed Patient: Lorie Velez#: [id number] : 1995Acct:[id number] Age/Sex: Date: 05/06/24 Loc: HO.US Attending Dr: Yazmin Crowder MD Ordering Physician: Yazmin Crowder MD Date of Service: 05/06/24 Procedure(s): US renal BI Accession Number(s): [id number] cc: Yazmin Crowder MD CLINICAL HISTORY: recurrent [...] in OV> 05/08/2442 DD/ 0 TD/TT: 05/08/24740 Clearance Diver: Yazmin Crowder MD [facility] PROCEDURES Final Result documented in this encounter Visit Diagnoses Diagnosis Recurrent UTI- Primary Urinary tract infection, site not specified documented in this encounter Additional Health Concerns Assessment Noted Time PHQ-9 Depression Total Score: 4 01/23/20 24 4:29 PM EDT documented as of this encounter Care Teams Solution Analyst Relationship Specialty Start Date End Date Yazmin Crowder MD [address] [place] [address] PCP - General Family Medicine 03/06/20 documented as of this encounter
--- OUTSIDE RECORDS SUMMARY | 2024-05-30 18:28 | XMS_ITS | Encounter Summary ---
Author Organization [employer] [facility] Address [address] [place] [address] 7 [place] [address] Care Team Providers Care Field Irrigation Worker Name Role Phone Yazmin Crowder MD Primary Care Provider [phone] Encounter Details Date Type Department Care Team (Late st Contact Info) Description 12/20/2022 Orders Only [facility] [address] [place], [place] [phone] Provider, MD Radha Social History Tobacco Use [...] on filedocumented in this encounter Care Teams Field Irrigation Worker Relationship Specialty Start Date End Date Yazmin Crowder MD 230 [place] [address] PCP - General Family Medicine 03/06/20 documented as of this encounter
--- OUTSIDE RECORDS SUMMARY | 2024-05-30 18:28 | XMS_ITS | Encounter Summary ---
Author Organization [employer] Address [address] [place] [address] 7 [place] [address] Care Team Providers Care Director Of Hotel Operations Name Role Phone Yazmin Crowder MD Primary Care Provider [phone] Encounter Details Date Type Department Care Team ([facility] st Contact Info) Description 10/31/2023 Orders Only [facility] [address] [place], [place] [phone] Yazmin Crowder MD [address] [place], [place] [phone] Acute cystitis without hematuria (Primary Dx); Low [...] Stimulating Hormone 1.53 0.32 - 4.0 uIU/mL [facility] Comment:TSH 3rd Generation ( [facility]) Blood Venous blood specimen / Unknown 11/13/2023 3:20 PM EDT 11/13/2023 3:52 PM EDT us Yazmin Crowder MD LAB BLOOD ORDERABLES Final Resul t [facility] [address] [place] [phone] * T4, Free (11/13/2023 3:20 PM EDT) Free T4 (Free Thyroxine) 0.75 0.71 - 1.85 ng/dL [facility] Blood Venous blood specimen / Unknown 11/13/2023 3:20 PM EDT 11/13/2023 3:52 PM EDT us Yazmin Crowder MD LAB BLOOD ORDERABLES Final Resul t [facility] [address] [place] [address] [phone] documented in this encounter Visit Diagnoses Diagnosis Acute cystitis without hematuria- Primary Low TSH level documented in this encounter Additional Health Concerns Assessment Noted Time PHQ-9 Depression Total Score: 25 10/29/ 024 5:10 PM EDT documented as of this encounter Care Teams Director Of Hotel Operations Relationship Specialty Start Date End Date aYzmin Crowder MD [address] [place] [address] PCP - General Family Medicine 03/06/20 documented as of this encounter
--- OUTSIDE RECORDS SUMMARY | 2024-05-30 18:28 | XMS_ITS | Encounter Summary ---
Author Organization [employer] Address [address] [place] [address] 7t [place] [address] Care Team Providers Care Audiovisual Technician Name Role Phone Yazmin Crowder MD Primary Care Provider [phone] Encounter Details Date Type Department Care Team (Late st Contact Info) Description 04/30/2024 Orders Only [facility] External Provider, [facility] Social History Tobacco Use Types Packs/Day [...] EST Narrative 05/07/2024 7:38 AM EST ? [facility] ?[address] ?[place] [address] ?XRay Report ? Signed ? Patient: Divina Velez ?MR#: [id number] ?? [id number] ? : 1995 ?Acct:[id number] ? Age/Sex: 29 / F ?ADM Date: 05/06/24 ? Loc: HO.US ? Attending Dr: Yazmin Crowder MD ? Ordering Physician: Monika Abreu MD ?? Date of Service: 05/06/24 ?? Procedure(s): XR wrist RT min 3V ?? Accession Number(s): [id number] ? cc: Monika Abreu MD; Yazmin Crowder [...] DD/ 1634 ? TD/TT: 05/06/24 1650 ? Director Fraud: ? Procedure Note Donotsdinterpreter, Image - 05/07/2024 [place] [address] XRay Report Signed Patient: Lorie Velez#: [id number] : 1995Acct:[id number] Age/Sex: Date: 05/06/24 Loc: HO.US Attending Dr: Yazmin Crowder MD Ordering Physician: Monika Abreu MD Date of Service: 05/06/24 Procedure(s): XR wrist RT min 3V Accession Number(s): [id number] cc: Monika Abreu MD; Yazmin Crowder MD [...] 05/07/24 0704 DD/ 1634 TD/TT: 05/06/24 1650 Director Fraud: [facility] External Provider IMG XR PROCEDURES Final Result * XR Wrist 3+ Views Right (04/30/2024 5:00 AM EST) Anatomical Region Laterality Modality Upper Extremities, Wrist Right Radiogr aphic Imaging 04/30/2024 5:00 AM EST Narrative 04/30/2024 5:02 AM EST ? [facility] ?[address] ?[place] [address] ?XRay Report ? Signed ? Patient: Divina Velez ?MR#: [id number] ?? [id number] ? : 1995 ?Acct:[id number] ? Age/Sex: 29 / F ?ADM Date: 04/30/24 ? Loc: HO.ED ? Attending Dr: ? Ordering Physician: Generic ED Physician ?? Date of Service: 04/30/24 ?? Procedure(s): XR wrist RT min 3V ?? Accession Number(s): [id number] ? cc: Generic ED Physician; Yazmin Crowder [...] DD/ 0500 ? TD/TT: 04/30/24 0500 ? Director Fraud: ? Procedure Note Yenny Lund - 04/30/[address] [address] XRay Report Signed Patient: Lorie Velez#: [id number] : 1995Acct:[id number] Age/Sex: 29 / FADM Date: 04/30/24 Loc: HO.ED Attending Dr: Ordering Physician: Generic ED Physician Date of Service: 04/30/24 Procedure(s): XR wrist RT min 3V Accession Number(s): [id number] cc: Generic ED Physician; Yazmin Crowder MD [...] 04/30/24 0502 DD/ 0500 TD/TT: 04/30/24 0500 Director Fraud: [facility] External Provider IMG XR PROCEDURES Final Result documented in this encounter Visit Diagnoses Not on filedocumented in this encounter Additional Health Concerns Assessment Noted Time PHQ-9 Depression Total Score: 4 01/23/20 24 4:29 PM EDT documented as of this encounter Care Teams Audiovisual Technician Relationship Specialty Start Date End Date Yazmin Crowder MD [address] [place] [address] PCP - General Family Medicine 03/06/20 documented as of this encounter
--- OUTSIDE RECORDS SUMMARY | 2024-05-30 18:28 | XMS_ITS | Encounter Summary ---
Author Organization [employer] Address [address] [place] [address] 7 [place] [address] Care Team Providers Care Fine Arts Chair Name Role Phone Yazmin Crowder MD Primary Care Provider [phone] Reason for Visit * Reason Onset Date Comments Chart Prep 05/15/2024 Encounter Details Date Type Department Care Team ([facility] st Contact Info) Description 05/15/2024 Telephone [facility] [address] [place], [place] [phone] Yazmin Crowder MD [address] [place], [place] [phone] Chart Prep Social History Tobacco Use Types [...] documented as of this encounter Care Teams Fine Arts Chair Relationship Specialty Start Date End Date Yazmin Crowder MD [address] [place] [address] PCP - General Family Medicine 03/06/20 documented as of this encounter
--- OUTSIDE RECORDS SUMMARY | 2024-05-30 18:28 | XMS_ITS | Encounter Summary ---
Author Organization [employer] Address [address] [place] [address] 7 [place] [address] Care Team Providers Care Superintendent Colliery Name Role Phone Yazmin Crowder MD Primary Care Provider [phone] Reason for Visit * Reason Onset Date Comments ER Follow-up 04/30/2024 Encounter Details Date Type Department Care Team ([facility] st Contact Info) Description 04/30/2024 Telephone [facility] [address] [place], [place] [phone] Divina Her, RN [address] [place], [place] [phone] ER Follow-up Social History Tobacco Use Types [...] lobby requesting ED follow up. Seen at [facility] ED 04/30 for contusion of right wrist. [...] documented as of this encounter Care Teams Superintendent Colliery Relationship Specialty Start Date End Date Yazmin Crowder MD [address] [place] [address] PCP - General Family Medicine 03/06/20 documented as of this encounter
--- OUTSIDE RECORDS SUMMARY | 2024-05-30 18:28 | XMS_ITS | Encounter Summary ---
Author Organization [employer] Address [address] [place] [address] [address] [address] Care Team Providers Care Project Management Professional Name Role Phone Yazmin Crowder MD Primary Care Provider [phone] Encounter Details Date Type Department Care Team (Late st Contact Info) Description 03/24/2022 Abstract [facility] [address] [place], [place] [phone] Yazmin Crowder MD [address] [place], [place] [phone] Social History Tobacco Use Types Packs/Day Years [...] on filedocumented in this encounter Care Teams Project Management Professional Relationship Specialty Start Date End Date Yazmin Crowder MD [address] [place] [address] PCP - General Family Medicine 03/06/20 documented as of this encounter
--- OUTSIDE RECORDS SUMMARY | 2024-05-30 18:28 | XMS_ITS | Encounter Summary ---
Author Organization [employer] Address [address] [place] [address] 7 [place] [address] Care Team Providers Care Robotics Engineer Name Role Phone Yazmin Crowder MD Primary Care Provider [phone] Encounter Details Date Type Department Care Team ([facility] st Contact Info) Description 01/26/2024 Orders Only [facility] [address] [place], [place] [phone] Yazmin Crowder MD [address] [place], [place] [phone] Social History Tobacco Use Types Packs/Day Years [...] documented as of this encounter Care Teams Robotics Engineer Relationship Specialty Start Date End Date Yazmin Crowder MD [address] [place] [address] PCP - General Family Medicine 03/06/20 documented as of this encounter
--- OUTSIDE RECORDS SUMMARY | 2024-05-30 18:28 | XMS_ITS | Encounter Summary ---
Author Organization [employer] Address [address] [place] [address] 7 [place] [address] Care Team Providers Care Deicer Repairer Electric Name Role Phone Yazmin Crowder MD Primary Care Provider [phone] Encounter Details Date Type Department Care Team ([facility] st Contact Info) Description 12/19/2023 Orders Only [facility] [address] [place], [place] [phone] Yazmin Crowder MD [address] [place], [place] [phone] Social History Tobacco Use Types Packs/Day Years [...] documented as of this encounter Care Teams Deicer Repairer Electric Relationship Specialty Start Date End Date Yazmin Crowder MD [address] [place] [address] PCP - General Family Medicine 03/06/20 documented as of this encounter
--- OUTSIDE RECORDS SUMMARY | 2024-05-30 18:28 | XMS_ITS | Encounter Summary ---
Author Organization [employer] Address [address] [place] [address] 7 [place] [address] Care Team Providers Care Granite Polisher Apprentice Name Role Phone Yazmin Crowder MD Primary Care Provider [phone] Reason for Referral * Consultation (Routine) - Authorized Specialty Diagnoses / Procedures Referred By Contac t Referred To Contact Orthopaedic Surgery Diagnoses Acute pain of right knee Left wrist pain Right wrist pain Yazmin Crowder MD [address] [place] [address] Phone: tel: fax: [facility] [address] [place] [address] Drive [address] [place], [place] Phone: tel: fax: Referral ID Status Reason Start Date Expiration Date Visits Requested Visits Authorized [id number] Authorized Specialty Services Required 05/28/2024 05/28/2025 1 1 * Neurology (Routine) - Authorized Specialty Diagnoses / Procedures Referred By Contac t Referred To Contact Diagnoses Bilateral arm weakness Left wrist pain Right wrist pain Procedures EMG Yazmin Crowder MD [address] [place] [address] Phone: tel: fax: [facility] [address] [place] [address] Phone: tel: fax: Referral ID Status Reason Start Date Expiration Date V isits Requested Visits Authorized [id number] Authorized 05/28/2024 05/28/2025 1 1 * Neurology (Routine) - Authorized Specialty Diagnoses / Procedures Referred By Emiliano t Referred To Contact Diagnoses Bilateral arm weakness Left wrist pain Right wrist pain Procedures Nerve conduction test Yazmin Crowder MD [address] [place] [address] Phone: tel: fax: [address] Phone: tel: fax: Referral ID Status Reason Start Date Expiration Date V isits Requested Visits Authorized [id number] Authorized 05/28/2024 05/28/2025 1 1 * Imaging (Routine) - Authorized Specialty Diagnoses / Procedures Referred By Deborahac t Referred To Contact Radiology Diagnoses Acute pain of right knee Procedures MR Knee w/o Contrast Right Yazmin Crowder MD [address] [place] [address] Phone: tel: fax: [address] Phone: tel: fax: Referral ID Status Reason Start Date Expiration Date V isits Requested Visits Authorized [id number] Authorized 05/28/2024 05/28/2025 1 1 * Consultation (Routine) - Authorized Specialty Diagnoses / Procedures Referred By Eimliano t Referred To Contact Obstetrics and Gynecology Diagnoses Encounter for well woman exam with routine gynecological exam Yazmin Crowder MD [address] [place] [address] Phone: tel: fax: [facility] [address] 5[address] (Main Hospital Entrance) [place], [place] Phone: tel: fax: Referral ID Status Reason Start Date Expiration Date Visits Requested Visits Authorized [id number] Authorized Specialty Services Required 05/28/2024 05/28/2025 1 1 * Consultation (Routine) - Authorized Specialty Diagnoses / Procedures Referred By Emiliano matute Referred To Contact Gastroenterology Diagnoses Chronic GERD Yazmin Crowder MD [address] [place] [address] Phone: tel: fax: [facility] Referral ID Status Reason Start Date Expiration Date Visits Requested Visits Authorized [id number] Authorized Specialty Services Required 05/28/2024 05/28/2025 1 1 Encounter Details Date Type Department Care Team (Latest Contact Info) Description 05/20/2024 3:30 PM EST Office Visit [facility] [address] [place] [address] Yazmin Crowder MD [address] [place] [address] Hypertension, unspecified type (Primary Dx); Contusion of [...] are higher than clinic BP. Seen in [facility] ED on 04/29/24 for right wrist pain after injuring when she slippled and fell. Landed on outstretched hand. X-ray wasa negative for fracture. Thumb spica splint was given and follow up withortho. Seen by [facility] on 05/08/24. Dx right snuffbox [...] referral for knee and left wrist to [facility]. She explains that her other [...] of injury 04/29/24 - evaluated in [facility] ED on 04/30/24. X-ray negative for fracture. - seen by Dr. Frank, [facility] on 05/08/24. Acute pain of [...] hand in Apr 2024 - following with [facility]. Dx right snuffbox tenderness and [...] prescribed * Assessment & Plan Note - Lduin Kelley - 05/20/2024 4:33 PM ESTAssociated Problem(s): [...] of injury 04/29/24 - evaluated in [facility] ED on 04/30/24. X-ray negative for fracture. - seen by Dr. Frank, [facility] on 05/08/24. documented in this [...] documented as of this encounter Care Teams Granite Polisher Apprentice Relationship Specialty Start Date End Date Yazmin Crowder MD [address] [place] [address] PCP - General Family Medicine 03/06/20 documented as of this encounter
--- OUTSIDE RECORDS SUMMARY | 2024-05-30 18:28 | XMS_ITS | Clinical Summary ---
Author Organization [employer] Address [address] [place] [address] 7 [place] [address] Care Team Providers Care Fatback Trimmer Name Role Phone Yazmin Crowder MD Primary Care Provider [phone] Allergies Active Allergy Reactions Criticality Noted Date [...] by mouth Once per day. 30 tablet 02/19/20 025 Active COVID-19 At-Home Test kit 1 Dose by In Vitro route 1 (one) time if needed (covid-like symptoms or covid exposure) for up to 1 dose. 1 kit 1 04/18/19 Active Tirzepatide-Cholo ght Management (Zepbound) 2.5 MG/0.5ML solution auto-injector Inject 0.5 mL (2.5 mg) under the skin 1 (one) time per week. 2 mL 11 05/31/19 Active phentermine 15 MG capsule Take 1 capsule (15 mg) by mouth before breakfast. 30 capsule 05/20/19 025 Discontinued(Me d list cleanup (will not trigger notification to Pharmacy)) Active Problems Problem Noted Date Diagnosed Date [...] hand in Apr 2024 - following with [facility]. Dx right snuffbox tenderness and right hand wrist contusion. - patient is having weakness of bilateral hands and numbness - will evaluate with NCT/EMG for both hands Contusion of right wrist 05/20/2024 Assessment & Plan (05/20/2024 6:39 AM EST): - date of injury 04/29/24 - evaluated in [facility] ED on 04/30/24. X-ray negative for fracture. - seen by Dr. Frank, [facility] on 05/08/24. Acute pain of right [...] Plan (04/21/2024 1:21 PM EST): Evaluated by Flight Test Supervisor in 06/2022 -Several different medication options discussed; interested in Muscle relaxant and Gabapentin. Agreed to start one medication at a time -Patient will start Gabapentin 300mg at bedtime -Continue antidepressants -Continue active lifestyle Assessment & Plan (10/29/2023 7:13 AM EDT): Evaluated by Flight Test Supervisor in 06/2022 -Several different medication options discussed; interested in Muscle relaxant and Gabapentin. Agreed to start one medication at a time -Patient will start Gabapentin 300mg at bedtime -Continue antidepressants -Continue active lifestyle Assessment & Plan (07/19/2022 12:41 PM EDT): Evaluated by Flight Test Supervisor in 06/2022 -Several different medication options discussed; [...] PM EDT): -Restart Loratadine -Rx Nasal Saline [place] It band syndrome, right 03/27/2022 Assessment & [...] Plan (03/27/2022 5:47 PM EST): -Evaluated by [facility] provider -Continue home exercise program -Continue judicious [...] 6:36 PM EST): -Pt was followed by [facility] provider in the past, but out of [...] 5:18 PM EDT): -Pt was followed by [facility] provider in the past, but out of [...] 8:53 AM EDT): -Pt was followed by [facility] provider in the past, but out of [...] 9:21 AM EDT): -Pt is followed by [facility] provider -Current Dx needs to be confirmed: Bipolar, Major depression, anxiety, PTSD -Currently prescribed fluoxetine and buspirone -Previously tried: bupropion, clonidine, and sertraline -Continue current treatment plan by [facility] provider -Continue staying physically active -Recommended acupuncture Assessment & Plan (03/27/2022 5:46 PM EST): -Pt is followed by [facility] provider -Current Dx needs to be confirmed: Bipolar, Major depression, anxiety, PTSD -Currently prescribed fluoxetine and buspirone -Previously tried: bupropion, clonidine, and sertraline -Continue current treatment plan by [facility] provider -Continue staying physically active -Recommended acupuncture Abdominal pain 03/27/2022 Assessment & Plan (03/27/2022 5:48 PM EST): -Followed by [facility] -Extensive work-up has been ordered -Follow [...] Assessment & Plan (03/27/2022 5:58 PM EST): -Good Thunder moisturization with emolients -Judicious use of topical [...] Plan (07/19/2022 12:42 PM EDT): Evaluated by Flight Test Supervisor in 06/2022, Dx with Fibromyalgia -Also evaluated [...] Encounters Date Type Department Care Team Description 05/30/2024 Orders Only [facility] [place] [address] Yazmin Crowder MD 05/30/2024 Telephone [facility] [place] [address] Yazmin Crowder MD Nurse Triage 05/20/2024 3:30 PM EST Office Visit [facility] [place] [address] Yazmin Crowder MD Hypertension, unspecified type (Primary [...] Right wrist pain 05/20/2024 Travel 05/15/2024 Telephone [facility] [place] [address] Yazmin Crowder MD Chart Prep 04/30/2024 Telephone [facility] [place] [address] Divina Her RN ER Follow-up 04/30/2024 Orders Only [facility] External Provider, [facility] 04/23/2024 Travel 04/18/2024 11:30 AM EST Telemedicine [facility] [place] [address] Yazmin Crowder MD Hypertension, unspecified type (Primary Dx); Dietary counseling; Exercise counseling; Class 2 obesity due to excess calories without serious comorbidity with body mass index (BMI) of 37.0 to 37.9 in adult; Mood disorder (CMS/HCC); Fibromyalgia; Trochanteric bursitis of both hips; Recurrent UTI; It band syndrome, right; PTSD (post-traumatic stress disorder); Mixed anxiety and depressive disorder; Asperger's syndrome 04/18/2024 Travel 04/04/2024 Refill [facility] [place] [address] Yazmin Crowder MD 03/21/2024 Telephone [facility] [address] [facility], [place] [phone] Yazmin Crowder MD Callback from Last 3 Months Immunizations Name Administration Dates Next Due DTaP, 5 pertussis antigens 04/04/2001,,1996,06/27,1996 HPV 9-Valent 05/29/2014,10/18/2013,07/20/2012 Hep A, Adult 05/29/2014,10/18/2013 Hep B, Adolescent or Pediatric 1996,1996,1996 Hib ([facility]) 07/25/1997, 7,1996,04/26 IPV 03/09/2000,199 7,1996,04/26 Influenza injectable quadriv [...] EST Narrative 05/08/2024 7:42 AM EST ? [facility] ?[address] ?[place] [address] ? Ultrasound Report ? Signed ? Patient: Divina Velez ?MR#: [id number] ?? [id number] ? : 1995 ?Acct:[id number] ? Age/Sex: 29 / F ?ADM Date: 05/06/24 ? Loc: HO.US ? Attending Dr: Yazmin Crowder MD ? Ordering Physician: Yazmin Crowder MD ?? Date of Service: 05/06/24 ?? Procedure(s): US renal BI ?? Accession Number(s): [id number] ? cc: Yazmin Crowder MD ? CLINICAL [...] in OV> ? 05/08/24 07 ? DD/ 0741 ? TD/TT: 05/08/24 0741 ? It Trainee: ? Procedure Note Donotloretoter, Image - 05/08/2024 [place] [address] Ultrasound Report Signed Patient: Lorie Velez#: [id number] 397 : 1995Acct:[id number] Age/Sex: Date: 05/06/24 Loc: HO.US Attending Dr: Yazmin Crowder MD Ordering Physician: Yazmin Crowder MD Date of Service: 05/06/24 Procedure(s): US renal BI Accession Number(s): [id number] cc: Yazmin Crowder MD CLINICAL HISTORY: recurrent [...] in OV> 05/08/2442 DD/ 0 TD/TT: 05/08/24740 It Trainee: us Yazmin Crowder MD IMG US PROCEDURES Final Result * XR Wrist 3+ Views Right (05/06/2024 4:34 PM EST) Only the most recent of2 resultswithin the time period is included. Anatomical Region Laterality Modality Upper Extremities, Wrist Right Radiogr aphic Imaging 05/06/2024 4:34 PM EST Narrative 05/07/2024 7:38 AM EST ? [facility] ?[address] ?[place] [address] ?XRay Report ? Signed ? Patient: Agustin,Divina ?MR#: [id number] ?? 397 ? : 1995 ?Acct:[id number] ? Age/Sex: 29 / F ?ADM Date: 05/06/24 ? Loc: HO.US ? Attending Dr: Yazmin Crowder MD ? Ordering Physician: Monika Abreu MD ?? Date of Service: 05/06/24 ?? Procedure(s): XR wrist RT min 3V ?? Accession Number(s): [id number] ? cc: Monika Abreu MD; Yazmin Crowder [...] DD/ 1634 ? TD/TT: 05/06/24 1650 ? It Trainee: ? Procedure Note Kevon, Image - 05/07/[address] [address] XRay Report Signed Patient: Lorie Velez#: [id number] : 1995Acct:[id number] Age/Sex: 29 / FADM Date: 05/06/24 Loc: HO.US Attending Dr: Yazmin Crowder MD Ordering Physician: Monika Abreu MD Date of Service: 05/06/24 Procedure(s): XR wrist RT min 3V Accession Number(s): [id number] cc: Monika Abreu MD; Yazmin Crowder MD [...] 05/07/24 0704 DD/ 1634 TD/TT: 05/06/24 1650 It Trainee: [facility] External Provider IMG XR PROCEDURES Final Result * (ABNORMAL) Lipid Panel with Reflex to Direct LDL (11/10/2023 10:09 AM EDT) Triglycerides 111 <150 mg/dL [facility] Comment:Desirable Triglyceri de: less than 150 mg/dLBorderline High Triglyceride 150-199 mg/dLHigh Triglyceride: 200-499 mg/dLVery High Triglyceride: greater than or equal to 5OO mg/dL Cholesterol 185 <200 mg/dL [facility] Comment:Desirable Cholestero l: less than 200 mg/dLBorderline High Cholesterol: 200-239 mg/dLHigh Cholesterol: greater than 239 mg/dL LDL Cholesterol Calculated 114(H) <100 mg/dL [facility] Comment:Desirable LDL: less than 100 mg/dLNear Optimal/Above Optimal LDL: 110- 129 mg/dLBorderline High LDL: 130-159 mg/dLHigh LDL: 160-189 mg/dLVery High LDL: greater than or equal to 190 mg/dL HDL Cholesterol 49 >40 mg/dL [facility] Comment:Desirable HDL: great er than 40 mg/dL Note: This HDL assay may give artificially low results in patients with liver disease. Blood 11/10/2023 10:0 9 AM EDT 11/10/2023 1:24 PM EDT us Yazmin Crowder MD LAB BLOOD ORDERABLES Final Resul t Performing Organization Address [facility] Co de Phone Number [facility] [address] [place] [phone] * Hepatitis C Antibody with Reflex to HCV, RNA, Quantitative, Real-Time PCR (11/10/2023 10:09 AM EDT) Hepatitis C Antibody Nonreactive Nonreactive [facility] Comment:Antibodies to HCV no t detected; does not exclude early acuteHCV infection. Blood Venous blood specimen / Unknown 11/10/2023 10:09 AM EDT 11/10/2023 1:24 PM EDT us Yazmin Crowder MD LAB BLOOD ORDERABLES Final Resul t Performing Organization Address [facility] Co de Phone Number [facility] [address] [place] [phone] * HIV-1/2 Antigen and Antibodies, Fourth Generation, with Reflexes (11/10/2023 10:09 AM EDT) HIV AB/AG Nonreactive Nonreactive [facility] Comment:HIV-1 p24 Ag and/or HIV-1/HIV-2 Ab not detected.A test result that is nonreactive does not exclude thepossibility of exposure to or infection with HIV-1 and/orHIV-2. Nonreactive results in this assay for individualswith prior exposure to HIV-1 and/or HIV-2 may be due toantigen and antibody levels that are below the limit ofdetection of this assay.The [employer] HIV Ag/Ab Combo assay result andsupplemental assay results should be interpreted inconjunction with the patient's clinical presentation,history and other laboratory results. If the results areinconsistent with clinical evidence, additional testing issuggested to confirm the result. Blood Venous blood specimen / Unknown 11/10/2023 10:09 AM EDT 11/10/2023 1:24 PM EDT us Yazmin Crowder MD LAB BLOOD ORDERABLES Final Resul t [facility] [address] [place] [phone] * Pap Smear (11/09/2021) us Historical Provider HEALTH MAINTENANCE Final Result from Last 3 Months or Most Recently Relevant to Health Maintenance Insurance [facility] C3 HSN FULL Care Teams Fatback Trimmer Relationship Specialty Start Date End Date Yazmin Crowder MD [address] [place] [address] PCP - General Family Medicine 03/06/20
--- OUTSIDE RECORDS SUMMARY | 2024-05-30 18:28 | XMS_ITS | Encounter Summary ---
Author Organization [employer] Address [address] [place] [address] 7 [place] [address] Care Team Providers Care Beef Pluck Trimmer Name Role Phone Yazmin Crowder MD Primary Care Provider [phone] Encounter Details Date Type Department Care Team ([facility] st Contact Info) Description 01/31/2024 Orders Only [facility] MEDICINE [address] [place], [place] [phone] Yazmin Crowder MD [address] [place], [place] [phone] Social History Tobacco Use Types Packs/Day Years [...] documented as of this encounter Care Teams Beef Pluck Trimmer Relationship Specialty Start Date End Date Yazmin Crowder MD [address] [place] [phone] PCP - General Family Medicine 03/06/20 documented as of this encounter
--- OUTSIDE RECORDS SUMMARY | 2024-05-30 18:28 | XMS_ITS | Encounter Summary ---
Author Organization [employer] Address [address] [place] [address] [address] [place] [address] Care Team Providers Care Chopper Operator Name Role Phone Yazmin Crowder MD Primary Care Provider [phone] Reason for Visit * Reason Comments Med Change Request Encounter Details Date Type Department Care Team ([facility] st Contact Info) Description 04/04/2024 Refill [facility] MEDICINE [address] [place], [place] [phone] Yazmin Crowder MD [address] [place], [place] [phone] Social History Tobacco Use Types Packs/Day Years Used Date Smoking Tobacco: Never Passive Smoke Exposure: Never Smokeless Tobacco: Never Depression Answer Date Recorded Patient Health Questionnaire-9 Score 4 01/23/2024 Patient Health Questionnaire-9 Score 4 01/23/2024 Last PHQ-9: Questionnaire Data Not on file 1 Housing Stability Answer Date Recorded What is your housing situation today? I have jessie wilsno 01/23/[address] you li [...] documented as of this encounter Care Teams Chopper Operator Relationship Specialty Start Date End Date Yazmin Crowder MD [address] [place] [address] PCP - General Family Medicine 03/06/20 documented as of this encounter
== END 2024-05-29 14:57 | disposition home or self-care (01) ==
LOC: HO.HOSX 14:56
PROVIDERS: Visit Provider Orthopaedic Surgery
DX: M25.531 Pain in right wrist (principal); M79.643 Pain in unspecified hand; M79.7 Fibromyalgia
CPT/HCPCS: 73110; 99212

== ENCOUNTER → 2024-06-07 10:45 | Outpatient (BNV) | payer MEDICAID, SELFPAY | PROVIDERS: Visit Provider Specialist | DX: M25.561 Pain in right knee (principal); R22.41 Localized swelling, mass and lump, right lower limb | CPT/HCPCS: 73721 ==

== ENCOUNTER 2024-06-07 10:54 | Outpatient (REF) | payer MEDICAID, SELFPAY ==
--- NOTE | ~2024-06-07 | MR_ITS ---
CLINICAL HISTORY: SWELLING, PAIN INJURY MULTIPLE FALLS RT KNEE MR right knee without gadolinium Comparison: None Findings: No acute fracture or pathologic bone lesion. Articular cartilage is maintained. No significant joint effusion. No tears of the cruciate or collateral ligaments. Patellar retinacula and iliotibial band are intact. No tears of the quadriceps, patellar, popliteus, or flexor tendons. There are no meniscal tears. IMPRESSION: No acute findings. This document has been electronically signed by: Philly Barroso MD on 06/07/2024 17:06:18
== END 2024-06-07 10:55 | disposition home or self-care (01) ==
LOC: HO.MRI 10:54
PROVIDERS: Visit Provider Family Medicine
DX: M25.561 Pain in right knee (principal)
CPT/HCPCS: 73721

== ENCOUNTER 2024-06-14 09:26 | Outpatient (AMB) | payer MEDICAID, SELFPAY ==
--- NOTE | 2024-06-14 09:35 | A.OFFVIS_ITS ---
Intake Visit Reasons: OV-R hip pain Intake Note: Divina is a 29 year old female who presents today as a new patient with complaints of Bilateral Hip Pain. She has been seen in our office in the past for these complaints and was treated for Right Hip Greater Trochanter Bursitis. Injection last administered 10/26/2020. She reports that the Left side is more symptomatic and she would like a Left Greater Troch injection today. Allergies bee pollen [bee stings] Allergy (Mild, Verified 05/29/24 15:11) Rash poison td extract [POISON TD] Allergy (Mild, Verified 05/29/24 15:11) HIVES poison oak extract Allergy (Mild, Verified 05/29/24 15:11) Rash poison sumac extract Allergy (Mild, Verified 05/29/24 15:11) Hives HPI HPI OV-R hip pain: Details: This is a 29-year-old female who I saw several years ago for right greater trochanteric bursitis. I injected her greater trochanter at that time and it helped. She states she has had intermittent bilateral lateral hip pain for yea rs however. Recently she was doing a lot of hiking and fell it comes in today with left lateral hip pain. She denies groin pain. She states it bothers her when she is going up and down stairs and standing from a seated position. [facility] Medical History (Updated 06/14/24 @ 17:21 by Sylvain Cherry MD) Anxiety and depression Aspergers' syndrome PTSD (post-traumatic stress disorder) Migraines IBS (irritable bowel syndrome) Surgical History Hx of colonoscopy Hx of wisdom tooth extraction Family History Maternal Grandfather Diabetes Family/Other Crohn disease Sister IBS (irritable bowel syndrome) Social History Household Members Other:: lives with Fiance Alcohol intake: current Alcohol intake frequency: does not drink Patient Tobacco Use Status: Never used Tobacco Second Hand Smoke Exposure: Yes Substance Use Type: Marijuana Current occupational status: unemployed 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 Reproductive History Menstrual Age of Menarche: 13 Physical Exam Extrem Other: On exam there is no hip pain with hip range of motion. She does have mild tenderness to palpation over the left greater trochanter into the abductor tendon. Assessment & Plan Assessment & Plan (1) Hip abductor tendonitis: Code(s): M76.899 - Other specified enthesopathies of unspecified lower limb, excluding foot Category: Medical Plan: This is a very pleasant 29-year-old woman with bilateral greater trochanteric bursitis. She had some benefit from injections in the past but I think this is more aggressive than I would recommend at this time. She would benefit more from a program of strengthening and physical therapy. If this is not helpful we can consider injections but we both agreed that physical therapy would be better 1st option. She can follow up if PT is not helpful. Orders: Orders PT Evaluation and Treatment Today M76.899 - Other specified enthesopathies of unspecified lower limb, excluding foot Coding Level of Care Code Est Pt Level 3 (69144) Diagnoses Hip abductor tendonitis M76.899
== END 2024-06-14 10:01 | disposition home or self-care (01) ==
LOC: HO.HOS 09:26
PROVIDERS: Visit Provider Orthopaedic Surgery
DX: M76.899 Other specified enthesopathies of unspecified lower limb, excluding foot (principal)
CPT/HCPCS: 99213

== ENCOUNTER → 2024-06-14 09:26 | Outpatient (BNVA) | payer MEDICAID, SELFPAY | PROVIDERS: Visit Provider Orthopaedic Surgery | DX: M76.899 Other specified enthesopathies of unspecified lower limb, excluding foot (principal) | CPT/HCPCS: 99212 ==

== ENCOUNTER 2024-06-25 09:41 | Outpatient (REF) | payer MEDICAID, SELFPAY ==
--- NOTE | 2024-06-25 09:44 | EMG_ITS ---
Bilateral median and ulnar motor and sensory studies were performed. Bilateral radial sensory study was performed and paraspinal muscles were tested with a needle. IMPRESSION: No significant abnormality noted on this testing. MD SILVESTRE Jerez/SUN / [id number]
--- OUTSIDE RECORDS SUMMARY | 2024-06-25 11:04 | XMS_ITS | Encounter Summary ---
Author Organization [employer] [facility] Address [address] [place] [address] Care Team Providers Care Flight Readiness Technician Name Role Phone Yazmin Crowder MD Primary Care Provider [phone] Reason for Referral * Consultation (Routine) - Pending Review Specialty Diagnoses / Procedures Referred By Emiliano matute Referred To Contact Physical Therapy Diagnoses Patellofemoral syndrome of both knees Chronic pain of right ankle Chronic pain of right knee Yazmin Crowder MD [address] [place] [address] Phone: tel: fax: Referral ID Status Reason Start Date Expiration Date Visits Requested Visits Authorized [id number] Pending Review Specialty Services Required 06/24/2024 06/24/2025 1 1 * Consultation (Routine) - Pending Review Specialty Diagnoses / Procedures Referred By Emiliano matute Referred To Contact Occupational Therapy Diagnoses Right wrist pain Yazmin Crowder MD [address] [place] [address] Phone: tel: fax: Referral ID Status Reason Start Date Expiration Date Visits Requested Visits Authorized [id number] Pending Review Specialty Services Required 06/24/2024 06/24/2025 1 1 Encounter Details Date Type Department Care Team (Late st Contact Info) Description 06/24/2024 Orders Only [facility] MEDICINE [address] [place] [address] Yazmin Crowder MD [address] [place] [address] Right wrist pain (Primary Dx); Patellofemoral syndrome of both knees; Chronic pain of right ankle; Chronic pain of right knee Social History Tobacco Use Types Packs/Day Years [...] as of this encounter Plan of Treatment Scheduled Referrals Name Type Priority Associated Diagnoses Order Schedule Referral to Occupational Therapy Outpatient Referral Routine Right wrist pain Expected: 06/24/2024 (Approximate), Expires: 06/24/2025 Referral to Physical Therapy Outpatient Referral Routine Patellofemoral syndrome of both knees Chronic pain of right ankle Chronic pain of right knee Expected: 06/24/2024 (Approximate), Expires: 06/24/2025 documented as of this encounter Visit Diagnoses Diagnosis Right wrist pain- Primary Pain in joint, forearm Patellofemoral syndrome of both knees Chronic pain of right ankle Chronic pain of right knee documented in this encounter Additional Health Concerns Assessment Noted Time PHQ-9 Depression Total Score: 4 01/23/20 24 4:29 PM EDT documented as of this encounter Care Teams Flight Readiness Technician Relationship Specialty Start Date End Date Yazmin Crowder MD [address] [place] [phone] PCP - General Family Medicine 03/06/20 documented as of this encounter
--- OUTSIDE RECORDS SUMMARY | 2024-06-25 11:04 | XMS_ITS | Encounter Summary ---
Author Organization [employer] Address [address] [place] [address] [address] [place] [address] Care Team Providers Care Inspector Integrated Circuits Name Role Phone Yazmin Crowder MD Primary Care Provider [phone] Reason for Visit * Reason Onset Date Comments Referral 06/24/2024 Encounter Details Date Type Department Care Team ([facility] st Contact Info) Description 06/24/2024 Telephone [facility] [address] [place], [place] [phone] Yazmin Crowder MD [address] [place], [place] [phone] Referral Social History Tobacco Use Types Packs/Day Years [...] encounter Miscellaneous Notes * Telephone Encounter - Nolvia Hendrix RN - 06/25/2024 9:37 AM EDT TC placed to pt to advise that PCP placed a referral to both physical and occupational therapy. Pt mailbox was full so a message could not be left. Will postpone this message for another attempt on 06/26/2024 * Telephone Encounter - Amy Brody - 06/24/2024 1:50 PM EDT Pt walked in requesting referral for physical therapy for right knee and both ankles pt states painis not getting any better. documented in this encounter Plan of Treatment Not on file documented as of this encounter Visit Diagnoses Not on filedocumented in this encounter Additional Health Concerns Assessment Noted Time PHQ-9 Depression Total Score: 4 01/23/20 24 4:29 PM EDT documented as of this encounter Care Teams Inspector Integrated Circuits Relationship Specialty Start Date End Date Yazmin Crowder MD [address] [place] [address] PCP - General Family Medicine 03/06/20 documented as of this encounter
--- OUTSIDE RECORDS SUMMARY | 2024-06-25 11:04 | XMS_ITS | Encounter Summary ---
Author Organization [employer] Address [address] [place] [address] 7 [place] [address] Care Team Providers Care Report Checker Name Role Phone Yazmin Crowder MD Primary Care Provider Encounter Details Date Type Department Care Team (Late st Contact Info) Description 10/31/2023 Orders Only [facility] MEDICINE [address] [place], [place] [phone] Yazmin Crowder MD [address] [place], [place] [phone] Acute cystitis without hematuria (Primary Dx); Low [...] Hormone 1.53 0.32 - 4.0 uIU/mL [facility] Comment:TSH 3rd Generation ( [facility]) Blood Venous blood specimen / Unknown 11/13/2023 3:20 PM EDT 11/13/2023 3:52 PM EDT us Yazmin Crowder MD LAB BLOOD ORDERABLES Final Resul t [facility] [address] [place] [phone] * T4, Free (11/13/2023 3:20 PM EDT) Free T4 (Free Thyroxine) 0.75 0.71 - 1.85 ng/dL [facility] Blood Venous blood specimen / Unknown 11/13/2023 3:20 PM EDT 11/13/2023 3:52 PM EDT us Yazmin Crowder MD LAB BLOOD ORDERABLES Final Resul t [facility] [address] [place] [phone] documented in this encounter Visit Diagnoses Diagnosis Acute cystitis without hematuria- Primary Low TSH level documented in this encounter Additional Health Concerns Assessment Noted Time PHQ-9 Depression Total Score: 25 10/29/ 024 5:10 PM EDT documented as of this encounter Care Teams Report Checker Relationship Specialty Start Date End Date Yazmin Crowder MD [address] [place] [address] PCP - General Family Medicine 03/06/20 documented as of this encounter
--- OUTSIDE RECORDS SUMMARY | 2024-06-25 11:04 | XMS_ITS | Encounter Summary ---
Author Organization [employer] Address [address] [place] [address] 7 [place] [address] Care Team Providers Care Medical Device Assembler Name Role Phone Yazmin Crowder MD Primary Care Provider [phone] Encounter Details Date Type Department Care Team ([facility] st Contact Info) Description 01/26/2024 Orders Only [facility] MEDICINE [address] [place], [place] [phone] Yazmin Crowder MD 230 [place], [place] [phone] Social History Tobacco Use Types Packs/Day Years [...] documented as of this encounter Care Teams Medical Device Assembler Relationship Specialty Start Date End Date Yazmin Crowder MD [address] [place] [address] PCP - General Family Medicine 03/06/20 documented as of this encounter
--- OUTSIDE RECORDS SUMMARY | 2024-06-25 11:04 | XMS_ITS | Encounter Summary ---
Author Organization [employer] Address [address] [place] [address] 7 [place] [address] Care Team Providers Care Casting Machine Service Operator Name Role Phone Yazmin Crowder MD Primary Care Provider [phone] Encounter Details Date Type Department Care Team ([facility] st Contact Info) Description 05/30/2024 Orders Only [facility] MEDICINE [address] [place], [place] [phone] Yazmin Crowder MD [address] [place], [place] [phone] Social History Tobacco Use Types Packs/Day Years [...] documented as of this encounter Care Teams Casting Machine Service Operator Relationship Specialty Start Date End Date Yazmin Crowder MD [address] [place] [address] PCP - General Family Medicine 03/06/20 documented as of this encounter
--- OUTSIDE RECORDS SUMMARY | 2024-06-25 11:04 | XMS_ITS | Encounter Summary ---
Author Organization [employer] Address [address] [place] [address] 7t [place] [address] Care Team Providers Care Metal Building Assembler Name Role Phone Yazmin Crowder MD Primary Care Provider [phone] Encounter Details Date Type Department Care Team ([facility] st Contact Info) Description 12/19/2023 Orders Only [facility] MEDICINE [address] [place], [place] [phone] Yazmin Crowder MD [address] [place], [place] [phone] Social History Tobacco Use Types Packs/Day Years [...] as of this encounter Care Teams Metal Building Assembler Relationship Specialty Start Date End Date Yazmin Crowder MD [address] [place] [address] PCP - General Family Medicine 03/06/20 documented as of this encounter
--- OUTSIDE RECORDS SUMMARY | 2024-06-25 11:04 | XMS_ITS | Encounter Summary ---
Author Organization [employer] Address [address] [place] [address] 7[place] [address] Care Team Providers Care Shoe Designer Name Role Phone Yazmin Crowder MD Primary Care Provider [phone] Encounter Details Date Type Department Care Team (Late st Contact Info) Description 03/24/2022 Abstract [facility] MEDICINE 230 [place], [place] [phone] Yazmin Crowder MD 230 [place], [place] [phone] Social History Tobacco Use Types Packs/Day Years [...] on filedocumented in this encounter Care Teams Shoe Designer Relationship Specialty Start Date End Date Yazmin Crowder MD [address] [place] [address] PCP - General Family Medicine 03/06/20 documented as of this encounter
--- OUTSIDE RECORDS SUMMARY | 2024-06-25 11:05 | XMS_ITS | Encounter Summary ---
Author Organization [employer] Address [address] [place] [address] 7 [place] [address] Care Team Providers Care Integrated Logistics Support Manager Name Role Phone Yazmin Crowder MD Primary Care Provider [phone] Encounter Details Date Type Department Care Team ([facility] st Contact Info) Description 01/31/2024 Orders Only [facility] MEDICINE [address] [place], [place] [phone] Yazmin Crowder MD [address] [place], [place] [phone] Social History Tobacco Use Types Packs/Day Years [...] documented as of this encounter Care Teams Integrated Logistics Support Manager Relationship Specialty Start Date End Date Yazmin Crowder MD [address] [place] [phone] PCP - General Family Medicine 03/06/20 documented as of this encounter
--- OUTSIDE RECORDS SUMMARY | 2024-06-25 11:05 | XMS_ITS | Encounter Summary ---
Author Organization [employer] Address [address] [place] [address] 7 [place] [address] Care Team Providers Care Operations Team Leader Name Role Phone Yazmin Crowder MD Primary Care Provider [phone] Reason for Referral * Imaging (Routine) - Closed Specialty Diagnoses / Procedures Referred By Contfrederic t Referred To Contact Radiology Diagnoses Recurrent UTI Procedures US RENAL BI Yazmin Crowder MD [address] [place] [address] Phone: tel: fax: [address] Phone: tel: fax: Referral ID Status Reason Start Date Expiration Date Visits Re quested Visits Authorized [id number] Closed 02/02/2024 02/01/2025 1 1 Encounter Details Date Type Department Care Team (Late st Contact Info) Description 02/02/2024 Orders Only [facility] MEDICINE [address] [place], [place] [phone] Yazmin Crowder MD [address] [place] [address] Recurrent UTI (Primary Dx) Social [...] EST Narrative 05/08/2024 7:42 AM EST ? [facility] ?[address] ?[place] [address] ? Ultrasound Report ? Signed ? Patient: Cartski,Divina ?MR#: [id number] ?? 397 ? : 1995 ?Acct:[id number] ? Age/Sex: 29 / F ?ADM Date: 05/06/24 ? Loc: HO.US ? Attending Dr: Yazmin Crowder MD ? Ordering Physician: Yazmin Crowder MD ?? Date of Service: 05/06/24 ?? Procedure(s): US renal BI ?? Accession Number(s): [id number] ? cc: Yazmin Crowder MD ? CLINICAL [...] ? DD/ 0 ? TD/TT: 05/08/[address] ? Secondary Special Education Teacher: ? Procedure Note Kevon, Image - 05/08/2024 [place] [address] Ultrasound Report Signed Patient: Lorie Velez#: [id number] 397 : 1995Acct:[id number] Age/Sex: Date: 05/06/24 Loc: HO.US Attending Dr: Yazmin Crowder MD Ordering Physician: Yazmin Crowder MD Date of Service: 05/06/24 Procedure(s): US renal BI Accession Number(s): [id number] cc: Yazmin Crowder MD CLINICAL HISTORY: recurrent [...] in OV> 05/08/2442 DD/ 0 TD/TT: 05/08/24740 Secondary Special Education Teacher: Yazmin Crowder MD [facility] PROCEDURES Final Result documented in this encounter Visit Diagnoses Diagnosis Recurrent UTI- Primary Urinary tract infection, site not specified documented in this encounter Additional Health Concerns Assessment Noted Time PHQ-9 Depression Total Score: 4 01/23/20 24 4:29 PM EDT documented as of this encounter Care Teams Operations Team Leader Relationship Specialty Start Date End Date Yazmin Crowder MD [address] [place] [address] PCP - General Family Medicine 03/06/20 documented as of this encounter
--- OUTSIDE RECORDS SUMMARY | 2024-06-25 11:05 | XMS_ITS | Clinical Summary ---
Author Organization [employer] Address [address] [place] [address] 7 [place] [address] Care Team Providers Care Independent Living Instructor Name Role Phone Yazmin Crowder MD Primary Care Provider [phone] Allergies Active Allergy Reactions Criticality Noted Date [...] hand in Apr 2024 - following with [facility]. Dx right snuffbox tenderness and right hand wrist contusion. - patient is having weakness of bilateral hands and numbness - will evaluate with NCT/EMG for both hands Contusion of right wrist 05/20/2024 Assessment & Plan (05/20/2024 6:39 AM EST): - date of injury 04/29/24 - evaluated in [facility] on 04/30/24. X-ray negative for fracture. - seen by Dr. Frank, [facility] on 05/08/24. Chronic pain of right knee 05/20/2024 Assessment & [...] Plan (04/21/2024 1:21 PM EST): Evaluated by Operater in 06/2022 -Several different medication options discussed; interested in Muscle relaxant and Gabapentin. Agreed to start one medication at a time -Patient will start Gabapentin 300mg at bedtime -Continue antidepressants -Continue active lifestyle Assessment & Plan (10/29/2023 7:13 AM EDT): Evaluated by Operater in 06/2022 -Several different medication options discussed; interested in Muscle relaxant and Gabapentin. Agreed to start one medication at a time -Patient will start Gabapentin 300mg at bedtime -Continue antidepressants -Continue active lifestyle Assessment & Plan (07/19/2022 12:41 PM EDT): Evaluated by Operater in 06/2022 -Several different medication options discussed; [...] PM EDT): -Restart Loratadine -Rx Nasal Saline [place] It band syndrome, right 03/27/2022 Assessment & [...] Plan (03/27/2022 5:47 PM EST): -Evaluated by [facility] provider -Continue home exercise program -Continue judicious [...] Plan (03/27/2022 5:48 PM EST): -Followed by [facility] -Extensive work-up has been ordered -Follow [...] Assessment & Plan (03/27/2022 5:58 PM EST): -Slovan moisturization with emolients -Judicious use of topical [...] Plan (07/19/2022 12:42 PM EDT): Evaluated by Operater in 06/2022, Dx with Fibromyalgia -Also evaluated [...] Encounters Date Type Department Care Team Description 06/24/2024 Orders Only [facility] [place] [address] Yazmin Crowder MD Right wrist pain (Primary Dx); Patellofemoral syndrome of both knees; Chronic pain of right ankle; Chronic pain of right knee 06/24/2024 Telephone [facility] [place] [address] Yazmin Crowder MD Referral 06/19/2024 Population Health Risk Score [facility] ([facility]) Department [address] [phone] Provider, Population Health Generic 06/05/2024 Telephone [facility] [place] [address] Yazmin Crowder MD Prior Authorization ( [place] Request: [employer]) 05/30/2024 Orders Only [facility] [place] [address] Yazmin Crowder MD 05/30/2024 Telephone [facility] [place] [address] Yazmin Crowder MD Nurse Triage 05/20/2024 3:30 PM EST Office Visit [facility] [place] [address] Yazmin Crowder MD Hypertension, unspecified type (Primary [...] Right wrist pain 05/20/2024 Travel 05/15/2024 Telephone [facility] [place] [address] Yazmin Crowder MD Chart Prep 04/30/2024 Telephone [facility] [place] [address] Divina Her RN ER Follow-up 04/30/2024 Orders Only [facility] External Provider, [facility] 04/23/2024 Travel 04/18/2024 11:30 AM EST Telemedicine [facility] [address] [place] [address] Yazmin Crowder MD Hypertension, unspecified type (Primary Dx); Dietary counseling; Exercise counseling; Class 2 obesity due to excess calories without serious comorbidity with body mass index (BMI) of 37.0 to 37.9 in adult; Mood disorder (CMS/HCC); Fibromyalgia; Trochanteric bursitis of both hips; Recurrent UTI; It band syndrome, right; PTSD (post-traumatic stress disorder); Mixed anxiety and depressive disorder; Asperger's syndrome 04/18/2024 Travel 04/04/2024 Refill [facility] [address] [place] [address] Yazmin Crowder MD from Last 3 Months Immunizations Name Administration [...] Procedure Name Priority Date/Time Associated Diagnosis Comments MR KNEE WO CONTRAST RIGHT Routine 06/07/2024 5:06 PM EDT Acute pain of right knee US RENAL BI Routine 05/08/2024 7:41 AM [...] Recently Relevant to Health Maintenance Results * MR Knee w/o Contrast Right (06/07/2024 5:06 PM EDT) Anatomical Region Laterality Modality Magnetic Resonan ce 06/07/2024 5:06 PM EDT Narrative 06/07/2024 5:07 PM EDT ? [facility] ?[address] ?[place] [address] ? Magnetic Resonance Report ? Signed ? Patient: Cartski,Divina ?MR#: [id number] ?? 397 ? : 1995 ?Acct:[id number] ? Age/Sex: 29 / F ?ADM Date: 06/07/24 ? Loc: HO.MRI ? Attending Dr: Yazmin Crowder MD ? Ordering Physician: Yazmin Crowder MD ?? Date of Service: 06/07/24 ?? Procedure(s): MR knee RT wo con ?? Accession Number(s): [id number] ? cc: Physician,Unknown ; Yazmin Crowder MD ? CLINICAL HISTORY: SWELLING, PAIN INJURY MULTIPLE FALLS RT KNEE ? MR right knee without gadolinium ? Comparison: None ? Findings: ?? No acute fracture or pathologic bone lesion. ?? Articular cartilage is maintained. ?? No significant joint effusion. ? No tears of the cruciate or collateral ligaments. ?? Patellar retinacula and iliotibial band are intact. ?? No tears of the quadriceps, patellar, popliteus, or flexor tendons. ? There are no meniscal tears. ? IMPRESSION: ?? No acute findings. ? This document has been electronically signed by: Philly Barroso MD on ?? 06/07/2024 17:06:18 ? Dictated By: ?Philly Barroso MD ? Signed By: ?<Electronically signed by Philly Barroso MD in OV> ? 06/07/24 1707 ? DD/ 1706 ? TD/TT: 06/07/241705 ? Travel Registered Nurse Nicu: ? Procedure Note Kevon, Image - 06/07/2024 [place] [address] Magnetic Resonance Report Signed Patient: Lorie Velez#: [id number] 397 : 1995Acct:[id number] Age/Sex: 29 FADM Date: 06/07/24 Loc: HO.MRI Attending Dr: Yazmin Crowder MD Ordering Physician: Yazmin Crowder MD Date of Service: 06/07/24 Procedure(s): MR knee RT wo con Accession Number(s): [id number] cc: Physician,Unknown ; Yazmin Crowder MD CLINICAL HISTORY: SWELLING, PAIN INJURY MULTIPLE FALLS RT KNEE MR right knee without gadolinium Comparison: None Findings: No acute fracture or pathologic bone lesion. Articular cartilage is maintained. No significant joint effusion. No tears of the cruciate or collateral ligaments. Patellar retinacula and iliotibial band are intact. No tears of the quadriceps, patellar, popliteus, or flexor tendons. There are no meniscal tears. IMPRESSION: No acute findings. This document has been electronically signed by: Philly Barroso MD on 06/07/2024 17:06:18 Dictated By: Philly Barroso MD Signed By: <Electronically signed by Philly Barroso MD in OV> 06/07/241706 DD/ 05 TD/TT: 06/07/241705 Travel Registered Nurse Nicu: us Yazmin Crowder MD IMG MRI PROCEDURES Final Result * US RENAL BI (05/08/2024 7:41 AM EST) Anatomical Region Laterality Modality Abdomen Ultrasound 05/08/2024 7:41 AM EST Narrative 05/08/2024 7:42 AM EST ? [facility] ?[address] ?[place] [address] ? Ultrasound Report ? Signed ? Patient: Divina Velez ?MR#: [id number] ?? 397 ? : 1995 ?Acct:[id number] ? Age/Sex: 29 / F ?ADM Date: 05/06/24 ? Loc: HO.US ? Attending Dr: Yazmin Crowder MD ? Ordering Physician: Yazmin Crowder MD ?? Date of Service: 05/06/24 ?? Procedure(s): US renal BI ?? Accession Number(s): [id number] ? cc: Yazmin Crowder MD ? CLINICAL [...] on ?? 05/08/2024 07:41:00 ? Dictated By: ?Roass Tapia MD ? Signed By: ?<Electronically signed by Rosas Tapia MD in OV> ? 05/08/[address] ? DD/ 0 ? TD/TT: 05/08/24740 ? Travel Registered Nurse Nicu: ? Procedure Note Donmichelle, Yenny - 05/08/2024 [place] [address] Ultrasound Report Signed Patient: Lorie Velez#: [id number] 397 : 1995Acct:[id number] Age/Sex: Date: 05/06/24 Loc: HO.US Attending Dr: Yazmin Crowder MD Ordering Physician: Yazmin Crowder MD Date of Service: 05/06/24 Procedure(s): US renal BI Accession Number(s): [id number] cc: Yazmin Crowder MD CLINICAL HISTORY: recurrent [...] Tapia MD in OV> 05/08/24 0742 DD/ 0741 TD/TT: 05/08/24 0741 Travel Registered Nurse Nicu: us Yazmin Crowder MD IMG US PROCEDURES Final Result * XR Wrist 3+ Views Right (05/06/2024 4:34 PM EST) Only the most recent of2 resultswithin the time period is included. Anatomical Region Laterality Modality Upper Extremities, Wrist Right Radiogr aphic Imaging 05/06/2024 4:34 PM EST Narrative 05/07/2024 7:38 AM EST ? [facility] ?[address] ?[place] [address] ?XRay Report ? Signed ? Patient: Cartski,Divina ?MR#: [id number] ?? 397 ? : 1995 ?Acct:[id number] ? Age/Sex: 29 / F ?ADM Date: 02/10/25 ? Loc: HO.US ? Attending Dr: Yazmin Crowder MD ? Ordering Physician: Monika Abreu MD ?? Date of Service: 05/06/24 ?? Procedure(s): XR wrist RT min 3V ?? Accession Number(s): [id number] ? cc: Monika Abreu MD; Yazmin Crowder [...] DD/ 1634 ? TD/TT: 05/06/24 1650 ? Travel Registered Nurse Nicu: ? Procedure Note Donmichelle, Image - 05/07/[address] [address] XRay Report Signed Patient: Lorie Velez#: [id number] 397 : 1995Acct:[id number] Age/Sex: 29 / FADM Date: 05/06/24 Loc: HO.US Attending Dr: Yazmin Crowder MD Ordering Physician: Monika Abreu MD Date of Service: 05/06/24 Procedure(s): XR wrist RT min 3V Accession Number(s): [id number] cc: Monika Abreu MD; Yazmin Crowder MD [...] 05/07/24 0704 DD/ 1634 TD/TT: 05/06/24 1650 Travel Registered Nurse Nicu: [facility] External Provider IMG XR PROCEDURES Final Result * (ABNORMAL) Lipid Panel with Reflex to Direct LDL (11/10/2023 10:09 AM EDT) Triglycerides 111 <150 mg/dL [facility] Comment:Desirable Triglyceri de: less than 150 mg/dLBorderline High Triglyceride 150-199 mg/dLHigh Triglyceride: 200-499 mg/dLVery High Triglyceride: greater than or equal to 5OO mg/dL Cholesterol 185 <200 mg/dL [facility] Comment:Desirable Cholestero l: less than 200 mg/dLBorderline High Cholesterol: 200-239 mg/dLHigh Cholesterol: greater than 239 mg/dL LDL Cholesterol Calculated 114(H) <100 mg/dL [facility] Comment:Desirable LDL: less than 100 mg/dLNear Optimal/Above Optimal LDL: 110- 129 mg/dLBorderline High LDL: 130-159 mg/dLHigh LDL: 160-189 mg/dLVery High LDL: greater than or equal to 190 mg/dL HDL Cholesterol 49 >40 mg/dL [facility] Comment:Desirable HDL: great er than 40 mg/dL Note: This HDL assay may give artificially low results in patients with liver disease. Blood 11/10/2023 10:0 9 AM EDT 11/10/2023 1:24 PM EDT Yazmin Crowder MD LAB BLOOD ORDERABLES Final Resul t Performing Organization Address [facility]/ZIP Co de Phone Number [facility] [address] [place] [phone] * Hepatitis C Antibody with Reflex to HCV, RNA, Quantitative, Real-Time PCR (11/10/2023 10:09 AM EDT) Hepatitis C Antibody Nonreactive Nonreactive [facility] Comment:Antibodies to HCV no t detected; does not exclude early acuteHCV infection. Blood Venous blood specimen / Unknown 11/10/2023 10:09 AM EDT 11/10/2023 1:24 PM EDT Yazmin Crowder MD LAB BLOOD ORDERABLES Final Resul t Performing Organization Address [facility] Co de Phone Number [facility] [address] [place] [phone] * HIV-1/2 Antigen and Antibodies, Fourth Generation, with Reflexes (11/10/2023 10:09 AM EDT) Pathologist [facility] HIV AB/AG Nonreactive Nonreactive [facility] Comment:HIV-1 p24 Ag and/or HIV-1/HIV-2 Ab not detected.A test result that is nonreactive does not exclude thepossibility of exposure to or infection with HIV-1 and/orHIV-2. Nonreactive results in this assay for individualswith prior exposure to HIV-1 and/or HIV-2 may be due toantigen and antibody levels that are below the limit ofdetection of this assay.The [employer] HIV Ag/Ab Combo assay result andsupplemental assay results should be interpreted inconjunction with the patient's clinical presentation,history and other laboratory results. If the results areinconsistent with clinical evidence, additional testing issuggested to confirm the result. Blood Venous blood specimen / Unknown 11/10/2023 10:09 AM EDT 11/10/2023 1:24 PM EDT Yazmin Crowder MD LAB BLOOD ORDERABLES Final Resul t [facility] [address] [place] [address] [phone] * Hm Pap Smear (11/09/2021) Historical Provider HEALTH MAINTENANCE Final Result from Last 3 Months or Most Recently Relevant to Health Maintenance Insurance [facility] C3 HSN FULL Care Teams Independent Living Instructor Relationship Specialty Start Date End Date Yazmin Crowder MD [address] [place] [address] PCP - General Family Medicine 03/06/20
--- OUTSIDE RECORDS SUMMARY | 2024-06-25 11:05 | XMS_ITS | Encounter Summary ---
Author Organization [employer] Address [address] [place] [address] 7 [place] [address] Care Team Providers Care Insurance Healthcare Representative Name Role Phone Yazmin Crowder MD Primary Care Provider [phone] Reason for Visit * Reason Comments Med Change Request Encounter Details Date Type Department Care Team ([facility] st Contact Info) Description 04/04/2024 Refill [facility] [address] [place], [place] [phone] Yazmin Crowder MD [address] [place], [place] [phone] Social History Tobacco Use Types Packs/Day Years [...] documented as of this encounter Care Teams Insurance Healthcare Representative Relationship Specialty Start Date End Date Yazmin Crowder MD [address] [place] [address] PCP - General Family Medicine 03/06/20 documented as of this encounter
--- OUTSIDE RECORDS SUMMARY | 2024-06-25 11:05 | XMS_ITS | Encounter Summary ---
Author Organization [employer] [facility] Address [address] [place] [address] 7 [place] [address] Care Team Providers Care Artificial Stone Applicator Name Role Phone Yazmin Crowder MD Primary Care Provider [phone] Encounter Details Date Type Department Care Team (Late st Contact Info) Description 12/20/2022 Orders Only [facility] [address] [place], [place] [phone] Provider, MD Radha Social History Tobacco Use [...] on filedocumented in this encounter Care Teams Artificial Stone Applicator Relationship Specialty Start Date End Date Yazmin Crowder MD [address] [place] [address] PCP - General Family Medicine 03/06/20 documented as of this encounter
--- OUTSIDE RECORDS SUMMARY | 2024-06-25 11:05 | XMS_ITS | Encounter Summary ---
Author Organization [employer] Address [address] [place] [address] [address] [place] [address] Care Team Providers Care Bushel Girl Name Role Phone Yazmin Crowder MD Primary Care Provider [phone] Encounter Details Date Type Department Care Team ([facility] st Contact Info) Description 04/13/2022 Orders Only [facility] MEDICINE [address] [place] [address] [phone] Yazmin Crowder MD [address] [place], [place] [phone] Rash (Primary Dx); Xerosis of skin Social [...] skin documented in this encounter Care Teams Bushel Girl Relationship Specialty Start Date End Date Yazmin Crowder MD [address] [place] [address] [phone] PCP - General Family Medicine 03/06/20 documented as of this encounter
== END 2024-06-25 09:42 | disposition home or self-care (01) ==
LOC: HO.NEURO 09:41
PROVIDERS: Visit Provider Family Medicine
DX: M25.532 Pain in left wrist (principal); M25.531 Pain in right wrist; R53.1 Weakness
CPT/HCPCS: 95860; 95886; 95911

== ENCOUNTER 2024-08-06 10:09 | Outpatient (RCR) | payer MEDICAID, SELFPAY ==
--- NOTE | 2024-07-10 12:36 | MHC.PT.EP ---
[facility] [place] Office [place] Office [place] Office [address] [phone] F: [phone] F: [phone] F: [phone] F: [phone] Physical Therapy Plan of Care Date of Evaluation: 07/10/24 Date of Surgery: Diagnosis: hip abductor tendonitis (RL) other specific enthesopathies of unspecified lower limb, excluding foot Assessment: pt is a 29 y/o female presenting to physical therapy w/ referring diagnosis of hip abductor tendinitis. She presents w/ hypermobility and imbalance of her deep rotators most likely causing stress at the greater trochanter location. Her other symptoms are also consistent w/ lateral chain dominance and genu valgus and pronation tendencies. Impairments include pain, decreased range of motion, decreased strength, impaired functional mobility, impaired postural awareness, and altered ambulation mechanics. pt is a good candidate for skilled PT due to age, potential remediation of impairments, typical disease/condition progression and prognosis, comorbidities, and motivation. pt would benefit from skilled PT intervention to provide a tailored strengthening and stretching exercise program, functional training, gait training, postural re-training, neuromuscular re-education, modalities as needed for pain, equipment safety demonstration. Frequency and Duration: The patient will be seen 2x/wk for 6 wks Short Term Goals: pt will be I w/ HEP to promote self-management of condition. pt will improve B hip IR and ankle inversion strength by 1 MMT grade at terminal stance phase to reduce pronation tendencies. Long-Term Goals: pt will report a statistically significant improvement in self-reported outcome measure, LEFI, to promote return to PLOF. 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 Treatment Plan: Modalities to reduce pain, spasms and effusion. Manual therapy to restore motion and function. Therapeutic exercise to improve strength and flexibility. Neuromuscular re-education for posture and balance. Therapeutic activities to return to functional activities of daily living. Electronically signed by: Shayy Bucio PT, DPT Please sign and return to therapist. Thank you for your referral.
--- NOTE | 2024-09-10 10:18 | MHC.PT.DC ---
[facility] [place] Office [place] Office [place] Office [address] [phone] F: [phone] F: [phone] F: [phone] F: [phone] Physical Therapy Discharge Report Diagnosis: hip abductor tendonitis (RL) other specific enthesopathies of unspecified lower limb, excluding foot Date of Surgery: Date of Evaluation: 07/10/24 Date of Discharge: 09/10/24 Treatments to Date: 8 Cancellations to Date: 3 No Shows to Date: 0 Discharge Status: Improved Function Independent with HEP Discharge Summary: The patient was reporting minimal to no pain symptoms and was able to start progressing to a level of jogging/running. She is independent with her home exercise program and discharged from this physical therapy plan of care. Electronically signed by: Shayy Bucio PT, DPT Please sign and return to therapist. Thank you for your referral.
== END 2024-09-10 10:18 | disposition home or self-care (01) ==
LOC: HO.PT 10:09
PROVIDERS: PCP Family Medicine; Visit Provider Orthopaedic Surgery
DX: M76.899 Other specified enthesopathies of unspecified lower limb, excluding foot (principal)
CPT/HCPCS: 97110; 97112; 97162

== ENCOUNTER 2024-08-23 13:11 | Outpatient (RCR) | payer MEDICAID, SELFPAY ==
--- NOTE | 2024-08-05 14:27 | MHC.OT.EP ---
[address] [phone] Occupational Therapy Plan of Care Patient Name: Divina Velez Date of Evaluation: 08/05/24 Diagnosis: R wrist pain Pain Location: gets to be up to a 6/10 ; sore dull ache Pain Score: 1 Pain Scale Used: Numeric (0 - 10) Aggravating Factors: gripping / thumb Alleviating Factors: does not use pain management techniques Assessment: Pt is a 29 yr old R hand dominant person who reports hiking in March when she fell on her wrist/ hand. Pt reports having X-rays at an urgent care in [facility], and they were negative for fractures, but she continued to have pain. She most recently had another X-ray as well as an EMG both were negative. Pt reports being placed in a prefabricated thumb spica splint which helped to decrease pain and support her wrist. Pt has full ROM , a slight (+) Finklestein, and reports discomfort w/ palpation over the extensor retinaculum. They also have R sided hand weakness. Pt would benefit form skilled OT Therapy to increase the functional use of their dominant hand. 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 Thank you once again for your referral.
== END 2025-03-07 15:04 | disposition home or self-care (01) ==
LOC: HO.OT 13:11
PROVIDERS: PCP Family Medicine; Visit Provider Family Medicine
DX: M25.531 Pain in right wrist (principal); S60.211D Contusion of right wrist, subsequent encounter
CPT/HCPCS: 97110; 97140; 97166; 97535

== ENCOUNTER 2025-02-22 11:44 | Emergency (ER) | payer BC, SELFPAY ==
--- NOTE | ~2025-02-22 | XR_ITS ---
CLINICAL HISTORY: slip and fall 3 view right shoulder Comparison: None provided Findings: Bones intact. No dislocations. No significant loss of joint space or osteophytes. No erosions. No radiopaque foreign body. IMPRESSION: 1. No acute findings This document has been electronically signed by: Luciana Rao MD on 02/22/2025 13:18:57
--- NOTE | ~2025-02-22 | XR_ITS ---
CLINICAL HISTORY: slip and fall 3 view, pelvis and left hip Comparison: None provided Findings: The bones are intact. No significant arthritic change of the hips. The soft tissues are unremarkable. IMPRESSION: No acute findings. This document has been electronically signed by: Luciana Rao MD on 02/22/2025 13:18:09
--- NOTE | ~2025-02-22 | XR_ITS ---
CLINICAL HISTORY: slip and fall 3 view left foot Comparison: None provided Findings: Bones intact. No dislocations. No significant arthritic change or erosions. No ankle effusion. No radiopaque foreign body. IMPRESSION: 1. No acute findings. This document has been electronically signed by: Luciana Rao MD on 02/22/2025 13:19:37
--- NOTE | ~2025-02-22 | XR_ITS ---
CLINICAL HISTORY: slip and fall 3 view left elbow Comparison: None provided Findings: No acute fractures. Normal alignment. Soft tissue edema is noted. No significant arthritic change or erosions. No joint effusion. No radiopaque foreign body. IMPRESSION: No acute bony abnormality. This document has been electronically signed by: Luciana Rao MD on 02/22/2025 13:22:26
--- NOTE | ~2025-02-22 | XR_ITS ---
CLINICAL HISTORY: slip and fall 3 view left ankle Comparison: None provided Findings: Bones intact. No dislocations. No significant arthritic change or erosions. No ankle effusion. No radiopaque foreign body. IMPRESSION: 1. No acute findings. This document has been electronically signed by: Luciana Rao MD on 02/22/2025 13:16:45
[2025-02-22 11:46] VITALS: BP 160/83; PULSE 85; RESP 20; TEMP 35.7; O2SAT 97; BMI 35.3
--- NOTE | 2025-02-22 11:48 | ED.GENADULT ---
HPI - General Adult General Chief complaint: General Medical Stated complaint: fell 8ft , multiple inj Time Seen by Provider: 02/22/25 14:30 Related Data Home Medications ?Medication ?Instructions ?Recorded ?Confirmed fluoxetine 20 mg capsule 20 mg PO QAM 07/13/22 07/13/22 amlodipine 5 mg tablet 5 mg PO DAILY 05/08/24 Previous Rx's ?Medication ?Instructions ?Recorded pantoprazole 40 mg tablet,delayed 40 mg PO DAILY #60 tabs 05/04/22 release Allergies Allergy/AdvReac Type Severity Reaction Status Date / Time bee pollen (bee stings) Allergy Mild Rash Verified 02/22/25 11:50 poison td extract (POISON Allergy Mild HIVES Verified 02/22/25 11:50 TD) poison oak extract Allergy Mild Rash Verified 02/22/25 11:50 poison sumac extract Allergy Mild Hives Verified 02/22/25 11:50 PMFSH Past Medical History Medical History (Updated 02/22/25 @ 15:19 by PHANI Brown) Anxiety and depression Aspergers' syndrome PTSD (post-traumatic stress disorder) Migraines IBS (irritable bowel syndrome) Surgical History Hx of colonoscopy Hx of wisdom tooth extraction Family History Family History Maternal Grandfather Diabetes Family/Other Crohn disease Sister IBS (irritable bowel syndrome) Social History Social History Household Members Other:: lives with Fiance Alcohol intake: current Alcohol intake frequency: does not drink Patient Tobacco Use Status: Never used Tobacco Second Hand Smoke Exposure: Yes Substance Use Type: Marijuana Do you have a plan to hurt others: No Plan Current occupational status: unemployed Current occupation: rt handed/ Physical Exam ED Vital Signs: Vital Signs - 24 hr 02/22/25 11:46 Temperature 96.3 F L Pulse Rate 85 Respiratory Rate 20 Blood Pressure 160/83 H Pulse Oximetry 97 Oxygen Delivery Method Room Air BMI result Body Mass Index 35.3 Course Course Course Narrative: This is a Rapid Medical Examination (RME) performed by Oneyda Reyes PA-C in triage. Full HPI, ROS, assessment and treatment plan per primary provider in the Main ED. Hx: 30 yo F here for eval of L side body pain s/p slipping and falling down mountain while hiking 4 days ago. slid down onto her L side, no head strike or LOC. no thinners. not evaluated at that time. having continued L foot/ankle/hip/elbow and R shoulder pain. also complaining of blood under finger nail - requesting it be drained. Plan: imaging Reevaluation(s) Reevaluation #1: Patient left the emergency department before myself or any of the other clinicians could review or explain physical exam findings, test results, need or lack there of for additional testing, treatment options, or a treatment plan. Discharge Plan Discharge Clinical Impression: Fall Patient Disposition: Left W/O Completing Treatment Prescriptions: No Action pantoprazole 40 mg tablet,delayed release (DR/EC) 40 mg PO DAILY Qty: 60 2RF fluoxetine 20 mg capsule 20 mg PO QAM amlodipine 5 mg tablet 5 mg PO DAILY
--- OUTSIDE RECORDS SUMMARY | 2025-02-22 17:56 | XMS_ITS | Encounter Summary ---
Author Organization [employer] Address [address] [facility] [address] [place] [address] Care Team Providers Care Shearing Machine Tender Name Role Phone Yazmin Crowder MD Primary Care Provider [phone] Encounter Details Date Type Department Care Team (Late st Contact Info) Description 12/19/2023 Orders Only [facility] MEDICINE [address] [place], [place] [phone] Yazmin Crowder MD [address] [place], [place] [phone] Social History Tobacco Use Types Packs/Day Years [...] PM EST documented as of this encounter Functional Status * Over the past 2 weeks, how often have you been bothered by any of the following problems? Question Answer Date of Assessment Author Patient Health Questionnaire-2 Score 4 12/19/2023 9:30 AM EDT Rosario Parker LMHC * How difficult have these problems made it for you to do your work, take care of things at home, or get along with other people? Answer Date of Assessment Author Very difficult 12/19/2023 9:30 AM NELIDAT Rosario Wright LMHC * Over the past 2 weeks, how often have you been bothered by any of the following problems? Question Answer Date of Assessment Author Little interest or pleasure in doing things More than half the days 12/19/2023 9:30 AM Rosario Hamilton LMHC Feeling down, depressed, or hopeless More than half the days 12/19/2023 9:30 AM Rosario Hamilton LMHC Trouble falling or staying asleep, or sleeping too much More than half the days 12/19/2023 9:30 AM Rosario Hamilton LMHC Feeling tired or having little energy Nearly every day 12/19/2023 9:30 AM Rosario Hamilton LMHC Poor appetite or overeating Nearly every day 12/19/2023 9:30 AM Rosario Hamilton LMHC Feeling bad about yourself - or that you are a failure or have let yourself or your family down More than half the days 12/19/2023 9:30 AM EDT Rosario Parker LMHC Trouble concentrating on things, such as reading the newspaper or watching television More than half the days 12/19/2023 9:30 AM EDT Rosario Parker LMHC Moving or speaking so slowly that other people could have noticed? Or the opposite - being so fidgety or restless that you have been moving around a lot more than usual. More than half the days 12/19/2023 9:30 AM EDT Rosario Parker LMHC Thoughts that you would be better off or hurting yourself in some way Not at all 12/19/2023 9:30 AM NELIDAT Rosario Parker LMHC Patient Health Questionnaire-9 Score 18 12/19/2023 9:30 AM EDT Rosario Parker LMHC documented as of this encounter Plan of Treatment Not on file documented as of this encounter Visit Diagnoses Not on filedocumented in this encounter Additional Health Concerns Assessment Noted Time PHQ-9 Depression Total Score: 18 024 9:30 AM EDT documented as of this encounter Care Teams Shearing Machine Tender Relationship Specialty Start Date End Date Yazmin Crowder MD [address] [place] [address] PCP - General Family Medicine 03/06/20 documented as of this encounter
--- OUTSIDE RECORDS SUMMARY | 2025-02-22 17:56 | XMS_ITS | Clinical Summary ---
Author Organization [employer] Address [address] [place] [address] [address] [place] [address] Care Team Providers Care Wrapper Stitcher Name Role Phone Yazmin Crowder MD Primary [...] puffs every 4 (four) hours. 0 Active ondansetron (Zofran) 4 MG tablet Take [...] Once per day. 30 tablet 11 4 Active COVID-19 At-Home Test kit 1 Dose by In Vitro route 1 (one) time if needed (covid-like symptoms or covid exposure) for up to 1 dose. 1 kit 1 5 Active Tirzepatide-Weig ht Management (Zepbound) 2.5 MG/0.5ML solution auto-injector Inject 0.5 mL (2.5 mg) under the skin 1 (one) time per week. 2 mL 11 5 Active loratadine (Claritin) 10 MG tabletIndication s:Allergic rhinitis, unspecified seasonality, unspecified trigger TAKE 1 TABLET BY MOUTH EVERY DAY 90 tablet 5 Active EPINEPHrine (Epipen) 0.3 MG/0.3ML injection syringe Inject 0.3 mL (0.3 mg) as directed 1 (one) time for 1 dose. use as directed for allergic reaction and then call 911 0.6 mL 5 Active pantoprazole (ProtoNix) 40 MG EC tablet TAKE 1 TABLET BY MOUTH BEFORE BREAKFAST. DO NOT CRUSH, CHEW OR SPLIT. 90 tablet 3 5 Active Active Problems Problem Noted Date Diagnosed [...] hand in Apr 2024 - following with [facility]. Dx right snuffbox tenderness and right hand wrist contusion. - patient is having weakness of bilateral hands and numbness - will evaluate with NCT/EMG for both hands Contusion of right wrist 05/20/2024 Assessment & Plan (05/20/2024 6:39 AM EST): - date of injury 04/29/24 - evaluated in [facility] on 04/30/24. X-ray negative for fracture. - seen by Dr. Frank, [facility] on 05/08/24. Chronic pain of right [...] Plan (04/21/2024 1:21 PM EST): Evaluated by Retail Pricing Coordinator in 06/2022 -Several different medication options discussed; interested in Muscle relaxant and Gabapentin. Agreed to start one medication at a time -Patient will start Gabapentin 300mg at bedtime -Continue antidepressants -Continue active lifestyle Assessment & Plan (10/29/2023 7:13 AM EDT): Evaluated by Retail Pricing Coordinator in 06/2022 -Several different medication options discussed; interested in Muscle relaxant and Gabapentin. Agreed to start one medication at a time -Patient will start Gabapentin 300mg at bedtime -Continue antidepressants -Continue active lifestyle Assessment & Plan (07/19/2022 12:41 PM EDT): Evaluated by Retail Pricing Coordinator in 06/2022 -Several different medication options discussed; [...] PM EDT): -Restart Loratadine -Rx Nasal Saline [place] It band syndrome, right 03/27/2022 Assessment & [...] Plan (03/27/2022 5:47 PM EST): -Evaluated by [facility] provider -Continue home exercise program -Continue judicious use of meloxicam Mood disorder 03/27/2022 Assessment & Plan (04/21/2024 1:21 PM EST): -Pt was followed by [facility] provider in the past, but out of [...] 6:36 PM EST): -Pt was followed by [facility] provider in the past, but out of [...] 5:18 PM EDT): -Pt was followed by [facility] provider in the past, but out of [...] 8:53 AM EDT): -Pt was followed by [facility] provider in the past, but out of care for 1 year -Current Dx needs to be confirmed: Bipolar, Major depression, anxiety, PTSD -Most recent medications were fluoxetine and clonidine. -Previously tried: bupropion, buspirone, and sertraline -Seen by [facility] behavioral health service clinician today -Continue staying physically active -Discussed about FMLA as work has been the source of her stress Assessment & Plan (07/19/2022 9:21 AM EDT): -Pt is followed by [facility] provider -Current Dx needs to be confirmed: Bipolar, Major depression, anxiety, PTSD -Currently prescribed fluoxetine and buspirone -Previously tried: bupropion, clonidine, and sertraline -Continue current treatment plan by [facility] provider -Continue staying physically active -Recommended acupuncture Assessment & Plan (03/27/2022 5:46 PM EST): -Pt is followed by [facility] provider -Current Dx needs to be confirmed: Bipolar, Major depression, anxiety, PTSD -Currently prescribed fluoxetine and buspirone -Previously tried: bupropion, clonidine, and sertraline -Continue current treatment plan by [facility] provider -Continue staying physically active -Recommended acupuncture Abdominal pain 03/27/2022 Assessment & Plan (03/27/2022 5:48 PM EST): -Followed by [facility] -Extensive work-up has been ordered -Follow up as scheduled Seizure-like activity ([facility]/HCC) 03/27/2022 Assessment & Plan (10/31/2023 8:45 AM [...] Assessment & Plan (03/27/2022 5:58 PM EST): -[place] moisturization with emolients -Judicious use of topical [...] Plan (07/19/2022 12:42 PM EDT): Evaluated by Retail Pricing Coordinator in 06/2022, Dx with Fibromyalgia -Also evaluated [...] Encounters Date Type Department Care Team Description 2025 Orders Only [facility] External Provider, [facility] 02/03/[address] [phone] Yazmin Crowder MD No Show 01/31/[address] [phone] Yazmin Crowder MD chartprep 01/27/[address] [phone] Yazmin Crowder MD Nurse Triage 01/27/[address] [phone] Yazmin Crowder MD 12/16/[address] [phone] Yazmin Crowder MD chart prep from Last 3 Months Immunizations Immunization Administration Dates Next Due DTaP, 5 pertussis antigens 04/04/2001,,1996,06/27,1996 HPV 9-Valent 05/29/2014,10/18/2013,07/20/2012 Hep A, Adult 05/29/2014,10/18/2013 Hep B, Adolescent or Pediatric 1996,1996,1996 Hib ([facility]) 07/25/1997,199 7,1996,04/26 IPV 03/09/2000,199 7,1996,04/26 Influenza injectable quadriv alent preservative free 03/28/2022,12/17/2020,03/14/2020 Influenza, Injectable, MDCK, preservative free 11/10/2024 Influenza, seasonal, injecta ble, preservative free 01/23/2024 MMR 03/09/2000,02/27/1997 Meningococcal MCV4P ACYW-135 02/16/2009 Moderna Covid-19 Vaccine 12+ 07/31/2020,07/11/19 21 Moderna Covid-19 Vaccine 6+ Bivalent 03/28/2022 Pfizer Covid-19 Vaccine 12+ 01/23/2024,1 04/17/2020,08/01/2020,07/11 Tdap [...] 84 05/20/2024 3:41 PM EST Temperature 36 C (96.8 F) 05/20/2024 3:41 PM EST Respiratory Rate 21 05/20/2024 3:41 PM EST Oxygen Saturation 98% 02/16/2024 1:46 PM EST Inhaled Oxygen Concentration - - Weight 107 kg (234 lb 12.8 oz) 05/20/2024 3:41 P M EST Height 166.4 cm (5' 5.5 ) 11/13/2023 2:41 PM EDT Body Mass Index 38.48 11/13/2023 2:41 PM EDT Plan of Treatment Health Maintenance Due Date Last Done Comments Disability Screening 1995 HPV/Cotest 11/09/2024 Pap Smear 11/09/2024 11/09/2021, 10/25, 09/26/2019 Depression [...] 05/29/2014, 10/19/19 14 HIV Screening Completed 11/10/2023, 05/0 08/2020, 02/01/2018 Hepatitis C Screening Completed 11/10/2023, 021 Influenza Vaccine Completed 11/10/2024, , 03/28/2022, Additional history exists COVID-19 Vaccine Completed 12/29/2024, , 03/28/2022, Additional history exists Meningococcal B Vaccine Aged Out No l onger eligible based on patient's age to complete this topic Pneumococcal Vaccine: Pediatrics (0 to 5 Years) and At-Risk Patients (6 to 49) Years Aged Out No longer eligible based on patient's age to complete this topic RSV under 20 months Aged Out No longe r eligible based on patient's age to complete this topic Rotavirus Vaccines Aged Out No longer eligible based on patient's age to complete this topic Procedures Procedure Name Priority Date/Time Associated Diagnosis Comments XR ELBOW 3+ VIEWS LEFT Routine 2025 1:22 PM EST XR FOOT 3+ VIEWS LEFT Routine 2025 1:19 PM EST XR SHOULDER 2+ VIEWS RIGHT Routine 2025 1:18 PM EST XR HIP LEFT WITH PELVIS 1 VIEW Routine 2025 1:18 PM EST XR ANKLE 3+ VIEWS LEFT Routine 2025 1:16 PM EST HEPATITIS C AB W/REFL TO HCV [...] Relevant to Health Maintenance Results * XR Elbow 3+ Views Left (2025 1:22 PM EST) Anatomical Region Laterality Modality Upper Extremities, Elbow Left Radiogr aphic Imaging 2025 1:22 PM EST Narrative 2025 1:24 PM EST [address] [address] XRay Report Signed Patient: Divina Velez MR#: [id number] 397 : 1995 Acct:[id number] Age/Sex: 30 / F ADM Date: 02/22/25 Loc: HO.ED Attending Dr: Ordering Physician: Tracee Reyes Date of Service: 02/22/25 Procedure(s): XR elbow LT min 3V Accession Number(s): [id number] cc: Tracee Reyes; Yazmin Crowder MD Reason for Exam: slip and fall CLINICAL HISTORY: slip and fall 3 view left elbow Comparison: None provided Findings: No acute fractures. Normal alignment. Soft tissue edema is noted. No significant arthritic change or erosions. No joint effusion. No radiopaque foreign body. IMPRESSION: No acute bony abnormality. This document has been electronically signed by: Luciana Rao MD on 2025 13:22:26 Dictated By: Luciana Rao MD Signed By: <Electronically signed by Luciana Rao MD in OV> 02/22/25 1323 DD/ 1322 TD/TT: 02/22/25 1322 Receiver Stocker: Procedure Note Donotuseinterpreter, Image - [address] [address] XRay Report Signed Patient: Erika VelezR#: [id number] 397 : 1995Acct:[id number] Age/Sex: 30 / FADM Date: 02/22/25 Loc: HO.ED Attending Dr: Ordering Physician: Tracee Reyes Date of Service: 02/22/25 Procedure(s): XR elbow LT min 3V Accession Number(s): [id number] cc: Tracee Reyes; Yazmin Crowder MD Reason for Exam: slip and fall CLINICAL HISTORY: slip and fall 3 view left elbow Comparison: None provided Findings: No acute fractures. Normal alignment. Soft tissue edema is noted. No significant arthritic change or erosions. No joint effusion. No radiopaque foreign body. IMPRESSION: No acute bony abnormality. This document has been electronically signed by: Luciana Rao MD on 2025 13:22:26 Dictated By: Luciana Rao MD Signed By: <Electronically signed by Luciana Rao MD in OV> 02/22/25 1323 DD/ 1322 TD/TT: 02/22/25 132 Receiver Stocker: [facility] External Provider IMG XR PROCEDURES Final Result * XR Foot 3+ Views Left (2025 1:19 PM EST) Anatomical Region Laterality Modality Lower Extremities, Foot Left Radiogra phic Imaging 2025 1:19 PM EST Narrative 2025 1:20 PM EST [place] [address] XRay Report Signed Patient: Divina Velez MR#: [id number] 397 : 1995 Acct:[id number] Age/Sex: 30 / F ADM Date: 02/22/25 Loc: HO.ED Attending Dr: Ordering Physician: Tracee Reyes Date of Service: 02/22/25 Procedure(s): XR foot LT min 3V Accession Number(s): [id number] cc: Tracee Reyes; Yazmin Crowder MD Reason for Exam: slip and fall CLINICAL HISTORY: slip and fall 3 view left foot Comparison: None provided Findings: Bones intact. No dislocations. No significant arthritic change or erosions. No ankle effusion. No radiopaque foreign body. IMPRESSION: 1. No acute findings. This document has been electronically signed by: Luciana Rao MD on 2025 13:19:37 Dictated By: Luciana Rao MD Signed By: <Electronically signed by Luciana Rao MD in OV> 02/22/25 1320 DD/ 18 TD/TT: 02/22/251318 Receiver Stocker: Procedure Note Raquelter, Image - [address] [address] XRay Report Signed Patient: Erika VelezR#: [id number] 397 : 1995Acct:[id number] Age/Sex: Date: 02/22/25 Loc: HO.ED Attending Dr: Ordering Physician: Tracee Reyes Date of Service: 02/22/25 Procedure(s): XR foot LT min 3V Accession Number(s): [id number] cc: Tracee Reyes; Yazmin Crowder MD Reason for Exam: slip and fall CLINICAL HISTORY: slip and fall 3 view left foot Comparison: None provided Findings: Bones intact. No dislocations. No significant arthritic change or erosions. No ankle effusion. No radiopaque foreign body. IMPRESSION: 1. No acute findings. This document has been electronically signed by: Luciana Rao MD on 2025 13:19:37 Dictated By: Luciana Rao MD Signed By: <Electronically signed by Luciana Rao MD in OV> 02/22/25 1320 DD/ 18 TD/TT: 02/22/251318 Receiver Stocker: us [facility] External Provider IMG XR PROCEDURES Final Result * XR Hip left with Pelvis 1 view (2025 1:18 PM EST) Anatomical Region Laterality Modality Lower Extremities, Hip Bilateral Radiograp hic Imaging 2025 1:18 PM EST Narrative 2025 1:19 PM EST [address] [address] XRay Report Signed Patient: Divina Velez MR#: [id number] 397 : 1995 Acct:[id number] Age/Sex: 30 / F ADM Date: 02/22/25 Loc: HO.ED Attending Dr: Ordering Physician: Tracee Reyes Date of Service: 02/22/25 Procedure(s): XR hip LT w PEL1V Accession Number(s): [id number] cc: Tracee Reyes; Yazmin Crowder MD Reason for Exam: slip and fall CLINICAL HISTORY: slip and fall 3 view, pelvis and left hip Comparison: None provided Findings: The bones are intact. No significant arthritic change of the hips. The soft tissues are unremarkable. IMPRESSION: No acute findings. This document has been electronically signed by: Luciana Rao MD on 2025 13:18:09 Dictated By: Luciana Rao MD Signed By: <Electronically signed by Luciana Rao MD in OV> 02/22/25 1319 DD/ 1318 TD/TT: 02/22/25 131 Receiver Stocker: Procedure Note Donotuseinterpreter, Image - 2025 [place] [address] XRay Report Signed Patient: Lorie Velez#: [id number] 397 : 1995Acct:[id number] Age/Sex: 30 / FADM Date: 02/22/25 Loc: HO.ED Attending Dr: Ordering Physician: Tracee Reyes Date of Service: 02/22/25 Procedure(s): XR hip LT w PEL1V Accession Number(s): [id number] cc: Tracee Reyes; Yazmin Crowder MD Reason for Exam: slip and fall CLINICAL HISTORY: slip and fall 3 view, pelvis and left hip Comparison: None provided Findings: The bones are intact. No significant arthritic change of the hips. The soft tissues are unremarkable. IMPRESSION: No acute findings. This document has been electronically signed by: Luciana Rao MD on 2025 13:18:09 Dictated By: Luciana Rao MD Signed By: <Electronically signed by Luciana Rao MD in OV> 02/22/25 1319 DD/ 1318 TD/TT: 02/22/251317 Receiver Stocker: us [facility] External Provider IMG XR PROCEDURES Final Result * XR Shoulder 2+ Views Right (2025 1:18 PM EST) Anatomical Region Laterality Modality Upper Extremities, Shoulder Right Radi ographic Imaging 2025 1:18 PM EST Narrative 2025 1:20 PM EST [address] [address] XRay Report Signed Patient: Divina Velez MR#: [id number] 397 : 1995 Acct:[id number] Age/Sex: 30 / F ADM Date: 02/22/25 Loc: HO.ED Attending Dr: Ordering Physician: Tracee Reyes Date of Service: 02/22/25 Procedure(s): XR shoulder RT min 2V Accession Number(s): [id number] cc: Tracee Reyes; Yazmin Crowder MD Reason for Exam: slip and fall CLINICAL HISTORY: slip and fall 3 view right shoulder Comparison: None provided Findings: Bones intact. No dislocations. No significant loss of joint space or osteophytes. No erosions. No radiopaque foreign body. IMPRESSION: 1. No acute findings This document has been electronically signed by: Luciana Rao MD on 2025 13:18:57 Dictated By: Luciana Rao MD Signed By: <Electronically signed by Luciana Rao MD in OV> 02/22/25 1320 DD/ 1318 TD/TT: 02/22/251317 Receiver Stocker: Procedure Note Donotuseinterpreter, Image - [address] [address] XRay Report Signed Patient: Erika VelezR#: [id number] 397 : 1995Acct:[id number] Age/Sex: 30 / FADM Date: 02/22/25 Loc: HO.ED Attending Dr: Ordering Physician: Tracee Reyes Date of Service: 02/22/25 Procedure(s): XR shoulder RT min 2V Accession Number(s): [id number] cc: Tracee Reyes; Yazmin Crowder MD Reason for Exam: slip and fall CLINICAL HISTORY: slip and fall 3 view right shoulder Comparison: None provided Findings: Bones intact. No dislocations. No significant loss of joint space or osteophytes. No erosions. No radiopaque foreign body. IMPRESSION: 1. No acute findings This document has been electronically signed by: Luciana Rao MD on 2025 13:18:57 Dictated By: Luciana Rao MD Signed By: <Electronically signed by Luciana Rao MD in OV> 02/22/25 1320 DD/ 1318 TD/TT: 02/22/25 1318 Receiver Stocker: [facility] External Provider IMG XR PROCEDURES Final Result * XR Ankle 3+ Views Left (2025 1:16 PM EST) Anatomical Region Laterality Modality Lower Extremities, Ankle Left Radiogr aphic Imaging 2025 1:16 PM EST Narrative 2025 1:18 PM EST [place] [address] XRay Report Signed Patient: Divina Velez MR#: [id number] 397 : 1995 Acct:[id number] Age/Sex: 30 / F ADM Date: 02/22/25 Loc: HO.ED Attending Dr: Ordering Physician: Tracee Reyes Date of Service: 02/22/25 Procedure(s): XR ankle LT min 3V Accession Number(s): [id number] cc: Tracee Reyes; Yazmin Crowder MD Reason for Exam: slip and fall CLINICAL HISTORY: slip and fall 3 view left ankle Comparison: None provided Findings: Bones intact. No dislocations. No significant arthritic change or erosions. No ankle effusion. No radiopaque foreign body. IMPRESSION: 1. No acute findings. This document has been electronically signed by: Luciana Rao MD on 2025 13:16:45 Dictated By: Luciana Rao MD Signed By: <Electronically signed by Luciana Rao MD in OV> 02/22/251316 DD/ 15 TD/TT: 02/22/251315 Receiver Stocker: Procedure Note Donotuseinterpreter, Image - [address] [address] XRay Report Signed Patient: Lorie Velez#: [id number] 397 : 1995Acct:[id number] Age/Sex: Date: 02/22/25 Loc: .ED Attending Dr: Ordering Physician: Tracee Reyes Date of Service: 02/22/25 Procedure(s): XR ankle LT min 3V Accession Number(s): [id number] cc: Tracee Reyes; Yazmin Crowder MD Reason for Exam: slip and fall CLINICAL HISTORY: slip and fall 3 view left ankle Comparison: None provided Findings: Bones intact. No dislocations. No significant arthritic change or erosions. No ankle effusion. No radiopaque foreign body. IMPRESSION: 1. No acute findings. This document has been electronically signed by: Luciana Rao MD on 2025 13:16:45 Dictated By: Luciana Rao MD Signed By: <Electronically signed by Luciana Rao MD in OV> 02/22/251316 DD/ 15 TD/TT: 02/22/251315 Receiver Stocker: [facility] External Provider IMG XR PROCEDURES Final Result * (ABNORMAL) Lipid Panel with Reflex to Direct LDL (11/10/2023 10:09 AM EDT) Triglycerides 111 <150 mg/dL [facility] Comment:Desirable Triglyceri de: less than 150 mg/dLBorderline High Triglyceride 150-199 mg/dLHigh Triglyceride: 200-499 mg/dLVery High Triglyceride: greater than or equal to 5OO mg/dL Cholesterol 185 <200 mg/dL [facility] Comment:Desirable Cholestero l: less than 200 mg/dLBorderline High Cholesterol: 200-239 mg/dLHigh Cholesterol: greater than 239 mg/dL LDL Cholesterol Calculated 114(H) <100 mg/dL [facility] Comment:Desirable LDL: less than 100 mg/dLNear Optimal/Above Optimal LDL: 110- 129 mg/dLBorderline High LDL: 130-159 mg/dLHigh LDL: 160-189 mg/dLVery High LDL: greater than or equal to 190 mg/dL HDL Cholesterol 49 >40 mg/dL [facility] Comment:Desirable HDL: great er than 40 mg/dL Note: This HDL assay may give artificially low results in patients with liver disease. Blood 11/10/2023 10:0 9 AM EDT 11/10/2023 1:24 PM EDT Yazmin Crowder MD LAB BLOOD ORDERABLES Final Resul t Performing Organization Address [facility] Co de Phone Number [facility] [address] [place] [phone] * Hepatitis C Antibody with Reflex to HCV, RNA, Quantitative, Real-Time PCR (11/10/2023 10:09 AM EDT) Hepatitis C Antibody Nonreactive Nonreactive [facility] Comment:Antibodies to HCV no t detected; does not exclude early acuteHCV infection. Blood Venous blood specimen / Unknown 11/10/2023 10:09 AM EDT 11/10/2023 1:24 PM EDT Yazmin Crowder MD LAB BLOOD ORDERABLES Final Resul t Performing Organization Address City/[facility]/ZIP Co de Phone Number [facility] [address] [place] [phone] * HIV-1/2 Antigen and Antibodies, Fourth Generation, with Reflexes (11/10/2023 10:09 AM EDT) HIV AB/AG Nonreactive Nonreactive [facility] Comment:HIV-1 p24 Ag and/or HIV-1/HIV-2 Ab not detected.A test result that is nonreactive does not exclude thepossibility of exposure to or infection with HIV-1 and/orHIV-2. Nonreactive results in this assay for individualswith prior exposure to HIV-1 and/or HIV-2 may be due toantigen and antibody levels that are below the limit ofdetection of this assay.The [place] HIV Ag/Ab Combo assay result andsupplemental assay results should be interpreted inconjunction with the patient's clinical presentation,history and other laboratory results. If the results areinconsistent with clinical evidence, additional testing issuggested to confirm the result. Blood Venous blood specimen / Unknown 11/10/2023 10:09 AM EDT 11/10/2023 1:24 PM EDT Yazmin Crowder MD LAB BLOOD ORDERABLES Final Resul t [facility] [address] [place] [address] [phone] * Pap Smear (11/09/2021) Historical Provider HEALTH MAINTENANCE Final Result from Last 3 Months or Most Recently Relevant to Health Maintenance Insurance [facility] C3 Care Teams Wrapper Stitcher Relationship Specialty Start Date End Date Yazmin Crowder MD [address] [place] [phone] PCP - General Family Medicine 03/06/20
--- OUTSIDE RECORDS SUMMARY | 2025-02-22 17:56 | XMS_ITS | Encounter Summary ---
Author Organization [employer] Address [address] [place] [address] [address] [place] [address] Care Team Providers Care Design Engineering Specialist Name Role Phone Yazmin Crowder MD Primary Care Provider [phone] Reason for Referral * Imaging (Routine) - Closed Specialty Diagnoses / Procedures Referred By Contfrederic matute Referred To Contact Radiology Diagnoses Recurrent UTI Procedures US RENAL BI Yazmin Crowder MD [address] [place] [address] Phone: tel: fax: [address] [phone] Phone: tel: fax: Referral ID Status Reason Start Date Expiration Date Visits Re quested Visits Authorized [id number] Closed 02/02/2024 02/01/2025 1 1 Encounter Details Date Type Department Care Team (Late st Contact Info) Description 02/02/2024 Orders Only [facility] [address] [place], [place] [phone] Yazmin Crowder MD [address] [place], [place] [phone] Recurrent UTI (Primary Dx) Social History Tobacco [...] AM EST Narrative 05/08/2024 7:42 AM EST [address] [address] Ultrasound Report Signed Patient: Divina Velez MR#: [id number] 397 : 1995 Acct:[id number] Age/Sex: 29 / F ADM Date: 05/06/24 Loc: HO.US Attending Dr: Yazmin Crowder MD Ordering Physician: Yazmin Crowder MD Date of Service: 05/06/24 Procedure(s): US renal BI Accession Number(s): [id number] cc: Yazmin Crowder MD CLINICAL HISTORY: recurrent [...] OV> 05/08/24 0742 DD/ 0 TD/TT: 05/08/24740 Saw Maker: Procedure Note Donotuseinterpreter, Image - 05/08/2024 [place] [address] Ultrasound Report Signed Patient: Lorie Velez#: [id number] 397 : 1995Acct:[id number] Age/Sex: 29 / FADM Date: 05/06/24 Loc: .US Attending Dr: Yazmin Crowder MD Ordering Physician: Yazmin Crowder MD Date of Service: 05/06/24 Procedure(s): US renal BI Accession Number(s): [id number] cc: Yazmin Crowder MD CLINICAL HISTORY: recurrent [...] Tapia MD in OV> 05/08/24 0742 DD/ TD/TT: 05/08/24740 Saw Maker: Yazmin Crowder MD [facility] PROCEDURES Final Result documented in this encounter Visit Diagnoses Diagnosis Recurrent UTI- Primary Urinary tract infection, site not specified documented in this encounter Additional Health Concerns Assessment Noted Time PHQ-9 Depression Total Score: 4 01/23/20 24 4:29 PM EDT documented as of this encounter Care Teams Design Engineering Specialist Relationship Specialty Start Date End Date Yazmin Crowder MD [address] [place] [address] PCP - General Family Medicine 03/06/20 documented as of this encounter
--- OUTSIDE RECORDS SUMMARY | 2025-02-22 17:56 | XMS_ITS | Encounter Summary ---
Author Organization [employer] Address [address] [place] [address] 7[place] [address] Care Team Providers Care Mathematical Engineer Name Role Phone Yazmin Crowder MD Primary Care Provider [phone] Encounter Details Date Type Department Care Team (Late st Contact Info) Description 12/20/2022 Orders Only [facility] MEDICINE 230 [place], [place] [phone] Provider, MD Radha Social History Tobacco Use [...] on filedocumented in this encounter Care Teams Mathematical Engineer Relationship Specialty Start Date End Date Yazmin Crowder MD 230 [place], [place] [phone] PCP - General Family Medicine 03/06/20 documented as of this encounter
--- OUTSIDE RECORDS SUMMARY | 2025-02-22 17:56 | XMS_ITS | Encounter Summary ---
Author Organization [employer] Address [address] [facility] 7t [place] [address] Care Team Providers Care Patternmaker Grader Name Role Phone Yazmin Crowder MD Primary Care Provider [phone] Reason for Visit * Reason Comments Med Change Request Encounter Details Date Type Department Care Team ([facility] Contact Info) Description 04/04/2024 Refill [facility] MEDICINE 230 [place], [place] [phone] Yazmin Crowder MD 230 [place], [place] [phone] Social History Tobacco Use Types Packs/Day Years [...] documented as of this encounter Care Teams Patternmaker Grader Relationship Specialty Start Date End Date Yazmin Crowder MD 230 [place] [address] PCP - General Family Medicine 03/06/20 documented as of this encounter
--- OUTSIDE RECORDS SUMMARY | 2025-02-22 17:56 | XMS_ITS | Encounter Summary ---
Author Organization [employer] Address [address] [facility] 7t [place] [address] Care Team Providers Care Strategic Partner Development Manager Name Role Phone Yazmin Crowder MD Primary Care Provider [phone] Encounter Details Date Type Department Care Team (Late st Contact Info) Description 10/31/2023 Orders Only [facility] MEDICINE 230 [place], [place] [phone] Yazmin Crowder MD 230 [place], [place] [phone] Acute cystitis without hematuria (Primary Dx); Low [...] Answer Date of Assessment Author Patient Health Questionnaire -2 Score 5 11/02/2023 10:40 AM Lin Deutsch MA * How difficult have these problems made it for you to do your work, take care of things at home, or get along with other people? Answer Date of Assessment Author Very difficult 11/02/2023 10:40 AM Sherita Deutsch MA * Over the last 2 weeks, how often have you been bothered by any of the following problems? Question Answer Date of Assessment Author Feeling nervous, anxious, or on edge 3 11/02/2023 10:41 AM Lin Deutsch MA Not being able to stop or control worrying 3 11/02/2023 10:41 AM Lin Deutsch MA Worrying too much about different things 3 11/02/2023 10:41 AM Lin Deutsch MA Trouble relaxing 3 11/02/2023 10:41 AM Sherita Deutsch MA Being so restless that it is hard to sit still 3 11/02/2023 10:41 AM Lin Deutsch MA Becoming easily annoyed or irritable 3 11/02/2023 10:41 AM Lin Deutsch MA Feeling afraid as if somethi ng awful might happen 3 11/02/2023 10:41 AM Lin Deutsch MA CARLOS-7 Total Score 21 11/02/2023 10:41 AM Sherita Deutsch MA * Over the past 2 weeks, how often have you been bothered by any of the following problems? Question Answer Date of Assessment Author Little interest or pleasure in doing things More than half the days 11/02/2023 10:40 AM Sherita Deutsch MA Feeling down, depressed, or hopeless Nearly every day 11/02/2023 10:40 AM Sherita Deutsch MA Trouble falling or staying asleep, or sleeping too much Nearly every day 11/02/2023 10:40 AM Sherita Deutsch MA Feeling tired or having little energy Nearly every day 11/02/2023 10:40 AM Sherita Deutsch [place] Poor appetite or overeating Nearly every day 11/02/2023 10:40 AM Sherita Deutsch MA Feeling bad about yourself - or that you are a failure or have let yourself or your family down More than half the days 11/02/2023 10:40 AM Sheriat Deutsch MA Trouble concentrating on things, such as reading the newspaper or watching television Nearly every day 11/02/2023 10:40 AM Sherita Deutsch MA Moving or speaking so slowly that other people could have noticed? Or the opposite - being so fidgety or restless that you have been moving around a lot more than usual. Nearly every day 11/02/2023 10:40 AM Sherita Deutsch MA Thoughts that you would be better off or hurting yourself in some way Several days 11/02/2023 10:40 AM Sherita Deutsch MA Patient Health Questionnaire-9 Score 23 11/02/2023 10:40 AM Sherita Deutsch MA documented as of this encounter Plan of Treatment Not on file documented as of this encounter Procedures Procedure Name Priority Date/Time Associated Diagnosis Comments TSH Routine 11/13/2023 3:20 PM EDT Low TSH level T4, FREE Routine 11/13/2023 3:20 PM EDT Low TSH level documented in this encounter Results * TSH (11/13/2023 3:20 PM EDT) Thyroid Stimulating Hormone 1.53 0.32 - 4.0 uIU/mL [facility] Comment:TSH 3rd Generation ( [facility]) Blood Venous blood specimen / Unknown 11/13/2023 3:20 PM EDT 11/13/2023 3:52 PM EDT us Yazmin Crowder MD LAB BLOOD ORDERABLES Final Resul t Performing Organization Address City/[facility] Co de Phone Number [facility] [address] [place] [phone] * T4, Free (11/13/2023 3:20 PM EDT) Free T4 (Free Thyroxine) 0.75 0.71 - 1.85 ng/dL [facility] Blood Venous blood specimen / Unknown 11/13/2023 3:20 PM EDT 11/13/2023 3:52 PM EDT us Yazmin Crowder MD LAB BLOOD ORDERABLES Final Resul t Performing Organization Address [facility] Co de Phone Number [facility] [address] [place] [phone] documented in this encounter Visit Diagnoses Diagnosis Acute cystitis without hematuria- Primary Low TSH level documented in this encounter Additional Health Concerns Assessment Noted Time PHQ-9 Depression Total Score: 25 024 5:10 PM EDT documented as of this encounter Care Teams Strategic Partner Development Manager Relationship Specialty Start Date End Date Yazmin Crowder MD [address] [place] [address] PCP - General Family Medicine 03/06/20 documented as of this encounter
--- OUTSIDE RECORDS SUMMARY | 2025-02-22 17:56 | XMS_ITS | Encounter Summary ---
Author Organization [employer] Address [address] [facility] 7t [place] [address] Care Team Providers Care Diamond Sizer Name Role Phone Yazmin Crowder MD Primary Care Provider Encounter Details Date Type Department Care Team (Late st Contact Info) Description 01/31/2024 Orders Only [facility] MEDICINE 230 [place], [place] [phone] Yazmin Crowder MD 230 [place], [place] [phone] Social History Tobacco Use Types Packs/Day Years [...] documented as of this encounter Care Teams Diamond Sizer Relationship Specialty Start Date End Date Yazmin Crowder MD [address] [place] [phone] PCP - General Family Medicine 03/06/20 documented as of this encounter
--- OUTSIDE RECORDS SUMMARY | 2025-02-22 17:56 | XMS_ITS | Encounter Summary ---
Author Organization [employer] Address [address] [place] [address] [place] [address] Care Team Providers Care Engineering Systems Analyst Name Role Phone Yazmin Crowder MD Primary Care Provider [phone] Reason for Referral * Consultation (Routine) - Closed Specialty Diagnoses / Procedures Referred By Emiliano t Referred To Contact Physical Therapy Diagnoses Patellofemoral syndrome of both knees Chronic pain of right ankle Chronic pain of right knee Yazmin Crowder MD 230 [place] [address] Phone: tel: fax: [facility] Physical Therapy [address] [place] [address] Phone: tel: fax: Referral ID Status Reason Start Date Expiration Date V isits Requested Visits Authorized [id number] Closed Specialty Services Required 06/25/2024 06/25/2025 20 20 * Consultation (Routine) - Closed Specialty Diagnoses / Procedures Referred By Contac t Referred To Contact Occupational Therapy Diagnoses Right wrist pain Yazmin Crowder MD [address] [place] [address] Phone: tel: fax: [facility] Physical Therapy [address] [place] [address] Phone: tel: fax: Referral ID Status Reason Start Date Expiration Date V isits Requested Visits Authorized [id number] Closed Specialty Services Required 06/25/2024 06/25/2025 20 20 Encounter Details Date Type Department Care Team (Late st Contact Info) Description 06/24/2024 Orders Only [facility] MEDICINE 230 [facility] [place] [address] Yazmin Crowder MD 230 [place] [address] Right wrist pain (Primary Dx); Patellofemoral syndrome [...] documented as of this encounter Care Teams Engineering Systems Analyst Relationship Specialty Start Date End Date Yazmin Crowder MD [address] [place] [address] PCP - General Family Medicine 03/06/20 documented as of this encounter
--- OUTSIDE RECORDS SUMMARY | 2025-02-22 17:56 | XMS_ITS | Encounter Summary ---
Author Organization [employer] Address [address] [place] [address] 7t [place] [address] Care Team Providers Care Display Manager Name Role Phone Yazmin Crowder MD Primary Care Provider Encounter Details Date Type Department Care Team ([facility] st Contact Info) Description 04/13/2022 Orders Only [facility] MEDICINE [address] [place] [phone] Yazmin Crowder MD 230 [place], [place] [phone] Rash (Primary Dx); Xerosis of skin Social [...] skin documented in this encounter Care Teams Display Manager Relationship Specialty Start Date End Date Yazmin Crowder MD 230 [place], [place] [phone] PCP - General Family Medicine 03/06/20 documented as of this encounter
--- OUTSIDE RECORDS SUMMARY | 2025-02-22 17:56 | XMS_ITS | Encounter Summary ---
Author Organization [employer] Address [address] [facility] 7t [place] [address] Care Team Providers Care Speech/Language Therapist Name Role Phone Yazmin Crowder MD Primary Care Provider [phone] Encounter Details Date Type Department Care Team (Late st Contact Info) Description 01/26/2024 Orders Only [facility] MEDICINE 230 [place], [place] [phone] Yazmin Crowder MD 230 [place], [place] [phone] Social History Tobacco Use Types Packs/Day Years [...] documented as of this encounter Care Teams Speech/Language Therapist Relationship Specialty Start Date End Date Yazmin Crowder MD [address] [place] [address] PCP - General Family Medicine 03/06/20 documented as of this encounter
--- OUTSIDE RECORDS SUMMARY | 2025-02-22 17:56 | XMS_ITS | Encounter Summary ---
Author Organization [employer] Address [address] [facility] 7t [place] [address] Care Team Providers Care Legal Cashier Name Role Phone Yazmin Crowder MD Primary Care Provider [phone] Encounter Details Date Type Department Care Team (Late st Contact Info) Description 09/26/[address] [facility] MEDICINE 230 [place], [place] [phone] Yazmin Crowder MD 230 [place], [place] [phone] Social History Tobacco Use Types Packs/Day Years [...] documented as of this encounter Care Teams Legal Cashier Relationship Specialty Start Date End Date Yazmin Crowder MD [address] [place] [phone] PCP - General Family Medicine 03/06/20 documented as of this encounter
--- OUTSIDE RECORDS SUMMARY | 2025-02-22 17:56 | XMS_ITS | Encounter Summary ---
Author Organization [employer] Address [address] [facility] 7t [place] [address] Care Team Providers Care Access Services Representative Name Role Phone Yazmin Crowder MD Primary Care Provider [phone] Encounter Details Date Type Department Care Team (Late st Contact Info) Description 01/27/2025 Telephone [facility] MEDICINE 230 [place], [place] [phone] Yazmin Crowder MD 230 [place], [place] [phone] Social History Tobacco Use Types Packs/Day Years [...] documented as of this encounter Care Teams Access Services Representative Relationship Specialty Start Date End Date Yazmin Crowder MD [address] [place] [phone] PCP - General Family Medicine 03/06/20 documented as of this encounter
--- OUTSIDE RECORDS SUMMARY | 2025-02-22 17:56 | XMS_ITS | Encounter Summary ---
Author Organization [employer] Address [address] [place] [address] 7[place] [address] Care Team Providers Care Regional Account Director Name Role Phone Yazmin Crowder MD Primary Care Provider [phone] Encounter Details Date Type Department Care Team (Late st Contact Info) Description 03/24/2022 Abstract [facility] MEDICINE 230 [place], [place] [phone] Yazmin Crowder MD 230 [place], [place] [phone] Social History Tobacco Use Types Packs/Day Years [...] on filedocumented in this encounter Care Teams Regional Account Director Relationship Specialty Start Date End Date Yamzin Crowder MD 230 [place] [address] PCP - General Family Medicine 03/06/20 documented as of this encounter
--- OUTSIDE RECORDS SUMMARY | 2025-02-22 17:56 | XMS_ITS | Encounter Summary ---
Author Organization [employer] Address [address] [facility] 7t [place] [address] Care Team Providers Care Weld Technician Name Role Phone Yazmin Crowder MD Primary Care Provider [phone] Encounter Details Date Type Department Care Team (Late st Contact Info) Description 2025 Orders Only [facility] External Provider, [facility] Social History Tobacco Use Types Packs/Day Years [...] LEFT Routine 2025 1:19 PM EST XR HIP LEFT WITH PELVIS 1 VIEW Routine 2025 1:18 PM EST XR SHOULDER 2+ VIEWS RIGHT Routine 2025 1:18 PM EST XR ANKLE 3+ VIEWS LEFT Routine 2025 1:16 PM EST documented in this encounter Results * XR Elbow 3+ Views Left (2025 1:22 PM EST) Anatomical Region Laterality Modality Upper Extremities, Elbow Left Radiogr aphic Imaging 2025 1:22 PM EST Narrative 2025 1:24 PM EST [address] [address] XRay Report Signed Patient: Divina Velez MR#: [id number] 397 : 1995 Acct:[id number] Age/Sex: 30 / F ADM Date: 02/22/25 Loc: HO.ED Attending Dr: Ordering Physician: Tracee Reyes Date of Service: 02/22/25 Procedure(s): XR elbow LT min 3V Accession Number(s): [id number] cc: Tracee Reyes; Yazmin Crowder MD Reason [...] in OV> 02/22/25 1323 DD/ 1322 TD/TT: 02/22/251321 Technical Intern: Procedure Note Donotuseinterpreter, Image - 2025 [place] [address] XRay Report Signed Patient: Lorie Velez#: [id number] 397 : 1995Acct:[id number] Age/Sex: Date: 02/22/25 Loc: .ED Attending Dr: Ordering Physician: Tracee Reyes Date of Service: 02/22/25 Procedure(s): XR elbow LT min 3V Accession Number(s): [id number] cc: Tracee Reyes; Yazmin Crowder MD Reason [...] Rao MD in OV> 02/22/25 1323 DD/ 132 TD/TT: 02/22/251321 Technical Intern: [facility] External Provider IMG XR PROCEDURES Final Result * XR Foot 3+ Views Left (2025 1:19 PM EST) Anatomical Region Laterality Modality Lower Extremities, Foot Left Radiogra phic Imaging 2025 1:19 PM EST Narrative 2025 1:20 PM EST [address] [address] XRay Report Signed Patient: Divina Velez MR#: [id number] 397 : 1995 Acct:[id number] Age/Sex: 30 / F ADM Date: 02/22/25 Loc: HO.ED Attending Dr: Ordering Physician: Tracee Reyes Date of Service: 02/22/25 Procedure(s): XR foot LT min 3V Accession Number(s): [id number] cc: Tracee Reyes; Yazmin Crowder MD Reason [...] Rao MD in OV> 02/22/25 1320 DD/ 1319 TD/TT: 02/22/25 1319 Technical Intern: Procedure Note Donotuseinterpreter, Image - [address] [address] XRay Report Signed Patient: Erika VelezR#: [id number] 397 : 1995Acct:[id number] Age/Sex: 30 / FADM Date: 02/22/25 Loc: HO.ED Attending Dr: Ordering Physician: Tracee Reyes Date of Service: 02/22/25 Procedure(s): XR foot LT min 3V Accession Number(s): [id number] cc: Tracee Reyes; Yazmin Crowder MD Reason [...] Rao MD in OV> 02/22/25 1320 DD/ 131 TD/TT: 02/22/25 131 Technical Intern: [facility] External Provider IMG XR PROCEDURES Final Result * XR Shoulder 2+ Views Right (2025 1:18 PM EST) Anatomical Region Laterality Modality Upper Extremities, Shoulder Right Radi ographic Imaging 2025 1:18 PM EST Narrative 2025 1:20 PM EST [place] [address] XRay Report Signed Patient: Divina Velez MR#: [id number] 397 : 1995 Acct:[id number] Age/Sex: 30 / F ADM Date: 02/22/25 Loc: .ED Attending Dr: Ordering Physician: Tracee Reyes Date of Service: 02/22/25 Procedure(s): XR shoulder RT min 2V Accession Number(s): [id number] cc: Tracee Reyes; Yazmin Crowder MD Reason [...] 02/22/25 1320 DD/ 1318 TD/TT: 02/22/25 1318 Technical Intern: Procedure Note Donotuseinterpreter, Image - [address] [address] XRay Report Signed Patient: Erika VelezR#: [id number] 397 : 1995Acct:[id number] Age/Sex: 30 / FADM Date: 02/22/25 Loc: HO.ED Attending Dr: Ordering Physician: Tracee Reyes Date of Service: 02/22/25 Procedure(s): XR shoulder RT min 2V Accession Number(s): [id number] cc: Tracee Reyes; Yazmin Crowder MD Reason [...] 02/22/25 1320 DD/ 1318 TD/TT: 02/22/25 1318 Technical Intern: [facility] External Provider IMG XR PROCEDURES Final Result * XR Hip left with Pelvis 1 view (2025 1:18 PM EST) Anatomical Region Laterality Modality Lower Extremities, Hip Bilateral Radiograp hic Imaging 2025 1:18 PM EST Narrative 2025 1:19 PM EST [address] [address] XRay Report Signed Patient: Divina Velez MR#: [id number] 397 : 1995 Acct:[id number] Age/Sex: 30 / F ADM Date: 02/22/25 Loc: HO.ED Attending Dr: Ordering Physician: Tracee Reyes Date of Service: 02/22/25 Procedure(s): XR hip LT w PEL1V Accession Number(s): [id number] cc: Tracee Reyes; Yazmin Crowder MD Reason [...] signed by Luciana Rao MD in OV> 02/22/251318 DD/ 17 TD/TT: 02/22/251317 Technical Intern: Procedure Note Donotuseinterpreter, Image - 2025 [place] [address] XRay Report Signed Patient: Lorie Velez#: [id number] 397 : 1995Acct:[id number] Age/Sex: Date: 02/22/25 Loc: .ED Attending Dr: Ordering Physician: Tracee Reyes Date of Service: 02/22/25 Procedure(s): XR hip LT w PEL1V Accession Number(s): [id number] cc: Tracee Reyes; Yazmin Crowder MD Reason [...] Rao MD in OV> 02/22/25 1319 DD/ TD/TT: 02/22/25 1318 Technical Intern: [facility] External Provider IMG XR PROCEDURES Final Result * XR Ankle 3+ Views Left (2025 1:16 PM EST) Anatomical Region Laterality Modality Lower Extremities, Ankle Left Radiogr aphic Imaging 2025 1:16 PM EST Narrative 2025 1:18 PM EST [address] [address] XRay Report Signed Patient: Divina Velez MR#: [id number] 397 : 1995 Acct:[id number] Age/Sex: 30 / F ADM Date: 02/22/25 Loc: HO.ED Attending Dr: Ordering Physician: Tracee Reyes Date of Service: 02/22/25 Procedure(s): XR ankle LT min 3V Accession Number(s): [id number] cc: Tracee Reyes; Yazmin Crowder MD Reason [...] signed by Luciana Rao MD in OV> 02/22/257 DD/ 1316 TD/TT: 02/22/251315 Technical Intern: Procedure Note Donotuseinterpreter, Image - [address] [address] XRay Report Signed Patient: Erika VelezR#: [id number] 397 : 1995Acct:[id number] Age/Sex: 30 / FADM Date: 02/22/25 Loc: HO.ED Attending Dr: Ordering Physician: Tracee Reyes Date of Service: 02/22/25 Procedure(s): XR ankle LT min 3V Accession Number(s): [id number] cc: Tracee Reyes; Yazmin Crowder MD Reason for Exam: slip and fall CLINICAL HISTORY: slip and fall 3 view left ankle Comparison: None provided Findings: Bones intact. No dislocations. No significant arthritic change or erosions. No ankle effusion. No radiopaque foreign body. IMPRESSION: 1. No acute findings. This document has been electronically signed by: Luciana Rao MD on 2025 13:16:45 Dictated By: Lucaina Rao MD Signed By: <Electronically signed by Luciana Roa MD in OV> 02/22/251316 DD/ 15 TD/TT: 02/22/251315 Technical Intern: [facility] External Provider IMG XR PROCEDURES Final Result documented in this encounter Visit Diagnoses Not on filedocumented in this encounter Additional Health Concerns Assessment Noted Time PHQ-9 Depression Total Score: 4 01/23/20 24 4:29 PM EDT documented as of this encounter Care Teams Weld Technician Relationship Specialty Start Date End Date Yazmin Crowder MD 230 [place] [address] PCP - General Family Medicine 03/06/20 documented as of this encounter
--- OUTSIDE RECORDS SUMMARY | 2025-02-22 17:56 | XMS_ITS | Encounter Summary ---
Author Organization [employer] Address 75 [facility] 7t [place] [address] Care Team Providers Care Criminalist Technician Name Role Phone Yazmin Crowder MD Primary Care Provider [phone] Encounter Details Date Type Department Care Team (Late st Contact Info) Description 05/30/2024 Orders Only [facility] MEDICINE 230 [place], [place] [phone] Yazmin Crowder MD 230 [place], [place] [phone] Social History Tobacco Use Types Packs/Day Years [...] documented as of this encounter Care Teams Criminalist Technician Relationship Specialty Start Date End Date Yazmin Crowder MD [address] [place] [address] PCP - General Family Medicine 03/06/20 documented as of this encounter
== END 2025-02-22 17:57 | disposition left against medical advice (07) ==
LOC: HO.ED 17:52
PROVIDERS: Emergency Provider Emergency Medicine; PCP Family Medicine
DX: S49.91XA Unspecified injury of right shoulder and upper arm, initial encounter (principal); S79.912A Unspecified injury of left hip, initial encounter; M79.672 Pain in left foot; M25.572 Pain in left ankle and joints of left foot; M25.522 Pain in left elbow; W17.81XA Fall down embankment (hill), initial encounter; Y93.9 Activity, unspecified; Y92.9 Unspecified place or not applicable; Y99.8 Other external cause status
CPT/HCPCS: 73030; 73080; 73502; 73610; 73630; 99281; 99283

== ENCOUNTER → 2025-02-22 11:50 | Outpatient (BNV) | payer MEDICAID, SELFPAY | PROVIDERS: PCP Family Medicine; Visit Provider Radiology Diagnostic Radiology | DX: Z04.3 Encounter for examination and observation following other accident (principal) | CPT/HCPCS: 73030; 73080; 73502; 73610; 73630 ==